=== PATIENT | female | born 1965 | race Caucasian/White ===

== ENCOUNTER 2019-09-16 18:18 | Inpatient (IN) | payer MEDICAID, MEDICARE, OTHER ==
[~2019-09-16 18:18] MED LIST: Iopamidol-370 76% 500 ML 1 ML ONE
[2019-09-16] MEDS ORDERED: Morphine 4 MG/ML VIAL ONE ×2 (21:03→22:06)
[2019-09-16] MEDS ORDERED: Ondansetron PF 4 MG/2 ML Vial ONE (21:03)
[2019-09-16 21:18] LABS: #Basophils 0.1 thou/uL (0.0-0.2); #Eosinphils 0.1 thou/uL (0.0-0.7); #Lymphocytes 2.6 thou/uL (1.20-3.40); #Monocytes 0.7 thou/uL (0.11-0.59); #Neutrophils 4.7 thou/uL (1.40-6.50); %Basophils 0.9 % (0.0-1.0); %Eosinophils 1.4 % (0.0-10.0); %Lymphocytes 32.2 % (21.0-51.0); %Neutrophils 57.5 % (42.0-75.0); Hemoglobin 9.3 g/dL (12.0-16.0); Mean Corpuscular HGB CONC 32.8 g/dL (32.0-36.0); Mean Corpuscular Hemoglobin 25.9 pg (27.0-31.0); Mean Corpuscular Volume 78.8 fL (78.0-98.0); Mean Platelet Volume 6.7 fL (7.4-10.4); Platelet Count 399 thou/uL (130-400); RBC Distribution Width 14.9 % (11.5-14.5); Red Blood Cell (RBC) Count 3.58 mill/uL (4.20-5.40); White Blood Cell (WBC) Count 8.2 thou/uL (4.8-10.8)
[2019-09-16 21:29] LABS: ALT (SGPT) 8 U/L (8-55); AST (SGOT) 12 U/L (5-34); Albumin 3.8 g/dL (3.5-5.0); Alkaline Phosphatase 163 U/L (40-110); Anion Gap 12 mmol/L (10-20); BUN (Urea Nitrogen) 10 mg/dL (9.8-20.1); Bilirubin, Total 0.2 mg/dL (0.2-1.2); Calc. Creatinine Clearance 0 mL/min (70-130); Calcium 9.3 mg/dL (7.8-10.44); Carbon Dioxide 29 mmol/L (22-29); Chloride 102 mmol/L (98-107); Estimated GFR-MDRD Greater than 90; Globulin 2.9 g/dL (2.4-3.5); Glucose 93 mg/dL (70-105); Potassium 3.5 mmol/L (3.5-5.1); Protein, Total 6.7 g/dL (6.0-8.3); Sodium 139 mmol/L (136-145)
--- NOTE | 2019-09-16 21:48 | CT ---
CT Chest Abd Pelvis W Con History: Pain Comparison: None. Findings: Lungs are without abnormal pulmonary nodule. Mild atelectasis. Thyroid is unremarkable. No pericardial effusion. Moderate-sized sliding hiatal hernia. Very large left breast mass with central necrosis with numerous satellite masses indicative of breast cancer. Abnormal left axillary lymph nodes. Spleen, pancreas, adrenal glands are unremarkable. No hydronephrosis. No dilated loops of large or small bowel. Liver is unremarkable. No internal mammary adenopathy. The scapula are intact. Osseous metastatic focus of the right fifth r ib with pathologic fracture. Healing fracture left posterior lateral ninth rib. The sternum and manubrium are intact. Lytic metastatic focus of the T5 vertebral body. Lytic and sclerotic mass of T12 with superior endplate compression fracture. Lytic and sclerotic focus of L1 with an incomplete burst fracture with retropulsion 2 to 3 mm. Sclero tic lesion of the left iliac wing. There is a left femoral neck fracture which appears late acute versus early subacute with sclerosis. There is also abnormal extrinsic is chronic focus right posteri or ilium. Impression: 1. Large left breast mass with multiple satellite nodules suggestive of breast cancer with metastatic left axillary lymph node. 2. Pathologic right fifth rib fracture. 3. Pathologic T12 and L1 fractures with the L1 fracture incomplete burst fracture with mild retropuls ion. 4. Left femoral neck fracture with some peripheral sclerosis likely late acute versus early subacute. 5. Metastatic focus of T5 vertebral body with low-grade superior endplate height loss. 6. T11 spinous process lytic metastatic focus. 7. Mixed sclerotic and lytic foci of the cervical spine for which MRI with without contrast recommend ed.
--- NOTE | 2019-09-16 22:59 | RAD ---
XR Femur Lt 2 View STANDARD History: Fracture evaluation Comparison: CT same day Findings: Left femoral neck fracture without significant displacement has some peripheral sclerosis. Remainder the femur is intact. Impression: Late acute versus early subacute left femoral neck fracture with early healing without si gnificant displacement.
--- NOTE | 2019-09-16 23:00 | RAD ---
XR Hip Lt 2-3 View History: Evaluate fracture Comparison: CT same day Findings: Similar appearance the left femoral neck fracture with some peripheral sclerosis. Fracture line is evident. Impression: No significant displacement of the healing late acute/early subacute left femoral neck fr acture.
[2019-09-17] MEDS ORDERED: Ketorolac Tromethamine 30 MG/ML VIAL ONE (00:20)
--- NOTE | 2019-09-17 00:53 | HP ---
The patient currently does not have a primary care physician. CHIEF COMPLAINT: Severe back pain and hurting in my leg and weakness in my legs. HISTORY OF PRESENT ILLNESS: Ms. Mosley is a very pleasant 54-year-old female, who had no significant past medical history with exception of bipolar disorder. She says that about 3-4 weeks ago, she started noticing pain in her lower back. She has had previous surgery and thought it could be related to this. She says she is very active and is usually outside of working in her yard, but the pain got progressively worse. She says she noticed some numbness and tingling in her left leg as well. She says that the pain would not improve after she has tried Aleve, Tylenol, heating pad, and rest. It kept getting worse to the point where she started having trouble walking. She would have weakness in her leg and would have to stumble along and hold on to things. She also noted some fever as well as chills, but no bowel or bladder difficulty. As a result of the worsening pain, she came to the ER for evaluation. X-ray of the femur and hip were done demonstrating pathological fracture and then a CT scan of the abdomen and pelvis was done noting a large breast mass, as well as a pathological rib fracture and multiple areas of what appears to be metastatic disease. She is being admitted for further evaluation and treatment. REVIEW OF SYSTEMS: CONSTITUTIONAL: She has had some fever, chills, but no night sweats. No weight loss. HEENT: No headaches. No dizziness. No visual changes. No sore throat, rhinorrhea, or neck pain. No adenopathy. PULMONARY: No hemoptysis. No cough. No wheezing. CARDIOVASCULAR: She had denies any chest pain. No shortness of breath. No PND. No orthopnea. GASTROINTESTINAL: No nausea, no vomiting. No change in bowels. No hematochezia. GENITOURINARY: No urinary frequency or hematuria. No hesitancy. MUSCULOSKELETAL: As history of present illness. SKIN AND INTEGUMENT: No skin changes. No rash. PSYCHIATRIC: No symptoms of anxiety or depression. PAST MEDICAL HISTORY: Significant for borderline diabetes mellitus and bipolar disorder. PAST SURGICAL HISTORY: She has had a hysterectomy surgery to remove her adenoids, back surgery, female surgery as well as hysterectomy with oophorectomy. SOCIAL HISTORY: She is a nonsmoker and nondrinker. She is single, has one son and would like to be a full code. ALLERGIES: NO KNOWN DRUG ALLERGIES. FAMILY HISTORY: Significant for a father, who had cancer and also hypertension. She says it was non-small cell, as well as small cell cancer. Mother also had cancer, as well as breast cancer in sister. Heart failure and diabetes also runs in the family. CURRENT MEDICATIONS: None. She says she stopped taking them a year ago. She had been on Remeron and Xanax for her bipolar disorder, as well as she says a seizure type medication for bipolar. PHYSICAL EXAMINATION: GENERAL: She is alert and oriented. She does appear to be chronically ill in appearance. She is well-developed and well-nourished. VITAL SIGNS: Blood pressure 137/80, heart rate 103, respiratory rate of 20, and she is afebrile. HEENT: Pupils are equal, round, and reactive. Extraocular muscles are intact. Her sclerae are anicteric. Throat; there is no erythema, no exudates. NECK: No adenopathy. No bruits. LUNGS: Clear to auscultation. There is no wheezing, no rales, no rhonchi. CARDIOVASCULAR: She has normal S1, S2. I did not appreciate an S3 or S4. No murmurs, clicks or rubs. ABDOMEN: Soft, nontender, and nondistended. Positive for bowel sounds. There is no rebound, no guarding. EXTREMITIES: She has a very large palpable mass on the left breast, which is extremely firm and hard in the upper outer quadrant and also a palpable axillary lymph node. No calf tenderness. No joint effusions. NEUROLOGIC: Exam is nonfocal. Muscle strength is 5/5 in both her upper and lower extremities. SKIN AND INTEGUMENT: No skin changes. No rash. LABORATORY DATA: Sodium is 139, potassium 3.5, chloride is 102, CO2 is 29, BUN of 10, creatinine 0.65, glucose is 93. White blood cell count is 8.2, hemoglobin 9.3, hematocrit is 28.2, and platelet count is 399. Sedimentation rate was 14. On her imaging, she had a CT scan of the chest, abdomen and pelvis, which revealed a large left breast mass with multiple satellite nodules suggestive of breast cancer with metastatic left axillary lymph node. There was a pathological fracture of the right rib, as well as pathologic T12 and L1 fractures with an L1 burst incomplete fracture. There is a left femoral neck fracture with some peripheral sclerosis, metastatic focus of the T5 vertebral body, T11 spinous process lytic metastatic focus, and mixed sclerotic and lytic foci of the cervical spine. EKG was performed, which was sinus tachycardia with no ST wave changes and that is by my reading. ASSESSMENT: This is a pleasant 54-year-old female, who appears to have advanced metastatic breast cancer. She also has what appears to be a pathological fracture of the left femur. She will be admitted and Orthopedic Surgery will be consulted. She has already been seen in the ER and the plan is to go to surgery tomorrow morning for repair of the femur fracture. I suspect at that time, a biopsy will be done to help determine what form of cancer this is. 1. Probable breast cancer. Oncology will be consulted and once pathology is available, can determine the best course of treatment. 2. She will need symptom control with pain medications and anti anxiety medication as needed. 3. Bipolar disorder. Currently, she is not suicidal or homicidal. She does not appear to be actively manic, but does have some depressive symptoms. We may be able to place her on her medications, possibly Tegretol was the medication she was referring to, but hopefully she can help obtain those records. Otherwise, she will be placed on deep venous thrombosis and gastrointestinal prophylaxis, and her condition is guarded at this time. Job ID: [id number]
[2019-09-17] MEDS ORDERED: Morphine 2 MG/ML SYRINGE SLOW IVP PRN (01:28)
[2019-09-17] MEDS ORDERED: hydrALAZINE 20 MG/ML VIAL SLOW IVP PRN (01:28)
[2019-09-17] MEDS ORDERED: Dextrose 50% Abboject 50 ML SYRINGE SLOW IVP PRN (01:28)
[2019-09-17] MEDS ORDERED: HYDROcodone/Acetaminophen 10/325 mg Tablet PO PRN (01:28)
[2019-09-17] MEDS ORDERED: HYDROcodone/Acetaminophen 5/325 mg Tablet PO PRN (01:28)
[2019-09-17] MEDS ORDERED: HumaLOG 300 UNITS/3 ML VIAL SC PRN ×2 (01:28)
[2019-09-17] MEDS ORDERED: Dextrose 5% in Water 1,000 ML IV PRN (01:28)
[2019-09-17] MEDS ORDERED: Ondansetron PF 4 MG/2 ML Vial IVP PRN ×2 (01:28→15:36)
[2019-09-17] MEDS: Morphine 4 MG/ML VIAL SLOW IVP PRN ×3 (01:51→10:28)
[2019-09-17 02:09] VITALS: BMI 26.6
[2019-09-17 04:31] LABS: #Basophils 0.1 thou/uL (0.0-0.2); #Eosinphils 0.1 thou/uL (0.0-0.7); #Lymphocytes 3.1 thou/uL (1.20-3.40); #Monocytes 0.6 thou/uL (0.11-0.59); #Neutrophils 2.8 thou/uL (1.40-6.50); %Eosinophils 2.1 % (0.0-10.0); %Lymphocytes 46.9 % (21.0-51.0); %Monocytes 8.3 % (0.0-10.0); %Neutrophils 41.7 % (42.0-75.0); Hemoglobin 8.8 g/dL (12.0-16.0); Mean Corpuscular HGB CONC 32.9 g/dL (32.0-36.0); Mean Corpuscular Hemoglobin 25.8 pg (27.0-31.0); Mean Corpuscular Volume 78.6 fL (78.0-98.0); Mean Platelet Volume 6.9 fL (7.4-10.4); Platelet Count 341 thou/uL (130-400); RBC Distribution Width 14.8 % (11.5-14.5); White Blood Cell (WBC) Count 6.6 thou/uL (4.8-10.8)
[2019-09-17 04:51] LABS: Anion Gap 11 mmol/L (10-20); BUN (Urea Nitrogen) 8 mg/dL (9.8-20.1); Calc. Creatinine Clearance 122 mL/min (70-130); Calcium 9.1 mg/dL (7.8-10.44); Carbon Dioxide 26 mmol/L (22-29); Chloride 105 mmol/L (98-107); Estimated GFR-MDRD Greater than 90; Glucose 88 mg/dL (70-105); Potassium 3.7 mmol/L (3.5-5.1); Sodium 138 mmol/L (136-145)
[2019-09-17] MEDS ORDERED: CEFAZOLIN 2 GM in Premix Bag 1 BAG IVPB SCH (07:15)
[2019-09-17] MEDS ORDERED: FLU VACC QS2019-20(6MOS UP)/PF 60 MCG/0.5 ML SYRINGE IM ONE (09:00)
--- NOTE | 2019-09-17 09:01 | CON ---
DATE OF CONSULTATION: CHIEF COMPLAINT: Left breast mass. HISTORY OF PRESENT ILLNESS: This is a 54-year-old female with a 6-month history of left breast mass that started lately. She has a family history of breast cancer in a paternal aunt, father of lymphoma. Last mammogram was over 2 years ago. PAST MEDICAL HISTORY: Back pain, bipolar, and hip pain. PAST SURGICAL HISTORY: Back surgery, total abdominal hysterectomy, tonsillectomy and adenoidectomy. MEDICATIONS: 1. Remeron. 2. Xanax. ALLERGIES: NO KNOWN DRUG ALLERGIES. SOCIAL HISTORY: She is single, disabled. No tobacco or alcohol. FAMILY HISTORY: Hypertension and diabetes. PHYSICAL EXAMINATION: VITAL SIGNS: Temperature 97.6, pulse 95, and blood pressure 108/58. GENERAL: Thin female, in a back brace. HEENT: Unremarkable. LUNGS: Clear. HEART: Regular rate and rhythm. BREASTS: She has a 6 x 8 cm rock-hard mass in the left breast with palpable lymph nodes. LABORATORY DATA: She has a white count of 6.6, hemoglobin and hematocrit of 8.8 and 26.7, platelet count 341. Electrolytes are fine. CT shows a large left breast mass with satellite lesions and visible lymph nodes. She has lytic lesions in T5, T12, and L1 as well as this left femur fracture, which is likely pathologic. ASSESSMENT: Metastatic breast cancer. PLAN: Core biopsy. We will need neoadjuvant treatment. Job ID: [id number]
[2019-09-17] MEDS: Enoxaparin Sodium 40 MG/0.4 ML SYRINGE SC SCH (09:14)
[2019-09-17] MEDS: Famotidine 20 MG TAB PO SCH ×2 (09:14→20:16)
[2019-09-17] MEDS ORDERED: Dexamethasone 20 MG/5 ML VIAL ONE (09:45)
[2019-09-17] MEDS ORDERED: PROPOFOL 200 MG/20 ML VIAL ONE (09:45)
[2019-09-17] MEDS ORDERED: Glycopyrrolate 0.2 MG/ML 5 ML SYRINGE ONE (09:45)
[2019-09-17] MEDS ORDERED: Rocuronium Bromide 10 MG/ML (10ML VIAL) ONE (09:45)
[2019-09-17] MEDS ORDERED: Lidocaine 1% PF 5 ML VIAL ONE (09:45)
[2019-09-17] MEDS ORDERED: Ondansetron PF 4 MG/2 ML Vial ONE (09:45)
[2019-09-17] MEDS ORDERED: Bupivacaine HCl 0.5%/Epinephrine 1:200,000/PF 30 ml Vial ONE (09:45)
--- NOTE | 2019-09-17 10:11 | CON ---
DATE OF CONSULTATION: 09/17/2019 REASON FOR CONSULTATION: Left hip and leg pain. HISTORY OF PRESENT ILLNESS: Ms. Mosley is a 54-year-old female, who presents with progressing back and hip pain for 3 to 4 weeks. She states she has been using a cane to make just walk short distances. The patient has had a previous history of low back surgery, states she has some groin pain. Her pain is currently 10/10, not ambulatory secondary to this. The patient has a history of bipolar disorder, not currently taking any medications. No other recent followup. She presented for this increasing hip and groin pain. States that she has had no recent significant weight loss. No recent evaluation or breast cancer screening. PAST MEDICAL HISTORY: Borderline diabetes, bipolar. PAST SURGICAL HISTORY: Hysterectomy; removal of adenoids, back surgery, not otherwise specified. ALLERGIES: NO KNOWN DRUG ALLERGIES. MEDICATIONS: Currently not taking medications. SOCIAL HISTORY: Nonsmoker and nondrinker. Single. Has one son, lives in [place]. The patient is disabled. REVIEW OF SYSTEMS: Noncontributory. PHYSICAL EXAMINATION: VITAL SIGNS: Temperature 97.6, pulse 95, respirations 18, oxygen saturation 98% , blood pressure 108/58. GENERAL: Alert and oriented female, in no acute distress. CHEST: Left chest shows a large firm nodule in the left breast. MUSCULOSKELETAL: Lower extremity shows pain with internal and external rotation of hip, localized to the groin. Pain with hip flexion. She is neurovascularly intact. She has negative straight leg raise. Stable knee. No effusion. No open wounds. LABORATORY DATA: Her hemoglobin and hematocrit are 8.8 and 26.7. Her chemistry shows a creatinine 0.68, alkaline phosphatase of 163, and calcium of 9.3. IMAGING: The patient had x-rays of her hip, which show a subacute versus acute versus chronic left femoral neck fracture. Femur films showed no lytic lesions or blastic lesions throughout. The patient's CT of her chest, abdomen, and pelvis shows a large left breast mass with satellite nodules consistent with potential breast cancer, metastatic disease to the left axillary lymph nodes, 5th rib fracture, T12-T11 compression fractures, left femoral neck fracture likely secondary to metastatic disease, cervical spine foci as well as T11 lytic foci. IMPRESSION: Metastatic cancer, unknown primary, likely breast based off imaging. Femoral neck fracture concerning for possible pathologic fracture. ASSESSMENT AND PLAN: I discussed with the patient that given her ambulation is diminishing that she likely has a pathologic fracture of her femoral neck that has led to this pain in her groin. I discussed the patient's care with Dr. Ivory Ariza . I spoke with Dr. Morales, who will plan to take a biopsy of her breast for diagnosis of the primary. Given the patient's femoral neck fracture as well as the new cancer diagnosis, plan will be for a left hip hemiarthroplasty, cemented hemiarthroplasty versus noncemented. I discussed with the patient if she lives more than 2 to 5 years, that potentially she may require a total hip arthroplasty for conversion. I discussed the risks and benefits of surgery, pain, scar, bleeding, infection, damage to vital structures, decreased range of motion and strength, infection, contamination, pathologic fracture above or below the implants, need for further surgery, loss of life or limb. The patient understands these risks and benefits. She understands that the plan of care will be she will likely need to be typed and screen, given the patient's low hemoglobin and hematocrit, likely require blood transfusion. She will need palliative radiation afterwards and then the patient will need chemo and radiation for breast mass before even considering excision. The patient understands all this plan. I will keep her n.p.o., on-call to the OR this afternoon. Job ID: [id number] [facility] SYSTEMGaby
[2019-09-17] MEDS ORDERED: Fentanyl 100 MCG/2 ML VIAL ONE ×6 (11:05→15:26)
[2019-09-17] MEDS ORDERED: Midazolam HCl 2 mg/2 ml Vial ONE (11:05)
[2019-09-17] MEDS ORDERED: Dexamethasone 4 mg/ml Vial ONE (11:10)
[2019-09-17] MEDS ORDERED: Promethazine HCl 25 MG/ML VIAL SLOW IVP PRN ×2 (15:00→15:38)
[2019-09-17] MEDS ORDERED: Promethazine HCl 25 MG/ML VIAL IM PRN ×3 (15:00→15:38)
[2019-09-17] MEDS ORDERED: Ondansetron HCl/PF 4 MG/2 ML Vial IVP PRN ×2 (15:00→15:38)
--- NOTE | 2019-09-17 15:06 | OP ---
DATE OF PROCEDURE: 09/17/2019 PREOPERATIVE DIAGNOSIS: Left breast mass. PROCEDURE PERFORMED: Core biopsy x3. INDICATIONS: This is a 54-year-old female, presented with a pathologic hip fracture, was found to have a large left breast mass. FINDINGS: 8 cm left breast mass, 3 samples were obtained. DESCRIPTION OF PROCEDURE: After informed consent was obtained, the patient was placed in supine position. Her breast was prepped and draped in usual fashion. An 11 blade was used to make a skin incision. The 14-gauge biopsy tool was inserted and fired with 3 samples, sent on a Telfa for pathology. Sterile bandage applied. The patient tolerated the procedure well, commenced with hip surgery. Job ID: [id number]
[2019-09-17] MEDS ORDERED: diphenhydrAMINE 25 MG CAP PO PRN (15:36)
[2019-09-17] MEDS ORDERED: diphenhydrAMINE 50 MG/ML VIAL IM PRN (15:36)
[2019-09-17] MEDS ORDERED: Zolpidem Tartrate 5 MG TAB PO PRN (15:36)
[2019-09-17] MEDS ORDERED: Naloxone HCl 0.4 mg/ml Vial IV PRN (15:36)
[2019-09-17] MEDS ORDERED: Morphine CADD 1 MG/ML CADD IVPB PRN (15:36)
[2019-09-17] MEDS ORDERED: diphenhydrAMINE 50 MG/ML VIAL IVP PRN (15:36)
--- NOTE | 2019-09-17 15:36 | RAD ---
Exam: XR Hip Lt 1 View HISTORY: Post left hip arthroplasty. COMPARISON: 09/16/2019 FINDINGS: There been interval postsurgical changes related to placement of a left total hip prosthesis. No hard teixeira complication is appreciated. IMPRESSION: Postsurgical changes related to interval placement of left total hip prosthesis.
--- NOTE | 2019-09-17 15:37 | RAD ---
EXAM: XR Pelvis AP STANDARD PROVIDED CLINICAL HISTORY: Post left hip prosthesis. COMPARISON: Views left femur on 09/16/2019. FINDINGS: Successful placement of left total hip prosthesis. No hardware complication is appreciated. No additi onal fracture or dislocation is identified on this exam. IMPRESSION: Interval post surgical changes related to placement of left total hip prosthesis.
[2019-09-17] MEDS ORDERED: Morphine Sulfate 2 MG/ML SYRINGE SLOW IVP PRN (15:38)
[2019-09-17] MEDS ORDERED: Morphine 4 MG/ML VIAL ONE ×3 (15:38→16:14)
[2019-09-17] MEDS ORDERED: Communication Order-Pharmacy FS SCH (15:45)
[2019-09-17] MEDS ORDERED: HYDROmorphone 2 MG/ML VIAL ONE (16:17)
--- NOTE | 2019-09-17 17:32 | PDOC.HOSPP ---
- Subjective Encounter Date: 09/17/19 Encounter Time: 17:00 Subjective: pt is in pacu post op, awake, c/o pain left hip no sob - Objective Vital Signs & Weight: Vital Signs (12 hours) Temp Pulse Resp BP Pulse Ox 09/17/19 08:23 98 09/17/19 08:00 97.7 F 70 18 111/57 L 97 Weight Admit Weight 155 lb 4.8 oz Weight 155 lb 4.8 oz I&O: 09/16/19 09/17/19 09/18/19 06:59 06:59 06:59 Intake Total 200 Balance 200 Result Diagrams: 09/17/19 04:05 09/17/19 04:05 Additional Labs: Accuchecks 09/17/19 10:42 POC Glucose 75 Hospitalist ROS - Medication Medications: Active Medications Generic Name Dose Route Start Last Admin Trade Name Freq PRN Reason Stop Dose Admin Enoxaparin Sodium 40 mg 09/17/19 09:00 09/17/19 09:14 Lovenox SC Not Given 0900 ESA Famotidine 20 mg 09/17/19 09:00 09/17/19 09:14 Pepcid PO Not Given BID ESA - Exam General Appearance: NAD, awake alert Eye: PERRL, anicteric sclera ENT: no oropharyngeal lesions, dry oral mucosa Neck: supple, no JVD Heart: RRR, no murmur Respiratory: no wheezes, no rales Gastrointestinal: soft, non-tender, non-distended, normal bowel sounds Extremities: no edema Extremities - other findings: left hip in dressing Neurological: cranial nerve grossly intact, no focal deficits Psychiatric: A&O x 3 Hosp A/P (1) Pathologic fracture of neck of left femur Code(s): M84.452A - PATHOLOGICAL FRACTURE, LEFT FEMUR, INIT ENCNTR FOR FRACTURE Status: Acute Qualifiers: Encounter type: subsequent encounter (2) Breast cancer Status: Acute Qualifiers: Patient sex: female Laterality: left (3) Bipolar disorder Code(s): F31.9 - BIPOLAR DISORDER, UNSPECIFIED Status: Chronic Qualifiers: Active/Remission status: in full remission (4) DM type 2 (diabetes mellitus, type 2) Status: Chronic - Plan likely left breast cancer with multiple mets including right 5th rib, T5, T12, L1, and left femoral neck with fracture is s/o hemiarthroplasty for left femoral neck and breast biopsy continue morphine, fentanyl, narco prn humalog sliding scale for now Hb around 8g, will likely need transfusion, will check labs in am post op recovering well guarded prognosis with multiple mets. PT/OT mobilization per ortho advice.
[2019-09-17] MEDS ORDERED: NS 0.9% w/ 20 MEQ KCL 1,000 ML/1,000 ML BAG IV SCH (18:00)
[2019-09-17] MEDS: Sodium Chloride 0.9% 1,000 ML IV SCH (18:00)
[2019-09-17] MEDS ORDERED: Cepastat Lozenges 1 LOZ PO PRN (19:21)
[2019-09-17] MEDS ORDERED: Fleet Enema 133 ML BOT PR PRN (19:21)
[2019-09-17] MEDS ORDERED: Milk Of Magnesia 30 ML UDCUP PO PRN (19:21)
[2019-09-17] MEDS: CEFAZOLIN 2 GM in Premix Bag 1 BAG IVPB SCH (20:13)
[2019-09-17] MEDS: Senokot S 8.6-50 MG TAB PO SCH (20:16)
[2019-09-17] MEDS: Ferrous Gluconate 324 MG TAB PO SCH (20:16)
[2019-09-18] MEDS: Ondansetron ODT 4 MG TAB PO PRN (00:37)
[2019-09-18] MEDS ORDERED: Sodium Chloride 0.65% Nasal 44 ML BOT EA NARE PRN (01:06)
[2019-09-18] MEDS: CEFAZOLIN 2 GM in Premix Bag 1 BAG IVPB SCH (04:00)
[2019-09-18 04:31] LABS: Mean Corpuscular HGB CONC 32.2 g/dL (32.0-36.0); Mean Corpuscular Hemoglobin 25.8 pg (27.0-31.0); Mean Corpuscular Volume 80.2 fL (78.0-98.0); Platelet Count 381 thou/uL (130-400); RBC Distribution Width 15.3 % (11.5-14.5); Red Blood Cell (RBC) Count 3.47 mill/uL (4.20-5.40); White Blood Cell (WBC) Count 10.3 thou/uL (4.8-10.8)
--- NOTE | 2019-09-18 08:08 | OP ---
DATE OF PROCEDURE: 09/17/2019 PREOPERATIVE DIAGNOSIS: Left pathologic femoral neck fractures, likely secondary to breast cancer. POSTOPERATIVE DIAGNOSIS: Left pathologic femoral neck fractures, likely secondary to breast cancer. PROCEDURE PERFORMED: Left hip hemiarthroplasty, cemented. TIMEKEEPER SUPERVISOR: Ameya Bond PA-C ANESTHESIA: The patient received a general intubation. ESTIMATED BLOOD LOSS: 300 mL. TOURNIQUET TIME: None. IMPLANTS: Accolade C 130 degree cemented hip stem size 4, a 28 mm -4 head, and UHR universal head 45 mm bipolar component. ANTIBIOTICS: Ancef 2 g. ESTIMATED BLOOD LOSS: 20 mL. She received 1 unit of blood. FLUIDS: 1 L fluid. URINE OUTPUT: 200. COMPLICATIONS: None. HISTORY OF PRESENT ILLNESS: Dimitri is a 54-year-old female, who presented with left hip pain. CT scan showed a breast mass, in which Dr. Morales came in before my procedure and did a breast biopsy for primary. Discussed with the patient risks and benefits of a left hip hemiarthroplasty, cemented. Discussed need for potential radiation. I have discussed with the patient, we will have to await final staging for prognosis. The patient understood the risks and benefits of the procedure include pain, scar, bleeding, infection, damage to vital structures, decreased range of motion and strength, need for further surgery, loss of life or limb, fracture above or below, pathologic fracture, need for further surgeries, dislocation. The patient understood these risks and benefits and elected to proceed. DESCRIPTION OF PROCEDURE: Time-out was performed designating the patient's left lower extremity as the operative site based on site, consents, and marking. After time-out, the patient received preop antibiotics. We made a lateral incision, made down through skin, IT band, took down the gluteus medius and minimus. T'd the capsule, which we held for closure. We came down on the head as we tried to dissect the head, it broke, completed, subcapital piece. We cut the neck in one en bloc, which we sent to the path. We then used a corkscrew to remove the head. We washed the joint and looked for any fragments within the joint. We then started to sequentially broaching up to finally on the floor where we had to shorten our neck as the patient had a very small head and short neck, back to 4. [place] we had good overall reduction, lengths, and alignments. I was pleased, therefore we washed. We cemented in the size 4, allowed it to harden, reduced our bipolar prosthesis with good overall rotational length. We washed and closed the capsule that we had T'd with #2 Vicryl. We closed the gluteus minimus and medius. There was some softening of the tuberosity which makes me concerned about mets , which makes me concerned about mets within the trochanter. We closed the medius and minimus, closed the IT band with 2-0 Quill and glue for the skin. The patient will be admitted back to Medicine. She will be weightbearing as tolerated of left lower extremity. She received 24 hours of antibiotics. The patient will have DVT prophylaxis for medicine. We followed in-house likely need radiation dose. We will await the final pathology specimen. Job ID: [id number]
[2019-09-18] MEDS: Multivitamin W/ Minerals 1 TAB PO SCH (09:20)
[2019-09-18] MEDS: Senokot S 8.6-50 MG TAB PO SCH ×2 (09:20→20:26)
[2019-09-18] MEDS: Ferrous Gluconate 324 MG TAB PO SCH ×2 (09:20→20:25)
[2019-09-18] MEDS: Famotidine 20 MG TAB PO SCH ×2 (09:21→20:25)
[2019-09-18] MEDS: Enoxaparin Sodium 40 MG/0.4 ML SYRINGE SC SCH (09:21)
--- NOTE | 2019-09-18 12:09 | PDOC.HOSPP ---
- Subjective Encounter Date: 09/18/19 Encounter Time: 10:00 Subjective: awake, no sob has left hip pain but better now - Objective Vital Signs & Weight: Vital Signs (12 hours) Temp Pulse Resp BP Pulse Ox 09/18/19 08:00 100 09/18/19 07:55 98.7 F 102 H 16 111/55 L 100 09/18/19 03:59 99.2 F 102 H 16 101/59 L 96 Weight Admit Weight 155 lb 4.8 oz Weight 155 lb 4.8 oz I&O: 09/17/19 09/18/19 09/19/19 06:59 06:59 06:59 Intake Total 200 1100 Output Total 1750 Balance 200 -650 Result Diagrams: 09/18/19 04:00 09/17/19 04:05 Additional Labs: Accuchecks 09/18/19 09/18/19 09/17/19 11:25 05:45 22:05 POC Glucose 91 101 197 H 09/17/19 17:56 POC Glucose 116 H Hospitalist ROS - Medication Medications: Active Medications Generic Name Dose Route Start Last Admin Trade Name Freq PRN Reason Stop Dose Admin Enoxaparin Sodium 40 mg 09/17/19 09:00 09/18/19 09:21 Lovenox SC 40 mg 0900 ESA Administration Famotidine 20 mg 09/17/19 09:00 09/18/19 09:21 Pepcid PO 20 mg BID ESA Administration Ferrous Gluconate 324 mg 09/17/19 21:00 09/18/19 09:20 Fergon PO 324 mg BID ESA Administration Sodium Chloride 1,000 mls @ 30 mls/hr 09/17/19 18:00 09/17/19 18:00 Normal Saline 0.9% IV Not Given .Q24H ESA Iron/Minerals/Multivitamins 1 tab 09/18/19 09:00 09/18/19 09:20 Theragran M PO 1 tab DAILY ESA Administration Ondansetron HCl 4 mg 09/17/19 01:28 09/18/19 00:37 Zofran Odt PO 4 mg Q6H PRN Administration Nausea/Vomiting Senna/Docusate Sodium 2 tab 09/17/19 21:00 09/18/19 09:20 Senokot S PO 2 tab BID ESA Administration - Exam General Appearance: awake alert Eye: PERRL, anicteric sclera ENT: no oropharyngeal lesions, moist mucosa Neck: supple, no JVD Heart: RRR, no murmur Respiratory: no wheezes, no rales Gastrointestinal: soft, non-tender, non-distended, normal bowel sounds Extremities: no cyanosis, no edema Neurological: cranial nerve grossly intact, no focal deficits Psychiatric: normal affect, A&O x 3 Hosp A/P (1) Pathologic fracture of neck of left femur Code(s): M84.452A - PATHOLOGICAL FRACTURE, LEFT FEMUR, INIT ENCNTR FOR FRACTURE Status: Acute Qualifiers: Encounter type: subsequent encounter (2) Breast cancer Status: Acute Qualifiers: Patient sex: female Laterality: left (3) Bipolar disorder Code(s): F31.9 - BIPOLAR DISORDER, UNSPECIFIED Status: Chronic Qualifiers: Active/Remission status: in full remission (4) DM type 2 (diabetes mellitus, type 2) Status: Chronic - Plan likely left breast cancer with multiple mets including right 5th rib, T5, T12, L1, and left femoral neck with fracture s/o hemiarthroplasty for left femoral neck and breast biopsy continue morphine, fentanyl, narco prn humalog sliding scale for now Hb around 9g post op recovering well guarded prognosis with multiple mets. PT/OT mobilization per ortho advice. will need rehab/swing bed for dc plan
[2019-09-18] MEDS ORDERED: diphenhydrAMINE 50 MG/ML VIAL IVP PRN (14:49)
[2019-09-18] MEDS ORDERED: Promethazine HCl 25 MG/ML VIAL IM PRN (14:49)
[2019-09-18] MEDS ORDERED: diphenhydrAMINE 50 MG/ML VIAL IM PRN (14:49)
[2019-09-18] MEDS ORDERED: Ondansetron PF 4 MG/2 ML Vial IVP PRN (14:49)
[2019-09-18] MEDS ORDERED: fentaNYL Citrate/PF 2,000 MCG in Sodium Chloride 0.9% 60 ML IV PRN (14:49)
[2019-09-18] MEDS ORDERED: Naloxone HCl 0.4 mg/ml Vial IV PRN (14:49)
[2019-09-18] MEDS ORDERED: Zolpidem Tartrate 5 MG TAB PO PRN (14:49)
[2019-09-18] MEDS ORDERED: diphenhydrAMINE 25 MG CAP PO PRN (14:49)
[2019-09-18] MEDS ORDERED: Communication Order-Pharmacy FS SCH (15:00)
--- NOTE | 2019-09-18 15:59 | CON ---
DATE OF CONSULTATION: REASON FOR CONSULTATION: Breast cancer. HISTORY OF PRESENT ILLNESS: Ms. Mosley is a pleasant 54-year-old female, who presented to the emergency room with back pain and left leg weakness. She has been having pain for quite some time, but this past week began to have weakness in her legs. She also has noted a left breast mass present for over 6 months that also recently became tender. In the emergency room, she had a CT of the chest, abdomen, and pelvis. There was a lytic and sclerotic mass at T12 with a compression fraction. There was one at L1, one at the left iliac wing. There was a left femoral neck fracture. There was a very large left breast mass with central necrosis. There were multiple satellite masses. She had left axillary lymph adenopathy. Dr. Morales and orthopedists for consulted. She went to surgery for her left femoral neck fracture repair. She also had a left breast biopsy during this procedure. She is recovering at bedside. She still has some pain in her left leg, but denies any other symptoms. The patient was seen at bedside with family present. PAST MEDICAL HISTORY: Bipolar disease. PAST SURGICAL HISTORY: Hysterectomy, back surgery. ALLERGIES: NO KNOWN DRUG ALLERGIES. HOME MEDICATIONS: Ibuprofen p.r.n. FAMILY HISTORY: Her great aunt had "female cancer." Her cousins had breast cancer. SOCIAL HISTORY: Lives with a significant other. No alcohol, tobacco, or illicit drug use. REVIEW OF SYSTEMS: Ten-point review of systems is negative except for noted in HPI. PHYSICAL EXAMINATION: VITAL SIGNS: Temperature is 98.7, pulse is 102, respiratory rate 16, blood pressure is 111/55, and she is 100% on room air. GENERAL: This is a well-developed, well-nourished female, in no acute distress. HEENT: Normocephalic, atraumatic. Pupils are equal and reactive to light. Poor dentition. NECK: Supple. CARDIOVASCULAR: Regular rate and rhythm. LUNGS: Clear anterior. ABDOMEN: Soft and nontender. Bowel sounds are positive. EXTREMITIES: She has a dressing to her left hip. SKIN: No rash. BREASTS: Her left breast has a large greater than 5-cm palpable mass with dressing intact from biopsy. NEUROLOGICAL: She has a brace on and is nonfocal. PSYCH: She is alert and oriented. PERTINENT LABS AND X-RAYS: Current WBCs are 10.3, hemoglobin 9, hematocrit 27.8, platelet count is 381,000, 42% neutrophils, 47% lymphocytes. Sodium 138, potassium 3.7, chloride 101, CO2 is 26, BUN is 8, creatinine is 0.6, calcium 9.1, bilirubin 0.2, AST is 12, ALT is 8, alkaline phosphatase is 163. Serum total protein 6.7, albumin 3.8, and globulin 2.9. ASSESSMENT: 1. Metastatic breast cancer. 2. Left pathological femur head fracture, status post repair. DISCUSSION: The patient is recovering from her surgery. She is working with PT and will likely go to rehab in the next several days. Her breast biopsy is currently pending. We discussed briefly that this will likely be a breast cancer. She is a candidate for chemotherapy likely radiation at some point as well as surgery. She was provided our clinic information, instructed to call us to make an appointment once she is leaving rehab. We will follow up on her path results and follow her hospital course remotely. Thank you for the consult. Job ID: [id number]
[2019-09-18] MEDS: Sodium Chloride 0.9% 1,000 ML IV SCH (17:41)
[2019-09-19] MEDS: Acetaminophen 325 MG TAB PO PRN ×2 (00:12→04:11)
[2019-09-19 04:29] LABS: Hemoglobin 8.2 g/dL (12.0-16.0); Mean Corpuscular HGB CONC 32.6 g/dL (32.0-36.0); Mean Corpuscular Hemoglobin 25.7 pg (27.0-31.0); Platelet Count 316 thou/uL (130-400); RBC Distribution Width 16.1 % (11.5-14.5); Red Blood Cell (RBC) Count 3.19 mill/uL (4.20-5.40); White Blood Cell (WBC) Count 6.9 thou/uL (4.8-10.8)
--- NOTE | 2019-09-19 09:36 | PDOC.MOPN ---
Interval History: working with PT and states feeling pretty good - Vital Signs Vital Signs: Vital Signs (12 hours) Temp Pulse Resp BP Pulse Ox 09/19/19 04:32 100.2 F H 128 H 14 121/60 97 09/19/19 00:28 99.9 F H 108 H 16 127/75 100 Weight Admit Weight 155 lb 4.8 oz Weight 155 lb 4.8 oz - Physical Exam General: Alert, Oriented x3, No acute distress HEENT: Atraumatic, PERRLA, EOMI, Mucous membr. moist/pink Lungs: Clear to auscultation, Normal air movement Cardiovascular: Regular rate, Normal S1, Normal S2, No murmurs, Gallops, Rubs Abdomen: Normal bowel sounds, Soft, No tenderness, No hepatospenomegaly, No masses Extremities: Other Skin: No rashes, No breakdown, No significant lesion Neurological: Other - Labs Result Diagrams: 09/19/19 03:58 09/17/19 04:05 Lab results: Laboratory Results - last 24 hr 09/19/19 05:46: POC Glucose 104 09/19/19 03:58: WBC 6.9, RBC 3.19 L, Hgb 8.2 L, Hct 25.2 L, MCV 79.0, MCH 25.7 L , MCHC 32.6, RDW 16.1 H, Plt Count 316, MPV 7.0 L 09/18/19 19:29: POC Glucose 86 09/18/19 16:40: POC Glucose 111 H 09/18/19 11:25: POC Glucose 91 Status: lab reviewed by me A/P - Problem (1) Microcytic anemia Current Visit: Yes Code(s): D50.9 - IRON DEFICIENCY ANEMIA, UNSPECIFIED Status: Acute (2) Breast cancer Current Visit: Yes Status: Acute Qualifiers: Patient sex: female Laterality: left (3) Pathologic fracture of neck of left femur Current Visit: Yes Code(s): M84.452A - PATHOLOGICAL FRACTURE, LEFT FEMUR, INIT ENCNTR FOR FRACTURE Status: Acute Qualifiers: Encounter type: subsequent encounter - Plan Plan: Check iron studies and IV iron if low Continue PT/Rehab await path follow-up in clinic.
[2019-09-19] MEDS: Aspirin 81 mg Enteric Coated Tablet PO SCH ×2 (10:04→20:30)
[2019-09-19] MEDS: Enoxaparin Sodium 40 MG/0.4 ML SYRINGE SC SCH (10:05)
[2019-09-19] MEDS: Ferrous Gluconate 324 MG TAB PO SCH ×2 (10:05→20:30)
[2019-09-19] MEDS: Senokot S 8.6-50 MG TAB PO SCH ×2 (10:05→20:30)
[2019-09-19] MEDS: Multivitamin W/ Minerals 1 TAB PO SCH (10:05)
[2019-09-19 12:19] LABS: Iron 13 ug/dL (50-170); Iron Binding Capacity, Total 295 mcg/dL (265-497)
--- NOTE | 2019-09-19 12:44 | PDOC.HOSPP ---
- Subjective Encounter Date: 09/19/19 Encounter Time: 11:00 Subjective: c/o pain at surgical site no sob - Objective Vital Signs & Weight: Vital Signs (12 hours) Temp Pulse Resp BP Pulse Ox 09/19/19 12:00 98.4 F 112 H 18 110/75 96 09/19/19 07:55 98.2 F 110 H 18 109/73 95 09/19/19 04:32 100.2 F H 128 H 14 121/60 97 Weight Admit Weight 155 lb 4.8 oz Weight 155 lb 4.8 oz I&O: 09/18/19 09/19/19 09/20/19 06:59 06:59 06:59 Intake Total 1100 634.5 36 Output Total 1750 2150 Balance -650 -1515.5 36 Result Diagrams: 09/19/19 03:58 09/17/19 04:05 Additional Labs: Accuchecks 09/19/19 09/19/19 09/18/19 11:00 05:46 19:29 POC Glucose 95 104 86 09/18/19 16:40 POC Glucose 111 H Hospitalist ROS - Medication Medications: Active Medications Generic Name Dose Route Start Last Admin Trade Name Freq PRN Reason Stop Dose Admin Acetaminophen 650 mg 09/17/19 01:28 09/19/19 04:11 Tylenol PO 650 mg Q4H PRN Administration Headache/Fever/Mild Pain (1-3) Aspirin 81 mg 09/19/19 09:00 09/19/19 10:04 Ecotrin PO 81 mg BID ESA Administration Enoxaparin Sodium 40 mg 09/17/19 09:00 09/19/19 10:05 Lovenox SC 40 mg 09 ESA Administration Famotidine 20 mg 09/17/19 09:00 09/18/19 20:25 Pepcid PO 20 mg BID ESA Administration Ferrous Gluconate 324 mg 09/17/19 21:00 09/19/19 10:05 Fergon PO 324 mg BID ESA Administration Sodium Chloride 1,000 mls @ 30 mls/hr 09/17/19 18:00 09/18/19 17:41 Normal Saline 0.9% IV 1,000 mls .Q24H ESA Administration Iron/Minerals/Multivitamins 1 tab 09/18/19 09:00 09/19/19 10:05 Theragran M PO 1 tab DAILY ESA Administration Ondansetron HCl 4 mg 09/17/19 01:28 09/18/19 00:37 Zofran Odt PO 4 mg Q6H PRN Administration Nausea/Vomiting Senna/Docusate Sodium 2 tab 09/17/19 21:00 09/19/19 10:05 Senokot S PO 2 tab BID ESA Administration Sodium Chloride 10 ml 09/17/19 07:16 09/19/19 10:06 Flush - Normal Saline IVF 10 ml PRN PRN Administration Saline Flush - Exam General Appearance: awake alert Eye: PERRL, anicteric sclera ENT: no oropharyngeal lesions, moist mucosa Neck: supple, no JVD Heart: RRR, no murmur Respiratory: no wheezes, no rales Gastrointestinal: soft, non-tender, non-distended, normal bowel sounds Extremities: no cyanosis, no edema Neurological: cranial nerve grossly intact, no focal deficits Psychiatric: normal affect, A&O x 3 Hosp A/P (1) Pathologic fracture of neck of left femur Code(s): M84.452A - PATHOLOGICAL FRACTURE, LEFT FEMUR, INIT ENCNTR FOR FRACTURE Status: Acute Qualifiers: Encounter type: subsequent encounter (2) Breast cancer Status: Acute Qualifiers: Patient sex: female Laterality: left (3) Bipolar disorder Code(s): F31.9 - BIPOLAR DISORDER, UNSPECIFIED Status: Chronic Qualifiers: Active/Remission status: in full remission (4) DM type 2 (diabetes mellitus, type 2) Status: Chronic - Plan Invasive ductal left breast cancer with multiple mets including right 5th rib, T5, T12, L1, and left femoral neck with fracture s/o hemiarthroplasty for left femoral neck and breast biopsy continue morphine, fentanyl, narco prn humalog sliding scale for now Hb around 9g post op recovering well guarded prognosis with multiple mets. PT/OT mobilization per ortho advice. 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
[2019-09-19] MEDS ORDERED: Iron Sucrose Complex 200 MG in Sodium Chloride 0.9% 250 ML 250 ML IVPB SCH (13:30)
[2019-09-19] MEDS: Ondansetron ODT 4 MG TAB PO PRN (17:57)
[2019-09-19] MEDS: Famotidine 20 MG TAB PO SCH ×2 (19:24→20:30)
[2019-09-19] MEDS: Sodium Chloride 0.9% 1,000 ML IV SCH (20:30)
[2019-09-20 04:25] LABS: Hemoglobin 8.5 g/dL (12.0-16.0); Mean Corpuscular HGB CONC 32.3 g/dL (32.0-36.0); Mean Corpuscular Hemoglobin 25.7 pg (27.0-31.0); Mean Corpuscular Volume 79.4 fL (78.0-98.0); Platelet Count 268 thou/uL (130-400); RBC Distribution Width 16.2 % (11.5-14.5); Red Blood Cell (RBC) Count 3.32 mill/uL (4.20-5.40); White Blood Cell (WBC) Count 6.4 thou/uL (4.8-10.8)
[2019-09-20] MEDS: fentaNYL Citrate/PF 2,000 MCG in Sodium Chloride 0.9% 60 ML IV PRN ×2 (09:00→21:10)
[2019-09-20] MEDS: Aspirin 81 mg Enteric Coated Tablet PO SCH ×2 (09:06→20:18)
[2019-09-20] MEDS: Ferrous Gluconate 324 MG TAB PO SCH ×2 (09:06→20:18)
[2019-09-20] MEDS: Senokot S 8.6-50 MG TAB PO SCH ×2 (09:06→20:18)
[2019-09-20] MEDS: Famotidine 20 MG TAB PO SCH ×2 (09:07→20:19)
[2019-09-20] MEDS: Multivitamin W/ Minerals 1 TAB PO SCH (09:07)
[2019-09-20] MEDS: Enoxaparin Sodium 40 MG/0.4 ML SYRINGE SC SCH (09:07)
[2019-09-20] MEDS ORDERED: Lorazepam 2 MG/ML VIAL SLOW IVP PRN ×2 (11:13→11:17)
--- NOTE | 2019-09-20 11:38 | PDOC.HOSPP ---
- Subjective Encounter Date: 09/20/19 Encounter Time: 10:45 Subjective: c/o chest dyscomfort going to the back, no sob is eating breakfast mobilizing to commode and chair - Objective Vital Signs & Weight: Vital Signs (12 hours) Temp Pulse Resp BP 09/20/19 08:00 97.8 F 103 H 18 127/74 Weight Admit Weight 155 lb 4.8 oz Weight 155 lb 4.8 oz I&O: 09/19/19 09/20/19 09/21/19 06:59 06:59 06:59 Intake Total 634.5 3391.0 Output Total 2150 2150 Balance -1515.5 1241.0 Result Diagrams: 09/20/19 03:52 09/17/19 04:05 Additional Labs: Accuchecks 09/20/19 09/19/19 06:06 15:53 POC Glucose 94 92 Hospitalist ROS - Medication Medications: Active Medications Generic Name Dose Route Start Last Admin Trade Name Freq PRN Reason Stop Dose Admin Acetaminophen 650 mg 09/17/19 01:28 09/19/19 04:11 Tylenol PO 650 mg Q4H PRN Administration Headache/Fever/Mild Pain (1-3) Aspirin 81 mg 09/19/19 09:00 09/20/19 09:06 Ecotrin PO 81 mg BID ESA Administration Enoxaparin Sodium 40 mg 09/17/19 09:00 09/20/19 09:07 Lovenox SC 40 mg 0900 ESA Administration Famotidine 20 mg 09/17/19 09:00 09/20/19 09:07 Pepcid PO 20 mg BID ESA Administration Ferrous Gluconate 324 mg 09/17/19 21:00 09/20/19 09:06 Fergon PO 324 mg BID ESA Administration Sodium Chloride 1,000 mls @ 30 mls/hr 09/17/19 18:00 09/19/19 20:30 Normal Saline 0.9% IV 1,000 mls .Q24H ESA Administration Fentanyl Citrate 2,000 mcg/ 100 mls @ 0 mls/hr 09/19/19 08:37 09/20/19 09:00 Sodium Chloride IV 100 mls INF PRN Administration Pain As Directed Iron/Minerals/Multivitamins 1 tab 09/18/19 09:00 09/20/19 09:07 Theragran M PO 1 tab DAILY ESA Administration Ondansetron HCl 4 mg 09/17/19 01:28 09/19/19 17:57 Zofran Odt PO 4 mg Q6H PRN Administration Nausea/Vomiting Senna/Docusate Sodium 2 tab 09/17/19 21:00 09/20/19 09:06 Senokot S PO 2 tab BID ESA Administration Sodium Chloride 10 ml 09/17/19 07:16 09/19/19 10:06 Flush - Normal Saline IVF 10 ml PRN PRN Administration Saline Flush - Exam General Appearance: awake alert Eye: PERRL, anicteric sclera ENT: no oropharyngeal lesions, moist mucosa Neck: supple, no JVD Heart: RRR, no murmur Respiratory: no wheezes, no rales Gastrointestinal: soft, non-tender, non-distended Extremities: no cyanosis, no edema Neurological: cranial nerve grossly intact, no focal deficits Psychiatric: A&O x 3 Hosp A/P (1) Pathologic fracture of neck of left femur Code(s): M84.452A - PATHOLOGICAL FRACTURE, LEFT FEMUR, INIT ENCNTR FOR FRACTURE Status: Acute Qualifiers: Encounter type: subsequent encounter (2) Breast cancer Status: Acute Qualifiers: Patient sex: female Laterality: left (3) Bipolar disorder Code(s): F31.9 - BIPOLAR DISORDER, UNSPECIFIED Status: Chronic Qualifiers: Active/Remission status: in full remission (4) DM type 2 (diabetes mellitus, type 2) Status: Chronic - Plan Invasive ductal left breast cancer with multiple mets including right 5th rib, T5, T12, L1, and left femoral neck with fracture s/o hemiarthroplasty for left femoral neck and breast biopsy continue morphine, fentanyl, narco prn humalog sliding scale for now Hb around 9g post op recovering well guarded prognosis with multiple mets. PT/OT mobilization per ortho advice. 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
[2019-09-20] MEDS: Lorazepam 1 MG TAB PO PRN (11:47)
--- NOTE | 2019-09-20 11:56 | RAD ---
Chest AP view INDICATION: Chest pain radiating to the back COMPARISON: None FINDINGS: Lungs:There is bibasilar volume loss Cardiac silhouette:There is mild cardiomegaly Pulmonary vasculature:Normal Pleural spaces:No pleural effusion or pneumothorax is demonstrated. Upper abdomen:No abnormality seen. Osseous structures: No acute osseous abnormality. Additional findings:None. IMPRESSION: Bibasilar volume loss. Mild cardiomegaly without overt evidence of cardiac decompensation .
[2019-09-20] MEDS: Bisacodyl 10 MG SUPP PR PRN (17:32)
[2019-09-20] MEDS: Sodium Chloride 0.9% 1,000 ML IV SCH (20:18)
[2019-09-21] MEDS: Acetaminophen 325 MG TAB PO PRN (03:28)
[2019-09-21] MEDS: Lorazepam 1 MG TAB PO PRN (03:30)
[2019-09-21] MEDS: Aspirin 81 mg Enteric Coated Tablet PO SCH ×2 (09:10→21:02)
[2019-09-21] MEDS: Senokot S 8.6-50 MG TAB PO SCH ×2 (09:10→21:01)
[2019-09-21] MEDS: Ferrous Gluconate 324 MG TAB PO SCH ×2 (09:10→21:01)
[2019-09-21] MEDS: Enoxaparin Sodium 40 MG/0.4 ML SYRINGE SC SCH (09:11)
[2019-09-21] MEDS: Multivitamin W/ Minerals 1 TAB PO SCH (09:13)
[2019-09-21] MEDS: Famotidine 20 MG TAB PO SCH ×2 (09:13→21:02)
[2019-09-21] MEDS ORDERED: HYDROcodone/Acetaminophen 10/325 mg Tablet PO PRN (13:17)
--- NOTE | 2019-09-21 13:27 | PDOC.HOSPP ---
- Subjective Encounter Date: 09/21/19 Encounter Time: 09:00 Subjective: c/o upper back, lower back and shoulder pain, no sob is sitting in chair - Objective Vital Signs & Weight: Vital Signs (12 hours) Temp Pulse Resp BP Pulse Ox 09/21/19 08:00 97.7 F 88 16 113/74 100 Weight Admit Weight 155 lb 4.8 oz Weight 155 lb 4.8 oz I&O: 09/20/19 09/21/19 09/22/19 06:59 06:59 06:59 Intake Total 3391.0 1070.6 54 Output Total 2150 1100 Balance 1241.0 1070.6 -1046 Result Diagrams: 09/20/19 03:52 09/17/19 04:05 Additional Labs: Accuchecks 09/21/19 09/20/19 09/20/19 05:18 20:25 15:53 POC Glucose 103 100 85 Hospitalist ROS - Medication Medications: Active Medications Generic Name Dose Route Start Last Admin Trade Name Freq PRN Reason Stop Dose Admin Acetaminophen 650 mg 09/17/19 01:28 09/21/19 03:28 Tylenol PO 650 mg Q4H PRN Administration Headache/Fever/Mild Pain (1-3) Aspirin 81 mg 09/19/19 09:00 09/21/19 09:10 Ecotrin PO 81 mg BID ESA Administration Bisacodyl 10 mg 09/17/19 19:21 09/20/19 17:32 Dulcolax [place] 10 mg DAILYPRN PRN Administration Constipation Enoxaparin Sodium 40 mg 09/17/19 09:00 09/21/19 09:11 Lovenox SC 40 mg 09 ESA Administration Famotidine 20 mg 09/17/19 09:00 09/21/19 09:13 Pepcid PO 20 mg BID ESA Administration Ferrous Gluconate 324 mg 09/17/19 21:00 09/21/19 09:10 Fergon PO 324 mg BID ESA Administration Sodium Chloride 1,000 mls @ 30 mls/hr 09/17/19 18:00 09/20/19 20:18 Normal Saline 0.9% IV 1,000 mls .Q24H ESA Administration Iron/Minerals/Multivitamins 1 tab 09/18/19 09:00 09/21/19 09:13 Theragran M PO 1 tab DAILY ESA Administration Lorazepam 1 mg 09/20/19 11:23 09/21/19 03:30 Ativan PO 1 mg Q4H PRN Administration Anxiety Ondansetron HCl 4 mg 09/17/19 01:28 09/19/19 17:57 Zofran Odt PO 4 mg Q6H PRN Administration Nausea/Vomiting Senna/Docusate Sodium 2 tab 09/17/19 21:00 09/21/19 09:10 Senokot S PO 2 tab BID ESA Administration Sodium Chloride 10 ml 09/17/19 07:16 09/19/19 10:06 Flush - Normal Saline IVF 10 ml PRN PRN Administration Saline Flush - Exam General Appearance: awake alert Eye: PERRL, anicteric sclera ENT: no oropharyngeal lesions, moist mucosa Neck: supple, no JVD Heart: RRR, no murmur Respiratory: no wheezes, no rales Gastrointestinal: soft, non-tender, non-distended, normal bowel sounds Extremities: no cyanosis, no edema Neurological: cranial nerve grossly intact, no focal deficits Psychiatric: normal affect, A&O x 3 Hosp A/P (1) Pathologic fracture of neck of left femur Code(s): M84.452A - PATHOLOGICAL FRACTURE, LEFT FEMUR, INIT ENCNTR FOR FRACTURE Status: Acute Qualifiers: Encounter type: subsequent encounter (2) Breast cancer Status: Acute Qualifiers: Patient sex: female Laterality: left (3) Bipolar disorder Code(s): F31.9 - BIPOLAR DISORDER, UNSPECIFIED Status: Chronic Qualifiers: Active/Remission status: in full remission (4) DM type 2 (diabetes mellitus, type 2) Status: Chronic - Plan Invasive ductal left breast cancer with multiple mets including right 5th rib, T5, T12, L1, and left femoral neck with fracture s/o hemiarthroplasty for left femoral neck and breast biopsy continue morphine, fentanyl tts, narco prn. Is off CUTTER OUT this am humalog sliding scale for now Hb around 9g post op recovering slowly, still has pain issues guarded prognosis with multiple mets. PT/OT mobilization per ortho advice. May dc to inpt rehab if OK with ortho. pastoral consultation
[2019-09-21] MEDS: Ondansetron ODT 4 MG TAB PO PRN (13:52)
[2019-09-21] MEDS ORDERED: Zolpidem Tartrate 5 MG TAB PO PRN (16:30)
[2019-09-21] MEDS ORDERED: Naloxone HCl 0.4 mg/ml Vial IV PRN (16:30)
[2019-09-21] MEDS ORDERED: Communication Order-Pharmacy FS SCH (16:30)
[2019-09-21] MEDS ORDERED: diphenhydrAMINE 25 MG CAP PO PRN (16:30)
[2019-09-21] MEDS ORDERED: diphenhydrAMINE 50 MG/ML VIAL IM PRN (16:30)
[2019-09-21] MEDS ORDERED: diphenhydrAMINE 50 MG/ML VIAL IVP PRN (16:30)
[2019-09-21] MEDS: HYDROmorphone 10 mg/100 ml CADD IVPB PRN (18:10)
[2019-09-21] MEDS: Sodium Chloride 0.9% 1,000 ML IV SCH (21:03)
[2019-09-22] MEDS: Aspirin 81 mg Enteric Coated Tablet PO SCH ×2 (08:25→21:40)
[2019-09-22] MEDS: Ferrous Gluconate 324 MG TAB PO SCH ×2 (08:25→21:40)
[2019-09-22] MEDS: Senokot S 8.6-50 MG TAB PO SCH ×2 (08:26→21:40)
[2019-09-22] MEDS: Famotidine 20 MG TAB PO SCH ×2 (08:27→21:40)
[2019-09-22] MEDS: Multivitamin W/ Minerals 1 TAB PO SCH (08:27)
[2019-09-22] MEDS: Enoxaparin Sodium 40 MG/0.4 ML SYRINGE SC SCH (08:27)
--- NOTE | 2019-09-22 10:54 | PRG ---
DATE OF SERVICE: 09/22/2019 SUBJECTIVE: The patient is seen at the bedside. She complains about quite severe pain in her back, which is somewhat improved with OIL BURNER INSTALLER pump with Dilaudid, but she rates the pain at around 7 on a scale from 1 to 10. OBJECTIVE: VITAL SIGNS: Blood pressure is 111/64, pulse is 86, temperature is 98.6, respirations 18, O2 saturation is 98% on 2 L by nasal cannula. HEENT: Her pupils are responding to light properly. Sclerae are nonicteric. Conjunctivae are palish. Oral mucosa is moist. She wears brace. LUNGS: Clear. HEART: S1, S2 normal. ABDOMEN: Not examined secondary to inability to access the area because of the brace in place. EXTREMITIES: Left hip with some swelling and dressing over the incision from the previous surgery. Lower extremities otherwise approximately 1+ peripheral edema similar bilaterally on both lower extremities. NEUROLOGICAL EXAMINATION: She is able to move her all 4 extremities. There are no any motor deficits. LABORATORY DATA: Glycemia is ranging from 104 to 113. ASSESSMENT: 1. Invasive ductal left breast cancer with multiple mets including the right fifth rib, T5, T12, L1, and left femoral neck with fracture. 2. Pathological fracture of the neck of the left femur. 3. Bipolar disorder. 4. Diabetes mellitus type 2, chronic, stable. DISCUSSION: The patient is on OIL BURNER INSTALLER pump with Dilaudid. She seems to be doing better in terms of pain control, but still in quite a bit of pain and she would like to go up on the dose she is getting. This is going to be referred to the anesthesiologist, who is supervising the OIL BURNER INSTALLER pump. She is not ready for transfer to the rehab yet since her pain is still a problem. Most likely, she will have to spend in the hospital additional few days before her pain is under better control. She did not do well on a fentanyl patch, which was taken off yesterday. I am going to stop her sliding scale because her glycemia is always perfect. Will do PT and OT mobilization per Ortho advice. Job ID: [id number]
[2019-09-22] MEDS: HYDROmorphone 10 mg/100 ml CADD IVPB PRN ×2 (11:53→23:50)
[2019-09-22] MEDS: Ketorolac Tromethamine 30 MG/ML VIAL IVP SCH ×2 (13:27→21:38)
[2019-09-22] MEDS: Acetaminophen 325 MG TAB PO SCH ×2 (13:27→21:40)
[2019-09-22] MEDS: fentaNYL 100 mcg/hour Patch TD SCH (13:36)
[2019-09-22] MEDS: Sodium Chloride 0.9% 1,000 ML IV SCH (21:42)
[2019-09-22] MEDS: Ondansetron ODT 4 MG TAB PO PRN (23:55)
[2019-09-23] MEDS: Promethazine HCl 25 MG/ML VIAL IM PRN (01:33)
[2019-09-23] MEDS: Acetaminophen 325 MG TAB PO SCH ×4 (03:11→20:17)
[2019-09-23] MEDS: Ketorolac Tromethamine 30 MG/ML VIAL IVP SCH ×4 (03:11→20:17)
[2019-09-23 08:19] LABS: #Eosinphils 0.2 thou/uL (0.0-0.7); #Lymphocytes 1.2 thou/uL (1.20-3.40); #Monocytes 0.6 thou/uL (0.11-0.59); #Neutrophils 2.1 thou/uL (1.40-6.50); %Basophils 0.2 % (0.0-1.0); %Eosinophils 5.7 % (0.0-10.0); %Lymphocytes 29.2 % (21.0-51.0); %Monocytes 14.3 % (0.0-10.0); %Neutrophils 50.6 % (42.0-75.0); Hemoglobin 7.1 g/dL (12.0-16.0); Mean Corpuscular HGB CONC 32.1 g/dL (32.0-36.0); Mean Corpuscular Hemoglobin 25.9 pg (27.0-31.0); Mean Corpuscular Volume 80.6 fL (78.0-98.0); Mean Platelet Volume 6.7 fL (7.4-10.4); Platelet Count 254 thou/uL (130-400); RBC Distribution Width 16.4 % (11.5-14.5); Red Blood Cell (RBC) Count 2.76 mill/uL (4.20-5.40); White Blood Cell (WBC) Count 4.2 thou/uL (4.8-10.8)
[2019-09-23 08:39] LABS: Anion Gap 10 mmol/L (10-20); BUN (Urea Nitrogen) 8 mg/dL (9.8-20.1); Calc. Creatinine Clearance 136 mL/min (70-130); Calcium 8.4 mg/dL (7.8-10.44); Carbon Dioxide 30 mmol/L (22-29); Chloride 102 mmol/L (98-107); Estimated GFR-MDRD Greater than 90; Glucose 91 mg/dL (70-105); Potassium 3.7 mmol/L (3.5-5.1); Sodium 138 mmol/L (136-145)
[2019-09-23] MEDS: Enoxaparin Sodium 40 MG/0.4 ML SYRINGE SC SCH (09:00)
[2019-09-23] MEDS: Famotidine 20 MG TAB PO SCH ×2 (09:00→20:17)
[2019-09-23] MEDS: Aspirin 81 mg Enteric Coated Tablet PO SCH ×2 (09:00→20:17)
[2019-09-23] MEDS: Ferrous Gluconate 324 MG TAB PO SCH ×2 (09:00→20:17)
[2019-09-23] MEDS: Senokot S 8.6-50 MG TAB PO SCH ×2 (09:00→20:17)
[2019-09-23] MEDS: Multivitamin W/ Minerals 1 TAB PO SCH (09:00)
[2019-09-23] MEDS: Ondansetron ODT 4 MG TAB PO PRN (10:11)
[2019-09-23] MEDS: Ondansetron PF 4 MG/2 ML Vial IVP PRN ×2 (13:30→20:25)
--- NOTE | 2019-09-23 13:51 | PRG ---
DATE OF SERVICE: 09/23/2019 SUBJECTIVE: The patient is seen and examined at bedside. She has somewhat better pain control this morning since she received 100 mcg fentanyl patch, started yesterday, and some adjustments on her Dilaudid BACON STRINGER pump. OBJECTIVE: VITAL SIGNS: Blood pressure is 130/74, pulse is 103, temperature is 98.2, respirations 16, O2 saturation 100% by nasal cannula on 2 L. HEENT: Her conjunctivae are palish. Oral mucosa is moist. NECK: Supple. LUNGS: Clear. HEART: S1 and S2, normal. ABDOMEN: Soft and nontender. EXTREMITIES: No clubbing, cyanosis, or edema. NEUROLOGIC: She moves her all 4 extremities. There are no any motor deficits. LABORATORY DATA: White count of 4.2, hemoglobin of 7.1, hematocrit 22.2, platelet count is 254,000. Sodium of 138, potassium 3.7, chloride 102, CO2 of 30, BUN 8, creatinine 0.54. The rest of chemistry within normal limits. IMPRESSION: 1. Diffuse metastatic disease of unclear primary. Pathology of the biopsy of the left breast came back positive for metastatic cancer. Oncology will revisit and see whether they can localize the primary source of those multiple metastases. 2. Pathological fracture of the neck of the left femur, status post Ortho repair with left hip hemiarthroplasty, cemented. 3. Bipolar disorder. 4. Diabetes mellitus type 2, chronic, stable. 5. Severe anemia with hemoglobin down to 7.1 today. The patient is hemodynamically stable. Recheck her hemoglobin and hematocrit levels tomorrow morning and make decision whether she is going to need transfusion or not. Job ID: [id number]
[2019-09-23] MEDS: HYDROmorphone 10 mg/100 ml CADD IVPB PRN (16:59)
[2019-09-23] MEDS: Sodium Chloride 0.9% 1,000 ML IV SCH (17:21)
[2019-09-24] MEDS: Acetaminophen 325 MG TAB PO SCH ×2 (02:05→09:27)
[2019-09-24] MEDS: Ketorolac Tromethamine 30 MG/ML VIAL IVP SCH ×4 (02:05→20:23)
--- NOTE | 2019-09-24 07:18 | PDOC.HOSPP ---
- Subjective Encounter Date: 09/24/19 Encounter Time: 07:16 Subjective: cont to have diffuse pain in upper back - Objective Vital Signs & Weight: Vital Signs (12 hours) Temp Pulse Resp BP Pulse Ox 09/24/19 03:38 98.4 F 90 16 134/80 97 09/23/19 23:44 98.0 F 97 16 126/78 100 09/23/19 20:00 97.6 F 99 18 131/78 98 Weight Admit Weight 155 lb 4.8 oz Weight 155 lb 4.8 oz I&O: 09/23/19 09/24/19 09/25/19 06:59 06:59 06:59 Intake Total 1967 1358.6 Balance 1967 1358.6 Result Diagrams: 09/23/19 08:08 09/23/19 08:08 Additional Labs: Accuchecks 09/24/19 09/23/19 09/23/19 05:41 20:11 16:20 POC Glucose 98 106 88 09/23/19 11:09 POC Glucose 96 Hospitalist ROS - Medication Medications: Active Medications Generic Name Dose Route Start Last Admin Trade Name Freq PRN Reason Stop Dose Admin Acetaminophen 650 mg 09/17/19 01:28 09/21/19 03:28 Tylenol PO 650 mg Q4H PRN Administration Headache/Fever/Mild Pain (1-3) Acetaminophen 650 mg 09/22/19 14:00 09/24/19 02:05 Tylenol PO 09/24/19 14:01 650 mg Q6H ESA Administration Aspirin 81 mg 09/19/19 09:00 09/23/19 20:17 Ecotrin PO 81 mg BID ESA Administration Bisacodyl 10 mg 09/17/19 19:21 09/20/19 17:32 Dulcolax [place] 10 mg DAILYPRN PRN Administration Constipation Enoxaparin Sodium 40 mg 09/17/19 09:00 09/23/19 09:00 Lovenox SC 40 mg 0900 ESA Administration Famotidine 20 mg 09/17/19 09:00 09/23/19 20:17 Pepcid PO 20 mg BID ESA Administration Fentanyl 100 mcg 09/22/19 14:00 09/22/19 13:36 Duragesic TD 100 mcg Q3D ESA Administration Ferrous Gluconate 324 mg 09/17/19 21:00 09/23/19 20:17 Fergon PO 324 mg BID ESA Administration Hydromorphone HCl 0 mg 09/23/19 07:09 09/23/19 16:59 Dilaudid Cadd IVPB 10 mg INF PRN Administration Pain Sodium Chloride 1,000 mls @ 30 mls/hr 09/17/19 18:00 09/23/19 17:21 Normal Saline 0.9% IV 1,000 mls .Q24H ESA Administration Iron/Minerals/Multivitamins 1 tab 09/18/19 09:00 09/23/19 09:00 Theragran M PO 1 tab DAILY ESA Administration Ketorolac Tromethamine 30 mg 09/22/19 14:00 09/24/19 02:05 Toradol IVP 09/24/19 14:01 30 mg Q6H ESA Administration Ondansetron HCl 4 mg 09/17/19 01:28 09/23/19 10:11 Zofran Odt PO 4 mg Q6H PRN Administration Nausea/Vomiting Ondansetron HCl 4 mg 09/21/19 16:30 09/23/19 20:25 Zofran IVP 4 mg Q6H PRN Administration Nausea/Vomiting Promethazine HCl 12.5 mg 09/21/19 16:30 09/23/19 01:33 Phenergan IM 12.5 unit Q4H PRN Administration Nausea/Vomiting Senna/Docusate Sodium 2 tab 09/17/19 21:00 09/23/19 20:17 Senokot S PO 2 tab BID ESA Administration Sodium Chloride 10 ml 09/17/19 07:16 09/19/19 10:06 Flush - Normal Saline IVF 10 ml PRN PRN Administration Saline Flush - Exam General Appearance: awake alert Neck: no JVD Heart: RRR, no murmur Respiratory: CTAB Gastrointestinal: soft, normal bowel sounds Extremities: no edema Hosp A/P (1) Breast cancer Status: Acute Qualifiers: Patient sex: female Laterality: left (2) Microcytic anemia Code(s): D50.9 - IRON DEFICIENCY ANEMIA, UNSPECIFIED Status: Acute (3) Pathologic fracture of neck of left femur Code(s): M84.452A - PATHOLOGICAL FRACTURE, LEFT FEMUR, INIT ENCNTR FOR FRACTURE Status: Acute Qualifiers: Encounter type: subsequent encounter (4) Bipolar disorder Code(s): F31.9 - BIPOLAR DISORDER, UNSPECIFIED Status: Chronic Qualifiers: Active/Remission status: in full remission (5) DM type 2 (diabetes mellitus, type 2) Status: Chronic - Plan cont fentanyl patch cont accu/ss discuss with oncology
[2019-09-24] MEDS: Senokot S 8.6-50 MG TAB PO SCH ×2 (09:26→20:25)
[2019-09-24] MEDS: Enoxaparin Sodium 40 MG/0.4 ML SYRINGE SC SCH (09:27)
[2019-09-24] MEDS: Multivitamin W/ Minerals 1 TAB PO SCH (09:27)
[2019-09-24] MEDS: Aspirin 81 mg Enteric Coated Tablet PO SCH ×2 (09:28→20:24)
[2019-09-24] MEDS: Famotidine 20 MG TAB PO SCH ×2 (09:29→20:25)
[2019-09-24] MEDS: Ferrous Gluconate 324 MG TAB PO SCH ×2 (09:29→20:24)
[2019-09-24] MEDS: HYDROmorphone 10 mg/100 ml CADD IVPB PRN (10:50)
[2019-09-24] MEDS: Acetaminophen 500 MG TAB PO SCH ×3 (12:00→23:41)
--- NOTE | 2019-09-24 13:58 | PDOC.PALCO ---
Palliative Care Consult - Consult Details Requesting Physician: Shonda VAUGHN Reason for Consult: symptom management, advance directives assistance Family Members Present: None - Pertinent HPI 54 year old female who noticed a "mass" to her left breast 6 months ago, but thought it may be a "cyst". 3-4 weeks ago she states that she had an onset of back pain with numbness and tingling. Pain was not relieved by anything, and progressed with difficulty in maintaining a stable gait and having to " furniture surf" or hold on to things to safely ambulate. Increase in falls. Patient presented to the emergency room and was oted to have a pathological fracture of her femur, hip, rib. CT revealed breast mass with what appears to be metastatic disease. Admitted for further evaluation. Surgery to biopsy breast mass and repair of her femur 09/17 as per patient, pending pathology. Being weaned from Dilaudid pump to fentanyl patch. - Social History Smoking Status: Unknown if ever smoked Smoking: no tobacco exposure Alcohol Use: none Drug Use History: none Living Situation: independent - Medications MAR Reviewed: Yes - Allergies Allergies/Adverse Reactions: Allergies Allergy/AdvReac Type Severity Reaction Status Date / Time No Known Drug Allergies Allergy Verified 09/17/19 02:04 - Subjective Awake, alert. Flight of ideas. Intermittently tearful but also noted to have pressed speech. States she is hopeful to go to rehab and then have chemo and radiation. States pain is a 8 out of 10, back and lower extremities. - ROS Constitutional: sleep changes, weakness Eyes: other (Negative for blurry vision) Respiratory: other (denies shortness of breath, cough) Cardiology: other (negative for chest pain, palpitations) Gastrointestinal: constipation Musculoskeletal: back pain, limited mobility Skin: other Psychological: depression - Objective Vital Signs: Vital Signs - Most Recent Temp Pulse Resp BP Pulse Ox 98.4 F 104 H 18 137/81 96 09/24/19 12:00 09/24/19 12:00 09/24/19 12:00 09/24/19 12:09/24/19 12:00 Palliative Performance Scale: 40 - Physical Exam Constitutional: ill appearing HEENT: EOMI, moist MMs, sclera anicteric, poor dentition Respiratory: clear to auscultation bilateral, unlabored breathing Cardiovascular: RRR Gastrointestinal: non-tender, positive bowel sounds Musculoskeletal: no cyanosis, no clubbing, pulses present Neurology: moves all 4 limbs Skin: cap refill <2 seconds Psychiatric: A&O x 3 - Problem List (1) Palliative care encounter Code(s): Z51.5 - ENCOUNTER FOR PALLIATIVE CARE Current Visit: Yes Status: Acute (2) Breast mass, left Code(s): N63.20 - UNSPECIFIED LUMP IN THE LEFT BREAST, UNSPECIFIED QUADRANT Current Visit: Yes Status: Acute (3) Pathologic fracture of neck of left femur Code(s): M84.452A - PATHOLOGICAL FRACTURE, LEFT FEMUR, INIT ENCNTR FOR FRACTURE Current Visit: Yes Status: Acute Qualifiers: Encounter type: subsequent encounter (4) Bipolar disorder Code(s): F31.9 - BIPOLAR DISORDER, UNSPECIFIED Current Visit: Yes Status: Chronic Qualifiers: Active/Remission status: in full remission - Plan/Recommendations Plan: Patient had a son and grandchild that in a MVA in 2011, patient tearful when discussing. She has a son and her mother who are her primary support. Has been seen by [facility] in the past secondary to bipolar disorder but currently is not taking medications. *Schedule medication to facilitate daily BM as patient co mild constipation ( Ducolax 5mg po qd) *Melatonin 3mg po q hs for insomnia *Dexamethasone 4 mg qd x 5 days for pain *Continue Fentanyl patch and consider oral meds for breakthrough to transition to rehab *Support of patient and her mother (Patient is concerned in relation to her mother and the stress of her being ill will have) *Initiated conversation of designating a Marcellus HAMM RN palliative Care to also follow up in relation to MPOA *Support patient through therapeutic listening, may consider Cymbalta for depression as well as mitigating pain. *Monitor patient response to dexamethasone secondary to bipolar disorder and jaen. [90] minutes spent on this encounter with >50% of the time in counseling and coordination of care. Thank you for this very appropriate consult.
[2019-09-24] MEDS ORDERED: Ibuprofen 800 MG TAB PO SCH (14:00)
--- NOTE | 2019-09-24 14:49 | PDOC.MOPN ---
Interval History: complains of excruciating upper back pain. - Vital Signs Vital Signs: Vital Signs (12 hours) Temp Pulse Resp BP BP Pulse Ox 09/24/19 12:00 98.4 F 104 H 18 137/81 96 09/24/19 08:00 98.3 F 104 H 18 152/86 H 97 09/24/19 07:57 97 09/24/19 03:38 98.4 F 90 16 134/80 97 Weight Admit Weight 155 lb 4.8 oz Weight 155 lb 4.8 oz - Physical Exam General: Alert, Oriented x3, No acute distress Lungs: Clear to auscultation, Normal air movement Cardiovascular: Regular rate, Normal S1, Normal S2, No murmurs, Gallops, Rubs Abdomen: Normal bowel sounds, Soft, No tenderness, No hepatospenomegaly, No masses Extremities: No clubbing, No cyanosis, No edema, Normal pulses, No tenderness/ swelling Neurological: Other Psych/Mental Status: Mental status NL - Labs Result Diagrams: 09/23/19 08:08 09/23/19 08:08 Lab results: Laboratory Results - last 24 hr 09/24/19 05:41: POC Glucose 98 09/23/19 20:11: POC Glucose 106 09/23/19 16:20: POC Glucose 88 Status: lab reviewed by me A/P - Problem (1) Microcytic anemia Current Visit: Yes Code(s): D50.9 - IRON DEFICIENCY ANEMIA, UNSPECIFIED Status: Acute (2) Breast cancer Current Visit: Yes Status: Acute Qualifiers: Patient sex: female Laterality: left (3) Pathologic fracture of neck of left femur Current Visit: Yes Code(s): M84.452A - PATHOLOGICAL FRACTURE, LEFT FEMUR, INIT ENCNTR FOR FRACTURE Status: Acute Qualifiers: Encounter type: subsequent encounter - Plan Plan: consult Dr. Mackay for opinion of poss xrt to back transfuse 1 unit today.
[2019-09-24] MEDS: Sodium Chloride 0.9% 1,000 ML IV SCH (19:32)
[2019-09-24] MEDS ORDERED: Melatonin 3 MG TAB PO SCH (21:00)
[2019-09-25] MEDS: Ketorolac Tromethamine 30 MG/ML VIAL IVP SCH ×4 (01:58→19:33)
[2019-09-25] MEDS: Acetaminophen 500 MG TAB PO SCH ×4 (05:21→23:09)
[2019-09-25] MEDS: Ondansetron ODT 4 MG TAB PO PRN ×2 (05:24→23:10)
[2019-09-25] MEDS: HYDROmorphone 10 mg/100 ml CADD IVPB PRN ×2 (05:27→22:29)
--- NOTE | 2019-09-25 08:59 | PDOC.HOSPP ---
- Subjective Encounter Date: 09/25/19 Encounter Time: 08:57 Subjective: back pain under improved control - Objective Vital Signs & Weight: Vital Signs (12 hours) Temp Pulse Resp BP Pulse Ox 09/25/19 03:26 98.7 F 112 H 16 98 09/24/19 23:22 98.2 F 86 16 140/78 98 Weight Admit Weight 155 lb 4.8 oz Weight 155 lb 4.8 oz I&O: 09/24/19 09/25/19 09/26/19 06:59 06:59 06:59 Intake Total 1358.6 1470 Output Total 800 Balance 1358.6 670 Result Diagrams: 09/23/19 08:08 09/23/19 08:08 Hospitalist ROS - Medication Medications: Active Medications Generic Name Dose Route Start Last Admin Trade Name Freq PRN Reason Stop Dose Admin Acetaminophen 1,000 mg 09/24/19 12:00 09/25/19 05:21 Tylenol PO 1,000 mg Q6HR ESA Administration Aspirin 81 mg 09/19/19 09:00 09/24/19 20:24 Ecotrin PO 81 mg BID ESA Administration Bisacodyl 10 mg 09/17/19 19:21 09/20/19 17:32 Dulcolax AZ 10 mg DAILYPRN PRN Administration Constipation Enoxaparin Sodium 40 mg 09/17/19 09:00 09/24/19 09:27 Lovenox SC 40 mg 0900 ESA Administration Famotidine 20 mg 09/17/19 09:00 09/24/19 20:25 Pepcid PO 20 mg BID ESA Administration Fentanyl 100 mcg 09/22/19 14:00 09/22/19 13:36 Duragesic TD 100 mcg Q3D ESA Administration Ferrous Gluconate 324 mg 09/17/19 21:00 09/24/19 20:24 Fergon PO 324 mg BID ESA Administration Hydromorphone HCl 0 mg 09/23/19 07:09 09/25/19 05:27 Dilaudid Cadd IVPB 10 mg INF PRN Administration Pain Sodium Chloride 1,000 mls @ 30 mls/hr 09/17/19 18:00 09/24/19 19:32 Normal Saline 0.9% IV 1,000 mls .Q24H ESA Administration Iron/Minerals/Multivitamins 1 tab 09/18/19 09:00 09/24/19 09:27 Theragran M PO 1 tab DAILY ESA Administration Ketorolac Tromethamine 30 mg 09/24/19 14:00 09/25/19 01:58 Toradol IVP 09/26/19 14:01 30 mg Q6H ESA Administration Melatonin 3 mg 09/24/19 21:00 09/24/19 20:26 Melatonin PO 3 mg HS ESA Administration Ondansetron HCl 4 mg 09/17/19 01:28 09/25/19 05:24 Zofran Odt PO 4 mg Q6H PRN Administration Nausea/Vomiting Ondansetron HCl 4 mg 09/21/19 16:30 09/23/19 20:25 Zofran IVP 4 mg Q6H PRN Administration Nausea/Vomiting Promethazine HCl 12.5 mg 09/21/19 16:30 09/23/19 01:33 Phenergan IM 12.5 unit Q4H PRN Administration Nausea/Vomiting Senna/Docusate Sodium 2 tab 09/17/19 21:00 09/24/19 20:25 Senokot S PO 2 tab BID ESA Administration Sodium Chloride 10 ml 09/17/19 07:16 09/25/19 01:58 Flush - Normal Saline IVF 10 ml PRN PRN Administration Saline Flush - Exam General Appearance: awake alert Neck: no JVD Heart: RRR, no murmur Respiratory: CTAB Gastrointestinal: soft, normal bowel sounds Extremities: no edema Hosp A/P (1) Breast cancer Status: Acute Qualifiers: Patient sex: female Laterality: left (2) Microcytic anemia Code(s): D50.9 - IRON DEFICIENCY ANEMIA, UNSPECIFIED Status: Acute (3) Pathologic fracture of neck of left femur Code(s): M84.452A - PATHOLOGICAL FRACTURE, LEFT FEMUR, INIT ENCNTR FOR FRACTURE Status: Acute Qualifiers: Encounter type: subsequent encounter (4) Bipolar disorder Code(s): F31.9 - BIPOLAR DISORDER, UNSPECIFIED Status: Chronic Qualifiers: Active/Remission status: in full remission (5) DM type 2 (diabetes mellitus, type 2) Status: Chronic - Plan Blood glucose normal, check HgA1c cont fentanyl TOP and dilaudid pump MRI brain, T spine pending discuss with oncology,radiation Tx
[2019-09-25] MEDS: Multivitamin W/ Minerals 1 TAB PO SCH (09:00)
[2019-09-25] MEDS: Famotidine 20 MG TAB PO SCH ×2 (09:38→20:24)
[2019-09-25] MEDS: Aspirin 81 mg Enteric Coated Tablet PO SCH ×2 (09:38→20:23)
[2019-09-25] MEDS: Enoxaparin Sodium 40 MG/0.4 ML SYRINGE SC SCH (09:39)
[2019-09-25] MEDS: Senokot S 8.6-50 MG TAB PO SCH ×2 (09:39→20:24)
[2019-09-25] MEDS: Bisacodyl 5 MG TAB PO SCH (09:39)
[2019-09-25] MEDS: Ferrous Gluconate 324 MG TAB PO SCH ×2 (09:39→20:23)
[2019-09-25] MEDS: Dexamethasone 4 mg/ml Vial SLOW IVP SCH (09:39)
[2019-09-25 09:54] LABS: Hemoglobin A1c 4.7 % (4.0-6.0)
[2019-09-25] MEDS: fentaNYL 100 mcg/hour Patch TD SCH (13:29)
--- NOTE | 2019-09-25 14:16 | CON ---
DATE OF CONSULTATION: 09/25/2019 REASON FOR CONSULTATION: Ms. 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 HISTORY OF PRESENT ILLNESS: Ms. Mosley admits that it had been at least 3 years since having a mammogram. She has chronic back pain and began experiencing more back pain and trouble getting around over the past 3 weeks, which she attributed to her chronic back pain. She admits that she has had a breast mass in the left breast that has been enlarging for more than 6 months. She thought this might be a cyst. She also is experiencing some pain in the left hip region and was hobbling around from that. She subsequently came to the emergency room, where she underwent a CT scan of the chest, abdomen, and pelvis. This showed a left femoral head fracture. There was a lytic/sclerotic lesion involving T12 and L1 with compression fractures in that area. She also had a lytic lesion in the T5 vertebral body. No pulmonary nodule or liver lesions were identified. She had a large mass in the left breast with abnormal left axillary lymph nodes. Concern was for metastatic breast cancer. She did undergo biopsy of the left breast mass, which confirmed a grade 1 invasive ductal carcinoma that was estrogen and progesterone receptor positive and HER2 receptor negative. She also underwent a left hip replacement surgery, which also showed metastatic ductal carcinoma. She has been recovering from her surgery. She has seen Medical Oncology. I am seeing her today to discuss her options for treatment. She is a difficult historian because of her bipolar disorder and pressured speech. Presently, she reports some pain in the back. This is mostly in the mid back region. She also is experiencing some pain in her hip. She does report that she is getting out of bed and walking a little bit with some physical therapy. Presently, she denies any shortness of breath. She does have some occasional headaches and also some occasional nausea. She denies any vomiting. She reports some intermittent numbness and weakness in the left leg, which she attributes to her chronic back difficulties. She voices no other complaints. PAST MEDICAL HISTORY: 1. Bipolar disorder, which she admits she has not taken medications for some time for. 2. Borderline diabetes. 3. Fibrocystic disease. 4. Status post NAVID/BSO. 5. Status post back surgery. 6. Status post tonsillectomy. MEDICATIONS: On admission was simón Hernandez. Presently, she is on a; 1. Duragesic patch. 2. Pepcid. 3. Dilaudid p.r.n. 4. Toradol p.r.n. ALLERGIES: NO KNOWN MEDICAL ALLERGIES. SOCIAL HISTORY: She lives near [place], [place] by herself. Apparently, her mother lives nearby. She has no alcohol or drug use. FAMILY HISTORY: Her dad at age 45 from lung cancer. Her mother is still living at age 70 with history of hypertension. She has had a paternal aunt with breast cancer. No other family history of malignancy. REVIEW OF SYSTEMS: Twelve-point review of systems is otherwise negative except per HPI. PHYSICAL EXAMINATION: VITAL SIGNS: Height 5 feet 4 inches, weight 155 pounds. Blood pressure is 140/78, pulse is 86, respirations are 16, temperature is 98.2, and O2 saturation is 98% on 2 L of O2. CONSTITUTIONAL: She is alert and oriented and in no apparent distress. She does have pressured speech. Karnofsky performance status is 70%. EYES: Pupils are equal, round, and reactive to light. Extraocular movements are intact. ENT: Oral cavity and oropharynx normal without lesion or erythema. Palate elevates symmetrically. Gingiva is intact. NECK: Supple without preauricular, submandibular, cervical, or supraclavicular adenopathy. She does have a small nodule in the right posterior neck of unknown significance. No thyromegaly. Larynx midline. LUNGS: Breathing nonlabored. Clear to auscultation. HEART: Regular rate and rhythm without murmur. No lower extremity edema. BACK: She has subjective tenderness in the T5 area and also in the T12/L1 area. ABDOMEN: Soft, nontender, and nondistended without mass or hepatosplenomegaly. Liver percusses to normal size. LYMPHATIC: No right axillary adenopathy or bilateral inguinal adenopathy. She does have matted lymph nodes in the left axilla. NEUROLOGIC: Cranial nerves II through XII are grossly intact. Motor strength is 5/5 in both upper and lower extremities in all muscle groups tested. Gait was not tested. Reflexes are normal and symmetrical. LABORATORY DATA: Pathology showed a grade 1 invasive ductal carcinoma that was estrogen and progesterone receptor positive and HER2 receptor negative. Electrolytes yesterday showed a normal creatinine with a GFR greater than 90. CBC showed a white blood cell count of 4200 with a hemoglobin of 7.1, hematocrit of 22.2, and platelet count of 254,000. RADIOLOGIC DATA: CT scan of the chest, abdomen, and pelvis from admission were personally reviewed. Again, she has a large left breast mass and abnormal left axillary adenopathy. There are no pulmonary nodules. She does appear to have lytic disease in at least T5, T12, and L1. There appears to be some compression fractures of T12 and L1. She had a left femoral neck fracture from metastatic disease. ASSESSMENT: Ms. Mosley is a 54-year-old female with a new diagnosis of stage IV metastatic breast cancer. This is a T3 N2 M1 lesion. She does have bone metastasis with a pathological fracture of the left femoral neck. PLAN: I did have a discussion today with Ms. Mosley regarding her diagnosis, prognosis, prognostic factors, and treatment options. Presently, she is having pain in the back region. She appears to be hurting in multiple areas in the spine. She also has a pathological fracture of the left femur. This has been surgically repaired. I would recommend that we obtain an MRI of the thoracic spine as well as an MRI of the brain to evaluate for metastatic disease and possible cord compression. Clinically, she does not have signs of cord compression, but she is a difficult historian. She will clearly need radiation therapy to the left hip region once she is healed from her surgery. She may need radiation therapy to the spine if I can define a focal area to treat, to help with her pain. Presently, she seems to be hurting in several different areas of the spine. The logistics of radiation as well as the benefits and risk of treatment were discussed. The simulation and daily treatment procedure were discussed. Side effects would include, but not be limited to skin reaction, fatigue, lower blood counts, nausea, vomiting, difficulty or pain with swallowing, swelling of the extremity, weight loss, and small risk of damage to any normal structure, which receives radiation therapy. Time was taken to answer all of her questions regarding her treatment options. We will obtain the MRI of the thoracic spine and of the brain before making a final recommendation. One of the difficulties is going to be her social situation. There is talk that she may go to rehab. Unfortunately, she cannot be in rehab and be receiving radiation at the same time. Typically, radiation is done as an outpatient. It is not clear to me how she is going to be able to manage to come back and forth for treatment. Hopefully, she will have a family member, who can assist with that. Thank you for this interesting consultation. Job ID: [id number]
[2019-09-25] MEDS ORDERED: Lorazepam 2 MG/ML VIAL SLOW IVP PRN ×2 (14:25→16:54)
--- NOTE | 2019-09-25 14:34 | PDOC.PALPN ---
Palliative Progress Note - Subjective Sitting on side of bed, states that pain "improved" but remains. Anxious and fidgety. Difficulty remaining asleep, feels as if her melatonin was given too early as she is a "night owl". - Objective Vital Signs: Vital Signs - Most Recent Temp Pulse Resp BP Pulse Ox 98.4 F 96 18 131/97 H 98 09/25/19 12:02 09/25/19 12:02 09/25/19 12:02 09/25/19 12:02 09/25/19 12:02 - Physical Exam Constitutional: ill appearing HEENT: moist MMs, sclera anicteric Respiratory: unlabored breathing Gastrointestinal: continent Genitourinary: continent Neurology: moves all 4 limbs Skin: cap refill <2 seconds Psychiatric: A&O x 3 Deviation from normal: fidgity, anxious - Assessment (1) Palliative care encounter Code(s): Z51.5 - ENCOUNTER FOR PALLIATIVE CARE Current Visit: Yes Status: Acute (2) Breast mass, left Code(s): N63.20 - UNSPECIFIED LUMP IN THE LEFT BREAST, UNSPECIFIED QUADRANT Current Visit: Yes Status: Acute (3) Pathologic fracture of neck of left femur Code(s): M84.452A - PATHOLOGICAL FRACTURE, LEFT FEMUR, INIT ENCNTR FOR FRACTURE Current Visit: Yes Status: Acute Qualifiers: Encounter type: subsequent encounter (4) Bipolar disorder Code(s): F31.9 - BIPOLAR DISORDER, UNSPECIFIED Current Visit: Yes Status: Chronic Qualifiers: Active/Remission status: in full remission - Plan Plan: Will order Ativan .5mg IVP PRN for anxiety /promote calm affect for MRI and other procedures Increase Melatonin and delay time to be given to reflect patient normal sleep pattern Slight improvement in pain, hopeful that Dexamethasone continues to mitigate pain allowing for optimal rehab. [45] minutes spent on this encounter with >50% of the time in counseling and coordination of care. - ROS Constitutional: alert, weakness Eyes: other (negative for drainage, altered vision) ENT: alteration in dentition Respiratory: other (negative for cough) Gastrointestinal: constipation Musculoskeletal: back pain, leg pain, limited mobility Psychological: anxiety, insomia
--- NOTE | 2019-09-25 16:03 | MRI ---
MR of the thoracic spine with and without contrast INDICATION: History of metastatic disease to the bone; history of breast cancer TECHNIQUE: Multiplanar multisequence MR images were obtained of the thoracic spine with and without c ontrast utilizing 14 mL of Multihance.. FINDINGS: There are multiple regions of focal abnormal marrow signal within the thoracolumbar spine c onsistent with diffuse metastatic disease. There are pathologic compression fractures involving the C7 vertebral level, T1 and T2 vertebral level. There is a mild wedge compression fracture of T5. Ther e are mild wedge compression abnormality at T12 and and a moderate compression abnormality at L1 . There is a prominent metastatic lesion involving the spinous process of T11. Spinal cord demonstrates a normal signal intensity and contour. There are small bilateral pleural effusions. At T1-T2, there is no appreciable central canal or neural foraminal narrowing. At T2-T3, there is no appreciable central canal or neural foraminal narrowing. At T3-T4, there is no appreciable central canal or neural foraminal narrowing. At T4-T5, there is no appreciable central canal or neural foraminal narrowing. There is a large 2 cm lesion within the right aspect of the T5 vertebral body that demonstrates T1 hy perintensity and is likely reflective of a prominent hemangioma. The remaining signal abnormality of the T5 vertebral body is suspicious for metastatic disease particularly within the left aspect of the T5 vertebral body. Similar appearing lesion is seen within the central aspect of T9 likely reflecting an additional hemangioma. At T6-T7, there is no appreciable central or neural foraminal narrowing. At T7-T8, there is no appreciable central canal or neural foraminal narrowing. At T8-T9, there is no appreciable central canal or neural foraminal narrowing. At T9-T10, there is no appreciable central canal or neural foraminal narrowing. At T10-T11, there is no appreciable central canal or neural foraminal narrowing. At T11-T12, there is no appreciable central canal or neural foraminal narrowing. At T12-L1, there is no appreciable central canal or neural foraminal narrowing. There is some mild re tropulsion of bone fragments from the posterior superior margin of L1 that mildly effaces the ventral and right ventral lateral aspect of the spinal canal without conus or cord compression. IMPRESSION: Multifocal osseous metastatic disease of the thoracic spine with pathologic central compr ession abnormalities involving T12, T5, T2 and T1. There is a moderate central compression abnormality of C7 seen along the margin of the [id number]. There is a more prominent superior endp late compression abnormality of L1 with retropulsion bone fragments from the posterior superior margin of L1 inducing mild effacement of the ventral subarachnoid space without canal compromise. Transcribed Date/Time: 09/25/2019 4:22 PM
--- NOTE | 2019-09-25 16:18 | MRI ---
EXAM: MRI Brain W WO Con PROVIDED CLINICAL HISTORY: Metastatic breast cancer COMPARISON: None FINDINGS: Minimal areas of increased FLAIR and T2-weighted signal intensity are seen in the periventricular whi te matter which are nonspecific but likely reflective of mild chronic small vessel ischemic changes. No additional signal abnormalities are seen throughout the brain parenchyma. There is no stephenie dence of an acute infarction. No abnormal parenchymal areas of enhancement are seen. The septum pellucidum and third ventricle are in the midline. The ventricular system is normal in siz e, shape, and position. Appropriate flow voids are demonstrated at the base of the brain. There is prominent motion artifact on the T2-weighted images, but the orbits and paranasal sinuses ot herwise demonstrate a normal MRI appearance. There are multiple scattered subcentimeter focal areas of enhancement within the calvarium suggesting osseous metastatic disease. IMPRESSION: 1. Osseous metastatic disease with multiple scattered subcentimeter enhancing lesions within the calv arium. 2. Findings likely reflective of mild chronic small vessel ischemic changes. No abnormal areas of enh ancement are seen involving the cerebral or cerebellar hemisphere bilaterally to suggest metastatic brain lesions.
[2019-09-25] MEDS ORDERED: Haloperidol Lactate 5 MG/ML VIAL SLOW IVP PRN (16:53)
[2019-09-25] MEDS: Sodium Chloride 0.9% 1,000 ML IV SCH (17:52)
[2019-09-25] MEDS: Melatonin 3 MG TAB PO SCH (23:32)
[2019-09-26] MEDS: Ketorolac Tromethamine 30 MG/ML VIAL IVP SCH ×3 (02:06→13:54)
[2019-09-26] MEDS ORDERED: Acetaminophen 500 MG TAB ONE (05:58)
[2019-09-26] MEDS: Acetaminophen 500 MG TAB PO SCH ×5 (13:50→23:08)
[2019-09-26] MEDS: Bisacodyl 5 MG TAB PO SCH (13:51)
[2019-09-26] MEDS: Enoxaparin Sodium 40 MG/0.4 ML SYRINGE SC SCH (13:51)
[2019-09-26] MEDS: Dexamethasone 4 mg/ml Vial SLOW IVP SCH (13:51)
[2019-09-26] MEDS: Aspirin 81 mg Enteric Coated Tablet PO SCH ×2 (13:51→20:51)
[2019-09-26] MEDS: Ferrous Gluconate 324 MG TAB PO SCH ×2 (13:52→20:52)
[2019-09-26] MEDS: Famotidine 20 MG TAB PO SCH ×2 (13:52→20:52)
[2019-09-26] MEDS: Senokot S 8.6-50 MG TAB PO SCH ×2 (13:52→20:52)
[2019-09-26] MEDS: Multivitamin W/ Minerals 1 TAB PO SCH (13:52)
--- NOTE | 2019-09-26 16:31 | PRG ---
DATE OF SERVICE: 09/26/2019 SUBJECTIVE: Visited with Ms. Mosley this morning. She is still having some pain. Pain is in the hip as well as in the lower back and upper back area. 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 She is ambulating some. She has no new symptoms. OBJECTIVE: VITAL SIGNS: Blood pressure is 138/88, pulse is 105, respirations are 18, temperature is 98.6, O2 saturation 100% on 3 L. GENERAL: She is alert and oriented and looks the same as yesterday. She does have some discomfort with movement. The subjective area of tenderness is in the upper back region. MRI of the thoracic spine and brain were personally reviewed. She has no brain metastasis. However, she does have some bone metastasis in the skull as well as extensive metastasis in her thoracic area. The worse area is at C7 and T1 as well as at T12 and L1. ASSESSMENT: Ms. Mosley is a 54-year-old female with a newly diagnosed breast cancer with bone metastasis. PLAN: I have recommended that she undergo radiation therapy to the upper thoracic spine as well as to the lower thoracic spine in hopes of palliating her pain. She will need treatment also to the left femur, but this cannot be done until she is healed well from her surgery. The logistics of radiation as well as the benefits and risks were discussed with her. Side effects would include, but not be limited to skin reaction, fatigue, lower blood counts, difficulty or pain with swallowing, weight loss, nausea, vomiting, and small risk of damage to any structure, which receives radiation therapy. She is tentatively agreeable to proceed with radiation, which is recommended to her. We will make arrangements for her to undergo simulation later today and hope to start treatment tomorrow. We will plan for 10 radiation treatments. Job ID: [id number]
[2019-09-26] MEDS: Sodium Chloride 0.9% 1,000 ML IV SCH (17:41)
[2019-09-26] MEDS: Cyclobenzaprine 10 MG TAB PO PRN (23:08)
[2019-09-26] MEDS: Melatonin 3 MG TAB PO SCH (23:09)
[2019-09-26] MEDS: HYDROmorphone 10 mg/100 ml CADD IVPB PRN (23:48)
[2019-09-27] MEDS: Acetaminophen 500 MG TAB PO SCH ×3 (05:10→18:43)
[2019-09-27] MEDS: Famotidine 20 MG TAB PO SCH ×2 (09:00→20:55)
[2019-09-27] MEDS: Aspirin 81 mg Enteric Coated Tablet PO SCH ×2 (09:08→20:55)
[2019-09-27] MEDS: Bisacodyl 5 MG TAB PO SCH (09:08)
[2019-09-27] MEDS: Ferrous Gluconate 324 MG TAB PO SCH ×2 (09:08→20:55)
[2019-09-27] MEDS: Senokot S 8.6-50 MG TAB PO SCH ×2 (09:08→20:55)
[2019-09-27] MEDS: Multivitamin W/ Minerals 1 TAB PO SCH (09:14)
[2019-09-27] MEDS: Enoxaparin Sodium 40 MG/0.4 ML SYRINGE SC SCH (09:15)
[2019-09-27] MEDS: Dexamethasone 4 mg/ml Vial SLOW IVP SCH (09:15)
[2019-09-27] MEDS: Ondansetron ODT 4 MG TAB PO PRN ×2 (11:53→18:47)
--- NOTE | 2019-09-27 11:58 | PDOC.MOPN ---
Interval History: had simulation for xrt yesterday. Pain controlled. - Vital Signs Vital Signs: Vital Signs (12 hours) Temp Pulse Resp BP Pulse Ox 09/27/19 08:33 98.3 F 90 16 127/71 96 09/27/19 08:00 96 09/27/19 04:00 98.5 F 89 16 112/68 96 09/27/19 00:00 98.6 F 89 18 138/75 100 Weight Admit Weight 155 lb 4.8 oz Weight 155 lb 4.8 oz - Physical Exam General: Alert, Oriented x3, No acute distress HEENT: Atraumatic, PERRLA, EOMI, Mucous membr. moist/pink Lungs: Clear to auscultation, Normal air movement Cardiovascular: Regular rate, Normal S1, Normal S2, No murmurs, Gallops, Rubs Abdomen: Normal bowel sounds, Soft, No tenderness, No hepatospenomegaly, No masses Extremities: No clubbing, No cyanosis, No edema, Normal pulses, No tenderness/ swelling Neurological: Other - Labs Result Diagrams: 09/23/19 08:08 09/23/19 08:08 Status: lab reviewed by me A/P - Problem (1) Microcytic anemia Current Visit: Yes Code(s): D50.9 - IRON DEFICIENCY ANEMIA, UNSPECIFIED Status: Acute (2) Breast cancer Current Visit: Yes Status: Acute Qualifiers: Patient sex: female Laterality: left (3) Pathologic fracture of neck of left femur Current Visit: Yes Code(s): M84.452A - PATHOLOGICAL FRACTURE, LEFT FEMUR, INIT ENCNTR FOR FRACTURE Status: Acute Qualifiers: Encounter type: subsequent encounter - Plan Plan: XRT today. transfuse 1 unit [facility] follow-up office
[2019-09-27] MEDS: Promethazine HCl 25 MG/ML VIAL IM PRN (13:15)
[2019-09-27] MEDS: Sodium Chloride 0.9% 1,000 ML IV SCH (18:43)
[2019-09-27] MEDS: Melatonin 3 MG TAB PO SCH (20:55)
--- NOTE | 2019-09-27 23:11 | PDOC.HOSPP ---
- Subjective Encounter Date: 09/27/19 Encounter Time: 18:00 Subjective: Patient seen and examined for breast CA/Pathological fracture. started on radiation. Pain controlled. No new complaints. No overnight events - Objective Vital Signs & Weight: Vital Signs (12 hours) Temp Pulse Resp BP Pulse Ox 09/27/19 20:00 98.2 F 92 18 138/84 100 09/27/19 16:20 98.1 F 86 18 143/70 H 97 09/27/19 12:00 98.4 F 98 16 127/73 99 Weight Admit Weight 155 lb 4.8 oz Weight 155 lb 4.8 oz I&O: 09/26/19 09/27/19 09/28/19 06:59 06:59 06:59 Intake Total 240 2114 2442 Output Total 2800 Balance 240 2114 -935 Result Diagrams: 09/23/19 08:08 09/23/19 08:08 Hospitalist ROS - Review of Systems Respiratory: denies: cough, dry, shortness of breath, hemoptysis, SOB with excertion, pleuritic pain, sputum, wheezing, other Cardiovascular: denies: chest pain, palpitations, orthopnea, paroxysmal noc. dyspnea, edema, light headedness, other - Medication Medications: Active Medications Generic Name Dose Route Start Last Admin Trade Name Freq PRN Reason Stop Dose Admin Acetaminophen 1,000 mg 09/24/19 12:00 09/27/19 18:43 Tylenol PO 1,000 mg Q6HR ESA Administration Aspirin 81 mg 09/19/19 09:00 09/27/19 20:55 Ecotrin PO 81 mg BID ESA Administration Bisacodyl 10 mg 09/17/19 19:21 09/20/19 17:32 Dulcolax UT 10 mg DAILYPRN PRN Administration Constipation Bisacodyl 5 mg 09/25/19 09:00 09/27/19 09:08 Dulcolax PO 5 mg QAM ESA Administration Cyclobenzaprine HCl 10 mg 09/24/19 11:39 09/26/19 23:08 Flexeril PO 10 mg TIDPRN PRN Administration Muscle Spasm Dexamethasone 4 mg 09/25/19 09:00 09/27/19 09:15 Decadron SLOW IVP 09/30/19 09:01 4 mg DAILY ESA Administration Enoxaparin Sodium 40 mg 09/17/19 09:00 09/27/19 09:15 Lovenox SC 40 mg 0900 SEA Administration Famotidine 20 mg 09/17/19 09:00 09/27/19 20:55 Pepcid PO 20 mg BID ESA Administration Fentanyl 100 mcg 09/22/19 14:00 09/25/19 13:29 Duragesic TD 100 mcg Q3D ESA Administration Ferrous Gluconate 324 mg 09/17/19 21:00 09/27/19 20:55 Fergon PO 324 mg BID ESA Administration Sodium Chloride 1,000 mls @ 30 mls/hr 09/17/19 18:00 09/27/19 18:43 Normal Saline 0.9% IV 1,000 mls .Q24H ESA Administration Iron/Minerals/Multivitamins 1 tab 09/18/19 09:00 09/27/19 09:14 Theragran M PO Not Given DAILY ESA Melatonin 6 mg 09/25/19 21:00 09/27/19 20:55 Melatonin PO 6 mg HS ESA Administration Ondansetron HCl 4 mg 09/17/19 01:28 09/27/19 18:47 Zofran Odt PO 4 mg Q6H PRN Administration Nausea/Vomiting Ondansetron HCl 4 mg 09/21/19 16:30 09/23/19 20:25 Zofran IVP 4 mg Q6H PRN Administration Nausea/Vomiting Promethazine HCl 12.5 mg 09/21/19 16:30 09/27/19 13:15 Phenergan IM 12.5 mg Q4H PRN Administration Nausea/Vomiting Senna/Docusate Sodium 2 tab 09/17/19 21:00 09/27/19 20:55 Senokot S PO 2 tab BID ESA Administration Sodium Chloride 10 ml 09/17/19 07:16 09/26/19 02:06 Flush - Normal Saline IVF 10 ml PRN PRN Administration Saline Flush - Exam General Appearance: NAD Heart: RRR, no gallops Respiratory: CTAB, no rales Gastrointestinal: soft, non-distended Extremities: no edema Hosp A/P (1) Breast mass, left Code(s): N63.20 - UNSPECIFIED LUMP IN THE LEFT BREAST, UNSPECIFIED QUADRANT Status: Acute (2) Microcytic anemia Code(s): D50.9 - IRON DEFICIENCY ANEMIA, UNSPECIFIED Status: Acute (3) Pathologic fracture of neck of left femur Code(s): M84.452A - PATHOLOGICAL FRACTURE, LEFT FEMUR, INIT ENCNTR FOR FRACTURE Status: Acute Qualifiers: Encounter type: subsequent encounter (4) DM type 2 (diabetes mellitus, type 2) Status: Chronic - Plan DVT proph w/SCDs Started on Radiation therapy Cont pain control Cont sliding scale Cont other meds Oncology following
[2019-09-28] MEDS: Ondansetron ODT 4 MG TAB PO PRN ×2 (01:27→23:15)
[2019-09-28] MEDS: Acetaminophen 500 MG TAB PO SCH ×5 (01:27→23:14)
[2019-09-28] MEDS: Promethazine HCl 25 MG/ML VIAL IM PRN (03:48)
[2019-09-28] MEDS: HYDROmorphone 10 mg/100 ml CADD IVPB PRN (06:46)
[2019-09-28] MEDS: Aspirin 81 mg Enteric Coated Tablet PO SCH ×2 (10:01→20:49)
[2019-09-28] MEDS: Senokot S 8.6-50 MG TAB PO SCH ×2 (10:01→20:49)
[2019-09-28] MEDS: Bisacodyl 5 MG TAB PO SCH (10:01)
[2019-09-28] MEDS: Ferrous Gluconate 324 MG TAB PO SCH ×2 (10:02→20:49)
[2019-09-28] MEDS: Famotidine 20 MG TAB PO SCH ×2 (10:02→20:49)
[2019-09-28] MEDS: Dexamethasone 4 mg/ml Vial SLOW IVP SCH ×2 (10:02→20:49)
[2019-09-28] MEDS: Enoxaparin Sodium 40 MG/0.4 ML SYRINGE SC SCH (10:02)
[2019-09-28] MEDS: Ondansetron PF 4 MG/2 ML Vial IVP PRN (10:03)
[2019-09-28] MEDS: Multivitamin W/ Minerals 1 TAB PO SCH (10:16)
--- NOTE | 2019-09-28 10:21 | PDOC.PALPN ---
Palliative Progress Note - Subjective Awake, alert. States she did not sleep well and has pain today. - Objective Vital Signs: Vital Signs - Most Recent Temp Pulse Resp BP Pulse Ox 97.6 F 86 20 139/74 98 09/28/19 04:00 09/28/19 04:00 09/28/19 04:00 09/28/19 04:00 09/28/19 04:00 - Physical Exam Constitutional: ill appearing HEENT: EOMI, moist MMs, sclera anicteric Respiratory: clear to auscultation bilateral, no wheezing Cardiovascular: RRR Gastrointestinal: continent Genitourinary: continent Deviation from normal: Pain to back, chest, lower ext more pronounced to right hip/leg and sternum Neurology: moves all 4 limbs Skin: cap refill <2 seconds Psychiatric: A&O x 3 - Assessment (1) Palliative care encounter Code(s): Z51.5 - ENCOUNTER FOR PALLIATIVE CARE Current Visit: Yes Status: Acute (2) Breast mass, left Code(s): N63.20 - UNSPECIFIED LUMP IN THE LEFT BREAST, UNSPECIFIED QUADRANT Current Visit: Yes Status: Acute (3) Pathologic fracture of neck of left femur Code(s): M84.452A - PATHOLOGICAL FRACTURE, LEFT FEMUR, INIT ENCNTR FOR FRACTURE Current Visit: Yes Status: Acute Qualifiers: Encounter type: subsequent encounter (4) Bipolar disorder Code(s): F31.9 - BIPOLAR DISORDER, UNSPECIFIED Current Visit: Yes Status: Chronic Qualifiers: Active/Remission status: in full remission - Plan Plan: Increase Dexa to 4 mg IVP BID Continue with therapeutic listening and spiritual care to support patient emotional needs [30] minutes spent on this encounter with >50% of the time in counseling and coordination of care. - ROS Constitutional: alert, weakness Musculoskeletal: back pain, leg pain
--- NOTE | 2019-09-28 11:32 | PDOC.HOSPP ---
- Subjective Encounter Date: 09/28/19 Encounter Time: 09:10 Subjective: c/o pain.. - Objective Vital Signs & Weight: Vital Signs (12 hours) Temp Pulse Resp BP BP Pulse Ox 09/28/19 08:00 97.9 F 88 20 118/65 94 L 09/28/19 04:00 97.6 F 86 20 139/74 98 09/28/19 01:05 98.4 F 116 H 20 164/87 H 98 Weight Admit Weight 155 lb 4.8 oz Weight 155 lb 4.8 oz I&O: 09/27/19 09/28/19 09/29/19 06:59 06:59 06:59 Intake Total 2114 3690 Output Total 3480 Balance 2114 210 Result Diagrams: 09/23/19 08:08 09/23/19 08:08 Hospitalist ROS - Medication Medications: Active Medications Generic Name Dose Route Start Last Admin Trade Name Freq PRN Reason Stop Dose Admin Acetaminophen 1,000 mg 09/24/19 12:00 09/28/19 05:22 Tylenol PO 1,000 mg Q6HR ESA Administration Aspirin 81 mg 09/19/19 09:00 09/28/19 10:01 Ecotrin PO 81 mg BID ESA Administration Bisacodyl 10 mg 09/17/19 19:21 09/20/19 17:32 Dulcolax ID 10 mg DAILYPRN PRN Administration Constipation Bisacodyl 5 mg 09/25/19 09:00 09/28/19 10:01 Dulcolax PO 5 mg QAM ESA Administration Cyclobenzaprine HCl 10 mg 09/24/19 11:39 09/26/19 23:08 Flexeril PO 10 mg TIDPRN PRN Administration Muscle Spasm Enoxaparin Sodium 40 mg 09/17/19 09:00 09/28/19 10:02 Lovenox SC 40 mg 0900 ESA Administration Famotidine 20 mg 09/17/19 09:00 09/28/19 10:02 Pepcid PO 20 mg BID ESA Administration Fentanyl 100 mcg 09/22/19 14:00 09/25/19 13:29 Duragesic TD 100 mcg Q3D ESA Administration Ferrous Gluconate 324 mg 09/17/19 21:00 09/28/19 10:02 Fergon PO 324 mg BID ESA Administration Hydromorphone HCl 0 mg 09/27/19 12:36 09/28/19 06:46 Dilaudid Cadd IVPB 10 mg INF PRN Administration Pain Sodium Chloride 1,000 mls @ 30 mls/hr 09/17/19 18:00 09/27/19 18:43 Normal Saline 0.9% IV 1,000 mls .Q24H ESA Administration Iron/Minerals/Multivitamins 1 tab 09/18/19 09:00 09/28/19 10:16 Theragran M PO Not Given DAILY ESA Melatonin 6 mg 09/25/19 21:00 09/27/19 20:55 Melatonin PO 6 mg HS ESA Administration Ondansetron HCl 4 mg 09/17/19 01:28 09/28/19 01:27 Zofran Odt PO 4 mg Q6H PRN Administration Nausea/Vomiting Ondansetron HCl 4 mg 09/21/19 16:30 09/28/19 10:03 Zofran IVP 4 mg Q6H PRN Administration Nausea/Vomiting Promethazine HCl 12.5 mg 09/21/19 16:30 09/28/19 03:48 Phenergan IM 12.5 mg Q4H PRN Administration Nausea/Vomiting Senna/Docusate Sodium 2 tab 09/17/19 21:00 09/28/19 10:01 Senokot S PO 2 tab BID ESA Administration Sodium Chloride 10 ml 09/17/19 07:16 09/28/19 10:04 Flush - Normal Saline IVF 10 ml PRN PRN Administration Saline Flush - Exam General Appearance: NAD, ill appearing Neck: no JVD Heart: RRR Respiratory: CTAB Gastrointestinal: soft Extremities: no edema Neurological: no weakness Psychiatric: normal behavior Hosp A/P (1) Breast cancer Status: Acute Qualifiers: Patient sex: female Laterality: left (2) Microcytic anemia Code(s): D50.9 - IRON DEFICIENCY ANEMIA, UNSPECIFIED Status: Acute (3) Pathologic fracture of neck of left femur Code(s): M84.452A - PATHOLOGICAL FRACTURE, LEFT FEMUR, INIT ENCNTR FOR FRACTURE Status: Acute Qualifiers: Encounter type: subsequent encounter (4) DM type 2 (diabetes mellitus, type 2) Status: Chronic - Plan Seen by palliative care. Continue supportive therapy..
[2019-09-28] MEDS: fentaNYL 100 mcg/hour Patch TD SCH (13:55)
--- NOTE | 2019-09-28 16:48 | RAD ---
EXAM: 2 views of the left hip HISTORY: Left hip pain COMPARISON: 09/16/2019 FINDINGS: 2 views of the left hip shows the patient is status post left hip arthroplasty without marilyn hardware lucency or fracture. IMPRESSION: Status post left hip arthroplasty without evidence of complication.
[2019-09-28] MEDS: Sodium Chloride 0.9% 1,000 ML IV SCH (18:47)
[2019-09-28] MEDS: Melatonin 3 MG TAB PO SCH (23:15)
[2019-09-29] MEDS: Promethazine HCl 25 MG/ML VIAL IM PRN ×3 (02:15→22:50)
[2019-09-29] MEDS: Ondansetron ODT 4 MG TAB PO PRN ×2 (05:55→12:28)
[2019-09-29] MEDS: Acetaminophen 500 MG TAB PO SCH ×3 (05:55→17:42)
[2019-09-29] MEDS: HYDROmorphone 10 mg/100 ml CADD IVPB PRN (08:06)
[2019-09-29] MEDS: Senokot S 8.6-50 MG TAB PO SCH ×2 (08:50→20:21)
[2019-09-29] MEDS: Multivitamin W/ Minerals 1 TAB PO SCH (08:50)
[2019-09-29] MEDS: Aspirin 81 mg Enteric Coated Tablet PO SCH ×2 (08:50→20:22)
[2019-09-29] MEDS: Bisacodyl 5 MG TAB PO SCH (08:50)
[2019-09-29] MEDS: Enoxaparin Sodium 40 MG/0.4 ML SYRINGE SC SCH (08:51)
[2019-09-29] MEDS: Ferrous Gluconate 324 MG TAB PO SCH ×2 (08:51→20:22)
[2019-09-29] MEDS: Famotidine 20 MG TAB PO SCH ×2 (08:51→20:22)
[2019-09-29] MEDS: Dexamethasone 4 mg/ml Vial SLOW IVP SCH ×2 (08:54→20:21)
[2019-09-29] MEDS: Sodium Chloride 0.9% 1,000 ML IV SCH (10:15)
--- NOTE | 2019-09-29 10:48 | PDOC.HOSPP ---
- Subjective Encounter Date: 09/29/19 Encounter Time: 15:00 Subjective: Feels better.. - Objective Vital Signs & Weight: Vital Signs (12 hours) Temp Pulse Pulse Resp BP BP Pulse Ox 09/29/19 08:37 85 142/70 H 09/29/19 08:00 97.5 F L 88 18 142/70 H 94 L 09/29/19 04:00 98.6 F 98 17 131/74 97 09/29/19 00:00 98.4 F 96 16 125/72 97 Weight Admit Weight 155 lb 4.8 oz Weight 155 lb 4.8 oz I&O: 09/28/19 09/29/19 09/30/19 06:59 06:59 06:59 Intake Total 3690 1880.8 Output Total 3480 1300 Balance 210 580.8 Result Diagrams: 09/23/19 08:08 09/23/19 08:08 Hospitalist ROS - Medication Medications: Active Medications Generic Name Dose Route Start Last Admin Trade Name Freq PRN Reason Stop Dose Admin Acetaminophen 1,000 mg 09/24/19 12:00 09/29/19 05:55 Tylenol PO 1,000 mg Q6HR ESA Administration Aspirin 81 mg 09/19/19 09:00 09/29/19 08:50 Ecotrin PO 81 mg BID ESA Administration Bisacodyl 10 mg 09/17/19 19:21 09/20/19 17:32 Dulcolax LA 10 mg DAILYPRN PRN Administration Constipation Bisacodyl 5 mg 09/25/19 09:00 09/29/19 08:50 Dulcolax PO 5 mg QAM ESA Administration Cyclobenzaprine HCl 10 mg 09/24/19 11:39 09/26/19 23:08 Flexeril PO 10 mg TIDPRN PRN Administration Muscle Spasm Dexamethasone 4 mg 09/28/19 21:00 09/29/19 08:54 Decadron SLOW IVP 4 mg BID ESA Administration Enoxaparin Sodium 40 mg 09/17/19 09:00 09/29/19 08:51 Lovenox SC 40 mg 0900 ESA Administration Famotidine 20 mg 09/17/19 09:00 09/29/19 08:51 Pepcid PO 20 mg BID ESA Administration Fentanyl 100 mcg 09/22/19 14:00 09/28/19 13:55 Duragesic TD 100 mcg Q3D ESA Administration Ferrous Gluconate 324 mg 09/17/19 21:00 09/29/19 08:51 Fergon PO 324 mg BID ESA Administration Hydromorphone HCl 0 mg 09/27/19 12:36 09/29/19 08:06 Dilaudid Cadd IVPB 10 mg INF PRN Administration Pain Sodium Chloride 1,000 mls @ 30 mls/hr 09/17/19 18:00 09/28/19 18:47 Normal Saline 0.9% IV Not Given .Q24H ESA Iron/Minerals/Multivitamins 1 tab 09/18/19 09:00 09/29/19 08:50 Theragran M PO 1 tab DAILY ESA Administration Melatonin 6 mg 09/25/19 21:00 09/28/19 23:15 Melatonin PO 6 mg HS ESA Administration Ondansetron HCl 4 mg 09/17/19 01:28 09/29/19 05:55 Zofran Odt PO 4 mg Q6H PRN Administration Nausea/Vomiting Ondansetron HCl 4 mg 09/21/19 16:30 09/28/19 10:03 Zofran IVP 4 mg Q6H PRN Administration Nausea/Vomiting Promethazine HCl 12.5 mg 09/21/19 16:30 09/29/19 02:15 Phenergan IM 12.5 mg Q4H PRN Administration Nausea/Vomiting Senna/Docusate Sodium 2 tab 09/17/19 21:00 09/29/19 08:50 Senokot S PO 2 tab BID ESA Administration Sodium Chloride 10 ml 09/17/19 07:16 09/28/19 10:04 Flush - Normal Saline IVF 10 ml PRN PRN Administration Saline Flush - Exam General Appearance: NAD Neck: no JVD Heart: RRR Respiratory: CTAB Gastrointestinal: soft Extremities: no edema Psychiatric: normal affect, A&O x 3 Hosp A/P (1) Breast cancer Status: Acute Qualifiers: Patient sex: female Laterality: left (2) Microcytic anemia Code(s): D50.9 - IRON DEFICIENCY ANEMIA, UNSPECIFIED Status: Acute (3) Pathologic fracture of neck of left femur Code(s): M84.452A - PATHOLOGICAL FRACTURE, LEFT FEMUR, INIT ENCNTR FOR FRACTURE Status: Acute Qualifiers: Encounter type: subsequent encounter (4) DM type 2 (diabetes mellitus, type 2) Status: Chronic - Plan f/u with palliative care.. Continue supportive therapy..
[2019-09-29] MEDS: Ondansetron PF 4 MG/2 ML Vial IVP PRN (20:28)
[2019-09-30] MEDS: HYDROmorphone 10 mg/100 ml CADD IVPB PRN ×2 (00:38→18:10)
[2019-09-30] MEDS: Melatonin 3 MG TAB PO SCH ×2 (01:06→20:23)
[2019-09-30] MEDS: Cyclobenzaprine 10 MG TAB PO PRN (01:06)
[2019-09-30] MEDS: Acetaminophen 500 MG TAB PO SCH ×5 (01:07→23:55)
--- NOTE | 2019-09-30 09:06 | PDOC.HOSPP ---
- Subjective Encounter Date: 09/30/19 Encounter Time: 07:15 Subjective: No new complaint... Less pain. 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 - Objective Vital Signs & Weight: Vital Signs (12 hours) Temp Pulse Resp BP Pulse Ox 09/30/19 08:00 96 09/30/19 07:36 97.4 F L 86 18 126/70 96 09/30/19 04:00 97.5 F L 94 16 139/78 99 09/29/19 23:19 98.5 F 88 16 131/76 99 Weight Admit Weight 155 lb 4.8 oz Weight 155 lb 4.8 oz I&O: 09/29/19 09/30/19 10/01/19 06:59 06:59 06:59 Intake Total 1880.8 1888.9 Output Total 1300 2500 Balance 580.8 -611.1 Result Diagrams: 09/23/19 08:08 09/23/19 08:08 Hospitalist ROS - Medication Medications: Active Medications Generic Name Dose Route Start Last Admin Trade Name Freq PRN Reason Stop Dose Admin Acetaminophen 1,000 mg 09/24/19 12:00 09/30/19 05:58 Tylenol PO 1,000 mg Q6HR ESA Administration Aspirin 81 mg 09/19/19 09:00 09/29/19 20:22 Ecotrin PO 81 mg BID ESA Administration Bisacodyl 10 mg 09/17/19 19:21 09/20/19 17:32 Dulcolax SD 10 mg DAILYPRN PRN Administration Constipation Bisacodyl 5 mg 09/25/19 09:00 09/29/19 08:50 Dulcolax PO 5 mg QAM ESA Administration Cyclobenzaprine HCl 10 mg 09/24/19 11:39 09/30/19 01:06 Flexeril PO 10 mg TIDPRN PRN Administration Muscle Spasm Dexamethasone 4 mg 09/28/19 21:00 09/29/19 20:21 Decadron SLOW IVP 4 mg BID ESA Administration Enoxaparin Sodium 40 mg 09/17/19 09:00 09/29/19 08:51 Lovenox SC 40 mg 0900 ESA Administration Famotidine 20 mg 09/17/19 09:00 09/29/19 20:22 Pepcid PO 20 mg BID ESA Administration Fentanyl 100 mcg 09/22/19 14:00 09/28/19 13:55 Duragesic TD 100 mcg Q3D ESA Administration Ferrous Gluconate 324 mg 09/17/19 21:00 09/29/19 20:22 Fergon PO 324 mg BID ESA Administration Hydromorphone HCl 0 mg 09/27/19 12:36 09/30/19 00:38 Dilaudid Cadd IVPB 10 mg INF PRN Administration Pain Sodium Chloride 1,000 mls @ 30 mls/hr 09/17/19 18:00 09/29/19 10:15 Normal Saline 0.9% IV 1,000 mls .Q24H ESA Administration Iron/Minerals/Multivitamins 1 tab 09/18/19 09:00 09/29/19 08:50 Theragran M PO 1 tab DAILY ESA Administration Melatonin 6 mg 09/25/19 21:00 09/30/19 01:06 Melatonin PO 6 mg HS ESA Administration Ondansetron HCl 4 mg 09/17/19 01:28 09/29/19 12:28 Zofran Odt PO 4 mg Q6H PRN Administration Nausea/Vomiting Ondansetron HCl 4 mg 09/21/19 16:30 09/29/19 20:28 Zofran IVP 4 mg Q6H PRN Administration Nausea/Vomiting Promethazine HCl 12.5 mg 09/21/19 16:30 09/29/19 22:50 Phenergan IM 12.5 mg Q4H PRN Administration Nausea/Vomiting Senna/Docusate Sodium 2 tab 09/17/19 21:00 09/29/19 20:21 Senokot S PO 2 tab BID ESA Administration Sodium Chloride 10 ml 09/17/19 07:16 09/28/19 10:04 Flush - Normal Saline IVF 10 ml PRN PRN Administration Saline Flush - Exam General Appearance: NAD, ill appearing Neck: no JVD Heart: RRR Respiratory: CTAB Gastrointestinal: soft Extremities: no edema Neurological: no weakness Psychiatric: normal affect, A&O x 3 Hosp A/P (1) Breast cancer Status: Acute Qualifiers: Patient sex: female Laterality: left (2) Microcytic anemia Code(s): D50.9 - IRON DEFICIENCY ANEMIA, UNSPECIFIED Status: Acute (3) Pathologic fracture of neck of left femur Code(s): M84.452A - PATHOLOGICAL FRACTURE, LEFT FEMUR, INIT ENCNTR FOR FRACTURE Status: Acute Qualifiers: Encounter type: subsequent encounter (4) DM type 2 (diabetes mellitus, type 2) Status: Chronic - Plan f/u with palliative care.. Continue supportive therapy.. F/u with oncology..
[2019-09-30] MEDS: Dexamethasone 4 mg/ml Vial SLOW IVP SCH ×2 (09:09→20:23)
[2019-09-30] MEDS: Senokot S 8.6-50 MG TAB PO SCH ×2 (09:09→20:22)
[2019-09-30] MEDS: Aspirin 81 mg Enteric Coated Tablet PO SCH ×2 (09:09→20:22)
[2019-09-30] MEDS: Enoxaparin Sodium 40 MG/0.4 ML SYRINGE SC SCH (09:09)
[2019-09-30] MEDS: Multivitamin W/ Minerals 1 TAB PO SCH (09:09)
[2019-09-30] MEDS: Bisacodyl 5 MG TAB PO SCH (09:09)
[2019-09-30] MEDS: Ferrous Gluconate 324 MG TAB PO SCH ×2 (09:10→20:22)
[2019-09-30] MEDS: Famotidine 20 MG TAB PO SCH ×2 (09:10→20:22)
[2019-09-30] MEDS: Ondansetron ODT 4 MG TAB PO PRN ×2 (13:11→18:07)
[2019-09-30] MEDS: Promethazine HCl 25 MG/ML VIAL IM PRN (14:55)
[2019-09-30] MEDS: Sodium Chloride 0.9% 1,000 ML IV SCH (18:08)
[2019-10-01 04:31] LABS: #Lymphocytes 2.3 thou/uL (1.20-3.40); #Monocytes 0.6 thou/uL (0.11-0.59); %Basophils 0.1 % (0.0-1.0); %Eosinophils 0.2 % (0.0-10.0); %Lymphocytes 17.7 % (21.0-51.0); %Monocytes 4.3 % (0.0-10.0); %Neutrophils 77.7 % (42.0-75.0); Hemoglobin 9.3 g/dL (12.0-16.0); Mean Corpuscular HGB CONC 31.1 g/dL (32.0-36.0); Mean Corpuscular Hemoglobin 25.6 pg (27.0-31.0); Mean Corpuscular Volume 82.2 fL (78.0-98.0); Mean Platelet Volume 6.8 fL (7.4-10.4); Platelet Count 561 thou/uL (130-400); RBC Distribution Width 17.5 % (11.5-14.5); Red Blood Cell (RBC) Count 3.62 mill/uL (4.20-5.40); White Blood Cell (WBC) Count 12.9 thou/uL (4.8-10.8)
[2019-10-01 04:46] LABS: Anion Gap 14 mmol/L (10-20); BUN (Urea Nitrogen) 19 mg/dL (9.8-20.1); Calc. Creatinine Clearance 113 mL/min (70-130); Calcium 9.4 mg/dL (7.8-10.44); Carbon Dioxide 24 mmol/L (22-29); Chloride 101 mmol/L (98-107); Estimated GFR-MDRD Greater than 90; Glucose 149 mg/dL (70-105); Potassium 4.4 mmol/L (3.5-5.1); Sodium 135 mmol/L (136-145)
[2019-10-01] MEDS: Ondansetron ODT 4 MG TAB PO PRN ×2 (04:51→17:43)
[2019-10-01] MEDS: Acetaminophen 500 MG TAB PO SCH ×4 (04:54→17:43)
[2019-10-01] MEDS: Senokot S 8.6-50 MG TAB PO SCH ×2 (09:08→20:47)
[2019-10-01] MEDS: Aspirin 81 mg Enteric Coated Tablet PO SCH ×2 (09:08→20:46)
[2019-10-01] MEDS: Famotidine 20 MG TAB PO SCH ×2 (09:08→20:47)
[2019-10-01] MEDS: Enoxaparin Sodium 40 MG/0.4 ML SYRINGE SC SCH (09:08)
[2019-10-01] MEDS: Dexamethasone 4 mg/ml Vial SLOW IVP SCH ×2 (09:08→20:46)
[2019-10-01] MEDS: Bisacodyl 5 MG TAB PO SCH (09:08)
[2019-10-01] MEDS: Ferrous Gluconate 324 MG TAB PO SCH ×2 (09:08→20:46)
[2019-10-01] MEDS: Multivitamin W/ Minerals 1 TAB PO SCH (09:09)
[2019-10-01] MEDS: HYDROmorphone 10 mg/100 ml CADD IVPB PRN (11:32)
[2019-10-01] MEDS: Promethazine HCl 25 MG/ML VIAL IM PRN ×2 (13:28→20:46)
[2019-10-01] MEDS: fentaNYL 100 mcg/hour Patch TD SCH (13:31)
--- NOTE | 2019-10-01 14:33 | PDOC.PALPN ---
Palliative Progress Note - Subjective Awake, alert, mild pain at the moment (01/31), constipated - Objective Vital Signs: Vital Signs - Most Recent Temp Pulse Resp BP Pulse Ox 98.4 F 111 H 18 140/86 99 10/01/19 11:08 10/01/19 11:08 10/01/19 11:08 10/01/19 11:08 10/01/19 11:08 - Assessment (1) Palliative care encounter Code(s): Z51.5 - ENCOUNTER FOR PALLIATIVE CARE Current Visit: Yes Status: Acute (2) Breast mass, left Code(s): N63.20 - UNSPECIFIED LUMP IN THE LEFT BREAST, UNSPECIFIED QUADRANT Current Visit: Yes Status: Acute (3) Pathologic fracture of neck of left femur Code(s): M84.452A - PATHOLOGICAL FRACTURE, LEFT FEMUR, INIT ENCNTR FOR FRACTURE Current Visit: Yes Status: Acute Qualifiers: Encounter type: subsequent encounter (4) Bipolar disorder Code(s): F31.9 - BIPOLAR DISORDER, UNSPECIFIED Current Visit: Yes Status: Chronic Qualifiers: Active/Remission status: in full remission - Plan Plan: Will initiate oral morphine 10/02 and transition off of the hydromorphone. Added Mirilax for constipation. [] minutes spent on this encounter with >50% of the time in counseling and coordination of care.
--- NOTE | 2019-10-01 19:53 | PDOC.HOSPP ---
- Subjective Encounter Date: 10/01/19 Encounter Time: 21:28 Subjective: The patient went for radiation treatment today for alleviation of her pain. She reports intense pain across her chest radiating to neck and back. Describes it as achy. Has family history of heart disease, never got a stress test. 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 Flexeril helps as well. No feveres, chills or cough Also reports persistent hiccups athat she can't control, denies burning sensation - Objective Vital Signs & Weight: Vital Signs (12 hours) Temp Pulse Resp BP BP Pulse Ox 10/01/19 16:04 99.3 F 101 H 18 136/65 94 L 10/01/19 11:08 98.4 F 111 H 18 140/86 99 10/01/19 08:00 100 Weight Admit Weight 155 lb 4.8 oz Weight 155 lb 4.8 oz I&O: 09/30/19 10/01/19 10/02/19 06:59 06:59 06:59 Intake Total 1888.9 4160 2800 Output Total 2500 3500 2100 Balance -611.1 660 700 Result Diagrams: 10/01/19 03:32 10/01/19 03:32 Hospitalist ROS - Medication Medications: Active Medications Generic Name Dose Route Start Last Admin Trade Name Freq PRN Reason Stop Dose Admin Acetaminophen 1,000 mg 09/24/19 12:00 10/01/19 17:43 Tylenol PO 1,000 mg Q6HR ESA Administration Aspirin 81 mg 09/19/19 09:00 10/01/19 09:08 Ecotrin PO 81 mg BID ESA Administration Bisacodyl 10 mg 09/17/19 19:21 09/20/19 17:32 Dulcolax [place] 10 mg DAILYPRN PRN Administration Constipation Bisacodyl 5 mg 09/25/19 09:00 10/01/19 09:08 Dulcolax PO 5 mg QAM ESA Administration Cyclobenzaprine HCl 10 mg 09/24/19 11:39 09/30/19 01:06 Flexeril PO 10 mg TIDPRN PRN Administration Muscle Spasm Dexamethasone 4 mg 09/28/19 21:00 10/01/19 09:08 Decadron SLOW IVP 4 mg BID ESA Administration Enoxaparin Sodium 40 mg 09/17/19 09:00 10/01/19 09:08 Lovenox SC 40 mg 0900 ESA Administration Famotidine 20 mg 09/17/19 09:00 10/01/19 09:08 Pepcid PO 20 mg BID ESA Administration Fentanyl 100 mcg 09/22/19 14:00 10/01/19 13:31 Duragesic TD 100 mcg Q3D ESA Administration Ferrous Gluconate 324 mg 09/17/19 21:00 10/01/19 09:08 Fergon PO 324 mg BID ESA Administration Hydromorphone HCl 0 mg 09/27/19 12:36 10/01/19 11:32 Dilaudid Cadd IVPB 10 mg INF PRN Administration Pain Sodium Chloride 1,000 mls @ 30 mls/hr 09/17/19 18:00 09/30/19 18:08 Normal Saline 0.9% IV 1,000 mls .Q24H ESA Administration Iron/Minerals/Multivitamins 1 tab 09/18/19 09:00 10/01/19 09:09 Theragran M PO Not Given DAILY ESA Melatonin 6 mg 09/25/19 21:00 09/30/19 20:23 Melatonin PO 6 mg HS ESA Administration Ondansetron HCl 4 mg 09/17/19 01:28 10/01/19 17:43 Zofran Odt PO 4 mg Q6H PRN Administration Nausea/Vomiting Ondansetron HCl 4 mg 09/21/19 16:30 09/29/19 20:28 Zofran IVP 4 mg Q6H PRN Administration Nausea/Vomiting Promethazine HCl 12.5 mg 09/21/19 16:30 10/01/19 13:28 Phenergan IM 12.5 mg Q4H PRN Administration Nausea/Vomiting Senna/Docusate Sodium 2 tab 09/17/19 21:00 10/01/19 09:08 Senokot S PO 2 tab BID ESA Administration Sodium Chloride 10 ml 09/17/19 07:16 09/30/19 09:11 Flush - Normal Saline IVF 10 ml PRN PRN Administration Saline Flush Hosp A/P - Plan CT chest/abdomen/pelvis 09/16: large left breast mass with multiple satellite nodules. Right fifth rib fracture. Pathologic T12 and L1 fractures with L1 fracture incomplete. Left femoral neck fracture. Metastatic focus of T5 vertebral body. [id number] process lytic metastatic focus. Mixed sclerotic and lytic foci of cervical spine Xray femur 09/16: acute vs subacute left femoral neck fracture Pelvis Xray 09/16: left total hip prosthesis Chest Xray 09/20: mild cardiomegaly MRI thoracic spine 09/25: metastatic disease of thoracic spine with compression on T12, T5, T2 and T1 and moderate compression C7. 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 Palliative will start long acting morphine with IR prn to wean off the TEACHER [employer]IC tomorrow - add lidocaine patch to back, add gabapentin TID which may help with hiccups as well - oncology following, will f/u as an outpatient Iron deficiency - continue iron sulfate Bipolar disorder - not on medication Nausea - on dexamethasone per palliative care Code status: full code
[2019-10-01] MEDS: Sodium Chloride 0.9% 1,000 ML IV SCH (20:45)
[2019-10-01] MEDS: Melatonin 3 MG TAB PO SCH (21:00)
[2019-10-01] MEDS ORDERED: Gabapentin 100 MG CAP PO SCH (21:30)
[2019-10-01] MEDS: Lidocaine 5% Patch TD SCH (21:48)
[2019-10-02] MEDS: Acetaminophen 500 MG TAB PO SCH ×4 (00:09→17:58)
[2019-10-02] MEDS: Ondansetron ODT 4 MG TAB PO PRN ×3 (02:57→17:59)
[2019-10-02] MEDS: Promethazine HCl 25 MG/ML VIAL IM PRN (04:17)
[2019-10-02 04:35] LABS: #Lymphocytes 1.5 thou/uL (1.20-3.40); #Monocytes 0.8 thou/uL (0.11-0.59); #Neutrophils 8.9 thou/uL (1.40-6.50); %Basophils 0.4 % (0.0-1.0); %Eosinophils 0.2 % (0.0-10.0); %Lymphocytes 13.1 % (21.0-51.0); %Monocytes 7.1 % (0.0-10.0); %Neutrophils 79.2 % (42.0-75.0); Hemoglobin 10.8 g/dL (12.0-16.0); Mean Corpuscular HGB CONC 30.5 g/dL (32.0-36.0); Mean Corpuscular Hemoglobin 25.8 pg (27.0-31.0); Mean Corpuscular Volume 84.5 fL (78.0-98.0); Mean Platelet Volume 8.3 fL (7.4-10.4); Platelet Count 469 thou/uL (130-400); RBC Distribution Width 17.7 % (11.5-14.5); Red Blood Cell (RBC) Count 4.17 mill/uL (4.20-5.40); White Blood Cell (WBC) Count 11.3 thou/uL (4.8-10.8)
[2019-10-02 04:48] LABS: Anion Gap 15 mmol/L (10-20); BUN (Urea Nitrogen) 20 mg/dL (9.8-20.1); Calc. Creatinine Clearance 122 mL/min (70-130); Calcium 9.7 mg/dL (7.8-10.44); Carbon Dioxide 22 mmol/L (22-29); Chloride 101 mmol/L (98-107); Estimated GFR-MDRD Greater than 90; Glucose 105 mg/dL (70-105); Potassium 5.1 mmol/L (3.5-5.1); Sodium 133 mmol/L (136-145)
[2019-10-02] MEDS: HYDROmorphone 10 mg/100 ml CADD IVPB PRN (06:29)
--- NOTE | 2019-10-02 07:15 | PDOC.PALPN ---
Palliative Progress Note - Subjective awake, alert, pain increased to left ribs frontal aspect. - Objective Vital Signs: Vital Signs - Most Recent Temp Pulse Resp BP Pulse Ox 97.6 F 89 16 123/76 97 10/02/19 04:00 10/02/19 04:00 10/02/19 04:00 10/02/19 04:00 10/02/19 04:00 - Physical Exam Constitutional: moderate distress HEENT: EOMI, moist MMs, sclera anicteric Respiratory: labored respirations (related to increase in pain) Cardiovascular: RRR Gastrointestinal: continent Genitourinary: continent Musculoskeletal: no cyanosis, no clubbing, pulses present Neurology: moves all 4 limbs Skin: cap refill <2 seconds Psychiatric: A&O x 3 - Assessment (1) Palliative care encounter Code(s): Z51.5 - ENCOUNTER FOR PALLIATIVE CARE Current Visit: Yes Status: Acute (2) Breast mass, left Code(s): N63.20 - UNSPECIFIED LUMP IN THE LEFT BREAST, UNSPECIFIED QUADRANT Current Visit: Yes Status: Acute (3) Pathologic fracture of neck of left femur Code(s): M84.452A - PATHOLOGICAL FRACTURE, LEFT FEMUR, INIT ENCNTR FOR FRACTURE Current Visit: Yes Status: Acute Qualifiers: Encounter type: subsequent encounter (4) Bipolar disorder Code(s): F31.9 - BIPOLAR DISORDER, UNSPECIFIED Current Visit: Yes Status: Chronic Qualifiers: Active/Remission status: in full remission - Plan Plan: Will attempt to stop hydromorphone via IV, and transition to oral morphine - MS Contin 30 mg po bid and MSIR 15mg po q 4 hr prn and continue with fentanyl patch. Will monitor and adjust through the day. [30] minutes spent on this encounter with >50% of the time in counseling and coordination of care. - ROS Constitutional: weakness Gastrointestinal: constipation Musculoskeletal: back pain, other (right ribe pain) Psychological: anxiety, restless
[2019-10-02] MEDS: Ferrous Gluconate 324 MG TAB PO SCH ×2 (08:06→20:54)
[2019-10-02] MEDS: Gabapentin 100 MG CAP PO SCH ×3 (08:06→21:14)
[2019-10-02] MEDS: Bisacodyl 5 MG TAB PO SCH (08:06)
[2019-10-02] MEDS: Enoxaparin Sodium 40 MG/0.4 ML SYRINGE SC SCH (08:06)
[2019-10-02] MEDS: Aspirin 81 mg Enteric Coated Tablet PO SCH ×2 (08:06→20:54)
[2019-10-02] MEDS: Famotidine 20 MG TAB PO SCH ×2 (08:06→20:54)
[2019-10-02] MEDS: Morphine ER 30 MG TAB PO SCH ×2 (08:07→20:54)
[2019-10-02] MEDS: Dexamethasone 4 mg/ml Vial SLOW IVP SCH ×2 (08:07→20:56)
[2019-10-02] MEDS: Polyethylene Glycol 3350 17 GM Packet PO SCH (08:08)
[2019-10-02] MEDS: Senokot S 8.6-50 MG TAB PO SCH ×2 (08:08→20:54)
[2019-10-02] MEDS: Multivitamin W/ Minerals 1 TAB PO SCH (08:08)
[2019-10-02] MEDS ORDERED: Promethazine HCl 25 MG/ML VIAL SLOW IVP SCH (08:30)
--- NOTE | 2019-10-02 09:04 | PDOC.HOSPP ---
- Subjective Encounter Date: 10/02/19 Encounter Time: 08:30 Subjective: CC: F/u of pain from cancer The patient states she was in pain all night and couldn't sleep. States her BP is going high to 120 which is high for her and makes her vision blurry. Lidocaine patch helped her back. She received MS yuridia 45 minutes ago, still in 10/10 pain. Took gabapentin yesterday not sure if it helped. Still has hiccups and is getting pepcid she has some incontinence of urine, but is able to move her legs and denies numbness - Objective Vital Signs & Weight: Vital Signs (12 hours) Temp Pulse Resp BP Pulse Ox 10/02/19 04:00 97.6 F 89 16 123/76 97 10/02/19 00:00 98.5 F 96 16 138/76 97 Weight Admit Weight 155 lb 4.8 oz Weight 155 lb 4.8 oz I&O: 10/01/19 10/02/19 10/03/19 06:59 06:59 06:59 Intake Total 4160 4480 Output Total 3500 2100 Balance 660 2380 Result Diagrams: 10/02/19 04:06 10/02/19 04:06 Hospitalist ROS - Review of Systems Constitutional: denies: fever, chills - Medication Medications: Active Medications Generic Name Dose Route Start Last Admin Trade Name Freq PRN Reason Stop Dose Admin Acetaminophen 1,000 mg 09/24/19 12:00 10/02/19 06:31 Tylenol PO 1,000 mg Q6HR ESA Administration Aspirin 81 mg 09/19/19 09:00 10/02/19 08:06 Ecotrin PO 81 mg BID ESA Administration Bisacodyl 10 mg 09/17/19 19:21 09/20/19 17:32 Dulcolax [place] 10 mg DAILYPRN PRN Administration Constipation Bisacodyl 5 mg 09/25/19 09:00 10/02/19 08:06 Dulcolax PO 5 mg QAM ESA Administration Cyclobenzaprine HCl 10 mg 09/24/19 11:39 09/30/19 01:06 Flexeril PO 10 mg TIDPRN PRN Administration Muscle Spasm Dexamethasone 4 mg 09/28/19 21:00 10/02/19 08:07 Decadron SLOW IVP 4 mg BID ESA Administration Enoxaparin Sodium 40 mg 09/17/19 09:00 10/02/19 08:06 Lovenox SC 40 mg 0900 ESA Administration Famotidine 20 mg 09/17/19 09:00 10/02/19 08:06 Pepcid PO 20 mg BID ESA Administration Fentanyl 100 mcg 09/22/19 14:00 10/01/19 13:31 Duragesic TD 100 mcg Q3D ESA Administration Ferrous Gluconate 324 mg 09/17/19 21:00 10/02/19 08:06 Fergon PO 324 mg BID ESA Administration Gabapentin 100 mg 10/02/19 09:00 10/02/19 08:06 Neurontin PO 100 mg TID ESA Administration Sodium Chloride 1,000 mls @ 30 mls/hr 09/17/19 18:00 10/01/19 20:45 Normal Saline 0.9% IV Not Given .Q24H ESA Iron/Minerals/Multivitamins 1 tab 09/18/19 09:00 10/02/19 08:08 Theragran M PO Not Given DAILY ESA Lidocaine 1 patch 10/01/19 22:00 10/01/19 21:48 Lidoderm 5% Patch TD 1 patch Q24HR ESA Administration Melatonin 6 mg 09/25/19 21:00 10/01/19 21:00 Melatonin PO Not Given HS ESA Morphine Sulfate 30 mg 10/02/19 09:00 10/02/19 08:07 Ms Contin PO 30 mg Q12HR ESA Administration Ondansetron HCl 4 mg 09/17/19 01:28 10/02/19 02:57 Zofran Odt PO 4 mg Q6H PRN Administration Nausea/Vomiting Ondansetron HCl 4 mg 09/21/19 16:30 09/29/19 20:28 Zofran IVP 4 mg Q6H PRN Administration Nausea/Vomiting Polyethylene Glycol 17 gm 10/02/19 09:00 10/02/19 08:08 Miralax PO 17 gm DAILY ESA Administration Promethazine HCl 12.5 mg 10/02/19 08:30 10/02/19 08:29 Phenergan SLOW IVP 10/02/19 09:30 12.5 mg NOW ESA Administration Senna/Docusate Sodium 2 tab 09/17/19 21:00 10/02/19 08:08 Senokot S PO 2 tab BID ESA Administration Sodium Chloride 10 ml 09/17/19 07:16 09/30/19 09:11 Flush - Normal Saline IVF 10 ml PRN PRN Administration Saline Flush - Exam General Appearance: NAD, awake alert Eye: PERRL, anicteric sclera ENT: normocephalic atraumatic, no oropharyngeal lesions Neck: supple, symmetric, no JVD, no thyromegaly Heart: RRR, no murmur, no gallops, no rubs Respiratory: CTAB, no wheezes, no rales, no ronchi Gastrointestinal: soft, non-tender, non-distended Extremities: no cyanosis, no clubbing, no edema Skin: normal turgor, no lesions, no rashes Neurological: cranial nerve grossly intact, normal sensation to touch, no focal deficits, no new deficit Musculoskeletal: normal tone, normal strength, no muscle wasting Musculoskeletal - other findings: left breast mass Psychiatric: normal affect, normal behavior, A&O x 3 Hosp A/P - Plan CT chest/abdomen/pelvis 09/16: large left breast mass with multiple satellite nodules. Right fifth rib fracture. Pathologic T12 and L1 fractures with L1 fracture incomplete. Left femoral neck fracture. Metastatic focus of T5 vertebral body. [id number] process lytic metastatic focus. Mixed sclerotic and lytic foci of cervical spine Xray femur 09/16: acute vs subacute left femoral neck fracture Pelvis Xray 09/16: left total hip prosthesis Chest Xray 09/20: mild cardiomegaly MRI thoracic spine 09/25: metastatic disease of thoracic spine with compression on T12, T5, T2 and T1 and moderate compression C7. Also L1 Hip X ray 09/28: s/p left hip arthroplasty MRI Brain: osseous metastatic disease with multiple scattered subcentimeter enhancing lesions within the calvarium #Invasive ductal carcinoma with metastases to left axillary lymph node, T5, T11, T12, C7, L1 #Right fifth rib fracture #T12 and L1 fracture #Left femoral neck fracture acute vs subacute - s/p left hip arthroplasty on - transitioned to MS contin 30 q12, and morphine IR 15 mg q4 hours prn. Palliative on board - increase gabapentin to 300 mg tid, add 200 mg one time dose now - add additional lidocaine patch to left rib, continue one on on back - continue radiation therapy, then will need chemo when radiation completed Hyponatremia -sodium 131, will monitor Iron deficiency Anemia - continue iron sulfate Bipolar disorder - not on medication Nausea - on dexamethasone per palliative care Dispo: pain management prior to dc Code status: full code
[2019-10-02] MEDS: Lidocaine Patch Removal 1 EACH TOP SCH (10:00)
[2019-10-02] MEDS ORDERED: Gabapentin 100 MG CAP PO SCH ×2 (10:15)
[2019-10-02] MEDS: Morphine IR Tab 15 MG TAB PO PRN ×3 (12:07→20:55)
[2019-10-02] MEDS: Gabapentin 300 MG CAP PO SCH ×2 (16:28→20:54)
[2019-10-02] MEDS: Promethazine HCl 25 MG/ML VIAL SLOW IVP PRN ×2 (16:32→21:01)
[2019-10-02] MEDS: Sodium Chloride 0.9% 1,000 ML IV SCH (18:41)
[2019-10-02] MEDS: Lidocaine 5% Patch TD SCH (21:10)
[2019-10-02] MEDS: Melatonin 3 MG TAB PO SCH (21:30)
[2019-10-03] MEDS: Acetaminophen 500 MG TAB PO SCH ×5 (00:14→20:03)
[2019-10-03] MEDS: Ondansetron ODT 4 MG TAB PO PRN ×2 (00:14→21:20)
[2019-10-03] MEDS: Morphine IR Tab 15 MG TAB PO PRN ×6 (01:12→21:07)
[2019-10-03] MEDS: Promethazine HCl 25 MG/ML VIAL SLOW IVP PRN ×5 (01:12→16:25)
[2019-10-03 04:50] LABS: Hemoglobin 10.4 g/dL (12.0-16.0); Mean Corpuscular HGB CONC 30.8 g/dL (32.0-36.0); Mean Corpuscular Volume 84.6 fL (78.0-98.0); Mean Platelet Volume 7.1 fL (7.4-10.4); Platelet Count 555 thou/uL (130-400); RBC Distribution Width 17.9 % (11.5-14.5); Red Blood Cell (RBC) Count 3.98 mill/uL (4.20-5.40); White Blood Cell (WBC) Count 12.1 thou/uL (4.8-10.8)
[2019-10-03 05:12] LABS: Anion Gap 16 mmol/L (10-20); BUN (Urea Nitrogen) 28 mg/dL (9.8-20.1); Calc. Creatinine Clearance 111 mL/min (70-130); Calcium 9.2 mg/dL (7.8-10.44); Carbon Dioxide 23 mmol/L (22-29); Chloride 98 mmol/L (98-107); Estimated GFR-MDRD Greater than 90; Glucose 149 mg/dL (70-105); Potassium 4.6 mmol/L (3.5-5.1); Sodium 132 mmol/L (136-145)
[2019-10-03] MEDS: Polyethylene Glycol 3350 17 GM Packet PO SCH (08:48)
[2019-10-03] MEDS: Enoxaparin Sodium 40 MG/0.4 ML SYRINGE SC SCH (08:48)
[2019-10-03] MEDS: Dexamethasone 4 mg/ml Vial SLOW IVP SCH ×2 (08:48→20:10)
[2019-10-03] MEDS: Morphine ER 30 MG TAB PO SCH ×2 (08:50→20:03)
[2019-10-03] MEDS: Gabapentin 300 MG CAP PO SCH ×3 (08:51→20:07)
[2019-10-03] MEDS: Aspirin 81 mg Enteric Coated Tablet PO SCH ×2 (08:51→20:10)
[2019-10-03] MEDS: Gabapentin 100 MG CAP PO SCH ×4 (08:51→20:07)
[2019-10-03] MEDS: Multivitamin W/ Minerals 1 TAB PO SCH (08:51)
[2019-10-03] MEDS: Bisacodyl 5 MG TAB PO SCH (08:52)
[2019-10-03] MEDS: Ferrous Gluconate 324 MG TAB PO SCH ×2 (08:52→20:07)
[2019-10-03] MEDS: Famotidine 20 MG TAB PO SCH ×2 (08:52→20:07)
[2019-10-03] MEDS: Lidocaine Patch Removal 1 EACH TOP SCH (08:59)
--- NOTE | 2019-10-03 10:14 | PDOC.PALPN ---
Palliative Progress Note - Subjective Awake, alert, pain improving as Ms Mosley just received morphine IR. Continues with radiation, patient continues to try and be mobile. - Objective Vital Signs: Vital Signs - Most Recent Temp Pulse Resp BP Pulse Ox 99 F 112 H 18 124/76 94 L 10/03/19 07:19 10/03/19 07:19 10/03/19 07:19 10/03/19 07:19 10/03/19 07:19 - Physical Exam Constitutional: ill appearing HEENT: moist MMs, sclera anicteric, poor dentition Deviation from normal: Dry muscous membranes Respiratory: clear to auscultation bilateral, unlabored breathing Cardiovascular: RRR Gastrointestinal: continent, positive bowel sounds Genitourinary: continent Musculoskeletal: no cyanosis, no clubbing Neurology: moves all 4 limbs Skin: cap refill <2 seconds Psychiatric: A&O x 3 - Assessment (1) Palliative care encounter Code(s): Z51.5 - ENCOUNTER FOR PALLIATIVE CARE Current Visit: Yes Status: Acute (2) Breast mass, left Code(s): N63.20 - UNSPECIFIED LUMP IN THE LEFT BREAST, UNSPECIFIED QUADRANT Current Visit: Yes Status: Acute (3) Pathologic fracture of neck of left femur Code(s): M84.452A - PATHOLOGICAL FRACTURE, LEFT FEMUR, INIT ENCNTR FOR FRACTURE Current Visit: Yes Status: Acute Qualifiers: Encounter type: subsequent encounter (4) Bipolar disorder Code(s): F31.9 - BIPOLAR DISORDER, UNSPECIFIED Current Visit: Yes Status: Chronic Qualifiers: Active/Remission status: in full remission - Plan Plan: Patient transitioned off of hydromorphone and oral MS Contin and MSIR initiated. Education in relation to MSIR for breakthrough. Continue with current doses, fentanyl patch and dexamethasone. Patient hoping to go home when able. Spoke with Brenda and patient would benefit from a hospital bed to transition home secondary to bone metastasis and need for ability to adjust position and promote safety/fall prevention. Brenda will also reach out to oncology to determine if they can assume care of narcotics on discharge. Patient to continue scheduled Miralax and ducolax for constipation. [40] minutes spent on this encounter with >50% of the time in counseling and coordination of care. - ROS Constitutional: weakness ENT: dry mouth Respiratory: other (Denies cough, difficulity breathing) Cardiology: other (Denies chest pain or discomfort) Gastrointestinal: constipation Genitourinary: other (Denies dysuria, or frequency) Musculoskeletal: other (Pain related to hip, ribs, back)
[2019-10-03] MEDS: Senokot S 8.6-50 MG TAB PO SCH ×2 (11:33→21:07)
[2019-10-03] MEDS ORDERED: BIOTENE MOUTH SPRAY 44.3 ML MM PRN (12:25)
--- NOTE | 2019-10-03 18:34 | PDOC.HOSPP ---
- Subjective Encounter Date: 10/03/19 Encounter Time: 09:00 non-verbal Subjective: The patient states the lidocaine patch helps her a lot and she feels the gabapentin is working. SHe wants another lidocaine patch applied to her left breast. She felt her abdomen was bloated and was requesting miralax. Patient requesting hospital bed, waiting for equipment to be delivered. Patient states tylenol provides no relief. Morphine cuts the pain down but doesn't last very long SHe wants her pain to go down to a 3 prior to discharge - Objective Vital Signs & Weight: Vital Signs (12 hours) Temp Pulse Resp BP Pulse Ox 10/03/19 08:00 94 L 10/03/19 07:19 99 F 112 H 18 124/76 94 L Weight Admit Weight 155 lb 4.8 oz Weight 155 lb 4.8 oz I&O: 10/02/19 10/03/19 10/04/19 06:59 06:59 06:59 Intake Total 4480 3850 Output Total 2100 Balance 2380 3850 Result Diagrams: 10/03/19 04:23 10/03/19 04:23 Hospitalist ROS - Review of Systems Constitutional: denies: fever, chills - Medication Medications: Active Medications Generic Name Dose Route Start Last Admin Trade Name Freq PRN Reason Stop Dose Admin Acetaminophen 1,000 mg 09/24/19 12:00 10/03/19 17:45 Tylenol PO 1,000 mg Q6HR ESA Administration Aspirin 81 mg 09/19/19 09:00 10/03/19 08:51 Ecotrin PO 81 mg BID ESA Administration Bisacodyl 10 mg 09/17/19 19:21 09/20/19 17:32 Dulcolax [place] 10 mg DAILYPRN PRN Administration Constipation Bisacodyl 5 mg 09/25/19 09:00 10/03/19 08:52 Dulcolax PO 5 mg QAM ESA Administration Cyclobenzaprine HCl 10 mg 09/24/19 11:39 09/30/19 01:06 Flexeril PO 10 mg TIDPRN PRN Administration Muscle Spasm Dexamethasone 4 mg 09/28/19 21:00 10/03/19 08:48 Decadron SLOW IVP 4 mg BID ESA Administration Enoxaparin Sodium 40 mg 09/17/19 09:00 10/03/19 08:48 Lovenox SC 40 mg 0900 ESA Administration Famotidine 20 mg 09/17/19 09:00 10/03/19 08:52 Pepcid PO 20 mg BID ESA Administration Ferrous Gluconate 324 mg 09/17/19 21:00 10/03/19 08:52 Fergon PO 324 mg BID ESA Administration Gabapentin 100 mg 10/02/19 09:00 10/03/19 16:25 Neurontin PO 100 mg TID ESA Administration Gabapentin 300 mg 10/02/19 15:00 10/03/19 16:25 Neurontin PO 300 mg TID ESA Administration Gabapentin 200 mg 10/03/19 09:00 10/03/19 08:51 Neurontin PO 200 mg DAILY [facility] Administration Sodium Chloride 1,000 mls @ 30 mls/hr 09/17/19 18:00 10/02/19 18:41 Normal Saline 0.9% IV Not Given .Q24H [facility] Iron/Minerals/Multivitamins 1 tab 09/18/19 09:00 10/03/19 08:51 Theragran M PO 1 tab DAILY [facility] Administration Melatonin 6 mg 09/25/19 21:00 10/02/19 21:30 Melatonin PO Not Given [facility] Miscellaneous Medication 1 each 10/02/19 10:00 10/03/19 08:59 Lidocaine Patch Removal TOP Not Given 1000 [facility] Morphine Sulfate 30 mg 10/02/19 09:00 10/03/19 08:50 Ms Contin PO 30 mg Q12HR [facility] Administration Morphine Sulfate 15 mg 10/02/19 07:12 10/03/19 16:23 Morphine Ir Tab PO 15 mg Q4H PRN Administration Moderate to Severe Pain (6-10) Ondansetron HCl 4 mg 09/17/19 01:28 10/03/19 00:14 Zofran Odt PO 4 mg Q6H PRN Administration Nausea/Vomiting Ondansetron HCl 4 mg 09/21/19 16:30 09/29/19 20:28 Zofran IVP 4 mg Q6H PRN Administration Nausea/Vomiting Polyethylene Glycol 17 gm 10/02/19 09:00 10/03/19 08:48 Miralax PO 17 gm DAILY ESA Administration Promethazine HCl 12.5 mg 10/02/19 08:15 10/03/19 16:25 Phenergan SLOW IVP 12.5 mg Q4H PRN Administration Nausea Senna/Docusate Sodium 2 tab 09/17/19 21:00 10/03/19 11:33 Senokot S PO Not Given BID ESA Sodium Chloride 10 ml 09/17/19 07:16 09/30/19 09:11 Flush - Normal Saline IVF 10 ml PRN PRN Administration Saline Flush - Exam General Appearance: NAD, awake alert Eye: PERRL, anicteric sclera ENT: normocephalic atraumatic, no oropharyngeal lesions Neck: supple, symmetric, no JVD, no thyromegaly Heart: RRR, no murmur, no gallops, no rubs Respiratory: CTAB, no wheezes, no rales, no ronchi Gastrointestinal: soft, non-tender, non-distended, normal bowel sounds Extremities: no cyanosis, no clubbing, no edema Skin: normal turgor, no lesions, no rashes Neurological: cranial nerve grossly intact, normal sensation to touch, no focal deficits, no new deficit Musculoskeletal: normal tone, normal strength, no muscle wasting Musculoskeletal - other findings: Left breast tenderness present. Hosp A/P - Plan CT chest/abdomen/pelvis 09/16: large left breast mass with multiple satellite nodules. Right fifth rib fracture. Pathologic T12 and L1 fractures with L1 fracture incomplete. Left femoral neck fracture. Metastatic focus of T5 vertebral body. [id number] process lytic metastatic focus. Mixed sclerotic and lytic foci of cervical spine Xray femur 09/16: acute vs subacute left femoral neck fracture Pelvis Xray 09/16: left total hip prosthesis Chest Xray 09/20: mild cardiomegaly MRI thoracic spine 09/25: metastatic disease of thoracic spine with compression on T12, T5, T2 and T1 and moderate compression C7. Also L1 Hip X ray 09/28: s/p left hip arthroplasty MRI Brain: osseous metastatic disease with multiple scattered subcentimeter enhancing lesions within the calvarium #Invasive ductal carcinoma with metastases to left axillary lymph node, T5, T11, T12, C7, L1 #Right fifth rib fracture #T12 and L1 fracture #Left femoral neck fracture acute vs subacute - s/p left hip arthroplasty on - transitioned to MS contin 30 q12, and morphine IR 15 mg q4 hours prn. Palliative on board - continue gabapentin to 300 mg tid, lidocaine patch to left breast and one on back - continue radiation therapy, chemo as outpatient when radiation completed - on dexamethasone for pain as well Leukocytosis - WBC 12.1, from breast cancer Hyponatremia -sodium 132, stable Iron deficiency Anemia - continue iron sulfate Bipolar disorder - not on medication Nausea - on dexamethasone per palliative care Dispo: pain management prior to dc Code status: full code
[2019-10-03] MEDS: Sodium Chloride 0.9% 1,000 ML IV SCH (20:05)
--- NOTE | 2019-10-03 21:01 | RAD ---
EXAM: Two views chest PROVIDED CLINICAL HISTORY: Fever COMPARISON: 09/20/2019 FINDINGS: Cardiac and mediastinal silhouette appears within normal limits. There is a somewhat nodular opacity overlying the right upper lung zone on the frontal view, not definitely seen on prior. No pleural fluid or pneumothorax apparent. Bibasilar subsegmental atelectatic changes persist. IMPRESSION: Nodular right upper lung zone opacity, which could reflect airspace disease related to pneumonia. Fol low-up recommended.
[2019-10-03 21:47] LABS: Potassium 4.9 mmol/L (3.5-5.1)
[2019-10-03] MEDS: Melatonin 3 MG TAB PO SCH (21:47)
[2019-10-03] MEDS ORDERED: Lidocaine 5% Patch TD SCH ×2 (22:00)
[2019-10-04] MEDS ORDERED: Sodium Chloride 0.9% 1,000 ML IV SCH (00:04)
--- NOTE | 2019-10-04 00:13 | PDOC.EVN ---
Event Note - Event Note Event Note: Notified by RN, patient with elevated Temp, tachy in 140s and dropped her sats to 70s range. Labs obtained, lactic acid normal and electrolytes unremarkable. WCC today was 12. CXR ordered and showed possible pneumonia. UA/UCx pending. Blood cultures ordered. Discussed with Dr. Fernandez, advised 1 dose of Vanc and Cefepime. Abx to be addressed by day team. CTA ordered given history of malignancy and low sats to rule out PE and further evaluate for presumed pneumonia. IV fluids started, 500 ml bolus of NS to be followed by NS at 75 mL/hr
[2019-10-04] MEDS ORDERED: Sodium Chloride 0.9% 500 ML IV SCH (00:15)
[2019-10-04] MEDS ORDERED: Vancomycin HCl 1 GM in Premix Bag 1 BAG IVPB SCH (00:30)
[2019-10-04] MEDS ORDERED: Cefepime 1 GM in Sodium Chloride 0.9% 100 ML IVPB SCH (00:30)
[2019-10-04 01:20] LABS: Bacteria/HPF 3+ HPF (None Seen); Bilirubin Negative (Negative); Blood, Urine Negative (Negative); Clarity Turbid (Clear); Glucose, Urine (Dipstick) Normal (Negative); Leukocyte 500 Leu/uL (Negative); Nitrite Negative (Negative); Protein, Urine (Dipstick) 50 mg/dL (Neg-Trace); Squamous Epithelial 0-3 HPF (0-3); Urobilinogen Normal mg/dL (Less than 2); WBC/HPF Greater than 50 HPF (0-3)
[2019-10-04 01:21] LABS: Urine Culture Reflex Yes Yes
[2019-10-04] MEDS: Morphine IR Tab 15 MG TAB PO PRN ×6 (01:22→23:53)
[2019-10-04] MEDS: Bisacodyl 10 MG SUPP PR PRN (01:28)
[2019-10-04] MEDS: Promethazine HCl 25 MG/ML VIAL SLOW IVP PRN (04:08)
[2019-10-04] MEDS: Acetaminophen 500 MG TAB PO SCH ×5 (05:23→23:15)
--- NOTE | 2019-10-04 07:17 | CT ---
PRELIMINARY REPORT/[facility]/EMERGENCY AFTER HOURS PROCEDURE CT angiography chest Comparison: None Indication: Eval for possible PE vs pneumonia; low sats, pt tachycardic. Hx of cancer Findings: No aortic aneurysm or evidence of dissection. Normal thyroid gland. Atelectasis in the lung bases. No consolidation, pleural effusion or pneumothorax. Mild fluid dilatation of the mid and distal esophagus. There could be wall thickening of the distal e sophagus. Cardiomegaly. Coronary artery calcification. No pericardial effusion. Mass in the left breast. Bulky left axillary lymphadenopathy. Suboptimal contrast opacification and attenuation and motion artifact limit visualization of the pulm onary arteries. Lytic rib lesion in the right 5th rib. Age-indeterminate compression fractures of C7, T1, T12 and L1. There are lytic and sclerotic bone les ions in the spine. Impression: Limited evaluation for pulmonary embolus due to suboptimal contrast bolus and motion artifact. No lar ge central embolus. Emboli beyond the main pulmonary arteries could be missed. Fluid distention of the mid esophagus with possible distal esophagitis that could be infectious, infl ammatory or malignant. Atelectasis in the lower lungs. Evidence of multifocal metastatic malignancy. ELECTRONICALLY SIGNED BY: Moshe Chi MD Oct 04, 2019 2:22:06 AM [employer]IX ENGINE[employer] This report is intended for review by the ordering physician only, in accordance of law. If you recei ve this report in error, please call [facility] at [phone]. FINAL REPORT Agree with the preliminary report provided. The bolus timing is suboptimal to evaluate for pulmonary embolus. No definite large central pulmonary embolus is evident. There is a large mass involving the left breast consistent with a breast malignancy. There is osseous metastatic disease with luna moises abnormalities involving the thoracic spine better detailed on a recent MRI of the thoracic spine dated 09/25/2019. There is fluid distention of the esophagus which may be related to reflux or d ysmotility. There is a small hiatal hernia. There is bilateral lower lobe volume loss. There is a mild amount of volume loss also within the lingula. A component of aspiration cannot be excluded. Transcribed Date/Time: 10/04/2019 8:00 AM
[2019-10-04] MEDS: Enoxaparin Sodium 40 MG/0.4 ML SYRINGE SC SCH (08:01)
[2019-10-04] MEDS: Ferrous Gluconate 324 MG TAB PO SCH ×2 (08:02→20:04)
[2019-10-04] MEDS: Gabapentin 300 MG CAP PO SCH ×3 (08:02→20:04)
[2019-10-04] MEDS: Aspirin 81 mg Enteric Coated Tablet PO SCH ×2 (08:02→20:04)
[2019-10-04] MEDS: Bisacodyl 5 MG TAB PO SCH (08:03)
[2019-10-04] MEDS: Gabapentin 100 MG CAP PO SCH ×3 (08:03→12:19)
[2019-10-04] MEDS: Morphine ER 30 MG TAB PO SCH ×2 (08:04→20:04)
[2019-10-04] MEDS: Famotidine 20 MG TAB PO SCH (08:04)
[2019-10-04] MEDS: Dexamethasone 4 mg/ml Vial SLOW IVP SCH ×2 (08:05→20:04)
[2019-10-04] MEDS: Polyethylene Glycol 3350 17 GM Packet PO SCH (08:08)
[2019-10-04] MEDS: Multivitamin W/ Minerals 1 TAB PO SCH (08:10)
[2019-10-04] MEDS: Senokot S 8.6-50 MG TAB PO SCH ×2 (09:00→20:04)
--- NOTE | 2019-10-04 10:29 | PDOC.HOSPP ---
- Subjective Encounter Date: 10/04/19 Encounter Time: 10:27 non-verbal Subjective: The patient had a fever overnight and dropped her sats. CTA shows no pneumonia but cancer. Limited evaluation for PE. She was placed on oxygen. SHe was given one dose of vancomycin and cefepime overnight and spiked a fever after that Patient reports burning pain in her chest. She is having difficulty swallowing and states food is getting stuck in her throat and she ends up spitting it back up. She also reports a bloated sensation in her abdomen. She is still asking for lidocaine patch on her breast, states it wasn't given to her because of fentanyl patch on her arm. Gabapentin is helping, but giving her some dizziness. Of note patient was getting 500 mg instead of 300, orders fixed Patient noted to have possible UTI as well. She denies burning when she urinates but has history of bladder spasms for which she takes medication that she quit. Denies frequency or urgency. - Objective Vital Signs & Weight: Vital Signs (12 hours) Temp Pulse Resp BP BP Pulse Ox 10/04/19 08:00 100.3 F H 126 H 20 105/58 L 94 L 10/04/19 02:25 97.3 F L 118 H 18 117/74 95 10/04/19 00:04 99.4 F 128 H 18 109/64 94 L Weight Admit Weight 155 lb 4.8 oz Weight 155 lb 4.8 oz I&O: 10/03/19 10/04/19 10/05/19 06:59 06:59 06:59 Intake Total 3850 1200 Balance 3850 1200 Result Diagrams: 10/03/19 04:23 10/03/19 21:13 Hospitalist ROS - Review of Systems Constitutional: reports: fever Respiratory: denies: shortness of breath Cardiovascular: denies: chest pain, palpitations, orthopnea - Medication Medications: Active Medications Generic Name Dose Route Start Last Admin Trade Name Freq PRN Reason Stop Dose Admin Acetaminophen 1,000 mg 09/24/19 12:00 10/04/19 08:19 Tylenol PO 1,000 mg Q6HR ESA Administration Aspirin 81 mg 09/19/19 09:00 10/04/19 08:02 Ecotrin PO 81 mg BID ESA Administration Bisacodyl 10 mg 09/17/19 19:21 10/04/19 01:28 Dulcolax [place] 10 mg DAILYPRN PRN Administration Constipation Bisacodyl 5 mg 09/25/19 09:00 10/04/19 08:03 Dulcolax PO 5 mg QAM ESA Administration Cyclobenzaprine HCl 10 mg 09/24/19 11:39 09/30/19 01:06 Flexeril PO 10 mg TIDPRN PRN Administration Muscle Spasm Dexamethasone 4 mg 09/28/19 21:00 10/04/19 08:05 Decadron SLOW IVP 4 mg BID ESA Administration Enoxaparin Sodium 40 mg 09/17/19 09:00 10/04/19 08:01 Lovenox SC 40 mg 0900 ESA Administration Ferrous Gluconate 324 mg 09/17/19 21:00 10/04/19 08:02 Fergon PO 324 mg BID ESA Administration Gabapentin 300 mg 10/02/19 15:00 10/04/19 08:02 Neurontin PO 300 mg TID ESA Administration Sodium Chloride 1,000 mls @ 75 mls/hr 10/04/19 00:04 10/04/19 00:19 Normal Saline 0.9% IV 1,000 mls .[id number] [facility] Administration Iron/Minerals/Multivitamins 1 tab 09/18/19 09:00 10/04/19 08:10 Theragran M PO Not Given DAILY ESA Lidocaine 1 patch 10/03/19 22:00 10/03/19 21:20 Lidoderm 5% Patch TD 1 patch 2200 ESA Administration Magnesium Hydroxide 30 ml 09/17/19 19:21 10/04/19 08:08 Milk Of Magnesium PO 30 ml DAILYPRN PRN Administration Constipation Melatonin 6 mg 09/25/19 21:00 10/03/19 21:47 Melatonin PO Not Given HS [facility] Miscellaneous Medication 1 each 10/02/19 10:00 10/03/19 08:59 Lidocaine Patch Removal TOP Not Given 1000 ESA Morphine Sulfate 30 mg 10/02/19 09:00 10/04/19 08:04 Ms Contin PO 30 mg Q12HR ESA Administration Morphine Sulfate 15 mg 10/02/19 07:12 10/04/19 05:48 Morphine Ir Tab PO 15 mg Q4H PRN Administration Moderate to Severe Pain (6-10) Ondansetron HCl 4 mg 09/17/19 01:28 10/03/19 21:20 Zofran Odt PO 4 mg Q6H PRN Administration Nausea/Vomiting Ondansetron HCl 4 mg 09/21/19 16:30 09/29/19 20:28 Zofran IVP 4 mg Q6H PRN Administration Nausea/Vomiting Polyethylene Glycol 17 gm 10/02/19 09:00 10/04/19 08:08 Miralax PO 17 gm DAILY ESA Administration Promethazine HCl 12.5 mg 10/02/19 08:15 10/04/19 04:08 Phenergan SLOW IVP 12.5 mg Q4H PRN Administration Nausea Senna/Docusate Sodium 2 tab 09/17/19 21:00 10/03/19 21:07 Senokot S PO 2 tab BID ESA Administration Sodium Biphosphate/Sodium Phosphate 133 ml 09/17/19 19:21 10/04/19 04:32 Fleet Enema [place] 133 ml DAILYPRN PRN Administration Constipation Sodium Chloride 10 ml 09/17/19 07:16 09/30/19 09:11 Flush - Normal Saline IVF 10 ml PRN PRN Administration Saline Flush Sodium Chloride 0 ml 09/18/19 01:06 10/03/19 21:08 [place] Nasal [place] 0.65% EA NARE 1 spray PRN PRN Administration Nasal Dryness - Exam General Appearance: NAD, awake alert Eye: PERRL, anicteric sclera ENT: normocephalic atraumatic, no oropharyngeal lesions Neck: supple, symmetric, no JVD, no thyromegaly Heart: RRR, no murmur, no gallops, no rubs Respiratory: CTAB, no wheezes, no rales, no ronchi Gastrointestinal: soft, non-tender, non-distended Extremities: no cyanosis, no clubbing, no edema Skin: normal turgor, no lesions, no rashes Neurological: cranial nerve grossly intact, normal sensation to touch, no focal deficits, no new deficit Neurological - other findings: patient is moving all four extremities Musculoskeletal: normal tone, normal strength, no muscle wasting Musculoskeletal - other findings: left breast tenderness Psychiatric: normal affect, normal behavior, A&O x 3, oriented to person Hosp A/P - Plan CT chest/abdomen/pelvis 09/16: large left breast mass with multiple satellite nodules. Right fifth rib fracture. Pathologic T12 and L1 fractures with L1 fracture incomplete. Left femoral neck fracture. Metastatic focus of T5 vertebral body. [id number] process lytic metastatic focus. Mixed sclerotic and lytic foci of cervical spine Xray femur 09/16: acute vs subacute left femoral neck fracture Pelvis Xray 09/16: left total hip prosthesis Chest Xray 09/20: mild cardiomegaly MRI thoracic spine 09/25: metastatic disease of thoracic spine with compression on T12, T5, T2 and T1 and moderate compression C7. Also L1 Hip X ray 09/28: s/p left hip arthroplasty MRI Brain: osseous metastatic disease with multiple scattered subcentimeter enhancing lesions within the calvarium CTA chest: left breast maliginancy. Fluid distension of esophagus Sepsis possibly secondary to UTI, vs less likely pneumonia - had temp overnight, WBC of 12, tachycardia. Given vanc and cefepime overnight , but still febrile. Recheck labs today - CTA of chest showing no pneumonia just malignancy - UA consistent with UTI, urine culture pending. 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 Palliative on board - gabapentin 300 mg tid, lidocaine patch to left breast and on back. She is on fentanyl patch on her arm as well - continue radiation treatment and dexamethasone #Constipation - continue miralax Hyponatremia -sodium 132, stable Iron deficiency Anemia - continue iron sulfate Bipolar disorder - not on medication Nausea - on dexamethasone per palliative care Dispo: GI consult, f/u blood and urine cultures Code status: full code
[2019-10-04] MEDS: Lidocaine Patch Removal 1 EACH TOP SCH ×2 (10:54→21:56)
[2019-10-04] MEDS ORDERED: Lidocaine 5% Patch TD SCH (11:00)
[2019-10-04] MEDS: Vancomycin HCl 1 GM in Premix Bag 1 BAG IVPB SCH ×2 (11:05→22:34)
[2019-10-04 11:43] LABS: Mean Corpuscular HGB CONC 30.5 g/dL (32.0-36.0); Mean Corpuscular Hemoglobin 25.6 pg (27.0-31.0); Mean Corpuscular Volume 83.9 fL (78.0-98.0); Mean Platelet Volume 7.3 fL (7.4-10.4); Platelet Count 399 thou/uL (130-400); RBC Distribution Width 17.7 % (11.5-14.5); Red Blood Cell (RBC) Count 3.12 mill/uL (4.20-5.40); White Blood Cell (WBC) Count 14.7 thou/uL (4.8-10.8)
[2019-10-04 12:07] LABS: ALT (SGPT) 27 U/L (8-55); AST (SGOT) 33 U/L (5-34); Alkaline Phosphatase 149 U/L (40-110); Anion Gap 14 mmol/L (10-20); BUN (Urea Nitrogen) 30 mg/dL (9.8-20.1); Bilirubin, Total 0.5 mg/dL (0.2-1.2); Calc. Creatinine Clearance 76 mL/min (70-130); Calcium 8.5 mg/dL (7.8-10.44); Carbon Dioxide 24 mmol/L (22-29); Chloride 95 mmol/L (98-107); Estimated GFR-MDRD 61; Globulin 3.1 g/dL (2.4-3.5); Glucose 168 mg/dL (70-105); Potassium 5.2 mmol/L (3.5-5.1); Protein, Total 6.1 g/dL (6.0-8.3); Sodium 128 mmol/L (136-145)
[2019-10-04] MEDS: Piperacillin/Tazobactam 3.375 GM in Sodium Chloride 0.9% 100 ML IVPB SCH ×3 (12:09→23:53)
[2019-10-04 12:17] LABS: Band 36 % (5-11); Lymphocytes 4 % (21-51); MDiff Complete? YES; Metamyelocyte 2 % (0-0); Monocytes 5 % (0-10); Neutrophil 53 % (42-75); Vacuoles MODERATE
[2019-10-04] MEDS: Sodium Chloride 0.9% 1,000 ML IV SCH ×2 (13:00→23:54)
[2019-10-04] MEDS ORDERED: Iopamidol 370 76% 100 ML VIAL ONE (13:15)
[2019-10-04] MEDS ORDERED: fentaNYL 100 mcg/hour Patch TD SCH (19:00)
[2019-10-04] MEDS: Melatonin 3 MG TAB PO SCH (20:04)
[2019-10-04] MEDS: Lidocaine 5% Patch TD SCH (21:49)
[2019-10-05] MEDS: Acetaminophen 500 MG TAB PO SCH ×3 (05:07→17:12)
[2019-10-05] MEDS: Promethazine HCl 25 MG/ML VIAL SLOW IVP PRN ×3 (05:07→15:20)
[2019-10-05] MEDS: Morphine IR Tab 15 MG TAB PO PRN ×4 (05:07→20:52)
[2019-10-05] MEDS: Piperacillin/Tazobactam 3.375 GM in Sodium Chloride 0.9% 100 ML IVPB SCH ×3 (05:12→17:09)
[2019-10-05 06:41] LABS: #Lymphocytes 0.4 thou/uL (1.20-3.40); #Monocytes 0.6 thou/uL (0.11-0.59); #Neutrophils 11.9 thou/uL (1.40-6.50); %Lymphocytes 3.3 % (21.0-51.0); %Monocytes 4.6 % (0.0-10.0); Hemoglobin 8.2 g/dL (12.0-16.0); Mean Corpuscular HGB CONC 30.5 g/dL (32.0-36.0); Mean Corpuscular Hemoglobin 25.4 pg (27.0-31.0); Mean Corpuscular Volume 83.5 fL (78.0-98.0); Platelet Count 413 thou/uL (130-400); RBC Distribution Width 17.6 % (11.5-14.5); Red Blood Cell (RBC) Count 3.22 mill/uL (4.20-5.40); White Blood Cell (WBC) Count 12.9 thou/uL (4.8-10.8)
[2019-10-05 07:11] LABS: ALT (SGPT) 25 U/L (8-55); AST (SGOT) 22 U/L (5-34); Albumin 3.1 g/dL (3.5-5.0); Alkaline Phosphatase 158 U/L (40-110); Anion Gap 13 mmol/L (10-20); BUN (Urea Nitrogen) 26 mg/dL (9.8-20.1); Bilirubin, Total 0.4 mg/dL (0.2-1.2); Calc. Creatinine Clearance 102 mL/min (70-130); Calcium 9.1 mg/dL (7.8-10.44); Carbon Dioxide 25 mmol/L (22-29); Chloride 102 mmol/L (98-107); Estimated GFR-MDRD 85; Globulin 3.3 g/dL (2.4-3.5); Glucose 113 mg/dL (70-105); Potassium 4.5 mmol/L (3.5-5.1); Protein, Total 6.4 g/dL (6.0-8.3); Sodium 135 mmol/L (136-145)
[2019-10-05] MEDS: Morphine ER 30 MG TAB PO SCH ×2 (09:26→20:52)
[2019-10-05] MEDS: Bisacodyl 5 MG TAB PO SCH (09:28)
[2019-10-05] MEDS: Gabapentin 300 MG CAP PO SCH ×3 (09:28→20:52)
[2019-10-05] MEDS: Ferrous Gluconate 324 MG TAB PO SCH ×2 (09:28→20:52)
[2019-10-05] MEDS: Aspirin 81 mg Enteric Coated Tablet PO SCH ×2 (09:28→20:52)
[2019-10-05] MEDS: Senokot S 8.6-50 MG TAB PO SCH ×2 (09:28→20:52)
[2019-10-05] MEDS: Enoxaparin Sodium 40 MG/0.4 ML SYRINGE SC SCH (09:29)
[2019-10-05] MEDS: Multivitamin W/ Minerals 1 TAB PO SCH (09:29)
[2019-10-05] MEDS: Dexamethasone 4 mg/ml Vial SLOW IVP SCH ×2 (09:29→20:51)
[2019-10-05] MEDS: Polyethylene Glycol 3350 17 GM Packet PO SCH (09:30)
[2019-10-05] MEDS: Lidocaine 5% Patch TD SCH ×2 (09:30→20:51)
[2019-10-05] MEDS: Vancomycin HCl 1 GM in Premix Bag 1 BAG IVPB SCH ×2 (09:31→22:13)
[2019-10-05] MEDS ORDERED: Sodium Chloride 0.9% 1,000 ML IV SCH (10:25)
[2019-10-05] MEDS ORDERED: Dextrose 5 % And 0.9 % NaCl 1,000 ML IV SCH (10:30)
--- NOTE | 2019-10-05 10:31 | PDOC.HOSPP ---
- Subjective Encounter Date: 10/05/19 Encounter Time: 10:28 Subjective: CC: headache, UTI, pain control, dysphagia The patient states she has headache and blurry vision and feels her BP may be too high because she feels that way when her blood pressure goes up to 120. She is asking what her BP is, normally it is 90. She says her left arm has been numb for the past two days and she hasn't been able to hold things with her left arm as well UTI: Patient also is having trouble urinating and says her urine is foul smelling. Denies burning. Dysphagia: She says yesterday everything she ate started coming out of her mouth and stringy stuff was coming out. She really feels she needs endoscopy. Denies chest pain. Breast cancer: reports improvement in her pain with the lidocaine patch. SHe likes how the lidocaine patch for her back and breast are alternating and wants to keep it that way. States the morphine IR lasts only 2 hours and wants frequency to be increased. She says morphine 30 mg is a good dose for her, also is okay with gabapentin 300 tid - Objective Vital Signs & Weight: Vital Signs (12 hours) Temp Pulse Resp BP Pulse Ox 10/05/19 08:00 98.4 F 98 18 128/74 98 Weight Admit Weight 155 lb 4.8 oz Weight 155 lb 4.8 oz I&O: 10/04/19 10/05/19 10/06/19 06:59 06:59 06:59 Intake Total 1200 4200 Balance 1200 4200 Result Diagrams: 10/05/19 06:33 10/05/19 06:33 Hospitalist ROS - Review of Systems Constitutional: denies: fever, chills Eyes: reports: other (blurry vision) Respiratory: denies: cough, dry Cardiovascular: denies: chest pain, palpitations Gastrointestinal: reports: vomiting Genitourinary: reports: other (decreased frequency) Other: headache - Medication Medications: Active Medications Generic Name Dose Route Start Last Admin Trade Name Freq PRN Reason Stop Dose Admin Acetaminophen 1,000 mg 09/24/19 12:00 10/05/19 05:07 Tylenol PO 1,000 mg Q6HR ESA Administration Aspirin 81 mg 09/19/19 09:00 10/05/19 09:28 Ecotrin PO 81 mg BID ESA Administration Bisacodyl 10 mg 09/17/19 19:21 10/04/19 01:28 Dulcolax [place] 10 mg DAILYPRN PRN Administration Constipation Bisacodyl 5 mg 09/25/19 09:00 10/05/19 09:28 Dulcolax PO 5 mg QAM ESA Administration Cyclobenzaprine HCl 10 mg 09/24/19 11:39 09/30/19 01:06 Flexeril PO 10 mg TIDPRN PRN Administration Muscle Spasm Dexamethasone 4 mg 09/28/19 21:00 10/05/19 09:29 Decadron SLOW IVP 4 mg BID ESA Administration Enoxaparin Sodium 40 mg 09/17/19 09:00 10/05/19 09:29 Lovenox SC 40 mg 0900 ESA Administration Fentanyl 100 mcg 10/04/19 19:00 10/04/19 19:53 Duragesic TD 100 mcg Q3D ESA Administration Ferrous Gluconate 324 mg 09/17/19 21:00 10/05/19 09:28 Fergon PO 324 mg BID ESA Administration Gabapentin 300 mg 10/02/19 15:00 10/05/19 09:28 Neurontin PO 300 mg TID ESA Administration Piperacillin Sod/Tazobactam 100 mls @ 200 mls/hr 10/04/19 12:00 10/05/19 05: 12 Sod 3.375 gm/ Sodium Chloride IVPB 100 mls Q6HR ESA Administration Vancomycin HCl 1 gm/ Device 200 mls @ 200 mls/hr 10/04/19 11:00 10/05/19 09: 31 IVPB 200 mls 1100,2300 ESA Administration Iron/Minerals/Multivitamins 1 tab 09/18/19 09:00 10/05/19 09:29 Theragran M PO Not Given DAILY ESA Lidocaine 1 patch 10/04/19 22:00 10/04/19 21:49 Lidoderm 5% Patch TD 1 patch 2200 ESA Administration Lidocaine 1 patch 10/05/19 10:00 10/05/19 09:30 Lidoderm 5% Patch TD 1 patch 1000 ESA Administration Magnesium Hydroxide 30 ml 09/17/19 19:21 10/04/19 08:08 Milk Of Magnesium PO 30 ml DAILYPRN PRN Administration Constipation Melatonin 6 mg 09/25/19 21:00 10/04/19 20:04 Melatonin PO Not Given HS ESA Miscellaneous Medication 1 each 10/02/19 10:00 10/04/19 10:54 Lidocaine Patch Removal TOP Not Given 1000 ESA Miscellaneous Medication 1 each 10/04/19 22:00 10/04/19 21:56 Lidocaine Patch Removal TOP 1 each 2200 ESA Administration Morphine Sulfate 30 mg 10/02/19 09:00 10/05/19 09:26 Ms Contin PO 30 mg Q12HR ESA Administration Morphine Sulfate 15 mg 10/02/19 07:12 10/05/19 09:27 Morphine Ir Tab PO 15 mg Q4H PRN Administration Moderate to Severe Pain (6-10) Ondansetron HCl 4 mg 09/17/19 01:28 10/03/19 21:20 Zofran Odt PO 4 mg Q6H PRN Administration Nausea/Vomiting Ondansetron HCl 4 mg 09/21/19 16:30 09/29/19 20:28 Zofran IVP 4 mg Q6H PRN Administration Nausea/Vomiting Pantoprazole Sodium 40 mg 10/05/19 09:00 10/05/19 09:30 Protonix PO 40 mg DAILY ESA Administration Polyethylene Glycol 17 gm 10/02/19 09:00 10/05/19 09:30 Miralax PO Not Given DAILY ESA Promethazine HCl 12.5 mg 10/02/19 08:15 10/05/19 09:29 Phenergan SLOW IVP 12.5 mg Q4H PRN Administration Nausea Senna/Docusate Sodium 2 tab 09/17/19 21:00 10/05/19 09:28 Senokot S PO 2 tab BID ESA Administration Sodium Biphosphate/Sodium Phosphate 133 ml 09/17/19 19:21 10/04/19 04:32 Fleet Enema [place] 133 ml DAILYPRN PRN Administration Constipation Sodium Chloride 10 ml 09/17/19 07:16 09/30/19 09:11 Flush - Normal Saline IVF 10 ml PRN PRN Administration Saline Flush Sodium Chloride 0 ml 09/18/19 01:06 10/03/19 21:08 [place] Nasal [place] 0.65% EA NARE 1 spray PRN PRN Administration Nasal Dryness - Exam General Appearance: NAD, awake alert Eye: PERRL, anicteric sclera ENT: normocephalic atraumatic, no oropharyngeal lesions Neck: supple, symmetric, no JVD, no thyromegaly Heart: RRR, no murmur, no gallops, no rubs Respiratory: CTAB, no wheezes, no rales, no ronchi Gastrointestinal: soft, non-tender, non-distended, normal bowel sounds Extremities: no cyanosis, no clubbing, no edema Skin: normal turgor, no lesions, no rashes Neurological - other findings: Left upper extremity weakness, decreased sensation Musculoskeletal: normal tone Musculoskeletal - other findings: decreased strength in LUE Psychiatric: normal affect, normal behavior, A&O x 3 Hosp A/P - Plan CT chest/abdomen/pelvis 09/16: large left breast mass with multiple satellite nodules. Right fifth rib fracture. Pathologic T12 and L1 fractures with L1 fracture incomplete. Left femoral neck fracture. Metastatic focus of T5 vertebral body. [id number] process lytic metastatic focus. Mixed sclerotic and lytic foci of cervical spine Xray femur 09/16: acute vs subacute left femoral neck fracture Pelvis Xray 09/16: left total hip prosthesis Chest Xray 09/20: mild cardiomegaly MRI thoracic spine 09/25: metastatic disease of thoracic spine with compression on T12, T5, T2 and T1 and moderate compression C7. Also L1 Hip X ray 09/28: s/p left hip arthroplasty MRI Brain: osseous metastatic disease with multiple scattered subcentimeter enhancing lesions within the calvarium CTA chest: left breast maliginancy. Fluid distension of esophagus Sepsis possibly secondary to UTI, vs less likely pneumonia - had temp overnight, WBC of 12, tachycardia. 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 Palliative on board, patient wants morphine IR dose frequency increased - continue gabapentin 300 mg tid, fentanyl patch 100 mcg , lidocaine patch to breast and back alternating - radiation treatment, then chemo as outpatient - dexamethasone #Constipation - continue miralax Hyponatremia- resolved Iron deficiency Anemia - continue iron sulfate Bipolar disorder - not on medication Nausea - on dexamethasone per palliative care Dispo: EGD today, CT head, possibly MRI brain needed Code status: full code
[2019-10-05] MEDS ORDERED: PROPOFOL 200 MG/20 ML VIAL ONE (11:30)
[2019-10-05] MEDS: Lidocaine Patch Removal 1 EACH TOP SCH ×2 (11:49→20:51)
[2019-10-05] MEDS: Sodium Chloride 0.9% 1,000 ML IV SCH ×2 (11:59→20:56)
--- NOTE | 2019-10-05 13:10 | CT ---
CT BRAIN: DATE: 10/05/2019. PROVIDED CLINICAL HISTORY: Left arm numbness. FINDINGS: No comparisons. The ventricular system appears normal in size and morphology. There is no evidence for intracranial hemorrhage or mass effect. The extracranial soft tissues and osseous structures dem onstrate an unremarkable CT appearance. IMPRESSION: No evidence for intracranial hemorrhage or mass effect. POS: OFF
[2019-10-05] MEDS ORDERED: fentaNYL 100 mcg/hour Patch TD SCH (13:52)
[2019-10-05] MEDS ORDERED: Midazolam HCl 2 mg/2 ml Vial ONE (14:29)
[2019-10-05] MEDS ORDERED: Ondansetron HCl/PF 4 MG/2 ML Vial IVP PRN (14:33)
[2019-10-05] MEDS ORDERED: Meperidine HCl/PF 25 MG/ML VIAL SLOW IVP PRN (14:33)
[2019-10-05] MEDS ORDERED: Promethazine HCl 25 MG/ML VIAL SLOW IVP PRN (14:33)
[2019-10-05] MEDS ORDERED: Promethazine HCl 25 MG/ML VIAL IM PRN (14:33)
[2019-10-05] MEDS ORDERED: HYDROmorphone 2 MG/ML VIAL SLOW IVP PRN (14:33)
[2019-10-05] MEDS ORDERED: Midazolam HCl 2 mg/2 ml Vial SLOW IVP SCH (14:45)
[2019-10-05] MEDS ORDERED: Fentanyl 100 MCG/2 ML VIAL ONE (14:49)
--- NOTE | 2019-10-05 15:01 | OP ---
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 PROCEDURE PERFORMED: Esophagogastroduodenoscopy with biopsies. INDICATIONS: 1. Dysphagia. 2. Odynophagia. 3. Metastatic breast cancer, currently undergoing radiation treatments. MEDICATIONS: See Anesthesia record. FINDINGS: After discussion of the risks, benefits, and alternatives of the procedure, informed consent was obtained and witnessed. Pre-endoscopic cardiopulmonary examination was satisfactory. Time-out was performed before sedation was achieved. Sedation was achieved with Anesthesia assistance in the endoscopy unit. A Pentax adult upper endoscope was placed into the oropharynx and passed through the cricopharyngeus under direct visualization. The proximal esophageal mucosa appears normal. In the distal esophagus, there was severe [place] grade D erosive esophagitis. This extends from a distance of 24 cm down to the GE junction at 31 cm from the incisors. The erosions are patchy proximally and then essentially, she has a larger shallow ulceration taking up over half the circumference of the lumen just above the GE junction. There was no mass in the area, suspect this was related to esophageal reflux. I obtained biopsies from the distal esophagus for histology. The endoscope was advanced beyond the GE junction and into the stomach. The patient has an approximately 4 cm sliding hiatal hernia. In the gastric antrum, there was some patchy [id number] erythema with no significant erosions or ulcerations. The remainder of the stomach lining appears normal. The endoscope was passed through the pylorus and into the first and second portions of the duodenum, which appeared normal. The upper endoscope was completely withdrawn and the patient allowed to recover. The patient tolerated the procedure well. There were no immediate postprocedure complications. IMPRESSION: 1. Severe distal erosive esophagitis, [place] grade D, from 24 to 30 cm from the incisors, with large shallow ulceration just above the gastroesophageal junction. Biopsied for histology. 2. A 4-cm sliding hiatal hernia. 3. Mild antral gastritis. RECOMMENDATIONS: 1. Elevate the head of the bed. 2. Chew food thoroughly. 3. We would have the patient on IV proton pump inhibitor every 12 hours while inpatient, and transition to twice daily oral dosing, on hospital discharge. 4. We will follow up pathology on distal esophageal biopsies. Suspect that this will be consistent with severe reflux esophagitis. GI will sign off at this time, but please call back anytime with questions or concerns. Job ID: [id number]
[2019-10-05] MEDS: Lorazepam 0.5 MG TAB PO PRN ×2 (15:18→20:58)
[2019-10-05] MEDS ORDERED: Sodium Chloride 0.9% (PF) 10 ML VIAL FS PRN (15:39)
[2019-10-05] MEDS: Bisacodyl 10 MG SUPP PR PRN (17:12)
[2019-10-05] MEDS: Pantoprazole 40 MG VIAL IVP SCH (20:54)
[2019-10-05] MEDS: Docusate 100 MG CAP PO SCH (20:55)
[2019-10-05] MEDS: Melatonin 3 MG TAB PO SCH (20:59)
[2019-10-06] MEDS: Piperacillin/Tazobactam 3.375 GM in Sodium Chloride 0.9% 100 ML IVPB SCH ×4 (00:06→23:53)
[2019-10-06] MEDS: Acetaminophen 500 MG TAB PO SCH ×5 (00:07→23:55)
[2019-10-06 05:00] LABS: Hemoglobin 7.4 g/dL (12.0-16.0); Mean Corpuscular HGB CONC 31.3 g/dL (32.0-36.0); Mean Corpuscular Hemoglobin 25.9 pg (27.0-31.0); Mean Corpuscular Volume 82.7 fL (78.0-98.0); Mean Platelet Volume 7.1 fL (7.4-10.4); Platelet Count 343 thou/uL (130-400); RBC Distribution Width 17.3 % (11.5-14.5); Red Blood Cell (RBC) Count 2.84 mill/uL (4.20-5.40); White Blood Cell (WBC) Count 7.9 thou/uL (4.8-10.8)
[2019-10-06 05:25] LABS: ALT (SGPT) 19 U/L (8-55); AST (SGOT) 13 U/L (5-34); Albumin 2.9 g/dL (3.5-5.0); Alkaline Phosphatase 128 U/L (40-110); Anion Gap 12 mmol/L (10-20); BUN (Urea Nitrogen) 26 mg/dL (9.8-20.1); Bilirubin, Total 0.3 mg/dL (0.2-1.2); Calc. Creatinine Clearance 114 mL/min (70-130); Calcium 8.8 mg/dL (7.8-10.44); Carbon Dioxide 25 mmol/L (22-29); Chloride 105 mmol/L (98-107); Estimated GFR-MDRD Greater than 90; Globulin 2.9 g/dL (2.4-3.5); Glucose 129 mg/dL (70-105); Potassium 4.7 mmol/L (3.5-5.1); Protein, Total 5.8 g/dL (6.0-8.3); Sodium 137 mmol/L (136-145)
[2019-10-06] MEDS: Promethazine HCl 25 MG/ML VIAL SLOW IVP PRN ×4 (06:06→22:13)
[2019-10-06] MEDS: Morphine IR Tab 15 MG TAB PO PRN ×3 (06:15→17:27)
[2019-10-06] MEDS: Senokot S 8.6-50 MG TAB PO SCH ×2 (08:36→21:53)
[2019-10-06] MEDS: Gabapentin 300 MG CAP PO SCH ×3 (08:36→21:55)
[2019-10-06] MEDS: Aspirin 81 mg Enteric Coated Tablet PO SCH ×2 (08:36→21:54)
[2019-10-06] MEDS: Morphine ER 30 MG TAB PO SCH ×2 (08:37→21:53)
[2019-10-06] MEDS: Ferrous Gluconate 324 MG TAB PO SCH ×2 (08:37→21:53)
[2019-10-06] MEDS: Docusate 100 MG CAP PO SCH ×2 (08:38→21:53)
[2019-10-06] MEDS: Bisacodyl 5 MG TAB PO SCH (08:38)
[2019-10-06] MEDS: Multivitamin W/ Minerals 1 TAB PO SCH (08:38)
[2019-10-06] MEDS: Dexamethasone 4 mg/ml Vial SLOW IVP SCH ×2 (08:38→21:55)
[2019-10-06] MEDS: Enoxaparin Sodium 40 MG/0.4 ML SYRINGE SC SCH (08:38)
[2019-10-06] MEDS: Polyethylene Glycol 3350 17 GM Packet PO SCH (08:47)
[2019-10-06] MEDS: Lidocaine Patch Removal 1 EACH TOP SCH ×2 (08:48→22:09)
[2019-10-06] MEDS: Lidocaine 5% Patch TD SCH ×2 (08:48→21:56)
[2019-10-06] MEDS: Ondansetron PF 4 MG/2 ML Vial IVP PRN (09:38)
[2019-10-06] MEDS: Lorazepam 0.5 MG TAB PO PRN ×2 (09:38→17:27)
[2019-10-06] MEDS ORDERED: Sodium Chloride 0.9% (PF) 10 ML VIAL FS PRN (09:41)
[2019-10-06] MEDS: Pantoprazole 40 MG VIAL IVP SCH ×3 (11:02→21:54)
[2019-10-06] MEDS: Vancomycin HCl 1 GM in Premix Bag 1 BAG IVPB SCH ×2 (11:08→23:52)
--- NOTE | 2019-10-06 12:04 | PDOC.HOSPP ---
- Subjective Encounter Date: 10/06/19 Encounter Time: 12:01 Subjective: Ms. Mosley was seen today in follow-up of metastatic breast cancer. She notes a new weakness in her left upper extremity. She says it has been there about 3 days, she also notes numbness and tingling as well. She says it feels like she has a 10 pound weight on it. - Objective Vital Signs & Weight: Vital Signs (12 hours) Temp Pulse Resp BP BP Pulse Ox 10/06/19 08:36 97.8 F 102 H 18 153/96 H 99 10/06/19 04:00 97.6 F 92 16 137/89 98 10/06/19 00:11 98.3 F 111 H 20 159/99 H 100 Weight Admit Weight 155 lb 4.8 oz Weight 155 lb 4.8 oz I&O: 10/05/19 10/06/19 10/07/19 06:59 06:59 06:59 Intake Total 4200 3180 Balance 4200 3180 Result Diagrams: 10/06/19 04:47 10/06/19 04:47 Hospitalist ROS - Medication Medications: Active Medications Generic Name Dose Route Start Last Admin Trade Name Freq PRN Reason Stop Dose Admin Acetaminophen 1,000 mg 09/24/19 12:00 10/06/19 11:08 Tylenol PO 1,000 mg Q6HR ESA Administration Aspirin 81 mg 09/19/19 09:00 10/06/19 08:36 Ecotrin PO 81 mg BID ESA Administration Bisacodyl 10 mg 09/17/19 19:21 10/05/19 17:12 Dulcolax OR 10 mg DAILYPRN PRN Administration Constipation Bisacodyl 5 mg 09/25/19 09:00 10/06/19 08:38 Dulcolax PO 5 mg QAM ESA Administration Cyclobenzaprine HCl 10 mg 09/24/19 11:39 09/30/19 01:06 Flexeril PO 10 mg TIDPRN PRN Administration Muscle Spasm Dexamethasone 4 mg 09/28/19 21:00 10/06/19 08:38 Decadron SLOW IVP 4 mg BID ESA Administration Docusate Sodium 100 mg 10/05/19 21:00 10/06/19 08:38 Colace PO 100 mg BID ESA Administration Enoxaparin Sodium 40 mg 09/17/19 09:00 10/06/19 08:38 Lovenox SC 40 mg 0900 ESA Administration Fentanyl 25 mcg 10/05/19 17:00 10/05/19 20:50 Duragesic TD 25 mcg Q3D ESA Administration Ferrous Gluconate 324 mg 09/17/19 21:00 10/06/19 08:37 Fergon PO 324 mg BID ESA Administration Gabapentin 300 mg 10/02/19 15:00 10/06/19 08:36 Neurontin PO 300 mg TID ESA Administration Piperacillin Sod/Tazobactam 100 mls @ 200 mls/hr 10/04/19 12:00 10/06/19 06: 06 Sod 3.375 gm/ Sodium Chloride IVPB 100 mls Q6HR ESA Administration Vancomycin HCl 1 gm/ Device 200 mls @ 200 mls/hr 10/04/19 11:00 10/06/19 11: 08 IVPB 200 mls 1100,2300 ESA Administration Sodium Chloride 1,000 mls @ 50 mls/hr 10/05/19 19:30 10/05/19 20:56 Normal Saline 0.9% IV 1,000 mls .Q20H ESA Administration Iron/Minerals/Multivitamins 1 tab 09/18/19 09:00 10/06/19 08:38 Theragran M PO Not Given DAILY ESA Lidocaine 1 patch 10/04/19 22:00 10/05/19 20:51 Lidoderm 5% Patch TD 1 patch 2200 ESA Administration Lidocaine 1 patch 10/05/19 10:00 10/06/19 08:48 Lidoderm 5% Patch TD 1 patch 1000 ESA Administration Lorazepam 0.5 mg 10/05/19 13:52 10/06/19 09:38 Ativan PO 0.5 mg Q4H PRN Administration Anxiety Magnesium Hydroxide 30 ml 09/17/19 19:21 10/04/19 08:08 Milk Of Magnesium PO 30 ml DAILYPRN PRN Administration Constipation Melatonin 6 mg 09/25/19 21:00 10/05/19 20:59 Melatonin PO Not Given HS ESA Miscellaneous Medication 1 each 10/02/19 10:00 10/06/19 08:48 Lidocaine Patch Removal TOP 1 each 1000 ESA Administration Miscellaneous Medication 1 each 10/04/19 22:00 10/05/19 20:51 Lidocaine Patch Removal TOP Not Given 2200 ESA Morphine Sulfate 30 mg 10/02/19 09:00 10/06/19 08:37 Ms Contin PO 30 mg Q12HR ESA Administration Morphine Sulfate 15 mg 10/02/19 07:12 10/06/19 06:15 Morphine Ir Tab PO 15 mg Q4H PRN Administration Moderate to Severe Pain (6-10) Ondansetron HCl 4 mg 09/17/19 01:28 10/03/19 21:20 Zofran Odt PO 4 mg Q6H PRN Administration Nausea/Vomiting Ondansetron HCl 4 mg 09/21/19 16:30 10/06/19 09:38 Zofran IVP 4 mg Q6H PRN Administration Nausea/Vomiting Pantoprazole Sodium 40 mg 10/06/19 09:00 10/06/19 11:02 Protonix IVP 40 mg Q12HR ESA Administration Polyethylene Glycol 17 gm 10/02/19 09:00 10/06/19 08:47 Miralax PO 17 gm DAILY ESA Administration Promethazine HCl 12.5 mg 10/02/19 08:15 10/06/19 06:06 Phenergan SLOW IVP 12.5 mg Q4H PRN Administration Nausea Senna/Docusate Sodium 2 tab 09/17/19 21:00 10/06/19 08:36 Senokot S PO 2 tab BID ESA Administration Sodium Biphosphate/Sodium Phosphate 133 ml 09/17/19 19:21 10/04/19 04:32 Fleet Enema OR 133 ml DAILYPRN PRN Administration Constipation Sodium Chloride 10 ml 09/17/19 07:16 09/30/19 09:11 Flush - Normal Saline IVF 10 ml PRN PRN Administration Saline Flush Sodium Chloride 0 ml 09/18/19 01:06 10/03/19 21:08 Peach Nasal [place] 0.65% EA NARE 1 spray PRN PRN Administration Nasal Dryness - Exam Eye: PERRL Heart: RRR, no murmur, no gallops, no rubs, normal peripheral pulses Respiratory: CTAB, no wheezes, no rales, no ronchi, normal chest expansion Gastrointestinal: soft, non-tender, non-distended, normal bowel sounds, no palpable masses, no hepatomegaly Extremities: no cyanosis, no edema Neurological: cranial nerve grossly intact (+ left upper extremity muscle strength is 5/5, butabout 50% weaker than on the right., poor objective c developer strength) Hosp A/P (1) Left arm weakness Code(s): R29.898 - OTH SYMPTOMS AND SIGNS INVOLVING THE MUSCULOSKELETAL SYSTEM Status: Acute (2) Breast cancer Status: Acute Qualifiers: Patient sex: female Laterality: left (3) Pathologic fracture of neck of left femur Code(s): M84.452A - PATHOLOGICAL FRACTURE, LEFT FEMUR, INIT ENCNTR FOR FRACTURE Status: Acute Qualifiers: Encounter type: subsequent encounter (4) Bipolar disorder Code(s): F31.9 - BIPOLAR DISORDER, UNSPECIFIED Status: Chronic Qualifiers: Active/Remission status: in full remission (5) DM type 2 (diabetes mellitus, type 2) Status: Chronic (6) Invasive ductal carcinoma of breast Code(s): C50.919 - MALIGNANT NEOPLASM OF UNSP SITE OF UNSPECIFIED FEMALE BREAST Status: Acute - Plan * Left Upper extremity weakness- ? etiology- could be due to a spinal metastasis , or CVA-will check MRI of the C-Spine and brain * Breast cancer- metastatic- she is currently receiving radiation therapy * HTN- blood pressure is a bit labile- will monitor * pathologic femur fracture- s/p surgical repair. * Pain is controlled
[2019-10-06] MEDS: Sodium Chloride 0.9% 1,000 ML IV SCH (17:29)
--- NOTE | 2019-10-06 20:43 | EKG ---
Test Reason : Blood Pressure : / mmHG Vent. Rate : 105 BPM Atrial Rate : 105 BPM P-R Int : 156 ms QRS Dur : 074 ms QT Int : 352 ms P-R-T Axes : 070 016 071 degrees QTc Int : 465 ms Sinus tachycardia Otherwise normal ECG Confirmed by MELBA POOLE ([id number]), health editor SERENA MARTINS ([id number]) on 10/06/2019 8:43:09 PM Referred By: Confirmed By:MELBA POOLE
[2019-10-06] MEDS: Melatonin 3 MG TAB PO SCH (21:52)
[2019-10-06 22:25] LABS: Vancomycin, Trough 15.4 ug/mL
[2019-10-07] MEDS: Morphine IR Tab 15 MG TAB PO PRN ×7 (02:11→22:39)
[2019-10-07] MEDS: Promethazine HCl 25 MG/ML VIAL SLOW IVP PRN ×2 (04:25→12:18)
[2019-10-07] MEDS: Acetaminophen 500 MG TAB PO SCH ×3 (06:10→17:11)
[2019-10-07] MEDS: Piperacillin/Tazobactam 3.375 GM in Sodium Chloride 0.9% 100 ML IVPB SCH ×4 (06:11→17:38)
[2019-10-07] MEDS: Aspirin 81 mg Enteric Coated Tablet PO SCH ×2 (08:30→20:03)
[2019-10-07] MEDS: Docusate 100 MG CAP PO SCH ×2 (08:30→22:04)
[2019-10-07] MEDS: Polyethylene Glycol 3350 17 GM Packet PO SCH (08:30)
[2019-10-07] MEDS: Pantoprazole 40 MG VIAL IVP SCH ×2 (08:30→20:04)
[2019-10-07] MEDS: Ferrous Gluconate 324 MG TAB PO SCH ×2 (08:30→20:00)
[2019-10-07] MEDS: Bisacodyl 5 MG TAB PO SCH (08:30)
[2019-10-07] MEDS: Senokot S 8.6-50 MG TAB PO SCH ×2 (08:30→22:04)
[2019-10-07] MEDS: Gabapentin 300 MG CAP PO SCH ×3 (08:30→20:03)
[2019-10-07] MEDS: Morphine ER 30 MG TAB PO SCH ×2 (08:31→20:00)
[2019-10-07] MEDS: Dexamethasone 4 mg/ml Vial SLOW IVP SCH ×2 (08:31→17:11)
[2019-10-07] MEDS: Enoxaparin Sodium 40 MG/0.4 ML SYRINGE SC SCH (08:31)
[2019-10-07 08:45] LABS: #Lymphocytes 0.6 thou/uL (1.20-3.40); #Monocytes 0.8 thou/uL (0.11-0.59); #Neutrophils 5.4 thou/uL (1.40-6.50); %Basophils 0.3 % (0.0-1.0); %Eosinophils 0.7 % (0.0-10.0); %Lymphocytes 8.6 % (21.0-51.0); %Monocytes 12.1 % (0.0-10.0); %Neutrophils 78.3 % (42.0-75.0); Mean Corpuscular HGB CONC 31.2 g/dL (32.0-36.0); Mean Corpuscular Hemoglobin 25.8 pg (27.0-31.0); Mean Corpuscular Volume 82.8 fL (78.0-98.0); Mean Platelet Volume 7.1 fL (7.4-10.4); Platelet Count 393 thou/uL (130-400); RBC Distribution Width 17.6 % (11.5-14.5); Red Blood Cell (RBC) Count 3.09 mill/uL (4.20-5.40); White Blood Cell (WBC) Count 6.9 thou/uL (4.8-10.8)
[2019-10-07 08:57] LABS: Anion Gap 13 mmol/L (10-20); BUN (Urea Nitrogen) 19 mg/dL (9.8-20.1); Calc. Creatinine Clearance 111 mL/min (70-130); Calcium 8.8 mg/dL (7.8-10.44); Carbon Dioxide 24 mmol/L (22-29); Chloride 103 mmol/L (98-107); Estimated GFR-MDRD Greater than 90; Glucose 93 mg/dL (70-105); Potassium 4.2 mmol/L (3.5-5.1); Sodium 136 mmol/L (136-145)
[2019-10-07] MEDS: Multivitamin W/ Minerals 1 TAB PO SCH (09:00)
[2019-10-07] MEDS: Lidocaine 5% Patch TD SCH ×2 (10:19→22:19)
[2019-10-07] MEDS: Vancomycin HCl 1 GM in Premix Bag 1 BAG IVPB SCH ×2 (10:21→22:18)
[2019-10-07] MEDS: Lidocaine Patch Removal 1 EACH TOP SCH ×2 (10:30→22:20)
[2019-10-07] MEDS: Sodium Chloride 0.9% 1,000 ML IV SCH ×2 (11:00→22:20)
--- NOTE | 2019-10-07 13:31 | PDOC.HOSPP ---
- Subjective Encounter Date: 10/07/19 Encounter Time: 13:28 Subjective: Ms. Mosley was seen today in follow-up of metastatic breast cancer. She notes continues weakness in her left upper extremity, and some numbness in her right arm. - Objective Vital Signs & Weight: Vital Signs (12 hours) Temp Pulse Resp BP Pulse Ox 10/07/19 07:41 97 10/07/19 07:35 97.7 F 85 16 142/80 H 97 Weight Admit Weight 155 lb 4.8 oz Weight 155 lb 4.8 oz I&O: 10/06/19 10/07/19 10/08/19 06:59 06:59 06:59 Intake Total 3180 2500 Output Total 1200 Balance 3180 1300 Result Diagrams: 10/07/19 08:27 10/07/19 08:27 Hospitalist ROS - Medication Medications: Active Medications Generic Name Dose Route Start Last Admin Trade Name Freq PRN Reason Stop Dose Admin Acetaminophen 1,000 mg 09/24/19 12:00 10/07/19 12:19 Tylenol PO 1,000 mg Q6HR ESA Administration Aspirin 81 mg 09/19/19 09:00 10/07/19 08:30 Ecotrin PO 81 mg BID ESA Administration Bisacodyl 10 mg 09/17/19 19:21 10/05/19 17:12 Dulcolax VT 10 mg DAILYPRN PRN Administration Constipation Bisacodyl 5 mg 09/25/19 09:00 10/07/19 08:30 Dulcolax PO 5 mg QAM ESA Administration Cyclobenzaprine HCl 10 mg 09/24/19 11:39 09/30/19 01:06 Flexeril PO 10 mg TIDPRN PRN Administration Muscle Spasm Docusate Sodium 100 mg 10/05/19 21:00 10/07/19 08:30 Colace PO 100 mg BID ESA Administration Enoxaparin Sodium 40 mg 09/17/19 09:00 10/07/19 08:31 Lovenox SC 40 mg 0900 ESA Administration Fentanyl 25 mcg 10/05/19 17:00 10/05/19 20:50 Duragesic TD 25 mcg Q3D ESA Administration Ferrous Gluconate 324 mg 09/17/19 21:00 10/07/19 08:30 Fergon PO 324 mg BID ESA Administration Gabapentin 300 mg 10/02/19 15:00 10/07/19 08:30 Neurontin PO 300 mg TID ESA Administration Piperacillin Sod/Tazobactam 100 mls @ 200 mls/hr 10/04/19 12:00 10/07/19 12: 18 Sod 3.375 gm/ Sodium Chloride IVPB 100 mls Q6HR ESA Administration Vancomycin HCl 1 gm/ Device 200 mls @ 200 mls/hr 10/04/19 11:00 10/07/19 10: 21 IVPB 200 mls 1100,2300 ESA Administration Sodium Chloride 1,000 mls @ 50 mls/hr 10/05/19 19:30 10/06/19 17:29 Normal Saline 0.9% IV 1,000 mls .Q20H ESA Administration Iron/Minerals/Multivitamins 1 tab 09/18/19 09:00 10/06/19 08:38 Theragran M PO Not Given DAILY ESA Lidocaine 1 patch 10/04/19 22:00 10/06/19 21:56 Lidoderm 5% Patch TD 1 patch 2200 ESA Administration Lidocaine 1 patch 10/05/19 10:00 10/07/19 10:19 Lidoderm 5% Patch TD 1 patch 1000 ESA Administration Lorazepam 0.5 mg 10/05/19 13:52 10/06/19 17:27 Ativan PO 0.5 mg Q4H PRN Administration Anxiety Magnesium Hydroxide 30 ml 09/17/19 19:21 10/04/19 08:08 Milk Of Magnesium PO 30 ml DAILYPRN PRN Administration Constipation Melatonin 6 mg 09/25/19 21:00 10/06/19 21:52 Melatonin PO 6 mg HS ESA Administration Miscellaneous Medication 1 each 10/02/19 10:00 10/06/19 08:48 Lidocaine Patch Removal TOP 1 each 1000 ESA Administration Miscellaneous Medication 1 each 10/04/19 22:00 10/06/19 22:09 Lidocaine Patch Removal TOP 1 each 2200 ESA Administration Morphine Sulfate 30 mg 10/02/19 09:00 10/07/19 08:31 Ms Contin PO 30 mg Q12HR ESA Administration Morphine Sulfate 15 mg 10/02/19 07:12 10/07/19 10:18 Morphine Ir Tab PO 15 mg Q4H PRN Administration Moderate to Severe Pain (6-10) Ondansetron HCl 4 mg 09/17/19 01:28 10/03/19 21:20 Zofran Odt PO 4 mg Q6H PRN Administration Nausea/Vomiting Ondansetron HCl 4 mg 09/21/19 16:30 10/06/19 09:38 Zofran IVP 4 mg Q6H PRN Administration Nausea/Vomiting Pantoprazole Sodium 40 mg 10/06/19 09:00 10/07/19 08:30 Protonix IVP 40 mg Q12HR ESA Administration Polyethylene Glycol 17 gm 10/02/19 09:00 10/07/19 08:30 Miralax PO 17 gm DAILY ESA Administration Promethazine HCl 12.5 mg 10/02/19 08:15 10/07/19 12:18 Phenergan SLOW IVP 12.5 mg Q4H PRN Administration Nausea Senna/Docusate Sodium 2 tab 09/17/19 21:00 10/07/19 08:30 Senokot S PO 2 tab BID ESA Administration Sodium Biphosphate/Sodium Phosphate 133 ml 09/17/19 19:21 10/04/19 04:32 Fleet Enema VT 133 ml DAILYPRN PRN Administration Constipation Sodium Chloride 10 ml 09/17/19 07:16 10/07/19 12:18 Flush - Normal Saline IVF 10 ml PRN PRN Administration Saline Flush Sodium Chloride 0 ml 09/18/19 01:06 10/03/19 21:08 Rich Nasal [place] 0.65% EA NARE 1 spray PRN PRN Administration Nasal Dryness - Exam Eye: PERRL Heart: RRR, no murmur, no gallops, no rubs, normal peripheral pulses Respiratory: CTAB, no wheezes, no rales, no ronchi, normal chest expansion Gastrointestinal: soft, non-tender, non-distended, normal bowel sounds Hosp A/P (1) Left arm weakness Code(s): R29.898 - OTH SYMPTOMS AND SIGNS INVOLVING THE MUSCULOSKELETAL SYSTEM Status: Acute (2) Breast cancer Status: Acute Qualifiers: Patient sex: female Laterality: left (3) Pathologic fracture of neck of left femur Code(s): M84.452A - PATHOLOGICAL FRACTURE, LEFT FEMUR, INIT ENCNTR FOR FRACTURE Status: Acute Qualifiers: Encounter type: subsequent encounter (4) Bipolar disorder Code(s): F31.9 - BIPOLAR DISORDER, UNSPECIFIED Status: Chronic Qualifiers: Active/Remission status: in full remission (5) DM type 2 (diabetes mellitus, type 2) Status: Chronic (6) Invasive ductal carcinoma of breast Code(s): C50.919 - MALIGNANT NEOPLASM OF UNSP SITE OF UNSPECIFIED FEMALE BREAST Status: Acute - Plan * Left Upper extremity weakness- She has area of metstatic disease in the C- spine. I have consulted Neuro-surgery to evaluate * Discussed with Dr. Ariza, and she plans to increase her dose of Decadron * Bipolar disorder- she seems to be becoming a bit manic, she has labored speech , and I am not sure if she is processing well- she has not taken any medications for bipolar disorder in 2 years. She remembers that Remeron helped her to rest. She also believes she was Tegretol as well, as many others but does not feel these worked well. Will add Remeron, and possibly consider a low dose of Tegretol * HTN- blood pressure is stable * Pathologic femur fracture- s/p surgical repair. * Pain is controlled * Prognosis is guarded
--- NOTE | 2019-10-07 13:50 | MRI ---
BRAIN MRI WITHOUT CONTRAST: Date: 10/07/19 COMPARISON: None. HISTORY: Blurred vision with left arm numbness. TECHNIQUE: Multiplanar, multisequence MR imaging of the brain obtained without contrast. FINDINGS: Motion artifact limits assessment. The lack of postcontrast imaging limits assessment for metastatic disease. The diffusion-weighted imaging demonstrates no evidence for acute infarction. Arterial flow-voids at the axial level of the skull base appear grossly unremarkable on the T2-weight ed imaging. Imaged paranasal sinuses and mastoid air cells appear grossly unremarkable. No midline sh ift or mass effect. The axial gradient echo imaging demonstrates no evidence for intracranial hemorrhage. IMPRESSION: No evidence for intracranial hemorrhage. Lack of contrast media limits assessment for intracranial me tastatic disease. POS: OFF
--- NOTE | 2019-10-07 14:01 | PDOC.MOPN ---
Interval History: more pain today. she has had some trouble moving and lifting her L arm - Vital Signs Vital Signs: Vital Signs (12 hours) Temp Pulse Resp BP Pulse Ox 10/07/19 07:41 97 10/07/19 07:35 97.7 F 85 16 142/80 H 97 Weight Admit Weight 155 lb 4.8 oz Weight 155 lb 4.8 oz - Physical Exam General: Alert, Mild distress HEENT: Atraumatic Lungs: Clear to auscultation Cardiovascular: Regular rate Abdomen: Normal bowel sounds, No tenderness Extremities: No clubbing, Other (L arm weak, pain with movement of upper arm) Skin: No rashes Neurological: Normal speech Psych/Mental Status: Mental status NL - Labs Result Diagrams: 10/07/19 08:27 10/07/19 08:27 Lab results: Laboratory Results - last 24 hr 10/07/19 08:27: WBC 6.9, RBC 3.09 L, Hgb 8.0 L, Hct 25.6 L, MCV 82.8, MCH 25.8 L , MCHC 31.2 L, RDW 17.6 H, Plt Count 393, MPV 7.1 L, Neutrophils % 78.3 H, Lymphocytes % 8.6 L, Monocytes % 12.1 H, Eosinophils % 0.7, Basophils % 0.3, Neutrophils # 5.4, Lymphocytes # 0.6 L, Monocytes # 0.8 H, Eosinophils # 0.0, Basophils # 0.0 10/07/19 08:27: Sodium 136, Potassium 4.2, Chloride 103, Carbon Dioxide 24, Anion Gap 13, BUN 19, Creatinine 0.66, Estimated GFR (MDRD) Greater than 90, Glucose 93, Calcium 8.8 10/06/19 21:52: Vancomycin Trough 15.4 - Radiology Interpretation MRI - spine Additional Comment: results called to Dr. Montano and we discussed it, no report yet A/P - Problem (1) Secondary malignancy of bone of lower extremity Current Visit: Yes Code(s): C79.51 - SECONDARY MALIGNANT NEOPLASM OF BONE Status: Acute (2) Invasive ductal carcinoma of breast Current Visit: Yes Code(s): C50.919 - MALIGNANT NEOPLASM OF UNSP SITE OF UNSPECIFIED FEMALE BREAST Status: Acute (3) Left arm weakness Current Visit: Yes Code(s): R29.898 - OTH SYMPTOMS AND SIGNS INVOLVING THE MUSCULOSKELETAL SYSTEM Status: Acute - Plan Plan: 1. increase dex 2. neurosurgery consult, i discussed the case with dr. steen. she is already getting radiatioon to this site 3. increase morphine 3. start ibrance and faslodex jolanta, possibly tomorrow start AI if nothing else
--- NOTE | 2019-10-07 14:43 | MRI ---
CERVICAL SPINE MRI WITHOUT CONTRAST: DATE: 10/07/2019. COMPARISON: Comparison is made to thoracic spine MRI performed 09/25/2019. HISTORY: Metastatic disease with new left-sided arm weakness. TECHNIQUE: Multiplanar, multisequence MR imaging of the cervical spine is obtained without contrast. FINDINGS: The lack of contrast media limits assessment for metastatic disease. Image is slightly limited on th e basis of motion artifact as well. There is evidence of widespread osseous metastatic disease. The re is loss of normal T1 marrow signal within C4 vertebral body, especially to the right of midline, a s well as throughout the C5, C6, C7, and T1 vertebral bodies. Similar findings are noted in T2, T4, T5, and T6 vertebral bodies, concerning for widespread osseous metastatic disease. There is correspo nding increased STIR signal within these vertebral bodies. In addition, there appears to be abnormal loss of T1 signal intensity involving the posterior elements at C5, C6, C7, and T1. There is a comp ression deformity involving C7 with severe loss of vertebral body height loss which has progressed si nce the 09/25/2019 examination suggesting pathologic fracture with vertebroplana deformity. At this l evel, there is anterolisthesis measuring approximately 4-5 mm, which has worsened as well. There is resultant severe central canal stenosis at the C6-7 and C7-T1 levels. C2-3: Bilateral facet hypertrophy with mild bilateral neural foraminal stenosis. No significant starr tral canal stenosis. C3-4: There is disk space narrowing and disk desiccation with disk-osteophyte complex and mild centr al canal stenosis. Motion artifact limits detailed assessment for neural foraminal stenosis. Facet and uncovertebral osteophyte formation noted. Mild right and moderate left neural foraminal stenosis suspected. C4-5: Bilateral facet and uncovertebral osteophyte formation with mild bilateral neural foraminal st enosis. Mild central canal stenosis. C5-6: Bilateral facet hypertrophy. Moderate central canal stenosis. Mild right and moderate left n eural foraminal stenosis. C6-7: Severe central canal and neural foraminal stenosis on the basis of anterolisthesis and C7 path ologic fracture as well as probable tumor involvement, not well characterized on this exam. C7-T1: Severe central canal and bilateral neural foraminal stenosis on the basis of tumor and degene rative change suspected. T1-2: Mild bilateral neural foraminal stenosis. No significant central canal stenosis. No discrete abnormal focus of signal within the cervical cord. Mild pathologic fractures at T1 with anterior wedging and T2 with superior end plate irregularity not ed. IMPRESSION: Limited examination secondary to motion and lack of contrast media demonstrating severe multifocal os seous metastatic disease. Since the prior examination, there has been near complete loss of vertebra l body height at C7 on the basis of pathologic fracture with associated new anterolisthesis and sever e central canal and neural foraminal stenosis. Neurosurgical consultation advised. Dr. Montano made aware at 12:45pm on 10/07/2019. CODE T POS: OFF
[2019-10-07] MEDS ORDERED: Morphine IR Tab 15 MG TAB PO PRN (16:00)
[2019-10-07] MEDS: Melatonin 3 MG TAB PO SCH (20:03)
[2019-10-07] MEDS: Mirtazapine 15 MG TAB PO SCH (20:03)
[2019-10-07] MEDS: Divalproex Sodium 250 MG (DR) TAB PO SCH (20:03)
--- NOTE | 2019-10-07 20:05 | CON ---
DATE OF CONSULTATION: This is Elvis Person PA-C dictating a report for Mikel Marina MD. This is a 50-minute initial patient evaluation of which greater than 50% of the exam was spent in counseling and coordinating the patient's care. Remainder of the exam was spent in review of the patient's medical records and review of appropriate imaging studies. CHIEF COMPLAINT: Metastatic breast cancer with spinal METS and left arm weakness. HISTORY OF PRESENT ILLNESS: Ms. Mosley is a pleasant 54-year-old female, who has been admitted to [facility] since September 16 with newly diagnosed metastatic breast cancer. The patient apparently was admitted due to a pathologic fracture of the left femur that was partially replaced with Orthopedics. The patient has been ambulatory with a walker. She has undergone multiple studies including CT of the chest, abdomen and pelvis showing metastatic breast cancer throughout multiple areas of the spine. In regard to Neurosurgery, the patient has been complaining over the past three days of progressive worsening of left arm and especially hand weakness. The patient states she noticed it over the past few days when she was attempting to wash her face in the shower. She noticed she was unable to use her washcloth. She does have a history of lumbar spine surgery several decades ago with Dr. Garay for low back pain with left posterior thigh and calf pain. She has been complaining of paresthesias into the left lower extremity, but this is likely secondary to her femur lesion. She is on 81 mg aspirin and 40 mg subcu of Lovenox. Given the patient's left arm weakness, an MRI of the cervical spine without contrast was completed that shows spinal stenosis at the C4-C5, C5-C6, C6-C7 and C7-T1 levels. There also appears to be a pathologic fracture at C7 with almost complete vertebra plana of the vertebrae. There is edema into C4, C5, C6, C7, and T1 on STIR imaging denoting edema in these vertebral bodies. PHYSICAL EXAMINATION: The patient is awake, alert, and appropriate. GCS is 15. She is wearing a trauma collar at this time. She has good strength in the bilateral lower extremities. She does, however, have profound left greater than right triceps weakness and almost virtually no hand locomotive operator strength on the left. She has [id number] decreased locomotive operator strength on the right. She has intact sensation to light touch throughout all the extremities. She does appear to be in good spirits today. IMPRESSION DIAGNOSES: 1. Metastatic breast cancer with multiple spinal lesions. 2. Pathologic fracture of C7 with central canal stenosis. 3. History of bipolar disorder. 4. History of low back surgery several decades ago. PLAN: At this time, I discussed the patient's case and imaging with Dr. Marina. The patient has been undergoing radiation therapy and will later, according to the patient, be transitioned to oral chemotherapy. In regard to the patient's cervical spine, the procedure would be in regard to help with stabilization of her fracture, would be C4-T1 posterior laminectomies with posterior instrumented fusion. Surgery is very involved and I have discussed in great detail the surgical procedure, as well as risks to the surgery. I have also let the patient know that should we undergo surgery, she would not be able to continue radiation and likely not continue any type of chemotherapy. Also let her know that she would likely need extensive rehab. At this time, the patient and her family at bedside. I would like to discuss this further. Although in discussing with the patient at this point, it does not appear that the patient would like to proceed with surgical intervention nor does her family. I have contacted [facility] to get her a very well-fitting [place] J Collar of which she needs to wear at all times. Also, I agree with initiation of Decadron 4 mg q.6 hours. We will follow up with the patient tomorrow, but in regard to Neurosurgical intervention, the risks are significant. The patient and her family understand this. Please call with any changes in patient's neurologic status. Job ID: [id number]
[2019-10-07] MEDS: fentaNYL 100 mcg/hour Patch TD SCH (20:34)
[2019-10-07] MEDS: Chloraseptic Spray 180 ml Bottle PO PRN (20:36)
[2019-10-08] MEDS: Dexamethasone 4 mg/ml Vial SLOW IVP SCH ×5 (00:13→23:33)
[2019-10-08] MEDS: Piperacillin/Tazobactam 3.375 GM in Sodium Chloride 0.9% 100 ML IVPB SCH ×5 (00:14→23:29)
[2019-10-08] MEDS: Acetaminophen 500 MG TAB PO SCH ×5 (00:14→23:32)
[2019-10-08] MEDS: Morphine IR Tab 15 MG TAB PO PRN ×5 (00:15→14:54)
[2019-10-08] MEDS: Promethazine HCl 25 MG/ML VIAL SLOW IVP PRN ×3 (03:25→11:18)
[2019-10-08] MEDS: Divalproex Sodium 250 MG (DR) TAB PO SCH ×2 (08:18→21:17)
[2019-10-08] MEDS: Aspirin 81 mg Enteric Coated Tablet PO SCH ×2 (08:19→21:16)
[2019-10-08] MEDS: Morphine ER 30 MG TAB PO SCH ×2 (08:19→21:19)
[2019-10-08] MEDS: Enoxaparin Sodium 40 MG/0.4 ML SYRINGE SC SCH (08:19)
[2019-10-08] MEDS: Ferrous Gluconate 324 MG TAB PO SCH ×2 (08:19→21:16)
[2019-10-08] MEDS: Anastrozole 1 MG TAB PO SCH (08:19)
[2019-10-08] MEDS: Gabapentin 300 MG CAP PO SCH ×3 (08:19→21:17)
[2019-10-08] MEDS: Pantoprazole 40 MG VIAL IVP SCH ×2 (08:19→21:20)
[2019-10-08] MEDS: Lidocaine 5% Patch TD SCH ×3 (08:24→21:26)
[2019-10-08] MEDS: Bisacodyl 5 MG TAB PO SCH (09:00)
[2019-10-08] MEDS: Senokot S 8.6-50 MG TAB PO SCH ×2 (09:00→21:41)
[2019-10-08] MEDS: Multivitamin W/ Minerals 1 TAB PO SCH (09:00)
[2019-10-08] MEDS: Polyethylene Glycol 3350 17 GM Packet PO SCH (09:00)
[2019-10-08] MEDS: Docusate 100 MG CAP PO SCH ×2 (09:00→21:41)
[2019-10-08] MEDS: Lidocaine Patch Removal 1 EACH TOP SCH ×2 (10:00→21:27)
--- NOTE | 2019-10-08 10:34 | PRG ---
DATE OF SERVICE: 10/08/2019 History and presentation is well outlined in my colleague's notes. In short, she has disseminated breast carcinoma and is presented with findings of myelopathy, but more impressively lower cervical radiculopathy. She has a cervical thoracic pathologic fracture with involvement throughout her spine and associated deformity. She also has superimposed on that severe spondylitic changes unrelated to her cancer. She is now undergoing chemotherapy and radiation, I would be in favor of this. I would recommend against surgical intervention for this patient and she certainly agrees for the following reasons: 1. Her skull metastases make placement of any [place] cigar head puncher dangerous with potential complications, given that we have to do that operating near her spinal cord. 2. Her disseminated disease results of a very poor prognosis even with decompression and the hardware that I were to place in her spine would likely fail due to her spinal infiltration of her pathology related to poor purchase. This would be very different given her age and functional status if she only had a solitary met as I think in that case surgery would be ideal. 3. Any decompression of her cord with fusion would necessitate a large exposure given her multilevel compression, which is mostly spondylitic and associated deformity, but also high wound complication rate, often times disseminated cancer patients are often so exhausted from fighting cancer that wound healing puts them essentially over the edge. This would also prevent any chemotherapy and radiation treatments for weeks global systemic control of her cancer. Finally, I recommend a cervical collar for comfort and long-term Decadron, radiation and chemo as deemed appropriate and oral analgesics and rehab would be of benefit as well. Job ID: [id number]
[2019-10-08] MEDS: Vancomycin HCl 1 GM in Premix Bag 1 BAG IVPB SCH ×2 (11:00→11:07)
--- NOTE | 2019-10-08 11:19 | CON ---
DATE OF CONSULTATION: HISTORY OF PRESENT ILLNESS: Ms. Mosley is a 54-year-old female, who presented with left metastatic breast cancer with pathologic fracture of left hip, now status post hemiarthroplasty on postop day #22. The patient is resting in bed with her cervical collar in place. The patient is otherwise complaining of predominantly a back pain and pain with motion of her left hip. PHYSICAL EXAMINATION: VITAL SIGNS: Temperature 99, pulse 113, respiratory rate 18, and blood pressure 144/81. GENERAL: Alert and oriented female, in no acute distress. EXTREMITIES: Lower extremity is neurovascularly intact. She had a well-healed lateral scar. IMPRESSION: Status post hemiarthroplasty for pathologic femoral neck fracture with metastatic breast cancer. ASSESSMENT AND PLAN: The patient has healed her wound. Therefore, Radiology Oncology would like to proceed with radiation as needed to help with palliating the disease, then we will proceed forward. I discussed the patient's case yesterday with Dr. Ivory Ariza, who understands the patient's certain situation is dire given the severity of the disease. She is currently on potentially hospice for palliative care. The patient will weightbear as tolerated. I will need to follow up with her in about 5 to 6 weeks. Job ID: [id number] MTDD
--- NOTE | 2019-10-08 13:07 | PRG ---
DATE OF SERVICE: 10/08/2019 This is Elvis Person PA-C dictating a report for Mikel Marina MD. 50-minute subsequent patient evaluation of which greater than 50% of the exam was spent counseling and coordinating the patient's care, remainder of the exam was spent in review of the patient's medical records and formulation of appropriate treatment plan. Ms. Mosley is seen in followup. She does have a pathologic fracture at C7 as well as other areas of concern for metastatic breast cancer lesions. We have again discussed at great length risks of any type of surgical intervention in regard to her fracture fixation. At this point, the patient states that she does not wish to undergo surgical intervention. We have gotten her a well-fitting [place] J-collar. She states this is much more comfortable than the trauma collar she had on yesterday. In regard to her neurologic exam, it appears as though she is slightly improved, she has been on 4 mg q.6 hours of Decadron. 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 She states at this point, her pain has been under better control. She moves bilateral lower extremities well. Again, at this point, the patient does not require neurosurgical intervention as the risks are profound. Please refer to Dr. Marina's note in regard to the specifics, and I know he is discussed the patient's case with Dr. Mackay. The patient may continue with radiation treatments as well as chemotherapy as directed by Oncology. Please call with any changes in patient's neurologic status. Job ID: [id number]
[2019-10-08] MEDS: Vancomycin HCl 1.25 GM in Sodium Chloride 0.9% 250 ML 250 ML IVPB SCH (13:52)
--- NOTE | 2019-10-08 14:50 | PDOC.MOPN ---
Interval History: pain managed with fentanyl. Patient appears agitated and restless. - Vital Signs Vital Signs: Vital Signs (12 hours) Temp Pulse Resp BP Pulse Ox 10/08/19 11:45 98.2 F 113 H 18 150/88 H 100 10/08/19 09:59 99 10/08/19 08:20 97.8 F 102 H 18 142/91 H 99 10/08/19 08:00 99 Weight Admit Weight 155 lb 4.8 oz Weight 155 lb 4.8 oz - Physical Exam General: Alert HEENT: Atraumatic, PERRLA, EOMI, Mucous membr. moist/pink Lungs: Clear to auscultation, Normal air movement Cardiovascular: Regular rate, Normal S1, Normal S2, No murmurs, Gallops, Rubs Abdomen: Normal bowel sounds, Soft, No tenderness, No hepatospenomegaly, No masses Extremities: No clubbing, No cyanosis, No edema, Normal pulses, No tenderness/ swelling Skin: No rashes, No breakdown, No significant lesion Neurological: Normal speech Psych/Mental Status: Mood NL (restless) - Labs Result Diagrams: 10/07/19 08:27 10/07/19 08:27 Lab results: Laboratory Results - last 24 hr 10/08/19 11:50: Vancomycin Trough 11.0 Status: lab reviewed by me A/P - Problem (1) Microcytic anemia Current Visit: Yes Code(s): D50.9 - IRON DEFICIENCY ANEMIA, UNSPECIFIED Status: Acute (2) Breast cancer Current Visit: Yes Status: Acute Qualifiers: Patient sex: female Laterality: left (3) Pathologic fracture of neck of left femur Current Visit: Yes Code(s): M84.452A - PATHOLOGICAL FRACTURE, LEFT FEMUR, INIT ENCNTR FOR FRACTURE Status: Acute Qualifiers: Encounter type: subsequent encounter - Plan Plan: Continue anastrazole Continue radiation Patient has made decision not to pursue surgery for C-spine fracture. Thomson collar on. Declines hospice, needs palliative care at home.
[2019-10-08] MEDS: Lorazepam 0.5 MG TAB PO PRN (15:04)
--- NOTE | 2019-10-08 15:13 | PDOC.HOSPP ---
- Subjective Encounter Date: 10/08/19 Encounter Time: 15:10 Subjective: Ms. Mosley was seen today in follow-up of advanced breast cancer, with pathologic femure fracture. She does not have any new complaints. - Objective Vital Signs & Weight: Vital Signs (12 hours) Temp Pulse Resp BP Pulse Ox 10/08/19 11:45 98.2 F 113 H 18 150/88 H 100 10/08/19 09:59 99 10/08/19 08:20 97.8 F 102 H 18 142/91 H 99 10/08/19 08:00 99 Weight Admit Weight 155 lb 4.8 oz Weight 155 lb 4.8 oz I&O: 10/07/19 10/08/19 10/09/19 06:59 06:59 06:59 Intake Total 2500 2180 1000 Output Total 1200 6350 1100 Balance 1300 -4170 -100 Result Diagrams: 10/07/19 08:27 10/07/19 08:27 Hospitalist ROS - Medication Medications: Active Medications Generic Name Dose Route Start Last Admin Trade Name Freq PRN Reason Stop Dose Admin Acetaminophen 1,000 mg 09/24/19 12:00 10/08/19 11:08 Tylenol PO 1,000 mg Q6HR ESA Administration Anastrozole 1 mg 10/08/19 09:00 10/08/19 08:19 Arimidex PO 1 mg DAILY ESA Administration Aspirin 81 mg 09/19/19 09:00 10/08/19 08:19 Ecotrin PO 81 mg BID ESA Administration Bisacodyl 10 mg 09/17/19 19:21 10/05/19 17:12 Dulcolax MT 10 mg DAILYPRN PRN Administration Constipation Bisacodyl 5 mg 09/25/19 09:00 10/08/19 09:00 Dulcolax PO Not Given QAM ESA Cyclobenzaprine HCl 10 mg 09/24/19 11:39 09/30/19 01:06 Flexeril PO 10 mg TIDPRN PRN Administration Muscle Spasm Dexamethasone 4 mg 10/07/19 18:00 10/08/19 11:08 Decadron SLOW IVP 4 mg Q6HR ESA Administration Divalproex Sodium 250 mg 10/07/19 21:00 10/08/19 08:18 Depakote PO 250 mg BID ESA Administration Docusate Sodium 100 mg 10/05/19 21:00 10/08/19 09:00 Colace PO Not Given BID ESA Enoxaparin Sodium 40 mg 09/17/19 09:00 10/08/19 08:19 Lovenox SC 40 mg 0900 ESA Administration Fentanyl 25 mcg 10/05/19 17:00 10/05/19 20:50 Duragesic TD 25 mcg Q3D ESA Administration Fentanyl 100 mcg 10/07/19 20:00 10/07/19 20:34 Duragesic TD 100 mcg Q3D ESA Administration Ferrous Gluconate 324 mg 09/17/19 21:00 10/08/19 08:19 Fergon PO 324 mg BID ESA Administration Gabapentin 300 mg 10/02/19 15:00 10/08/19 15:04 Neurontin PO 300 mg TID ESA Administration Piperacillin Sod/Tazobactam 100 mls @ 200 mls/hr 10/04/19 12:00 10/08/19 11: 07 Sod 3.375 gm/ Sodium Chloride IVPB 100 mls Q6HR ESA Administration Sodium Chloride 1,000 mls @ 50 mls/hr 10/05/19 19:30 10/07/19 22:20 Normal Saline 0.9% IV 1,000 mls .Q20H ESA Administration Vancomycin HCl 1.25 gm/ Sodium 250 mls @ 166.667 mls/hr 10/08/19 13:00 13:52 Chloride IVPB 250 mls 0100,1300 ESA Administration Iron/Minerals/Multivitamins 1 tab 09/18/19 09:00 10/08/19 09:00 Theragran M PO Not Given DAILY ESA Lidocaine 1 patch 10/04/19 22:00 10/07/19 22:19 Lidoderm 5% Patch TD 1 patch 2200 ESA Administration Lidocaine 1 patch 10/05/19 10:00 10/08/19 08:24 Lidoderm 5% Patch TD 1 patch 1000 ESA Administration Lorazepam 0.5 mg 10/05/19 13:52 10/08/19 15:04 Ativan PO 0.5 mg Q4H PRN Administration Anxiety Magnesium Hydroxide 30 ml 09/17/19 19:21 10/04/19 08:08 Milk Of Magnesium PO 30 ml DAILYPRN PRN Administration Constipation Melatonin 6 mg 09/25/19 21:00 10/07/19 20:03 Melatonin PO 6 mg HS ESA Administration Mirtazapine 15 mg 10/07/19 21:00 10/07/19 20:03 Remeron PO 15 mg HS ESA Administration Miscellaneous Medication 1 each 10/02/19 10:00 10/08/19 10:00 Lidocaine Patch Removal TOP Not Given 1000 ESA Miscellaneous Medication 1 each 10/04/19 22:00 10/07/19 22:20 Lidocaine Patch Removal TOP 1 each 2200 ESA Administration Morphine Sulfate 30 mg 10/02/19 09:00 10/08/19 08:19 Ms Contin PO 30 mg Q12HR ESA Administration Morphine Sulfate 15 mg 10/07/19 15:22 10/08/19 14:54 Morphine Ir Tab PO 15 mg Q2H PRN Administration Pain Ondansetron HCl 4 mg 09/17/19 01:28 10/03/19 21:20 Zofran Odt PO 4 mg Q6H PRN Administration Nausea/Vomiting Ondansetron HCl 4 mg 09/21/19 16:30 10/06/19 09:38 Zofran IVP 4 mg Q6H PRN Administration Nausea/Vomiting Pantoprazole Sodium 40 mg 10/06/19 09:00 10/08/19 08:19 Protonix IVP 40 mg Q12HR ESA Administration Phenol 0 ml 10/07/19 17:31 10/07/19 20:36 Chloraseptic [place] 180 Ml Bot PO 1 spr PRN PRN Administration SORE THROAT Polyethylene Glycol 17 gm 10/02/19 09:00 10/08/19 09:00 Miralax PO Not Given DAILY ESA Promethazine HCl 12.5 mg 10/02/19 08:15 10/08/19 11:18 Phenergan SLOW IVP 12.5 mg Q4H PRN Administration Nausea Senna/Docusate Sodium 2 tab 09/17/19 21:00 10/08/19 09:00 Senokot S PO Not Given BID ESA Sodium Biphosphate/Sodium Phosphate 133 ml 09/17/19 19:21 10/04/19 04:32 Fleet Enema MT 133 ml DAILYPRN PRN Administration Constipation Sodium Chloride 10 ml 09/17/19 07:16 10/07/19 12:18 Flush - Normal Saline IVF 10 ml PRN PRN Administration Saline Flush Sodium Chloride 0 ml 09/18/19 01:06 10/03/19 21:08 [place] Nasal [place] 0.65% EA NARE 1 spray PRN PRN Administration Nasal Dryness - Exam Eye: PERRL Heart: RRR, no murmur, no gallops, no rubs Respiratory: CTAB, no wheezes, no rales, no ronchi, normal chest expansion Gastrointestinal: soft, non-distended, normal bowel sounds Extremities: no edema Hosp A/P (1) Left arm weakness Code(s): R29.898 - OTH SYMPTOMS AND SIGNS INVOLVING THE MUSCULOSKELETAL SYSTEM Status: Acute (2) Breast cancer Status: Acute Qualifiers: Patient sex: female Laterality: left (3) Pathologic fracture of neck of left femur Code(s): M84.452A - PATHOLOGICAL FRACTURE, LEFT FEMUR, INIT ENCNTR FOR FRACTURE Status: Acute Qualifiers: Encounter type: subsequent encounter (4) Bipolar disorder Code(s): F31.9 - BIPOLAR DISORDER, UNSPECIFIED Status: Chronic Qualifiers: Active/Remission status: in full remission (5) DM type 2 (diabetes mellitus, type 2) Status: Chronic (6) Invasive ductal carcinoma of breast Code(s): C50.919 - MALIGNANT NEOPLASM OF UNSP SITE OF UNSPECIFIED FEMALE BREAST Status: Acute - Plan * C- spine metastatic disease- will continue radiation therapy, She is not a good surgical candidate- Neurosurgery Evaluation noted * Bipolar disorder- Will continue on Tegretol, and Remeron at bedtime * HTN- blood pressure is stable * Pathologic femur fracture- s/p surgical repair. * Pain is controlled * Prognosis is guarded * Discussed the patient's prognosis, She has bipolar disorder an is clinically hypomanic at this time, but she seems to understand the nature of her disease, and that it is advanced. She wants to continue " fighting" as she says she is a fighter, and she does not want her mother to have to suffer with an additional family loss to cancer. Will continue with aggressive care, and continue Palliative Care for family and patient support.
--- NOTE | 2019-10-08 16:25 | PDOC.PALFU ---
Palliative Care Follow-up Note Palliative Care to continue to support and follow. Pain adequately managed, increased Ativan to mitigate anxiety. Therapeutic listening and supportive care to continue as patient seeks aggressive treatment, mitigating symptoms as appropriate.
[2019-10-08] MEDS: Melatonin 3 MG TAB PO SCH (21:17)
[2019-10-08] MEDS: Mirtazapine 15 MG TAB PO SCH (21:18)
[2019-10-08] MEDS: Sodium Chloride 0.9% 1,000 ML IV SCH (23:28)
[2019-10-09] MEDS: Vancomycin HCl 1.25 GM in Sodium Chloride 0.9% 250 ML 250 ML IVPB SCH ×2 (02:12→13:30)
[2019-10-09] MEDS: Morphine IR Tab 15 MG TAB PO PRN ×6 (02:16→22:01)
[2019-10-09] MEDS: Lorazepam 1 MG TAB PO PRN ×3 (02:23→23:31)
[2019-10-09] MEDS: Ondansetron ODT 4 MG TAB PO PRN ×2 (02:23→20:28)
[2019-10-09] MEDS: Dexamethasone 4 mg/ml Vial SLOW IVP SCH ×4 (05:39→23:35)
[2019-10-09] MEDS: Acetaminophen 500 MG TAB PO SCH ×4 (05:40→23:30)
[2019-10-09] MEDS: Piperacillin/Tazobactam 3.375 GM in Sodium Chloride 0.9% 100 ML IVPB SCH ×4 (05:40→23:33)
--- NOTE | 2019-10-09 08:39 | PDOC.MOPN ---
Interval History: Pain improving but still present. Moves all extremities. No AEs from Arimidex thus far. Tolerating oral iron well. - Vital Signs Vital Signs: Weight Admit Weight 155 lb 4.8 oz Weight 155 lb 4.8 oz - Physical Exam General: Alert, Oriented x3, Cooperative, No acute distress HEENT: EOMI Lungs: Normal air movement Extremities: Other (moves all extremities, C-collar in place) Neurological: Cranial nerves 3-12 NL Psych/Mental Status: Mental status NL - Labs Result Diagrams: 10/07/19 08:27 10/07/19 08:27 Lab results: Laboratory Results - last 24 hr 10/08/19 11:50: Vancomycin Trough 11.0 A/P - Problem (1) Invasive ductal carcinoma of breast Current Visit: Yes Code(s): C50.919 - MALIGNANT NEOPLASM OF UNSP SITE OF UNSPECIFIED FEMALE BREAST Status: Acute (2) Microcytic anemia Current Visit: Yes Code(s): D50.9 - IRON DEFICIENCY ANEMIA, UNSPECIFIED Status: Acute (3) Pathologic fracture of neck of left femur Current Visit: Yes Code(s): M84.452A - PATHOLOGICAL FRACTURE, LEFT FEMUR, INIT ENCNTR FOR FRACTURE Status: Acute Qualifiers: Encounter type: subsequent encounter - Plan Plan: cont XRT, 2 days left cont arimidex, plan ibrance as outpatient cont oral iron, will repeat levels and give IV iron if needed cont fentanyl, morphine plan discharge home vs rehab, pt prefers home
[2019-10-09] MEDS: Multivitamin W/ Minerals 1 TAB PO SCH (09:00)
[2019-10-09] MEDS: Bisacodyl 5 MG TAB PO SCH (09:00)
[2019-10-09] MEDS: Docusate 100 MG CAP PO SCH ×2 (09:00→19:32)
[2019-10-09] MEDS: Aspirin 81 mg Enteric Coated Tablet PO SCH ×2 (09:00→20:26)
[2019-10-09] MEDS: Senokot S 8.6-50 MG TAB PO SCH ×2 (09:00→19:32)
[2019-10-09] MEDS: Divalproex Sodium 250 MG (DR) TAB PO SCH ×2 (09:20→20:27)
[2019-10-09] MEDS: Gabapentin 300 MG CAP PO SCH ×3 (09:20→20:27)
[2019-10-09] MEDS: Pantoprazole 40 MG VIAL IVP SCH ×2 (09:20→20:35)
[2019-10-09] MEDS: Anastrozole 1 MG TAB PO SCH (09:20)
[2019-10-09] MEDS: Enoxaparin Sodium 40 MG/0.4 ML SYRINGE SC SCH (09:21)
[2019-10-09] MEDS: Morphine ER 30 MG TAB PO SCH ×2 (09:21→20:50)
[2019-10-09] MEDS: Lidocaine 5% Patch TD SCH ×2 (09:22→21:56)
[2019-10-09] MEDS: Ferrous Gluconate 324 MG TAB PO SCH ×2 (09:22→20:27)
[2019-10-09] MEDS: Promethazine HCl 25 MG/ML VIAL SLOW IVP PRN ×3 (09:30→22:14)
[2019-10-09] MEDS: Lidocaine Patch Removal 1 EACH TOP SCH ×2 (10:00→21:57)
--- NOTE | 2019-10-09 10:34 | PRG ---
DATE OF SERVICE: 10/09/2019 This is Elvis Person PA-C dictating a report for iMkel Marina MD. Dr. Marina and our team have evaluated the patient. I have again discussed extensively the risks and benefits of any type of surgical intervention in regard to her stenosis from C4-T1. After having this discussion including our concern for the stress of surgery and her already taxed immune system, delayed wound healing, and having to delay radiation and chemotherapy postoperatively, we have decided that surgery is not in the patient's best interest. At this time, we will sign off, but we have discussed that she may wear her cervical spine collar for comfort. We would prefer that she would wear it any time she is out of bed and working with therapies. Court ordered a [place] collar for showers. The patient has a little bit manic after receiving steroids, but it does appear to be helping in her strength. In regard to physical examination, the patient is awake, alert, and appropriate. Again, she is a little bit hypermanic. 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 Again, at this time, Neurosurgery will sign off. Please call with any changes in the patient's neurologic status. We have also asked our nursing team to contact [facility] to help with providing some more foam padding for her [place] J Collar that will be more comfortable. Job ID: [id number]
--- NOTE | 2019-10-09 13:05 | PRG ---
DATE OF SERVICE: 10/09/2019 I have seen Ms. Mosley today as well and she is on Decadron. I have let her know that the collar only needs to be worn when she is out of bed. I would recommend if she wants her collar off in bed that would be fine. We will arrange for [place] collar and have [facility] adjust her current collar with padding. Neurologically, she is very weak, in particular, her left triceps. 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 We have recommended again surgery, and she is undergoing radiation. Job ID: [id number]
[2019-10-09] MEDS: Polyethylene Glycol 3350 17 GM Packet PO SCH (13:51)
--- NOTE | 2019-10-09 14:37 | PDOC.HOSPP ---
- Subjective Encounter Date: 10/09/19 Encounter Time: 14:35 Subjective: Ms. Mosley was seen today in follow-up of metastatic breast cancer. She notes a little weakness in the right lower extremity. She also notes some diarrhea as well. - Objective Vital Signs & Weight: Vital Signs (12 hours) Pulse Ox 10/09/19 11:42 98 10/09/19 08:00 98 Weight Admit Weight 155 lb 4.8 oz Weight 155 lb 4.8 oz I&O: 10/08/19 10/09/19 10/10/19 06:59 06:59 06:59 Intake Total 2180 4250 Output Total 6350 5100 Balance -2027 -534 Result Diagrams: 10/07/19 08:27 10/07/19 08:27 Hospitalist ROS - Medication Medications: Active Medications Generic Name Dose Route Start Last Admin Trade Name Freq PRN Reason Stop Dose Admin Acetaminophen 1,000 mg 09/24/19 12:00 10/09/19 12:57 Tylenol PO 1,000 mg Q6HR ESA Administration Anastrozole 1 mg 10/08/19 09:00 10/09/19 09:20 Arimidex PO 1 mg DAILY ESA Administration Aspirin 81 mg 09/19/19 09:00 10/08/19 21:16 Ecotrin PO 81 mg BID ESA Administration Bisacodyl 10 mg 09/17/19 19:21 10/05/19 17:12 Dulcolax DC 10 mg DAILYPRN PRN Administration Constipation Bisacodyl 5 mg 09/25/19 09:00 10/09/19 09:00 Dulcolax PO Not Given QAM ESA Cyclobenzaprine HCl 10 mg 09/24/19 11:39 09/30/19 01:06 Flexeril PO 10 mg TIDPRN PRN Administration Muscle Spasm Dexamethasone 4 mg 10/07/19 18:00 10/09/19 12:57 Decadron SLOW IVP 4 mg Q6HR ESA Administration Divalproex Sodium 250 mg 10/07/19 21:00 10/09/19 09:20 Depakote PO 250 mg BID ESA Administration Docusate Sodium 100 mg 10/05/19 21:00 10/09/19 09:00 Colace PO Not Given BID ESA Enoxaparin Sodium 40 mg 09/17/19 09:00 10/09/19 09:21 Lovenox SC 40 mg 0900 ESA Administration Fentanyl 25 mcg 10/05/19 17:00 10/08/19 17:42 Duragesic TD 25 mcg Q3D ESA Administration Fentanyl 100 mcg 10/07/19 20:00 10/07/19 20:34 Duragesic TD 100 mcg Q3D ESA Administration Ferrous Gluconate 324 mg 09/17/19 21:00 10/09/19 09:22 Fergon PO 324 mg BID ESA Administration Gabapentin 300 mg 10/02/19 15:00 10/09/19 14:08 Neurontin PO 300 mg TID ESA Administration Piperacillin Sod/Tazobactam 100 mls @ 200 mls/hr 10/04/19 12:00 10/09/19 12: 00 Sod 3.375 gm/ Sodium Chloride IVPB 100 mls Q6HR ESA Administration Sodium Chloride 1,000 mls @ 50 mls/hr 10/05/19 19:30 10/08/19 23:28 Normal Saline 0.9% IV 1,000 mls .Q20H ESA Administration Vancomycin HCl 1.25 gm/ Sodium 250 mls @ 166.667 mls/hr 10/08/19 13:00 13:30 Chloride IVPB 250 mls 0100,1300 ESA Administration Iron/Minerals/Multivitamins 1 tab 09/18/19 09:00 10/09/19 09:00 Theragran M PO Not Given DAILY ESA Lidocaine 1 patch 10/04/19 22:00 10/08/19 21:26 Lidoderm 5% Patch TD 1 patch 2200 ESA Administration Lidocaine 1 patch 10/05/19 10:00 10/09/19 09:22 Lidoderm 5% Patch TD 1 patch 1000 ESA Administration Lorazepam 1 mg 10/08/19 15:48 10/09/19 09:20 Ativan PO 1 mg Q4H PRN Administration Anxiety Magnesium Hydroxide 30 ml 09/17/19 19:21 10/04/19 08:08 Milk Of Magnesium PO 30 ml DAILYPRN PRN Administration Constipation Melatonin 6 mg 09/25/19 21:00 10/08/19 21:17 Melatonin PO 6 mg HS ESA Administration Mirtazapine 15 mg 10/07/19 21:00 10/08/19 21:18 Remeron PO 15 mg HS ESA Administration Miscellaneous Medication 1 each 10/02/19 10:00 10/09/19 10:00 Lidocaine Patch Removal TOP Not Given 1000 ESA Miscellaneous Medication 1 each 10/04/19 22:00 10/08/19 21:27 Lidocaine Patch Removal TOP 1 each 2200 ESA Administration Morphine Sulfate 30 mg 10/02/19 09:00 10/09/19 09:21 Ms Contin PO 30 mg Q12HR ESA Administration Morphine Sulfate 15 mg 10/07/19 15:22 10/09/19 14:09 Morphine Ir Tab PO 15 mg Q2H PRN Administration Pain Ondansetron HCl 4 mg 09/17/19 01:28 10/09/19 02:23 Zofran Odt PO 4 mg Q6H PRN Administration Nausea/Vomiting Ondansetron HCl 4 mg 09/21/19 16:30 10/06/19 09:38 Zofran IVP 4 mg Q6H PRN Administration Nausea/Vomiting Pantoprazole Sodium 40 mg 10/06/19 09:00 10/09/19 09:20 Protonix IVP 40 mg Q12HR ESA Administration Phenol 0 ml 10/07/19 17:31 10/07/19 20:36 Chloraseptic [place] 180 Ml Bot PO 1 spr PRN PRN Administration SORE THROAT Polyethylene Glycol 17 gm 10/02/19 09:00 10/09/19 13:51 Miralax PO Not Given DAILY [facility] Promethazine HCl 12.5 mg 10/02/19 08:15 10/09/19 14:08 Phenergan SLOW IVP 12.5 mg Q4H PRN Administration Nausea Senna/Docusate Sodium 2 tab 09/17/19 21:00 10/09/19 09:00 Senokot S PO Not Given BID [facility] Sodium Biphosphate/Sodium Phosphate 133 ml 09/17/19 19:21 10/04/19 04:32 [place] Enema DC 133 ml DAILYPRN PRN Administration Constipation Sodium Chloride 10 ml 09/17/19 07:16 10/07/19 12:18 Flush - Normal Saline IVF 10 ml PRN PRN Administration Saline Flush Sodium Chloride 0 ml 09/18/19 01:06 10/03/19 21:08 [place] Nasal [place] 0.65% EA NARE 1 spray PRN PRN Administration Nasal Dryness - Exam Eye: PERRL Heart: RRR, no murmur, no gallops, no rubs, normal peripheral pulses Respiratory: CTAB, no wheezes, no rales, no ronchi, normal chest expansion Gastrointestinal: soft, non-tender, non-distended, normal bowel sounds, no palpable masses, no hepatomegaly Extremities: no cyanosis, no edema Hosp A/P (1) Left arm weakness Code(s): R29.898 - OTH SYMPTOMS AND SIGNS INVOLVING THE MUSCULOSKELETAL SYSTEM Status: Acute (2) Breast cancer Status: Acute Qualifiers: Patient sex: female Laterality: left (3) Pathologic fracture of neck of left femur Code(s): M84.452A - PATHOLOGICAL FRACTURE, LEFT FEMUR, INIT ENCNTR FOR FRACTURE Status: Acute Qualifiers: Encounter type: subsequent encounter (4) Bipolar disorder Code(s): F31.9 - BIPOLAR DISORDER, UNSPECIFIED Status: Chronic Qualifiers: Active/Remission status: in full remission (5) DM type 2 (diabetes mellitus, type 2) Status: Chronic (6) Invasive ductal carcinoma of breast Code(s): C50.919 - MALIGNANT NEOPLASM OF UNSP SITE OF UNSPECIFIED FEMALE BREAST Status: Acute - Plan * Metastatic breast cancer- with multiple mets to the spine- Continue XRT, and she has been started on Arimidex yesterday * Bipolar disorder- Will continue Tegretol, and Remeron * HTN- blood pressure is stable * Diarrhea- continue symptom management * Possibly home tomorrow
[2019-10-09] MEDS: Melatonin 3 MG TAB PO SCH (20:27)
[2019-10-09] MEDS: Mirtazapine 15 MG TAB PO SCH (20:28)
[2019-10-09] MEDS: Sodium Chloride 0.9% 1,000 ML IV SCH (23:29)
[2019-10-10] MEDS: Morphine IR Tab 15 MG TAB PO PRN ×9 (00:28→22:23)
[2019-10-10 00:38] LABS: Vancomycin, Trough 13.7 ug/mL
[2019-10-10] MEDS: Vancomycin HCl 1.25 GM in Sodium Chloride 0.9% 250 ML 250 ML IVPB SCH ×2 (01:04→14:39)
[2019-10-10] MEDS: Promethazine HCl 25 MG/ML VIAL SLOW IVP PRN ×2 (02:38→16:38)
[2019-10-10] MEDS: Lorazepam 1 MG TAB PO PRN ×4 (03:59→22:23)
[2019-10-10] MEDS: Dexamethasone 4 mg/ml Vial SLOW IVP SCH ×3 (05:33→16:38)
[2019-10-10] MEDS: Acetaminophen 500 MG TAB PO SCH ×3 (05:35→16:37)
[2019-10-10] MEDS: Piperacillin/Tazobactam 3.375 GM in Sodium Chloride 0.9% 100 ML IVPB SCH ×3 (05:36→16:38)
[2019-10-10] MEDS: Divalproex Sodium 250 MG (DR) TAB PO SCH ×2 (09:21→20:13)
[2019-10-10] MEDS: Enoxaparin Sodium 40 MG/0.4 ML SYRINGE SC SCH (09:21)
[2019-10-10] MEDS: Senokot S 8.6-50 MG TAB PO SCH ×2 (09:22→20:55)
[2019-10-10] MEDS: Aspirin 81 mg Enteric Coated Tablet PO SCH ×2 (09:22→20:13)
[2019-10-10] MEDS: Ferrous Gluconate 324 MG TAB PO SCH ×2 (09:22→20:13)
[2019-10-10] MEDS: Docusate 100 MG CAP PO SCH ×2 (09:22→20:54)
[2019-10-10] MEDS: Gabapentin 300 MG CAP PO SCH ×3 (09:22→20:13)
[2019-10-10] MEDS: Morphine ER 30 MG TAB PO SCH ×2 (09:23→20:14)
[2019-10-10] MEDS: Bisacodyl 5 MG TAB PO SCH (09:23)
[2019-10-10] MEDS: Anastrozole 1 MG TAB PO SCH (09:23)
[2019-10-10] MEDS: Pantoprazole 40 MG VIAL IVP SCH ×2 (09:26→20:13)
[2019-10-10] MEDS: Polyethylene Glycol 3350 17 GM Packet PO SCH (09:26)
[2019-10-10] MEDS: Multivitamin W/ Minerals 1 TAB PO SCH (09:26)
[2019-10-10] MEDS: Lidocaine Patch Removal 1 EACH TOP SCH ×2 (11:52→22:25)
[2019-10-10] MEDS ORDERED: Loperamide HCl 1 MG/7.5 ML UDCUP PO PRN (13:52)
--- NOTE | 2019-10-10 13:52 | PDOC.HOSPP ---
- Subjective Encounter Date: 10/10/19 Encounter Time: 13:51 Subjective: Ms. Mosley was seen today in follow-up of metastatic breast cancer. She notes some new pain on her right side. She also notes diarrhea. - Objective Vital Signs & Weight: Vital Signs (12 hours) Temp Pulse Resp BP Pulse Ox 10/10/19 12:53 95 10/10/19 07:28 97.8 F 102 H 18 138/79 95 Weight Admit Weight 155 lb 4.8 oz Weight 155 lb 4.8 oz I&O: 10/09/19 10/10/19 10/11/19 06:59 06:59 06:59 Intake Total 4250 1557 Output Total 5100 3200 Balance -850 -8943 Result Diagrams: 10/07/19 08:27 10/07/19 08:27 Hospitalist ROS - Medication Medications: Active Medications Generic Name Dose Route Start Last Admin Trade Name Freq PRN Reason Stop Dose Admin Acetaminophen 1,000 mg 09/24/19 12:00 10/10/19 11:44 Tylenol PO 1,000 mg Q6HR ESA Administration Anastrozole 1 mg 10/08/19 09:00 10/10/19 09:23 Arimidex PO 1 mg DAILY ESA Administration Aspirin 81 mg 09/19/19 09:00 10/10/19 09:22 Ecotrin PO 81 mg BID ESA Administration Bisacodyl 10 mg 09/17/19 19:21 10/05/19 17:12 Dulcolax MS 10 mg DAILYPRN PRN Administration Constipation Bisacodyl 5 mg 09/25/19 09:00 10/10/19 09:23 Dulcolax PO 5 mg QAM ESA Administration Cyclobenzaprine HCl 10 mg 09/24/19 11:39 09/30/19 01:06 Flexeril PO 10 mg TIDPRN PRN Administration Muscle Spasm Dexamethasone 4 mg 10/07/19 18:00 10/10/19 11:44 Decadron SLOW IVP 4 mg Q6HR ESA Administration Divalproex Sodium 250 mg 10/07/19 21:00 10/10/19 09:21 Depakote PO 250 mg BID ESA Administration Docusate Sodium 100 mg 10/05/19 21:00 10/10/19 09:22 Colace PO 100 mg BID ESA Administration Enoxaparin Sodium 40 mg 09/17/19 09:00 10/10/19 09:21 Lovenox SC 40 mg 0900 ESA Administration Fentanyl 25 mcg 10/05/19 17:00 10/08/19 17:42 Duragesic TD 25 mcg Q3D ESA Administration Fentanyl 100 mcg 10/07/19 20:00 10/07/19 20:34 Duragesic TD 100 mcg Q3D ESA Administration Ferrous Gluconate 324 mg 09/17/19 21:00 10/10/19 09:22 Fergon PO 324 mg BID ESA Administration Gabapentin 300 mg 10/02/19 15:00 10/10/19 09:22 Neurontin PO 300 mg TID ESA Administration Piperacillin Sod/Tazobactam 100 mls @ 200 mls/hr 10/04/19 12:00 10/10/19 11: 44 Sod 3.375 gm/ Sodium Chloride IVPB 100 mls Q6HR ESA Administration Sodium Chloride 1,000 mls @ 50 mls/hr 10/05/19 19:30 10/09/19 23:29 Normal Saline 0.9% IV 1,000 mls .Q20H ESA Administration Vancomycin HCl 1.25 gm/ Sodium 250 mls @ 166.667 mls/hr 10/08/19 13:00 01:04 Chloride IVPB 250 mls 0100,1300 ESA Administration Iron/Minerals/Multivitamins 1 tab 09/18/19 09:00 10/10/19 09:26 Theragran M PO Not Given DAILY ESA Lidocaine 1 patch 10/04/19 22:00 10/09/19 21:56 Lidoderm 5% Patch TD 1 patch 2200 ESA Administration Lidocaine 1 patch 10/05/19 10:00 10/09/19 09:22 Lidoderm 5% Patch TD 1 patch 1000 ESA Administration Lorazepam 1 mg 10/08/19 15:48 10/10/19 11:47 Ativan PO 1 mg Q4H PRN Administration Anxiety Magnesium Hydroxide 30 ml 09/17/19 19:21 10/04/19 08:08 Milk Of Magnesium PO 30 ml DAILYPRN PRN Administration Constipation Melatonin 6 mg 09/25/19 21:00 10/09/19 20:27 Melatonin PO 6 mg HS ESA Administration Mirtazapine 15 mg 10/07/19 21:00 10/09/19 20:28 Remeron PO 15 mg HS ESA Administration Miscellaneous Medication 1 each 10/02/19 10:00 10/10/19 11:52 Lidocaine Patch Removal TOP Not Given 1000 ESA Miscellaneous Medication 1 each 10/04/19 22:00 10/09/19 21:57 Lidocaine Patch Removal TOP 1 each 2200 ESA Administration Morphine Sulfate 30 mg 10/02/19 09:00 10/10/19 09:23 Ms Contin PO 30 mg Q12HR ESA Administration Morphine Sulfate 15 mg 10/07/19 15:22 10/10/19 11:44 Morphine Ir Tab PO 15 mg Q2H PRN Administration Pain Ondansetron HCl 4 mg 09/17/19 01:28 10/09/19 20:28 Zofran Odt PO 4 mg Q6H PRN Administration Nausea/Vomiting Ondansetron HCl 4 mg 09/21/19 16:30 10/06/19 09:38 Zofran IVP 4 mg Q6H PRN Administration Nausea/Vomiting Pantoprazole Sodium 40 mg 10/06/19 09:00 10/10/19 09:26 Protonix IVP 40 mg Q12HR ESA Administration Phenol 0 ml 10/07/19 17:31 10/07/19 20:36 Chloraseptic Vale 180 Ml Bot PO 1 spr PRN PRN Administration SORE THROAT Polyethylene Glycol 17 gm 10/02/19 09:00 10/10/19 09:26 Miralax PO Not Given DAILY ESA Promethazine HCl 12.5 mg 10/02/19 08:15 10/10/19 02:38 Phenergan SLOW IVP 12.5 mg Q4H PRN Administration Nausea Senna/Docusate Sodium 2 tab 09/17/19 21:00 10/10/19 09:22 Senokot S PO 2 tab BID ESA Administration Sodium Biphosphate/Sodium Phosphate 133 ml 09/17/19 19:21 10/04/19 04:32 Fleet Enema MS 133 ml DAILYPRN PRN Administration Constipation Sodium Chloride 10 ml 09/17/19 07:16 10/10/19 05:34 Flush - Normal Saline IVF 10 ml PRN PRN Administration Saline Flush Sodium Chloride 0 ml 09/18/19 01:06 10/03/19 21:08 [place] Nasal Vale 0.65% EA NARE 1 spray PRN PRN Administration Nasal Dryness - Exam Eye: PERRL Heart: RRR, no murmur, no gallops, no rubs, normal peripheral pulses Respiratory: CTAB, no wheezes, no rales, no ronchi, normal chest expansion Gastrointestinal: soft, non-tender, non-distended, normal bowel sounds Extremities: no cyanosis, 1+ LE edema Hosp A/P (1) Left arm weakness Code(s): R29.898 - OTH SYMPTOMS AND SIGNS INVOLVING THE MUSCULOSKELETAL SYSTEM Status: Acute (2) Breast cancer Status: Acute Qualifiers: Patient sex: female Laterality: left (3) Pathologic fracture of neck of left femur Code(s): M84.452A - PATHOLOGICAL FRACTURE, LEFT FEMUR, INIT ENCNTR FOR FRACTURE Status: Acute Qualifiers: Encounter type: subsequent encounter (4) Bipolar disorder Code(s): F31.9 - BIPOLAR DISORDER, UNSPECIFIED Status: Chronic Qualifiers: Active/Remission status: in full remission (5) DM type 2 (diabetes mellitus, type 2) Status: Chronic (6) Invasive ductal carcinoma of breast Code(s): C50.919 - MALIGNANT NEOPLASM OF UNSP SITE OF UNSPECIFIED FEMALE BREAST Status: Acute - Plan * Metastatic breast cancer- with multiple mets to the spine- Continue XRT, Arimidex and Ibrance * Bipolar disorder- Will continue Tegretol, and Remeron * HTN- blood pressure is stable * Diarrhea- continue symptom management * Possibly home tomorrow
[2019-10-10] MEDS: Melatonin 3 MG TAB PO SCH (20:13)
[2019-10-10] MEDS: Mirtazapine 15 MG TAB PO SCH (20:13)
[2019-10-10] MEDS: fentaNYL 100 mcg/hour Patch TD SCH (20:37)
[2019-10-10] MEDS: Sodium Chloride 0.9% 1,000 ML IV SCH (22:22)
[2019-10-10] MEDS: Lidocaine 5% Patch TD SCH (22:25)
[2019-10-11] MEDS: Acetaminophen 500 MG TAB PO SCH ×2 (00:41→05:57)
[2019-10-11] MEDS: Dexamethasone 4 mg/ml Vial SLOW IVP SCH ×2 (00:42→05:58)
[2019-10-11] MEDS: Piperacillin/Tazobactam 3.375 GM in Sodium Chloride 0.9% 100 ML IVPB SCH ×2 (01:20→05:59)
[2019-10-11] MEDS: Chloraseptic Spray 180 ml Bottle PO PRN (01:27)
[2019-10-11] MEDS: Vancomycin HCl 1.25 GM in Sodium Chloride 0.9% 250 ML 250 ML IVPB SCH (01:58)
[2019-10-11] MEDS: Morphine IR Tab 15 MG TAB PO PRN ×2 (04:57→10:19)
[2019-10-11] MEDS: Lorazepam 1 MG TAB PO PRN ×2 (04:57→10:19)
[2019-10-11] MEDS: Divalproex Sodium 250 MG (DR) TAB PO SCH (09:12)
[2019-10-11] MEDS: Pantoprazole 40 MG VIAL IVP SCH (09:13)
[2019-10-11] MEDS: Morphine ER 30 MG TAB PO SCH (09:13)
[2019-10-11] MEDS: Gabapentin 300 MG CAP PO SCH (09:13)
[2019-10-11] MEDS: Ferrous Gluconate 324 MG TAB PO SCH (09:14)
[2019-10-11] MEDS: Anastrozole 1 MG TAB PO SCH (09:14)
[2019-10-11] MEDS: Aspirin 81 mg Enteric Coated Tablet PO SCH (09:14)
[2019-10-11] MEDS: Enoxaparin Sodium 40 MG/0.4 ML SYRINGE SC SCH (09:14)
[2019-10-11 09:17] VITALS: BP 150/88; TEMP 98.2
--- NOTE | 2019-10-11 09:34 | PDOC.MOPN ---
Interval History: pain controlled, planning for dc today - Vital Signs Vital Signs: Vital Signs (12 hours) Temp Pulse Resp BP Pulse Ox 10/11/19 08:00 98.2 F 65 18 150/88 H 97 10/11/19 06:01 101 H 146/92 H 10/11/19 04:00 98.1 F 63 16 174/89 H 97 10/10/19 23:40 97.4 F L 68 16 153/81 H 99 10/10/19 21:49 83 16 141/84 H Weight Admit Weight 155 lb 4.8 oz Weight 155 lb 4.8 oz - Physical Exam General: Alert, Oriented x3, No acute distress HEENT: Atraumatic, PERRLA, EOMI, Mucous membr. moist/pink Lungs: Clear to auscultation, Normal air movement Cardiovascular: Regular rate, Normal S1, Normal S2, No murmurs, Gallops, Rubs Abdomen: Normal bowel sounds, Soft, No tenderness, No hepatospenomegaly, No masses Extremities: No clubbing Skin: No rashes, No breakdown, No significant lesion Neurological: Other (aspen collar) - Labs Result Diagrams: 10/07/19 08:27 10/07/19 08:27 Status: lab reviewed by me A/P - Problem (1) Microcytic anemia Current Visit: Yes Code(s): D50.9 - IRON DEFICIENCY ANEMIA, UNSPECIFIED Status: Acute (2) Breast cancer Current Visit: Yes Status: Acute Qualifiers: Patient sex: female Laterality: left (3) Pathologic fracture of neck of left femur Current Visit: Yes Code(s): M84.452A - PATHOLOGICAL FRACTURE, LEFT FEMUR, INIT ENCNTR FOR FRACTURE Status: Acute Qualifiers: Encounter type: subsequent encounter - Plan Plan: Ok to dc home Continue arimidex Rx for pain meds sent to [facility] [address] Follow-up Dr. Mackay Follow-up Dr. Heredia on Monday 10/15 at 1400 in clinic
[2019-10-11] MEDS: Lidocaine Patch Removal 1 EACH TOP SCH (10:32)
== END 2019-10-11 11:13 | disposition home or self-care (01) | DRG 469 ==
LOC: ERS 18:18 → ONC 22:35
PROVIDERS: ADMIT Internal Medicine; ATTEND Internal Medicine
PROC: 0SRS0J9 Replacement of Left Hip Joint, Femoral Surface with Synthetic Substitute, Cemented, Open Approach (ICD-10-PCS; principal; 2019-09-17)
PROC: 0HBU3ZX Excision of Left Breast, Percutaneous Approach, Diagnostic (ICD-10-PCS; 2019-09-17)
PROC: 30233N1 Transfusion of Nonautologous Red Blood Cells into Peripheral Vein, Percutaneous Approach (ICD-10-PCS; 2019-09-17)
PROC: 0DB38ZX Excision of Lower Esophagus, Via Natural or Artificial Opening Endoscopic, Diagnostic (ICD-10-PCS; 2019-10-05)
DX: M84.552A Pathological fracture in neoplastic disease, left femur, initial encounter for fracture (principal); A41.9 Sepsis, unspecified organism; C79.51 Secondary malignant neoplasm of bone; C77.9 Secondary and unspecified malignant neoplasm of lymph node, unspecified; E87.1 Hypo-osmolality and hyponatremia; N39.0 Urinary tract infection, site not specified; K22.10 Ulcer of esophagus without bleeding; Z51.5 Encounter for palliative care; F31.9 Bipolar disorder, unspecified; C50.912 Malignant neoplasm of unspecified site of left female breast; E11.9 Type 2 diabetes mellitus without complications; D50.9 Iron deficiency anemia, unspecified; F41.9 Anxiety disorder, unspecified; R11.0 Nausea; M84.58XA Pathological fracture in neoplastic disease, other specified site, initial encounter for fracture; D72.829 Elevated white blood cell count, unspecified; R13.10 Dysphagia, unspecified; K59.00 Constipation, unspecified; K44.9 Diaphragmatic hernia without obstruction or gangrene; K29.70 Gastritis, unspecified, without bleeding; R29.898 Other symptoms and signs involving the musculoskeletal system; M48.02 Spinal stenosis, cervical region; Z90.710 Acquired absence of both cervix and uterus; Z17.0 Estrogen receptor positive status [ER+]
CPT/HCPCS: 36415; 36416; 36430; 70450; 70551; 70553; 71045; 71046; 71260; 71275; 72141; 72157; 72170; 74177; 77014; 77280; 77290; 77307; 77334; 77412; 77417; 80048; 80053; 80202; 81001; 82607; 82728; 82746; 83036; 83540; 83550; 83605; 83735; 84145; 85025; 85027; 85652; 86140; 86850; 86900; 86901; 87040; 87070; 87077; 87086; 87149; 87186; 87205; 88305; 88307; 88311; 88312; 88313; 88341; 88342; 88361; 90471; 90686; 90732; 93005; 93010; 96361; 96374; 96375; 96376; C1713; C9113; G0008; G0009; J0670; J0690; J0692; J1100; J1170; J1650; J1756; J1885; J2001; J2060; J2250; J2270; J2405; J2543; J2550; J2704; J3010; J3370; J3490; J7050; L0172; L0174; P9016; Q0162; Q9967

== ENCOUNTER 2019-10-22 08:41 | Outpatient (CLI) | payer MEDICARE ==
--- NOTE | 2019-10-22 13:17 | CT ---
CT THORAX WITH CONTRAST CT ABDOMEN WITH CONTRAST CT PELVIS WITH CONTRAST: DATE: 10/22/2019 HISTORY: 54-year-old female with metastatic breast cancer. Follow-up. TECHNIQUE: IV iodinated contrast media: Administered Oral contrast media: Administered Single phase scans of thorax, abdomen, and pelvis. FINDINGS: Large left breast tumor mass previously measured approximately 6 x 4.5 x 5.5 cm. Allowing for positio nal differences, it has not greatly changed in size. Abutting its superior surface, there is a conglomeration of satellite tumor masses, which in aggregat e measures approximately 6 x 2.5 x 3 cm. It has not greatly changed. Metastatic left axillary lymph node approximately 3 x 2 x 3 cm. Not significantly changed. No compelling evidence of pulmonary metastasis. Subsegmental atelectasis in the bilateral lower lobes. No consolidation, pulmonary edema, pleural effusion, pneumothorax, mediastinal lymphadenopathy, peric ardial effusion, or hilar lymphadenopathy. Small sliding hiatal hernia. No thoracic aortic aneurysm. Normal liver, abdominal aorta, adrenals, pancreas, spleen. No hydronephrosis. No small bowel dilation . Left hip replacement metallic prosthesis causes severe streak artifact, obscuring significant portion s of the pelvic cavity. No ascites or pneumoperitoneum detected. No mesenteric, iliac chain, sylvia hepatis, or retroperitoneal, lymphadenopathy detected. Osseous spinal metastatic involvement: C7: Mixed osteolytic and sclerotic lesion. Further loss of height, now with severe collapse, patholog ic fracture. T1: Mixed osteolytic and sclerotic lesion. Further loss of height. T4: New finding of broad, shallow mild indentation of superior endplate of T4. T5: Mixed osteolytic and osteoblastic lesion. Minimal loss of height. No interval change. T8: New finding of shallow, broad indentation of inferior endplate resulting in less than 15% loss of height. T10: New finding of broad, shallow indentation of superior endplate. Less than 15% loss of height. T12: Anterior wedge compression fracture deformity with approximately 25% loss of height. No interval change. L1: Mixed sclerotic and osteolytic involvement of entire vertebral body. Mild bony retropulsion of roberts perior endplate. Depression of superior endplate. Approximately 20-35% overall loss of height. No interval change. There is a new left total hip replacement arthroplasty metallic prosthesis. It causes streak artifact . Sclerotic lesion at anterolateral aspect in left iliac wing mentioned on previous report is unchanged . Expansile right fifth rib lateral metastatic osteolytic mass unchanged. IMPRESSION: 1. Multiple osseous skeletal metastases, mostly noted in the cervical spine, thoracic spine, and lumb ar spine. 2. Interval development of new and worsening of compression fractures of several spinal levels. Some of these are probably pathologic due to metastases. Others could be due to osteoporotic compression fractures. 3. The worst compression fracture is a pathologic burst fracture of T1 due to metastatic involvement, with high-grade loss of height. 4. Large left malignant neoplastic breast tumor mass plus largest conglomeration of satellite masses, unchanged. 5. Malignant metastatic left axillary lymph node, unchanged. 6. Interval status post left hip replacement arthroplasty..
--- NOTE | 2019-10-22 14:27 | NM ---
WHOLE BODY BONE SCAN: HISTORY: Metastatic breast cancer. Malignant neoplasm of central portion of left female breast. RADIOPHARMACEUTICAL: 27.8 mCi Technetium 99m-MDP injected intravenously. COMPARISON: None. CORRELATION: CT chest, abdomen, and pelvis of the same date. FINDINGS: Numerous foci of abnormally increased tracer localization are seen in the skeleton including the skul l, spine, ribs, sternum, and pelvis. Tracer excretion through the kidneys is within normal limits. IMPRESSION: Widespread osseous metastatic disease. POS: OFF
== END 2019-10-22 08:42 | disposition home or self-care (01) ==
LOC: CT 08:41
PROVIDERS: ATTEND Internal Medicine Hematology & Oncology
DX: C79.51 Secondary malignant neoplasm of bone (principal); C50.919 Malignant neoplasm of unspecified site of unspecified female breast; C77.3 Secondary and unspecified malignant neoplasm of axilla and upper limb lymph nodes; M84.48XA Pathological fracture, other site, initial encounter for fracture; Z96.642 Presence of left artificial hip joint
CPT/HCPCS: 71260; 74177; 78306; A9503

== ENCOUNTER 2019-10-25 17:11 | Emergency (ER) | payer MEDICARE ==
--- NOTE | 2019-10-25 19:18 | ULT ---
EXAM: Bilateral lower extremity venous Doppler PROVIDED CLINICAL HISTORY: Bilateral leg pain FINDINGS: Grayscale and color Doppler sonography with spectral analysis was performed of the common femoral, fe moral, popliteal, posterior tibial, greater saphenous and profunda femoral veins bilaterally. The evaluated venous structures demonstrate a normal sonographic appearance. IMPRESSION: No sonographic evidence for lower extremity deep venous thrombosis.
[2019-10-25 19:39] LABS: Bilirubin Negative (Negative); Blood, Urine Negative (Negative); Clarity Clear (Clear); Glucose, Urine (Dipstick) Normal (Negative); Leukocyte Negative Leu/uL (Negative); Nitrite Negative (Negative); Protein, Urine (Dipstick) Negative (Neg-Trace); Urobilinogen Normal mg/dL (Less than 2)
[2019-10-25 19:52] LABS: Hemoglobin 9.2 g/dL (12.0-16.0); Mean Corpuscular HGB CONC 32.2 g/dL (32.0-36.0); Mean Corpuscular Hemoglobin 27.2 pg (27.0-31.0); Mean Corpuscular Volume 84.4 fL (78.0-98.0); Mean Platelet Volume 6.9 fL (7.4-10.4); Platelet Count 166 thou/uL (130-400); Red Blood Cell (RBC) Count 3.38 mill/uL (4.20-5.40); White Blood Cell (WBC) Count 3.6 thou/uL (4.8-10.8)
[2019-10-25 20:04] LABS: Anisocytosis MODERATE=16-30 cells (100X) (0-5/hpf); Band 3 % (5-11); Lymphocytes 3 % (21-51); MDiff Complete? YES; Monocytes 5 % (0-10); Neutrophil 89 % (42-75); Platelet Morphology Comment Appears Adequate; Polychromasia SLIGHT = 2-3 cells (100X) (0-2/hpf)
[2019-10-25] MEDS ORDERED: Fentanyl 100 MCG/2 ML VIAL ONE (20:05)
[2019-10-25 20:10] LABS: ALT (SGPT) 16 U/L (8-55); AST (SGOT) 16 U/L (5-34); Albumin 3.6 g/dL (3.5-5.0); Alkaline Phosphatase 173 U/L (40-110); Anion Gap 11 mmol/L (10-20); BUN (Urea Nitrogen) 21 mg/dL (9.8-20.1); Bilirubin, Total 0.2 mg/dL (0.2-1.2); Calc. Creatinine Clearance 0 mL/min (70-130); Calcium 8.5 mg/dL (7.8-10.44); Carbon Dioxide 27 mmol/L (22-29); Chloride 102 mmol/L (98-107); Estimated GFR-MDRD Greater than 90; Globulin 2.4 g/dL (2.4-3.5); Glucose 117 mg/dL (70-105); Magnesium 2.2 mg/dL (1.6-2.6); Potassium 4.1 mmol/L (3.5-5.1); Sodium 136 mmol/L (136-145)
== END 2019-10-25 20:43 | disposition home or self-care (01) ==
LOC: ERS 17:11
DX: R60.0 Localized edema (principal); C50.912 Malignant neoplasm of unspecified site of left female breast; F31.9 Bipolar disorder, unspecified; Z79.899 Other long term (current) drug therapy
CPT/HCPCS: 36415; 80053; 81003; 83735; 83880; 84443; 85025; 85379; 93970; 96374; J3010

== ENCOUNTER 2019-10-28 16:39 | Inpatient (IN) | payer MEDICARE ==
[2019-10-28 17:26] LABS: Bilirubin Negative (Negative); Blood, Urine Negative (Negative); Clarity Clear (Clear); Glucose, Urine (Dipstick) Normal (Negative); Leukocyte Negative Leu/uL (Negative); Nitrite Negative (Negative); Protein, Urine (Dipstick) Negative (Neg-Trace); Urobilinogen Normal mg/dL (Less than 2)
[2019-10-28 17:36] LABS: ALT (SGPT) 21 U/L (8-55); AST (SGOT) 19 U/L (5-34); Albumin 3.7 g/dL (3.5-5.0); Alkaline Phosphatase 166 U/L (40-110); Anion Gap 14 mmol/L (10-20); BUN (Urea Nitrogen) 22 mg/dL (9.8-20.1); Bilirubin, Total 0.3 mg/dL (0.2-1.2); CK (CPK) 136 U/L (29-168); Calc. Creatinine Clearance 0 mL/min (70-130); Calcium 8.6 mg/dL (7.8-10.44); Carbon Dioxide 26 mmol/L (22-29); Chloride 100 mmol/L (98-107); Estimated GFR-MDRD 88; Globulin 2.3 g/dL (2.4-3.5); Glucose 129 mg/dL (70-105); Potassium 3.8 mmol/L (3.5-5.1); Sodium 136 mmol/L (136-145)
[2019-10-28 17:47] LABS: #Lymphocytes 0.3 thou/uL (1.20-3.40); #Monocytes 0.2 thou/uL (0.11-0.59); #Neutrophils 1.9 thou/uL (1.40-6.50); %Eosinophils 0.3 % (0.0-10.0); %Monocytes 6.9 % (0.0-10.0); %Neutrophils 78.8 % (42.0-75.0); Hemoglobin 9.3 g/dL (12.0-16.0); Mean Corpuscular HGB CONC 32.5 g/dL (32.0-36.0); Mean Corpuscular Hemoglobin 27.7 pg (27.0-31.0); Mean Corpuscular Volume 85.3 fL (78.0-98.0); Mean Platelet Volume 7.5 fL (7.4-10.4); Platelet Count 147 thou/uL (130-400); RBC Distribution Width 23.6 % (11.5-14.5); Red Blood Cell (RBC) Count 3.35 mill/uL (4.20-5.40); White Blood Cell (WBC) Count 2.4 thou/uL (4.8-10.8)
[2019-10-28] MEDS ORDERED: cefTRIAXone\\ROCEPHIN 2 GM VIAL ONE (17:57)
[2019-10-28 17:59] LABS: Anisocytosis SLIGHT = 6-15 cells (100X) (0-5/hpf); MDiff Complete? YES; Macrocytosis MODERATE=16-30 cells (100X) (0-5/hpf); Platelet Morphology Comment Appears Adequate
--- NOTE | 2019-10-28 18:42 | ULT ---
VENOUS DOPPLER ULTRASOUND OF THE LEFT LOWER EXTREMITY: Date: 10/28/2019 HISTORY: Left lower extremity edema and pain. Patient had recent left hip replacement. TECHNIQUE: Boles scale ultrasound with color flow and spectral Doppler imaging of the deep venous systems of the left lower extremity performed. FINDINGS: There is good flow, compression, and augmentation noted in the left common femoral, femoral, deep fem oral, popliteal, and greater saphenous veins. The posterior tibial vein is not visualized. IMPRESSION: No evidence of deep venous thrombosis in the left lower extremity. POS: ANAA
--- NOTE | 2019-10-28 18:45 | CT ---
CT OF LEFT HIP PERFORMED WITH CONTRAST ENHANCEMENT: Date: 10/28/2019 HISTORY: Patient with metastatic breast cancer. Has had pus coming from left hip since surgery. FINDINGS: A left hip prosthesis is present, which is in good position. No evidence for loosening or fracture. T here is edema or a small amount of fluid within the subcutaneous fat along the lateral aspect of the hip. This is similar in appearance to a 10/22/19 CT exam. No air is seen within this small collection . IMPRESSION: Small collection of what appears to be fluid within the subcutaneous fat lateral to the left hip. Thi s measures only 13 mm in thickness. It is similar in appearance to a previous CT study. No other sign ificant findings. POS: LESLIE
[2019-10-28] MEDS ORDERED: Vancomycin 1.5 GRAM/300 ML BAG 1.5 GM in Premix Bag 1 BAG IVPB ONE (19:15)
--- NOTE | 2019-10-28 21:41 | RAD ---
LEFT HIP 2 VIEWS: Date: 10/28/2019 HISTORY: Pus coming from left hip. FINDINGS: Total hip prosthesis appears to be in good position. No loosening or fracture. Bones appear slightly demineralized. IMPRESSION: No acute findings. POS: LESLIE
[2019-10-28] MEDS ORDERED: Promethazine 25 MG TAB PO PRN (23:48)
[2019-10-28 23:52] VITALS: BMI 29.5
[2019-10-28] MEDS ORDERED: fentaNYL 100 mcg/hour Patch TD SCH (23:59)
[2019-10-29] MEDS: Morphine IR Tab 15 MG TAB PO PRN ×5 (00:14→14:28)
--- NOTE | 2019-10-29 00:31 | CON ---
DATE OF CONSULTATION: CHIEF COMPLAINT: Left hip pain and wound drainage. HISTORY OF PRESENT ILLNESS: Ms. Mosley is a 54-year-old female with metastatic breast cancer. She is having ongoing treatment for this. She has undergone left hip hemiarthroplasty for pathologic fracture approximately [address] Ch. This went fine initially. Unfortunately, yesterday she began having increased pain along the lateral thigh. She developed erythema, warmth, and drainage. She has presented to the emergency department for this reason. She was found to have possible sepsis of her wound and orthopedics was consulted to evaluate her hip wound. CT scan has been done as well as vascular ultrasound. The patient does note increased swelling of her left lower extremity. However, ultrasound was negative. REVIEW OF SYSTEMS: Positive for left hip pain, especially with the pressure laterally. FAMILY MEDICAL HISTORY: Noncontributory. SOCIAL HISTORY: The patient denies active smoking or alcohol use. PAST MEDICAL HISTORY: Metastatic breast cancer, bipolar disorder, hysterectomy. PAST SURGICAL HISTORY: Recent left hip hemiarthroplasty. ALLERGIES: NO KNOWN DRUG ALLERGIES. IMAGING STUDIES: CT scan of the left hip is reviewed, which demonstrates hemiarthroplasty, which is in place. There is some superficial fluid accumulation near the area of the previous incision. There does not appear to be a deep abscess. Vascular ultrasound is negative. X-rays are currently pending of the left hip. PHYSICAL EXAMINATION: VITAL SIGNS: Stable. The patient has been afebrile. She is normotensive. 98% on room air. HEENT: Normocephalic, atraumatic. RESPIRATORY: Breathing comfortably. ABDOMEN: Soft, nontender, nondistended. MUSCULOSKELETAL: The patient's left hip is examined. It is erythematous. There is purulent drainage from the wound. She has pain to palpation. There is increased warmth. The wound is not dehisced. Gentle hip motion is intact. She is able to flex and extend the foot and ankle. IMPRESSION: History of recent bipolar hemiarthroplasty of left hip for metastatic breast cancer with pathologic fracture. PLAN: At this point, the patient will need to be admitted to the hospital for intravenous antibiotics. She will have ongoing treatment for her breast cancer as previously planned. She will likely need an operative intervention for her left hip. We will plan for an irrigation and debridement of her hip tomorrow in the operating room unless she makes a remarkable improvement with intravenous antibiotics tonight. She has been ordered vancomycin. She should be n.p.o. at midnight in case she does need surgery. She is aware of risks and benefits. She wants to proceed and understands our plan. Job ID: [id number]
[2019-10-29] MEDS: Dexamethasone 4 MG TAB PO SCH ×3 (08:19→21:52)
[2019-10-29] MEDS: Ferrous Sulfate 325 MG TAB PO SCH (08:19)
[2019-10-29] MEDS: Anastrozole 1 MG TAB PO SCH (08:19)
[2019-10-29] MEDS: Furosemide 20 MG TAB PO SCH (08:19)
[2019-10-29] MEDS: Gabapentin 300 MG CAP PO SCH ×3 (08:19→21:51)
[2019-10-29] MEDS: Senokot S 8.6-50 MG TAB PO SCH ×2 (08:19→21:51)
[2019-10-29] MEDS: Morphine ER 30 MG TAB PO SCH ×2 (08:20→21:52)
[2019-10-29] MEDS: Divalproex Sodium 250 MG (DR) TAB PO SCH ×2 (08:20→21:52)
[2019-10-29] MEDS: Lidocaine 5% Patch TD SCH (08:22)
[2019-10-29] MEDS ORDERED: PROPOFOL 200 MG/20 ML VIAL ONE (10:06)
[2019-10-29] MEDS ORDERED: ePHEDrine/0.9% NaCl/PF SYRINGE 50 mg/10 ml ONE (10:06)
[2019-10-29] MEDS ORDERED: Lidocaine 1% PF 5 ML VIAL ONE (10:06)
[2019-10-29] MEDS ORDERED: Ondansetron PF 4 MG/2 ML Vial ONE (10:06)
[2019-10-29] MEDS ORDERED: Glycopyrrolate 0.2 MG/ML 5 ML SYRINGE ONE (10:06)
[2019-10-29] MEDS ORDERED: PHENYLEPHRINE-NS 100 MCG/ML 10 ML SYRINGE ONE (10:06)
[2019-10-29] MEDS ORDERED: Rocuronium Bromide 10 MG/ML (10ML VIAL) ONE (10:06)
[2019-10-29] MEDS: cefTRIAXone\\ROCEPHIN 2 GM in Sodium Chloride 0.9% 100 ML IVPB SCH (10:51)
[2019-10-29] MEDS: Vancomycin HCl 1 GM in Premix Bag 1 BAG IVPB SCH ×2 (11:46→21:53)
[2019-10-29] MEDS: PALBOCICLIB 125 MG PO SCH (12:26)
--- NOTE | 2019-10-29 14:10 | CON ---
DATE OF CONSULTATION: 10/29/2019 REASON FOR CONSULTATION: Left hip infection. HISTORY OF PRESENT ILLNESS: A 54-year-old with history of metastatic breast cancer with multiple bone mets, on Imbruvica with radiation and pathologic fracture of left hip, which required hemiarthroplasty last year, and now has developed a drainage site in the left hip incision with erythema. The patient recently spent about 30 days in the hospital for management of the pathological femur fracture. During this visit, she had a urine culture positive for E coli with positive blood cultures. The organism was susceptible to quinolones. The patient has been readied for surgical I and D and possible removal of left implant depending on the findings. She is sitting on the bed. She denies any headaches. No sore throat, odynophagia, or dysphagia. Mild dyspnea. Chronic back pain mostly in the lower back and lower thoracic spine related to metastases. No cough or sputum production. No abdominal pain. Voiding in the bedside commode. No neurological symptoms. Has noticed worsening edema in lower extremities. MEDICAL HISTORY: 1. Metastatic breast cancer, treated with radiation, and now on Imbruvica. 2. Pathologic fracture of left hip, which required hemiarthroplasty recently. 3. E coli urosepsis. 4. Bipolar disorder. 5. The patient has had recently diagnosed ulcer in the hypopharynx and this was biopsied by Dr. Harris. The pathology demonstrated erosive esophagitis, but no other findings of significance. SOCIAL HISTORY: Lives with family in the area. No alcoholic beverage use. Never smoker. ALLERGIES: NONE. CURRENT MEDICATIONS: 1. Arimidex. 2. Ceftriaxone. 3. Decadron. 4. Depakote. 5. Duragesic. 6. Feosol. 7. Neurontin. 8. Remeron. 9. Protonix. 10. Palbocyclib. 11. Ibrance. 12. Phenergan. 13. Vancomycin. PHYSICAL EXAMINATION: GENERAL: She has been afebrile. Blood pressure 140/91, pulse 109, respirations 14, and O2 saturation 100. SKIN: Peripheral IV access. She is voiding in the bedside commode. No lymphadenopathy. HEENT: Ocular movements conjugate. Sclerae white. Pupils are equal. Conjunctivae normal. Oral cavity with no remaining [place] teeth. NECK: Supple. No jugular vein distention. LUNGS: Symmetric and clear breath sounds. HEART: S1 and S2. Regular rate. No S3 or S4. ABDOMEN: Soft, not distended or tender. No ascites. No bladder distention. EXTREMITIES: Left hip with dressing. Some erythema and serous drainage coming from the incision. No edema in the lower extremities. Pulses 1+ in dorsalis pedis. Plantar responses are flexor. NEUROLOGIC: Cognitive function appears to be intact. LABORATORY STUDIES: White cell count 2.4, hemoglobin 9.3, MCV 85, platelets 147 , and 78% neutrophils. Sodium 136, creatinine 0.7, glucose 129, and calcium 8.6. Bilirubin 0.3, transaminases normal, alkaline phosphatase 166, CK 136, and albumin 3.7. Urinalysis was normal. Repeat blood culture, no growth thus far. Hip x- ray was completed and did not show any significant findings. There is a vascular ultrasound with no evidence of DVT. Bone scan with widespread osseous metastatic disease. She had a cervical spine MRI done on 10/07, and there was some motion artifact. There is near-complete loss of vertebral body height at C7 on the basis of a pathologic fracture. Discussions were undertaken with Neurosurgery recently. Family and the patient decided against surgical intervention for fusion of the area. ASSESSMENT: 1. Metastatic breast cancer with multiple bony metastases. 2. Recent pathologic fracture of left hip, which required hemiarthroplasty. 3. Drainage and inflammatory changes in the left hip. DISCUSSION: The area will be explored by Dr. Reno to see what the depth of penetration is, get some samples for cultures and then decide on the need for removal of the implant or not and then the subsequent medical treatment following the culture results and stage of the infectious process to determine the duration and route of antimicrobial therapy administration. Job ID: [id number] [facility]
[2019-10-29] MEDS ORDERED: Neomycin-Polymyxin 1 ML AMP ONE ×2 (16:15→18:54)
[2019-10-29] MEDS ORDERED: Fentanyl 100 MCG/2 ML VIAL ONE ×4 (18:38→20:15)
[2019-10-29] MEDS ORDERED: Lidocaine 2% Jelly 5 ML TUBE ONE (18:39)
[2019-10-29] MEDS ORDERED: Promethazine HCl 25 MG/ML VIAL SLOW IVP PRN (19:44)
[2019-10-29] MEDS ORDERED: Promethazine HCl 25 MG/ML VIAL IM PRN (19:44)
[2019-10-29] MEDS ORDERED: Ondansetron HCl/PF 4 MG/2 ML Vial IVP PRN (19:44)
[2019-10-29] MEDS ORDERED: HYDROmorphone 0.5 MG/0.5 ML SYRINGE ONE (19:58)
[2019-10-29] MEDS: Mirtazapine 15 MG TAB PO SCH (21:51)
[2019-10-29] MEDS: Lidocaine Patch Removal 1 EACH TOP SCH (21:53)
[2019-10-30] MEDS: Morphine IR Tab 15 MG TAB PO PRN ×4 (00:19→14:36)
--- NOTE | 2019-10-30 01:30 | HP ---
CHIEF COMPLAINT: Complains of pain and swelling in the left hip area for 1 day. The patient recently had left hip prosthesis. For 1 day, she has been noticing swelling with erythema and some drainage that is a purulent drainage. Also has been complaining of right hip pain as well, lot of pain in both hips, unable to ambulate secondary to pain. She did not have fever. No chest pain. No shortness of breath. No nausea or vomiting. The patient decided to come to the hospital because of this swelling and drainage. The patient also has history of metastatic breast cancer , so the patient is admitted to the hospital because of the drainage. The patient was evaluated in the ER, found to have possible left hip infection. She has received vancomycin and Rocephin in the ER. The patient recently had bilateral hip prosthesis for pathological fracture. PAST MEDICAL HISTORY: 1. Metastatic breast cancer, status post radiation. 2. History of pathological fracture of left hip, status post hemiarthroplasty. 3. History of E coli urosepsis. 4. Bipolar disorder. 5. History of erosive esophagitis. CURRENT MEDICATIONS: The patient is on; 1. Depakote 250 b.i.d. 2. Duragesic patch 25 mcg q.3 days. 3. Ferrous sulfate 325 mg daily. 4. Lasix 20 mg daily. 5. Gabapentin 300 mg t.i.d. 6. Remeron 15 mg at bedtime. 7. Morphine sulfate p.r.n. 8. Senokot 2 tablets b.i.d. FAMILY HISTORY: Nothing contributory. SOCIAL HISTORY: The patient lives with family. No history of smoking. No history of alcohol, REVIEW OF SYSTEMS: CARDIOVASCULAR: No chest pain. No shortness of breath. RESPIRATORY: No fever or cough. GASTROINTESTINAL: No nausea, vomiting, or abdominal pain CENTRAL NERVOUS SYSTEM: No headache. No dizziness. PHYSICAL EXAMINATION: GENERAL: The patient is alert, awake, oriented x3. VITAL SIGNS: Temperature 98, pulse 74, respiration 20 and blood pressure 170/ 90. HEENT: Head is normocephalic, atraumatic. Pupils equal and reactive. Nasopharynx is pale and dry. NECK: Supple. No JVD. LUNGS: Bilateral air entry present. No rales, no rhonchi. HEART: S1 and S2, regular. ABDOMEN: Soft. No distention. No tenderness. Normal bowel sounds present. RECTAL: Deferred. EXTREMITIES: Left hip area has dressing. There is some erythema and also serous drainage. LABORATORY DATA: CBC shows WBC 2.4, hemoglobin 9.3, hematocrit 28, platelets 147. Metabolic panel; sodium 136, potassium 3.9, chloride 100, CO2 26, urea nitrogen 22, creatinine 0.7, glucose 129, C-reactive protein 1.33. Urinalysis negative. Lower extremity CT scan showed small collection of fluid within the subcutaneous fat lateral to the left hip. Left hip x-ray showed total hip prosthesis in good position . ASSESSMENT: 1. Left hip wound swelling and drainage, possible infection. 2. Status post hemiarthroplasty of left hip for a pathological fracture. 3. History of metastatic breast cancer. 4. Bipolar disorder. PLAN: 1. Vital signs q.4 hours. 2. Activities as tolerated. 3. Allergies, NKDA. 4. Hep-Lock. 5. Vancomycin 1 g IV piggyback q.12 hours. 6. Rocephin 2 g IV piggyback daily. 7. Consultation with Infectious Disease. 8. Orthopedic consultation. 9. Continue home medications. 10. Diet, regular. Job ID: [id number] [facility]
[2019-10-30 06:28] LABS: #Lymphocytes 0.5 thou/uL (1.20-3.40); #Monocytes 0.1 thou/uL (0.11-0.59); #Neutrophils 1.9 thou/uL (1.40-6.50); %Basophils 0.7 % (0.0-1.0); %Eosinophils 0.1 % (0.0-10.0); %Lymphocytes 19.8 % (21.0-51.0); %Monocytes 5.4 % (0.0-10.0); %Neutrophils 73.9 % (42.0-75.0); Anisocytosis MODERATE=16-30 cells (100X) (0-5/hpf); Hemoglobin 10.1 g/dL (12.0-16.0); MDiff Complete? YES; Mean Corpuscular HGB CONC 32.3 g/dL (32.0-36.0); Mean Corpuscular Hemoglobin 27.6 pg (27.0-31.0); Mean Corpuscular Volume 85.6 fL (78.0-98.0); Mean Platelet Volume 8.2 fL (7.4-10.4); Microcytosis SLIGHT = 6-15 cells (100X) (0-5/hpf); Platelet Count 164 thou/uL (130-400); RBC Distribution Width 23.6 % (11.5-14.5); Red Blood Cell (RBC) Count 3.65 mill/uL (4.20-5.40); White Blood Cell (WBC) Count 2.6 thou/uL (4.8-10.8)
[2019-10-30] MEDS: Ferrous Sulfate 325 MG TAB PO SCH (07:51)
[2019-10-30] MEDS: Morphine ER 30 MG TAB PO SCH ×2 (09:54→20:35)
[2019-10-30] MEDS: Gabapentin 300 MG CAP PO SCH ×3 (09:55→20:35)
[2019-10-30] MEDS: Dexamethasone 4 MG TAB PO SCH ×3 (09:55→20:37)
[2019-10-30] MEDS: Anastrozole 1 MG TAB PO SCH (09:55)
[2019-10-30] MEDS: Furosemide 20 MG TAB PO SCH (09:56)
[2019-10-30] MEDS: PALBOCICLIB 125 MG PO SCH (09:56)
[2019-10-30] MEDS: Senokot S 8.6-50 MG TAB PO SCH ×2 (09:56→20:36)
[2019-10-30] MEDS: Divalproex Sodium 250 MG (DR) TAB PO SCH ×2 (09:56→20:37)
[2019-10-30] MEDS: Lidocaine 5% Patch TD SCH (09:57)
[2019-10-30] MEDS: cefTRIAXone\\ROCEPHIN 2 GM in Sodium Chloride 0.9% 100 ML IVPB SCH (10:29)
[2019-10-30] MEDS: Vancomycin HCl 1 GM in Premix Bag 1 BAG IVPB SCH ×2 (10:52→21:53)
[2019-10-30] MEDS: Mirtazapine 15 MG TAB PO SCH (20:37)
[2019-10-30] MEDS: Lidocaine Patch Removal 1 EACH TOP SCH (20:39)
[2019-10-30 21:46] LABS: Vancomycin, Trough 12.1 ug/mL
--- NOTE | 2019-10-30 23:07 | CON ---
DATE OF CONSULTATION: REASON FOR CONSULTATION: Breast cancer. HISTORY OF PRESENT ILLNESS: Ms. Mosley is a 54-year-old female with metastatic invasive ductal carcinoma of the left breast. She was admitted to this facility last month and stayed here for several days for a pathological compression fracture of her T12, T5, T2, and T1. She also had left hip fracture and repair. She has been started on Arimidex and Ibrance oral chemotherapy. Over the last several days, she has been having some erythema of her left hip with some purulent drainage, presented to the emergency room for evaluation. On admission, her white count was 2.6, her hemoglobin was 10.1, and platelet count was 164,000. She was admitted for debridement of her left hip and this was done yesterday by Dr. Last. There is no evidence of osteomyelitis. She is on antibiotics. She was due to see Dr. Heredia today and get outpatient Zometa. Currently, she denies any chest pain. No shortness of breath. No abdominal discomfort. She was seen at bedside with her family present. She is getting her Ibrance here while in the hospital. PAST MEDICAL HISTORY: 1. Metastatic breast cancer. 2. Pathological fracture of the left hip. 3. Widespread bone metastasis. 4. Bipolar disease. 5. Erosive esophagitis. 6. E coli urosepsis. PAST SURGICAL HISTORY: 1. Hysterectomy. 2. Appendectomy. 3. Tonsillectomy. ALLERGIES: NO KNOWN DRUG ALLERGIES. HOME MEDICATIONS: 1. Nexium. 2. Iron. 3. Lasix. 4. Lidocaine. 5. Ibrance. 6. Arimidex. 7. Decadron. 8. Depakote. 9. Fentanyl patch. 10. Neurontin. 11. Remeron. 12. MS Contin. 13. Senokot. FAMILY HISTORY: Father had lung cancer. SOCIAL HISTORY: Single. Lives alone. Never smoked. No alcohol or illicit drug use. REVIEW OF SYSTEMS: Positive for left hip pain and swelling in her feet. Otherwise, negative. PHYSICAL EXAMINATION: VITAL SIGNS: Temperature is 97.8, pulse is 91, respiratory rate 20, blood pressure is 138/92. She is 94% on room air. GENERAL: This is a well-developed, well-nourished female, in no acute distress. HEENT: Normocephalic, atraumatic. Pupils are equal and reactive to light. NECK: Supple. CV: Regular rate and rhythm. LUNGS: Clear. ABDOMEN: Soft and nontender. Bowel sounds are positive. EXTREMITIES: No clubbing or cyanosis. She has 1 to 2+ edema in her left lower extremity. NEUROLOGICAL: Nonfocal. BREAST: Deferred today. PERTINENT LABORATORY DATA AND X-RAYS: WBC 2.6, hemoglobin 10.1, hematocrit 31.2, platelet count 164,000. She has 74 neutrophils, 20% lymphocytes. Sodium 136, potassium 3.8, chloride 100, CO2 is 26, BUN is 22, creatinine 0.7, lactic acid 1.4, calcium 8.6, bilirubin 0.3, AST 19, ALT is 21, alkaline phosphatase is 133. Troponin is 0.023. Serum total protein is 6, albumin 3.7, globulin 2.3. Urine is negative. Vascular ultrasound was negative for DVT. ASSESSMENT: 1. Metastatic invasive ductal carcinoma of the left breast with diffuse bone metastases. 2. History of pathological fracture to her left hip with repair. 3. Left hip incisional drainage. DISCUSSION: The patient's Arimidex and Ibrance should be continued while inpatient. She does have leukopenia, but her ANC is normal. She is on empiric antibiotics and Infectious Disease has seen the patient. When she has stabilized, she can be discharged home to follow up in our clinic. Thank you for the consultation. Job ID: [id number]
--- NOTE | 2019-10-30 23:12 | OP ---
DATE OF PROCEDURE: 10/29/2019 PREOPERATIVE DIAGNOSIS: Superficial wound infection, left lateral thigh, status post left hip hemiarthroplasty. POSTOPERATIVE DIAGNOSIS: Superficial wound infection, left lateral thigh, status post left hip hemiarthroplasty. PROCEDURE PERFORMED: Incision and drainage, left lateral thigh superficial infection. ANESTHESIA: General. CATALYST UNIT OPERATOR: Kashif. ESTIMATED BLOOD LOSS: 10 mL. IMPLANTS: None. DRAINS: None. SPECIMEN: Swab x2. OUTCOME: Satisfactory. INDICATIONS FOR PROCEDURE: The patient is a 54-year-old lady status post left hip hemiarthroplasty. The patient did have a rather prolonged hospitalization after surgery, however, was doing better and beginning to mobilize. She began developing some mild redness at the mid point of her surgical incision line and some mild drainage, which was described as purulent. With this finding, the patient now admitted to the Medical Service with Orthopedic consultation requested. After discussion with the patient including risks and benefits, we decided to proceed to the operating room for incision of this small draining sinus and exploration to see just how involved this infection might be. Informed consent has been obtained, I believe all questions answered. DESCRIPTION OF PROCEDURE: The patient was brought to the operating room and a time-out performed followed by induction of general anesthesia. The patient was positioned in the right lateral decubitus position and a sterile prep and drape was performed to the left lower extremity. The wound was then inspected. There was found to be just a small 1 cm long area of wound dehiscence with some serous drainage and perhaps some fatty atrophy coming as well. I did not appreciate shantanu purulent material. Given the small open area, we proceeded with ellipsing out this portion of the surgical incision line for a length of approximately 2 inches. This was then carried down to the depth of the cavity that basically stopped within the subcutaneous fat. It did not even go down to the level of the tensor fascia and fascia sandro. There were no tracts. No cavities deeper. Given the very superficial nature of this wound, it was irrigated with 3 L of normal saline using antibiotic irrigant and Pulsavac. Following this, it was closed primarily again because of the fact that it did not track deep whatsoever. At the completion of wound closure, Xeroform gauze and tape dressing were applied to the thigh and the patient was transferred to recovery room in stable condition. There were no complications. She tolerated the procedure well. Job ID: [id number]
[2019-10-31 06:35] LABS: #Lymphocytes 0.7 thou/uL (1.20-3.40); #Monocytes 0.1 thou/uL (0.11-0.59); #Neutrophils 1.5 thou/uL (1.40-6.50); %Eosinophils 0.3 % (0.0-10.0); %Lymphocytes 30.3 % (21.0-51.0); %Monocytes 5.2 % (0.0-10.0); %Neutrophils 64.3 % (42.0-75.0); Mean Corpuscular HGB CONC 32.8 g/dL (32.0-36.0); Mean Corpuscular Hemoglobin 28.3 pg (27.0-31.0); Mean Corpuscular Volume 86.4 fL (78.0-98.0); Mean Platelet Volume 7.8 fL (7.4-10.4); Platelet Count 153 thou/uL (130-400); RBC Distribution Width 23.6 % (11.5-14.5); Red Blood Cell (RBC) Count 3.53 mill/uL (4.20-5.40); White Blood Cell (WBC) Count 2.3 thou/uL (4.8-10.8)
[2019-10-31 06:39] LABS: Anisocytosis MODERATE=16-30 cells (100X) (0-5/hpf); MDiff Complete? YES; Platelet Morphology Comment Appears Adequate; Polychromasia SLIGHT = 2-3 cells (100X) (0-2/hpf)
--- NOTE | 2019-10-31 08:51 | PRG ---
DATE OF SERVICE: 10/31/2019 This is Kareen Parker PA-C dictating a report for Alex Last MD. SUBJECTIVE: The patient is doing well at this time. No complaints. She is postop day #2 from superficial wound irrigation and debridement and secondary wound closure. OBJECTIVE: VITAL SIGNS: Temperature 97.3, pulse 74, respiratory rate 16, and blood pressure 149/99. GENERAL: The patient is awake and alert. She is in no apparent distress. EXTREMITIES: Left thigh with clean and dry surgical incision. No erythema. Distal neurovascular status intact. LABORATORY DATA: Lab work shows a hematocrit of 30.5, white blood cell count 2.3, and platelet count 153. This labs are from today, 10/31/2019. ASSESSMENT AND PLAN: Overall improving. Antibiotics per Dr. Welch. Infection was very superficial. Mobilized with physical therapy. Job ID: [id number]
[2019-10-31] MEDS: Ferrous Sulfate 325 MG TAB PO SCH (09:06)
[2019-10-31] MEDS: Senokot S 8.6-50 MG TAB PO SCH (09:06)
[2019-10-31] MEDS: Dexamethasone 4 MG TAB PO SCH ×2 (09:07→14:18)
[2019-10-31] MEDS: Furosemide 20 MG TAB PO SCH (09:07)
[2019-10-31] MEDS: Divalproex Sodium 250 MG (DR) TAB PO SCH (09:07)
[2019-10-31] MEDS: Morphine ER 30 MG TAB PO SCH (09:07)
[2019-10-31] MEDS: Lidocaine 5% Patch TD SCH (09:07)
[2019-10-31] MEDS: Anastrozole 1 MG TAB PO SCH (09:07)
[2019-10-31] MEDS: Gabapentin 300 MG CAP PO SCH ×2 (09:07→14:18)
[2019-10-31] MEDS: PALBOCICLIB 125 MG PO SCH (09:08)
[2019-10-31] MEDS ORDERED: Vancomycin HCl 1.25 GM in Sodium Chloride 0.9% 250 ML 250 ML IVPB SCH (10:00)
[2019-10-31] MEDS: cefTRIAXone\\ROCEPHIN 2 GM in Sodium Chloride 0.9% 100 ML IVPB SCH (10:10)
--- NOTE | 2019-10-31 10:50 | PDOC.MOPN ---
Interval History: ambulating in hallway - Vital Signs Vital Signs: Vital Signs (12 hours) Temp Pulse Resp BP Pulse Ox 10/31/19 08:15 97.8 F 76 20 172/107 H 96 10/31/19 04:01 97.3 F L 74 16 149/99 H 97 10/30/19 23:51 97.2 F L 101 H 16 144/77 H 98 Weight Weight 172 lb - Physical Exam General: Alert, Oriented x3, No acute distress HEENT: Atraumatic, PERRLA, EOMI, Mucous membr. moist/pink Lungs: Clear to auscultation, Normal air movement Cardiovascular: Regular rate, Normal S1, Normal S2, No murmurs, Gallops, Rubs Abdomen: Normal bowel sounds, Soft, No tenderness, No hepatospenomegaly, No masses Neurological: Normal speech - Labs Result Diagrams: 10/31/19 04:53 10/28/19 16:54 Lab results: Laboratory Results - last 24 hr 10/31/19 04:53: WBC 2.3 L, RBC 3.53 L, Hgb 10.0 L, Hct 30.5 L, MCV 86.4, MCH 28.3, MCHC 32.8, RDW 23.6 H, Plt Count 153, MPV 7.8, Neutrophils % 64.3, Neutrophils % (Manual) Not Reportable, Lymphocytes % 30.3, Monocytes % 5.2, Eosinophils % 0.3, Basophils % 0.0, Neutrophils # 1.5, Lymphocytes # 0.7 L, Monocytes # 0.1 L, Eosinophils # 0.0, Basophils # 0.0, Plt Morphology Comment Appears Adequate, Polychromasia SLIGHT = 2-3 cells, Anisocytosis MODERATE=16-30 cells H 10/30/19 21:04: Vancomycin Trough 12.1 Status: lab reviewed by me A/P - Problem (1) Invasive ductal carcinoma of breast Current Visit: No Code(s): C50.919 - MALIGNANT NEOPLASM OF UNSP SITE OF UNSPECIFIED FEMALE BREAST Status: Acute (2) Pathologic fracture of neck of left femur Current Visit: No Code(s): M84.452A - PATHOLOGICAL FRACTURE, LEFT FEMUR, INIT ENCNTR FOR FRACTURE Status: Acute - Plan Plan: Patient to continue Arimidex and Ibrance Follow-up with Dr. Heredia next week for Zometa Dc when ok with ortho and ID.
[2019-10-31 15:09] VITALS: BP 165/107; TEMP 98.2
--- NOTE | 2019-10-31 17:50 | PRG ---
DATE OF SERVICE: 10/31/2019 SUBJECTIVE: Sitting and eating her dinner. Minor pain. No respiratory symptoms or abdominal pain. No diarrhea. The patient had surgical debridement by Dr. Last and the lesion was superficial. OBJECTIVE: VITAL SIGNS: Current vital signs with a T-max 98.2, blood pressure 160/100, pulse rate 105, respirations are 16, and O2 saturation 96%. GENERAL: Appears in no distress. LUNGS: Clear. HEART: S1 and S2, regular rate. ABDOMEN: Soft and not distended. The wound site covered with dressing. LABORATORY DATA: White cell count 2.3, hemoglobin 10, and platelets are 153. Sodium 136 and creatinine 0.7. Liver profile, normal. Alkaline phosphatase 166. Microbiology with Staph aureus with methicillin-susceptible phenotype. ASSESSMENT AND DISCUSSION: Metastatic breast cancer with multiple bony metastases and recent pathologic fracture, left hip, which required hemiarthroplasty and inflammatory changes of left hip soft tissues at the incision site. This was explored and determined to be superficial and so we will go ahead and switch her to oral Keflex as preparation for discharge planning. Continue treatment for 7 to 10 days. Sometimes microscopic penetrations into the deep tissues may have already happened without obvious macroscopic evidence to suggest so. In that case, we would see a recrudescence of inflammatory process with more obvious deeper involvement, but hopefully that is not going to be the case. Job ID: [id number]
[2019-10-31] MEDS ORDERED: Cephalexin 250 MG CAP PO SCH (18:00)
[2019-10-31] MEDS: Morphine IR Tab 15 MG TAB PO PRN (18:46)
--- NOTE | 2019-11-01 23:13 | PQF ---
NADEEN VEGA VENKAT R MD [id number] SURG A- 3331 [id number] CLINICAL DOCUMENTATION CLARIFICATION FORM: POST DISCHARGE Addendum to original discharge summary date: ____ Late entry note date: __ DATE: 11/01/19 ATTN: Kenrick Vázquez Please exercise your independent, professional judgment in responding to the clarification form. Clinical indicators are provided on the bottom of this form for your review Can you please further clarify the diagnosis based on the clinical indicators below? Please check appropriate box(es): [ ] Sepsis due to post operative wound infection [ ] SIRS due to post operative wound infection [ y] Localized infection without sepsis [ ] Other diagnosis [ ] Unable to determine In addition, please specify: Present on Admission (POA): [ y] Yes [ ] No [ ] Unable to determine For continuity of documentation, please document condition throughout progress notes and discharge summary. Thank You. CLINICAL INDICATORS - SIGNS / SYMPTOMS / LABS ED Provider p.2- "sepsis alert was activated" ED provider pg.4- Left hip infection Consult Dr. Reno pg.1- he undergone left hip hemiarthroplasty for pathologic fracture Consult Dr. Reno pg.1- she develop erythema, warmth, and drainage H and P pg.1- the patient recently had bilateral prosthesis for pathological fracture OP Report pg.1- superficial wound infection, left lateral thigh, status post left hip hemiarthroplasty Microbiology- wound culture grows staphylococcus aureus RISK FACTORS Metastatic breast cancer with multiple bony metastases- Consult pg.3- Dr. Welch status post hemiarthroplasty- H and P pg.1 History of pathologic fracture- H and P pg.1 Wound infection- OP report pg.1 TREATMENTS: Infectious Consult- Dr. Welch 10/29 Ortho Consult- Dr. Reno IV Fluids- MAR IV Antibiotics-MAR I and D of infected wound- OP report Hip X ray 10/[address]- 10/28 wound culture- Microbiology 10/29 (This form is maintained as a part of the permanent medical record) 2014 [employer]. All Rights Reserved [email or web address] [not provided] MTDD
--- NOTE | 2019-11-01 23:17 | PQF ---
[employer] NADEEN Salgado ANTHONY, MD [id number] SURG A- 3331 [id number] CLINICAL DOCUMENTATION CLARIFICATION FORM: POST DISCHARGE Addendum to original discharge summary date: ____ Late entry note date: __ DATE: 11/01/19 ATTN: Alex Arrington Please exercise your independent, professional judgment in responding to the clarification form. Clinical indicators are provided on the bottom of this form for your review Can you please further clarify the procedure being performed? Please check appropriate box(s): [ ] Excisional Debridement: [ ] Excised [ ] Cut away [ ] Other: Depth / layer: (deepest layer of debridement): [ ] Skin[ ] SubQ Tissue [ ] Fascia [ ] Muscle [ ] Tendon [ ] Bone [ ] Non-excisional Debridement: (Removal by flushing, brushing, chemical, or washing) Depth / layer: (deepest layer of debridement): [ ] Skin[ ] Subcutaneous [ ] Fascia [ ] Muscle [ ] Tendon [ ] Bone [ ] Incision and Drainage only (No Debridement): Depth:[ ] Skin [ ] Subcutaneous [ ] Fascia [ ] Muscle [ ] Tendon [ ] Bone [ ] Other procedure diagnosis [ ] Unable to determine For continuity of documentation, please document condition throughout progress notes and discharge summary. Thank You. CLINICAL INDICATORS - SIGNS / SYMPTOMS / LABS OP report pg.1- incision and drainage, left lateral thigh superficial infection OP report pg.2- there was found to be just small 1 cm longa leena of wound dehiscence with some serous drainage OP Report pg.2 carried out down to the depth of cavity that basically stopped within the subcutaneous fat PN 10/31 pg.1- she is post op day 2 from superficial wound irrigation and debridement RISK FACTORS Superficial wound infection- OP report pg.1 Metastatic breast cancer with multiple bony metastases- Consult pg.3- Dr. Welch status post hemiarthroplasty- H and P pg.1 History of pathologic fracture- H and P pg.1 TREATMENTS: Infectious Consult- Dr. Welch 10/29 Ortho Consulr- Dr. Reno IV Fluids- DEC IV Antibiotics-DEC I and D of infected wound- OP report Hip X ray 10/[address]- 10/28 wound culture- Microbiology 10/29 (This form is maintained as a part of the permanent medical record) 2014 [employer]. All Rights Reserved [email or web address] [not provided] MTDD
== END 2019-10-31 19:42 | disposition home health service (06) | DRG 857 ==
LOC: ERS 16:39 → SURG A 20:44
PROVIDERS: ADMIT Internal Medicine; ATTEND Internal Medicine
PROC: 0J9M0ZZ Drainage of Left Upper Leg Subcutaneous Tissue and Fascia, Open Approach (ICD-10-PCS; principal; 2019-10-29)
DX: T81.41XA Infection following a procedure, superficial incisional surgical site, initial encounter (principal); C79.51 Secondary malignant neoplasm of bone; T81.31XA Disruption of external operation (surgical) wound, not elsewhere classified, initial encounter; Y83.8 Other surgical procedures as the cause of abnormal reaction of the patient, or of later complication, without mention of misadventure at the time of the procedure; C50.912 Malignant neoplasm of unspecified site of left female breast; K20.9 Esophagitis, unspecified; Z96.642 Presence of left artificial hip joint; F31.9 Bipolar disorder, unspecified; Z79.899 Other long term (current) drug therapy; Z90.710 Acquired absence of both cervix and uterus; Z90.49 Acquired absence of other specified parts of digestive tract
CPT/HCPCS: 36415; 80053; 80202; 81003; 82550; 83605; 83735; 83880; 84443; 84484; 85025; 85379; 85652; 86140; 87040; 87070; 87077; 87186; 87205; 93970; 96365; 96366; 96367; 96374; J0696; J1170; J2001; J2405; J2704; J3010; J3370; J3490; J7050; J8540

== ENCOUNTER 2019-11-13 12:00 | Inpatient (IN) | payer MEDICARE ==
[2019-11-13] MEDS ORDERED: Cefepime 2 GM VIAL ONE (12:37)
[2019-11-13 13:02] LABS: Mean Corpuscular HGB CONC 32.4 g/dL (32.0-36.0); Mean Corpuscular Hemoglobin 28.7 pg (27.0-31.0); Mean Corpuscular Volume 88.6 fL (78.0-98.0); Platelet Count 174 thou/uL (130-400); RBC Distribution Width 23.7 % (11.5-14.5); White Blood Cell (WBC) Count 2.6 thou/uL (4.8-10.8)
--- NOTE | 2019-11-13 13:06 | RAD ---
EXAM: 3 views of the left ankle HISTORY: Left leg redness and swelling COMPARISON: 06/01/2007 FINDINGS: 3 views of the left ankle shows no evidence of acute fracture or dislocation. Severe diffus e soft tissue swelling is seen. No degenerative changes are present. IMPRESSION: No evidence of acute osseous abnormality.
--- NOTE | 2019-11-13 13:07 | RAD ---
EXAM: Single view of the chest HISTORY: Left leg redness and swelling COMPARISON: 09/20/2019 FINDINGS: Single view of the chest shows a normal sized cardiomediastinal silhouette. There is no stephenie dence of consolidation, mass, or pleural effusion. The bones are unremarkable. IMPRESSION: No evidence of acute cardiopulmonary disease
--- NOTE | 2019-11-13 13:08 | RAD ---
EXAM: 2 views of the left tibia/fibula HISTORY: Leg pain COMPARISON: None FINDINGS: There is no evidence of acute fracture or dislocation. Moderate diffuse soft tissue swellin g is seen. No degenerative changes are seen in the knee or ankle. IMPRESSION: No evidence of acute osseous abnormality.
--- NOTE | 2019-11-13 13:08 | RAD ---
EXAM: 2 views of the left foot HISTORY: Foot pain COMPARISON: None FINDINGS: 2 views of the foot shows no evidence of acute fracture or dislocation. Severe diffuse soft tissue swelling is seen. No degenerative changes are present. IMPRESSION: No evidence of acute osseous abnormality.
[2019-11-13 13:22] LABS: Band 36 % (5-11); Lymphocytes 16 % (21-51); MDiff Complete? YES; Monocytes 8 % (0-10); Neutrophil 39 % (42-75); Platelet Morphology Comment Appears Adequate; Polychromasia SLIGHT = 2-3 cells (100X) (0-2/hpf); Reactive Lymphocytes 1 % (0-10)
[2019-11-13 13:27] LABS: ALT (SGPT) 20 U/L (8-55); AST (SGOT) 17 U/L (5-34); Albumin 3.6 g/dL (3.5-5.0); Alkaline Phosphatase 129 U/L (40-110); Anion Gap 11 mmol/L (10-20); BUN (Urea Nitrogen) 29 mg/dL (9.8-20.1); Bilirubin, Total 0.4 mg/dL (0.2-1.2); Calc. Creatinine Clearance 0 mL/min (70-130); Calcium 8.4 mg/dL (7.8-10.44); Carbon Dioxide 28 mmol/L (22-29); Chloride 95 mmol/L (98-107); Estimated GFR-MDRD Greater than 90; Globulin 2.6 g/dL (2.4-3.5); Glucose 106 mg/dL (70-105); Potassium 3.2 mmol/L (3.5-5.1); Protein, Total 6.2 g/dL (6.0-8.3); Sodium 131 mmol/L (136-145)
[2019-11-13] MEDS ORDERED: Morphine 4 MG/ML VIAL ONE (13:40)
[2019-11-13] MEDS ORDERED: HYDROcodone/Acetaminophen 5/325 mg Tablet PO PRN ×2 (13:50)
[2019-11-13 16:30] VITALS: BMI 29.1
[2019-11-13] MEDS: Potassium Chloride 20 MEQ TAB PO SCH ×2 (19:28→21:23)
[2019-11-13] MEDS ORDERED: Promethazine 25 MG TAB PO PRN (20:56)
[2019-11-13] MEDS ORDERED: fentaNYL 100 mcg/hour Patch TD SCH (21:00)
[2019-11-13] MEDS ORDERED: Morphine IR Tab 15 MG TAB PO PRN (21:00)
[2019-11-13] MEDS ORDERED: Furosemide 40 MG/4 ML VIAL SLOW IVP SCH (21:00)
[2019-11-13] MEDS ORDERED: Lidocaine 5% Patch TD SCH (21:00)
[2019-11-13] MEDS: Divalproex Sodium 250 MG (DR) TAB PO SCH (21:03)
[2019-11-13] MEDS: Gabapentin 300 MG CAP PO SCH (21:05)
[2019-11-13] MEDS: Senokot S 8.6-50 MG TAB PO SCH (21:08)
[2019-11-13] MEDS: Morphine ER 30 MG TAB PO SCH (21:08)
[2019-11-13] MEDS ORDERED: Dexamethasone 4 MG TAB PO SCH (21:15)
[2019-11-13] MEDS: Piperacillin/Tazobactam 3.375 GM in Sodium Chloride 0.9% 100 ML IVPB SCH (23:51)
[2019-11-14] MEDS ORDERED: Vancomycin 1.5 GRAM/300 ML BAG 1.5 GM in Premix Bag 1 BAG IVPB SCH (02:00)
[2019-11-14] MEDS: Potassium Chloride 20 MEQ TAB PO SCH ×2 (02:50→09:03)
[2019-11-14] MEDS: Piperacillin/Tazobactam 3.375 GM in Sodium Chloride 0.9% 100 ML IVPB SCH ×2 (05:38→12:09)
--- NOTE | 2019-11-14 08:07 | HP ---
CHIEF COMPLAINT: Leg swelling, pain. HISTORY OF PRESENT ILLNESS: Ms. Mosley is a 54-year-old female with past medical history of metastatic breast cancer with pathological fracture of both hips, status post arthroplasty, was recently here with superficial infection left hip area, noticing lot of leg edema for the last few days, which was getting worse, but last night yesterday, she noticed more redness in the left leg area by overnight and by morning. Redness has spread whole leg up to the knee and also noticed some drainage, also more painful. She did not have any fever. The patient came to the office with this complaint and she was noted to have marked cellulitis with obvious wound drainage. She was sent to the emergency room, where she was evaluated and found to have possible sepsis due to cellulitis. She was given vancomycin, cefepime, and morphine, also was given IV fluids as well. Admitted for further evaluation and management. PAST MEDICAL HISTORY: 1. Metastatic breast cancer, status post radiation and chemo. 2. Pathological fracture of left hip with hemiarthroplasty. 3. History of E coli urosepsis. 4. Bipolar disorder. 5. History of erosive esophagitis. 6. Superficial wound infection in the left hip area, passively status post hemiarthroplasty left hip. CURRENT MEDICATIONS: The patient is on: 1. Arimidex 1 tablet daily. 2. Decadron 4 mg t.i.d. 3. Depakote 250 b.i.d. 4. Nexium 40 mg b.i.d. 5. Fentanyl patch 25 mcg q.3 days, also 100 mcg q.3 days. 6. Ferrous sulfate 325 mg daily. 7. Lasix 20 mg daily. 8. Gabapentin 300 mg t.i.d. 9. Lidocaine patch daily. 10. Mirtazapine 15 mg at bedtime. 11. MS Contin 30 mg q.12 hours. 12. Promethazine p.r.n. 13.. Senokot b.i.d. ALLERGIES: NKDA. FAMILY HISTORY: Nothing contributory. SOCIAL HISTORY: The patient lives with family. No history of smoking. ____. REVIEW OF SYSTEMS: CARDIOVASCULAR: No chest pain. No shortness of breath. RESPIRATORY: No fever or cough. GASTROINTESTINAL: No nausea, vomiting, or abdominal pain. CENTRAL NERVOUS SYSTEM: No headache. No dizziness. PHYSICAL EXAMINATION: GENERAL: The patient is alert, awake, oriented x3. VITAL SIGNS: Temperature 98, pulse 109, respirations 20, blood pressure 120/ 80. HEENT: Head is normocephalic, atraumatic. Pupils equal and reactive. Nasopharynx is pale and dry. NECK: Supple. No JVD. LUNGS: Bilateral air entry present. No rales. No rhonchi. HEART: S1 and S2, regular. ABDOMEN: Soft, obese. No tenderness. No rigidity. No organomegaly. Bowel sounds present. RECTAL: Deferred. CENTRAL NERVOUS SYSTEM: No focal deficits. EXTREMITIES: Marked 3 to 4+ pitting edema on both legs. Left leg markedly erythematous with warm to touch as well as some open areas in the ankle area and the foot area with drainage. LABORATORY DATA: CBC shows WBC 2.6, hemoglobin 10, hematocrit 31, platelets 174. Metabolic panel; sodium 131, potassium 3.2, chloride 95, CO2 of 28, BUN 28, creatinine 0.47. X-ray of the ankle and leg is negative, foot x-ray also is negative. ASSESSMENT: 1. Marked cellulitis, left leg with possible sepsis. 2. Hypokalemia. 3. Bilateral leg edema, severe. 4. Neutropenia. 5. Metastatic breast cancer. 6. Bipolar disorder. 7. Status post hemiarthroplasty of left hip. PLAN: 1. Vital signs q.4 hours. 2. Activities, as tolerated. 3. Allergies, NKDA. 4. Hep-Lock. 5. KCl 20 mEq q.4 hours x3 doses. 6. Vancomycin 1 g IV piggyback q.12 hours. 7. Zosyn 3.375 g IV piggyback q.6 hours. 8. We will continue home medications. 9. Consult Dr. Welch. 10. Wound care team consult. 11. Elevate both legs. 12. Lasix 40 mg daily. 13. Also will maintain KCl 20 mEq daily. Job ID: [id number] [facility]
[2019-11-14] MEDS ORDERED: Lidocaine Patch Removal 1 EACH TOP SCH (09:00)
[2019-11-14] MEDS: Dexamethasone 4 MG TAB PO SCH ×3 (09:02→16:32)
[2019-11-14] MEDS: Ferrous Sulfate 325 MG TAB PO SCH ×2 (09:02→16:32)
[2019-11-14] MEDS: Morphine ER 30 MG TAB PO SCH ×2 (09:03→21:59)
[2019-11-14] MEDS: Divalproex Sodium 250 MG (DR) TAB PO SCH ×2 (09:03→21:59)
[2019-11-14] MEDS: Furosemide 40 MG/4 ML VIAL SLOW IVP SCH (09:03)
[2019-11-14] MEDS: Anastrozole 1 MG TAB PO SCH (09:04)
[2019-11-14] MEDS: Senokot S 8.6-50 MG TAB PO SCH ×2 (09:04→21:59)
[2019-11-14] MEDS: PALBOCICLIB 125 MG PO SCH (09:04)
[2019-11-14] MEDS: Gabapentin 300 MG CAP PO SCH ×3 (09:04→21:59)
[2019-11-14] MEDS: Lidocaine 5% Patch TD SCH (09:35)
[2019-11-14 10:37] LABS: Hemoglobin 9.5 g/dL (12.0-16.0); Mean Corpuscular HGB CONC 32.6 g/dL (32.0-36.0); Mean Corpuscular Volume 89.1 fL (78.0-98.0); Mean Platelet Volume 8.1 fL (7.4-10.4); Platelet Count 172 thou/uL (130-400); RBC Distribution Width 23.6 % (11.5-14.5); Red Blood Cell (RBC) Count 3.27 mill/uL (4.20-5.40); White Blood Cell (WBC) Count 4.1 thou/uL (4.8-10.8)
[2019-11-14 10:38] LABS: #Lymphocytes 0.6 thou/uL (1.20-3.40); #Monocytes 0.2 thou/uL (0.11-0.59); #Neutrophils 3.3 thou/uL (1.40-6.50); %Basophils 0.3 % (0.0-1.0); %Lymphocytes 14.9 % (21.0-51.0); %Monocytes 3.8 % (0.0-10.0)
[2019-11-14 10:48] LABS: Anion Gap 13 mmol/L (10-20); BUN (Urea Nitrogen) 18 mg/dL (9.8-20.1); Calc. Creatinine Clearance 148 mL/min (70-130); Calcium 8.2 mg/dL (7.8-10.44); Carbon Dioxide 24 mmol/L (22-29); Chloride 100 mmol/L (98-107); Estimated GFR-MDRD Greater than 90; Glucose 150 mg/dL (70-105); Potassium 3.2 mmol/L (3.5-5.1); Sodium 134 mmol/L (136-145)
[2019-11-14 11:42] LABS: Anisocytosis MODERATE=16-30 cells (100X) (0-5/hpf); MDiff Complete? YES; Platelet Morphology Comment Appears Adequate; Polychromasia SLIGHT = 2-3 cells (100X) (0-2/hpf)
--- NOTE | 2019-11-14 14:06 | CON ---
DATE OF CONSULTATION: 11/14/2019 REASON FOR CONSULTATION: Cellulitis, left leg. HISTORY OF PRESENT ILLNESS: Ms. Moslye is a 54-year-old patient with a history of metastatic breast cancer, mostly to bone, on Imbruvica with previous left hip pathologic fracture, which required hemiarthroplasty with subsequent development of a drainage site. We saw her because of concern with deep infection, but the changes were felt to be superficial, and she was switched to oral Keflex, treated for 7 to 10 days, and that has done well, but now, she has developed inflammatory process consistent with cellulitis associated with a shallow ulceration on the dorsal aspect of the left foot. The inflammatory changes extend from the foot all the way to the knee, left side, associated with moderate pain. No headaches, sore throat, odynophagia, or dysphagia. No dyspnea or cough. No chest pain. No abdominal pain. She has a neck brace in place because of the previous pathologic fractures. No diarrhea. No genitourinary symptoms. PAST MEDICAL HISTORY: Metastatic breast cancer, treated with radiation therapy and now on Imbruvica; pathologic fracture, left hip, status post hemiarthroplasty and limited superficial infection; Escherichia coli urosepsis; bipolar disorder; and erosive esophagitis. SOCIAL HISTORY: Lives in the area. Never smoker. ALLERGIES: NONE. MEDICATIONS: 1. Arimidex. 2. Zosyn and vancomycin. 3. Decadron. 4. Depakote. 5. Duragesic. 6. Feosol. 7. Neurontin. 8. Remeron. 9. Palbociclib (Ibrance). 10. Phenergan. PHYSICAL EXAMINATION: VITAL SIGNS: She has been afebrile, T-max 99.4, blood pressure 100/64, pulse 96, respirations 19 to 20, O2 saturation 94%. SKIN: Remarkable for the shallow ulceration, dorsal aspect of the left mid foot region with a circumferential area of erythema, more consistent with erysipelas than actual cellulitis or an intermediate presentation. Most of the erythema is distributed in the anterior segments, less in the posterior area. There is significant onychodystrophy in both right and left side. The left hip arthroplasty site is looking good without erythema or drainage. The patient has an indwelling Ortiz catheter, which was inserted upon admission. HEENT: Alopecia. Ocular movements are conjugate. No lymphadenopathy. Oral cavity with no round valley teeth remaining. NECK: Brace. LUNGS: Clear to auscultation and percussion. HEART: S1 and S2. Regular rate. No S3 or S4. ABDOMEN: Soft. Not distended or tender. No ascites. No bladder distention. MUSCULOSKELETAL: No other joint inflammatory process. EXTREMITIES: Pulses are 1+ in dorsalis pedis. 1 to 2+ edema in lower extremities. Moves extremities with limitations imposed by her pathologic fractures, the prior hip replacement, and the left cellulitis as well as the neck brace. LABORATORY DATA: White cell count was 2.6 and 4.1, hemoglobin 9.5, MCV 89, platelets 172 with 81% neutrophils. Chemistry with a creatinine of 0.54. Liver profile, normal except for alkaline phosphatase 129, which is likely liver in origin. One set of blood cultures out of two with gram-negative fartun. The preliminary identification shows that was basically negative for the tested organisms, which include E. coli, Klebsiella, Pseudomonas, Acinetobacter, Citrobacter, Enterobacter, and Proteus. ASSESSMENT: 1. Metastatic breast cancer, mostly to bone, on Imbruvica and palbociclib. 2. Recent hemiarthroplasty with postoperative drainage. 3. Prior episode of Escherichia coli urosepsis. 4. Cellulitis, left lower extremity, likely secondary to gram-negative fartun, yet to be identified and susceptibility tested. DISCUSSION: The patients with immunosuppressive conditions as well as chronic liver disease and end-stage renal disease have a higher rate of cellulitis caused by gram-negative rods including Enterobacteriaceae, and this is not surprising. We will switch her to cefepime and discontinue Zosyn and vancomycin. Wait for final identification and susceptibility profile of the organism. Job ID: [id number]
[2019-11-14] MEDS: Cefepime 1 GM in Sodium Chloride 0.9% 100 ML IVPB SCH ×2 (14:15→22:12)
[2019-11-14] MEDS: Albuterol Sulfate 1.25 MG/3 ML NEB NEB PRN (14:36)
[2019-11-14] MEDS ORDERED: Mirtazapine 15 MG TAB PO PRN (21:00)
[2019-11-14] MEDS: Lidocaine Patch Removal 1 EACH TOP SCH (22:02)
[2019-11-15] MEDS: Albuterol Sulfate 1.25 MG/3 ML NEB NEB PRN ×2 (04:58→15:24)
[2019-11-15] MEDS: Cefepime 1 GM in Sodium Chloride 0.9% 100 ML IVPB SCH ×3 (05:04→22:48)
[2019-11-15 06:02] LABS: Anion Gap 16 mmol/L (10-20); BUN (Urea Nitrogen) 21 mg/dL (9.8-20.1); Calc. Creatinine Clearance 151 mL/min (70-130); Calcium 8.9 mg/dL (7.8-10.44); Carbon Dioxide 24 mmol/L (22-29); Chloride 100 mmol/L (98-107); Estimated GFR-MDRD Greater than 90; Glucose 187 mg/dL (70-105); Potassium 4.7 mmol/L (3.5-5.1); Sodium 135 mmol/L (136-145)
[2019-11-15 06:33] LABS: Anisocytosis MODERATE=16-30 cells (100X) (0-5/hpf); Band 35 % (5-11); Hemoglobin 10.1 g/dL (12.0-16.0); Lymphocytes 10 % (21-51); MDiff Complete? YES; Mean Corpuscular HGB CONC 31.7 g/dL (32.0-36.0); Mean Corpuscular Hemoglobin 28.3 pg (27.0-31.0); Mean Corpuscular Volume 89.3 fL (78.0-98.0); Mean Platelet Volume 8.5 fL (7.4-10.4); Monocytes 1 % (0-10); Neutrophil 54 % (42-75); Platelet Count 207 thou/uL (130-400); RBC Distribution Width 23.5 % (11.5-14.5); Red Blood Cell (RBC) Count 3.57 mill/uL (4.20-5.40)
[2019-11-15] MEDS: Dexamethasone 4 MG TAB PO SCH ×3 (08:35→17:55)
[2019-11-15] MEDS: Morphine ER 30 MG TAB PO SCH ×2 (08:35→22:47)
[2019-11-15] MEDS: Gabapentin 300 MG CAP PO SCH ×3 (08:35→22:48)
[2019-11-15] MEDS: Potassium Chloride 20 MEQ TAB PO SCH (08:35)
[2019-11-15] MEDS: Anastrozole 1 MG TAB PO SCH (08:35)
[2019-11-15] MEDS: Divalproex Sodium 250 MG (DR) TAB PO SCH ×2 (08:36→22:47)
[2019-11-15] MEDS: Furosemide 40 MG/4 ML VIAL SLOW IVP SCH (08:37)
[2019-11-15] MEDS: Ferrous Sulfate 325 MG TAB PO SCH ×2 (08:37→17:55)
[2019-11-15] MEDS: Lidocaine 5% Patch TD SCH (08:37)
[2019-11-15] MEDS: PALBOCICLIB 125 MG PO SCH (08:40)
[2019-11-15] MEDS: Senokot S 8.6-50 MG TAB PO SCH ×2 (08:40→22:48)
--- NOTE | 2019-11-15 13:27 | PRG ---
DATE OF SERVICE: 11/15/2019 SUBJECTIVE: Sitting by the bedside. Eating her lunch. She states that she is feeling better, specifically less pain in the left lower extremity. No respiratory symptoms or diarrhea. OBJECTIVE: VITAL SIGNS: The temperature has been normal. O2 saturations are normal. GENERAL: She is slightly tachycardic. Appears in no distress. LUNGS: Clear. HEART: S1 and S2. Regular rate. ABDOMEN: Soft. EXTREMITIES: Left leg is about the same. The exam does not show blanching of the skin on pressures so that would suggest that the redness is consistent with intradermal hemorrhage rather than vasodilatation of the vessels. There is more of erysipelas pattern rather cellulitic pattern. LABORATORY DATA: We have a gram-negative fartun yet to be identified and susceptibility tested. ASSESSMENT AND DISCUSSION: Metastatic breast cancer, mostly bone metastasis, on Imbruvica; hemiarthroplasty; postop drainage, which has resolved; prior episodes of Escherichia coli urosepsis and cellulitis of left leg more consistent with erysipelas than cellulitis and there is a gram-negative fartun yet to be identified. Until the organism is fully identified and susceptibility tested, we will have to hold her in the hospital. There is a chance that we may be able to discharge her on oral quinolone. Job ID: [id number]
[2019-11-15] MEDS ORDERED: Furosemide 40 MG/4 ML VIAL SLOW IVP SCH (19:45)
[2019-11-15] MEDS ORDERED: Metolazone 5 MG TAB PO SCH (19:45)
[2019-11-15] MEDS: Lidocaine Patch Removal 1 EACH TOP SCH (22:49)
[2019-11-16] MEDS: Albuterol Sulfate 1.25 MG/3 ML NEB NEB PRN ×2 (00:23→13:02)
[2019-11-16 07:35] VITALS: BP 147/91; TEMP 98.1
[2019-11-16] MEDS: Cefepime 1 GM in Sodium Chloride 0.9% 100 ML IVPB SCH (08:00)
[2019-11-16] MEDS: Lidocaine 5% Patch TD SCH (08:29)
[2019-11-16] MEDS: Divalproex Sodium 250 MG (DR) TAB PO SCH (08:30)
[2019-11-16] MEDS: Gabapentin 300 MG CAP PO SCH ×2 (08:30→14:57)
[2019-11-16] MEDS: Potassium Chloride 20 MEQ TAB PO SCH (08:30)
[2019-11-16] MEDS: Morphine ER 30 MG TAB PO SCH (08:30)
[2019-11-16] MEDS: Ferrous Sulfate 325 MG TAB PO SCH ×2 (08:30→17:09)
[2019-11-16] MEDS: Anastrozole 1 MG TAB PO SCH (08:30)
[2019-11-16] MEDS: Senokot S 8.6-50 MG TAB PO SCH (08:30)
[2019-11-16] MEDS: Dexamethasone 4 MG TAB PO SCH ×3 (08:30→17:09)
[2019-11-16] MEDS: Furosemide 40 MG/4 ML VIAL SLOW IVP SCH (08:31)
[2019-11-16] MEDS: PALBOCICLIB 125 MG PO SCH (08:32)
[2019-11-16] MEDS ORDERED: Ciprofloxacin 500 MG TAB PO SCH (20:00)
--- NOTE | 2019-11-17 06:41 | PQF ---
NADEEN VEGA RICARDO S MD [id number] CLINICAL DOCUMENTATION CLARIFICATION FORM: POST DISCHARGE Addendum to original discharge summary date: ____ Late entry note date: __ DATE: 11/17/2019 ATTN: SLOANE LARSON MD Please exercise your independent, professional judgment in responding to the clarification form. Clinical indicators are provided on the bottom of this form for your review Please check appropriate box(s) to clarify if the following diagnosis has been ruled in or ruled out: SEPSIS [ ] Ruled in diagnosis [ ] Continue to treat [ ] Resolved [ ] Ruled out diagnosis [ ] Cannot rule out diagnosis [ ] Other diagnosis [ ] Unable to determine For continuity of documentation, please document condition throughout progress notes and discharge summary. Thank You. CLINICAL INDICATORS - SIGNS / SYMPTOMS / LABS - Marked cellulitis, leg left with possible sepsis- H&P, 11/14, Trever Choudhary MD - possible sepsis due to cellulitis- H&P, 11/14, Trever Choudhary MD - Temp:98, Pulse:109, RR: 20, B/P120/80- H&P, 11/14, Trever Choudhary MD - WBC: 2.6- H&P, 11/14, Trever Choudhary MD - prior diagnosis of Escherichia coli urosepsis and cellulitis of the left more consistent with erysipelas than cellulitis and there is a gram negative fartun yet to be identified-Progress note, 11/15, Rebekah Emerson MD RISK FACTORS -Neutropenia- H&P, 11/14, Trever Choudhary MD -cellulitis, leg left-H&P, 11/14, Trever Choudhary MD TREATMENTS - Vancomycin.IV- 11/13 - Cefepime.IV- 11/13 (This form is maintained as a part of the permanent medical record) 2014 [employer] All Rights Reserved Tila [email or web address]
== END 2019-11-16 18:03 | disposition home health service (06) | DRG 603 ==
LOC: ERS 12:00 → T4-A 15:44
PROVIDERS: ADMIT Internal Medicine; ATTEND Emergency Medicine
DX: L03.116 Cellulitis of left lower limb (principal); C79.51 Secondary malignant neoplasm of bone; E87.6 Hypokalemia; D70.9 Neutropenia, unspecified; C50.919 Malignant neoplasm of unspecified site of unspecified female breast; F31.9 Bipolar disorder, unspecified; Z96.642 Presence of left artificial hip joint; Z90.710 Acquired absence of both cervix and uterus
CPT/HCPCS: 36415; 71045; 80048; 80053; 83605; 85025; 87040; 87077; 87149; 87186; 93005; 94640; 96365; 96366; 96367; 96375; 99211; G0463; J0692; J1940; J2270; J2543; J3370; J3490; J7050; J8540

== ENCOUNTER 2019-12-05 19:56 | Inpatient (IN) | payer MEDICARE ==
[2019-12-05 20:53] LABS: #Lymphocytes 0.8 thou/uL (1.20-3.40); #Monocytes 0.2 thou/uL (0.11-0.59); #Neutrophils 1.7 thou/uL (1.40-6.50); %Basophils 0.5 % (0.0-1.0); %Eosinophils 0.6 % (0.0-10.0); %Monocytes 7.1 % (0.0-10.0); %Neutrophils 63.8 % (42.0-75.0); Hemoglobin 8.5 g/dL (12.0-16.0); Mean Corpuscular HGB CONC 31.8 g/dL (32.0-36.0); Mean Corpuscular Hemoglobin 28.5 pg (27.0-31.0); Mean Corpuscular Volume 89.9 fL (78.0-98.0); Mean Platelet Volume 7.5 fL (7.4-10.4); Platelet Count 270 thou/uL (130-400); RBC Distribution Width 24.2 % (11.5-14.5); Red Blood Cell (RBC) Count 2.96 mill/uL (4.20-5.40); White Blood Cell (WBC) Count 2.7 thou/uL (4.8-10.8)
--- NOTE | 2019-12-05 20:55 | RAD ---
PORTABLE AP CHEST X-RAY: 12/05/19 HISTORY: Cough and low oxygen saturation. COMPARISON: 11/13/19. FINDINGS: patient's overlying mandible and jaw obscure the left lung apex. There are scattered increased inter stitial and slight patchy opacities within the lungs bilaterally which could be related to infectious process. Slight irregular nodular densities are seen in the left mid lung zone. No pleural effusion is present. No other interval change. Cardiac silhouette is magnified by projection. IMPRESSION: Scattered linear and patchy densities within the lungs bilaterally with slight nodularity involving t he left mid lung zone. These findings could be related to infectious process, but follow-up chest x-r ay is recommended given slight nodularity in the left upper lung zone, some of which may be artifactu al. POS: [facility]
[2019-12-05 21:12] LABS: ALT (SGPT) 12 U/L (8-55); AST (SGOT) 19 U/L (5-34); Albumin 3.3 g/dL (3.5-5.0); Alkaline Phosphatase 131 U/L (40-110); Anion Gap 12 mmol/L (10-20); BUN (Urea Nitrogen) 14 mg/dL (9.8-20.1); Bilirubin, Total 0.4 mg/dL (0.2-1.2); Calc. Creatinine Clearance 0 mL/min (70-130); Calcium 8.3 mg/dL (7.8-10.44); Carbon Dioxide 27 mmol/L (22-29); Chloride 102 mmol/L (98-107); Estimated GFR-MDRD Greater than 90; Globulin 3.2 g/dL (2.4-3.5); Glucose 115 mg/dL (70-105); Potassium 4.1 mmol/L (3.5-5.1); Protein, Total 6.5 g/dL (6.0-8.3); Sodium 137 mmol/L (136-145)
[2019-12-05] MEDS ORDERED: Cefepime 1 GM VIAL ONE (22:03)
[2019-12-05] MEDS ORDERED: Acetaminophen 500 MG TAB ONE (22:17)
[2019-12-06 00:55] LABS: Bacteria/HPF None Seen HPF (None Seen); Bilirubin Negative (Negative); Blood, Urine Negative (Negative); Clarity Clear (Clear); Glucose, Urine (Dipstick) Normal (Negative); Leukocyte Negative Leu/uL (Negative); Nitrite Negative (Negative); Protein, Urine (Dipstick) 30 mg/dL (Neg-Trace); RBC/HPF 0-3 HPF (0-3); Squamous Epithelial None Seen HPF (0-3); Urobilinogen Normal mg/dL (Less than 2); WBC/HPF 0-3 HPF (0-3)
[2019-12-06 01:48] VITALS: BMI 33.5
[2019-12-06] MEDS: Piperacillin/Tazobactam 3.375 GM in Sodium Chloride 0.9% 100 ML IVPB SCH ×4 (03:31→23:42)
[2019-12-06] MEDS ORDERED: Promethazine 25 MG TAB PO PRN (09:07)
[2019-12-06] MEDS ORDERED: Mirtazapine 15 MG TAB PO PRN (09:11)
[2019-12-06] MEDS ORDERED: Anastrozole 1 MG TAB PO SCH (09:30)
[2019-12-06] MEDS ORDERED: Morphine ER 30 MG TAB PO SCH (09:30)
[2019-12-06] MEDS ORDERED: Potassium Chloride 20 MEQ TAB PO SCH (09:30)
[2019-12-06] MEDS ORDERED: Senokot S 8.6-50 MG TAB PO SCH (09:30)
[2019-12-06] MEDS ORDERED: Gabapentin 300 MG CAP PO SCH (09:30)
[2019-12-06] MEDS: fentaNYL 100 mcg/hour Patch TD SCH (09:55)
[2019-12-06] MEDS: Lidocaine 5% Patch TD SCH (10:12)
--- NOTE | 2019-12-06 12:03 | CON ---
DATE OF CONSULTATION: HISTORY OF PRESENT ILLNESS: Savanna Mosley is a 54-year-old female, presents with hypoxemia and respiratory failure. This morning, she is still feeling poorly, still coughing, still short of breath, breathing rapidly. She is a nonsmoker. PAST MEDICAL HISTORY: History of metastatic breast cancer, being treated with radiation and chemotherapy. History of kyphoscoliosis. She has multiple back issues with T12 spinal disk disease. Left hip fracture. The patient has underlying basic medical problem, bipolar/manic depressions, breast cancer, and chronic pain syndrome. PAST SURGICAL HISTORY: Back surgery, hysterectomy, laparotomy, tonsillectomy, and hip. MEDICATIONS: Medicines from home include: 1. Duragesic patch 125. 2. Morphine tablets 15 every 4 hours. 3. MS Contin 30 every 12 hours. 4. Neurontin 300 three times a day. 5. Lasix 40 a day. 6. Depakote 250 a day. 7. Arimidex 1 mg a day. Since admission, she is back on all home medicines including Zosyn. I do not see any breathing treatments. ALLERGIES: NONE. REVIEW OF SYSTEMS: Otherwise, unremarkable. PHYSICAL EXAMINATION: VITAL SIGNS: Temperature 101, blood pressure 106/68, pulse 94, saturations 96% on 2 L. CHEST: Bilateral rhonchi and crackles. CARDIAC: Normal S1 and S2. No gallops. ABDOMEN: No masses. LABORATORY DATA: X-ray shows severe kyphoscoliosis, chronic changes, but I do not see any obvious acute infiltrates. White count was 2000, H and H 8 and 26, platelet count is normal. Lytes are normal. Influenza screen negative. ASSESSMENT AND PLAN: 1. [id number] respiratory failure. 2. Probable recurrent aspiration. 3. Severe kyphoscoliosis from thoracic spinal issues. 4. Metastatic breast cancer. 5. Chronic pain. Clearly, her pulmonary issues are due to microaspiration. She is on multiple pain medications for her chronic pain issues. Probably, she is encephalopathic from this and aspirating. I agree with present antibiotics. I have added neb treatments and steroids to her present regime. We will follow. Consultation note of 70 minutes, 50% in direct patient care. Job ID: [id number]
[2019-12-06] MEDS ORDERED: Furosemide 40 MG/4 ML VIAL SLOW IVP SCH (13:00)
[2019-12-06] MEDS: Vancomycin HCl 1 GM in Premix Bag 1 BAG IVPB SCH (13:30)
--- NOTE | 2019-12-06 14:33 | CON ---
DATE OF CONSULTATION: REASON FOR CONSULTATION: Metastatic breast cancer. HISTORY OF PRESENT ILLNESS: Ms. 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 She has multiple focal bone mets and pathological fractures. She was diagnosed in 08/2019. She has undergone palliative radiation to her T-spine, and is currently getting radiation to her left hip. She takes Ibrance and Arimidex for her cancer. She has been battling left lower extremity cellulitis and had an admission for this in late October. She has taken Cipro for 10 days. She does have lidocaine patch and fentanyl patches for pain. She wears a cervical collar for her fractures. She presented to the emergency room last night with low-grade fever and cough. A chest x-ray showed a likely pneumonia. She was admitted to the [facility] for treatment. On admission, her white count was 2.7, but her ANC was normal at 1.7, hemoglobin was 8.5, and platelet count was 270. She has gained over 22 pounds in the last month and a half. She has 2+ edema in her lower extremities. Her left breast mass has decreased in size since diagnosis. She recently received Zometa earlier this week. She is on antibiotics and oxygen, and resting comfortably. PAST MEDICAL HISTORY: 1. Metastatic breast cancer. 2. Bipolar disease. PAST SURGICAL HISTORY: 1. Hysterectomy. 2. Appendectomy. 3. Tonsillectomy. 4. Hip replacement. ALLERGIES: NO KNOWN DRUG ALLERGIES. HOME MEDICATIONS: 1. Anastrozole 1 mg daily. 2. Aspirin 81 mg b.i.d. 3. Depakote 250 mg b.i.d. 4. Duragesic 125 mcg every 3 days. 5. Prilosec daily. 6. Iron daily. 7. Gabapentin 300 mg t.i.d. 8. Ibrance 125 mg for 3 weeks on and 1 week off. 9. Lidocaine patch. 10. Mirtazapine 15 mg daily. 11. MS Contin 30 mg b.i.d. 12. MS Contin 15 mg p.r.n. 13. Senokot 8.6 mg daily. 14. Tramadol p.r.n. FAMILY HISTORY: Father had lung cancer. SOCIAL HISTORY: Single, lives with family. No alcohol, tobacco, or illicit drug use. REVIEW OF SYSTEMS: GENERAL: Positive for fever, fatigue, and night sweats. EYES: No blurred or double vision. ENT: No pain, hoarseness, or sore throat. CV: No chest pain, palpitations, or syncope. RESPIRATORY: Positive for shortness of breath and cough. GI: Positive for nausea and heartburn. : No dysuria or hematuria. MUSCULOSKELETAL: Positive for joint and back pain. SKIN: Positive for itching and rash. HEMATOLOGIC: Positive for bruising. NEUROLOGIC: Positive for weakness, fatigue, headache, dizziness, and loss of balance. PSYCHIATRIC: Positive for anxiety and depression. PHYSICAL EXAMINATION: VITAL SIGNS: Temperature is 98.9, pulse is 85, respiratory rate 37, her blood pressure is 94/64, and 99% on 2 L. GENERAL: Chronically ill-appearing female, in no acute distress. HEENT: Normocephalic and atraumatic. Pupils are equal and reactive to light. She has poor oral hygiene. NECK: Supple. CV: Regular rate and rhythm. LUNGS: Diminished anterior. ABDOMEN: Soft and nontender. Bowel sounds are positive. EXTREMITIES: She has at least 2+ bilateral lower extremity edema. SKIN: She has cellulitis to both her left lower extremity and her right ankle. HEMATOLOGIC: There is no petechiae or purpura. NEUROLOGIC: There are no focal deficits. BREASTS: Her left breast mass is palpable, yet smaller. There are no skin changes. PERTINENT LABORATORY DATA AND X-RAYS: Current WBCs are 2.7, hemoglobin 8.5, hematocrit 26.6, platelet count is 270,000, 64% neutrophils, and 28% lymphocytes. Sodium 137, potassium 4.1, chloride 102, CO2 is 27, BUN is 14, and creatinine 0.52. Lactic acid 1.1. Calcium 8.3. Bilirubin 0.4, AST is 19, ALT is 12, and alkaline phosphatase is 131. Serum total protein 6.5, albumin 3.8, globulin 3.2. Urine is negative for bacteria. Radiology per HPI. ASSESSMENT: 1. Bilateral pneumonia. 2. Metastatic breast cancer. 3. Fluid overload with cardiomyopathy on prior scans. DISCUSSION: The patient has been started on IV antibiotics and oxygen. She will continue Arimidex in the hospital, but hold her Ibrance as she is leukopenic, but not neutropenic. We will check an echo as her cardiomyopathy has never been evaluated. We will do a daily CBC. Thank you for the consult. We will follow along. Job ID: [id number]
[2019-12-06] MEDS: Gabapentin 300 MG CAP PO SCH ×2 (14:48→21:06)
[2019-12-06] MEDS: Morphine IR Tab 15 MG TAB PO PRN (14:48)
--- NOTE | 2019-12-06 15:41 | HP ---
CHIEF COMPLAINT: Hypoxia. HISTORY OF PRESENT ILLNESS: Ms. Mosley is a 54-year-old female with past medical history of metastatic breast cancer with metastasis to the bone and chronic pain, came to my office yesterday for leg problem, leg swelling, and wound. The patient also has some cough, nonproductive for on and off for few days, fever on and off for few days. The patient was found to be hypoxic in the office with O2 saturation around 85% on room air. The patient was advised to go to the emergency room for further evaluation. The patient initially declined, later agreed, but she declined to go by EMS. She went home and came to the ER later. The patient came to the ER, where she was evaluated and found to have hypoxia, but improved when her head was elevated. Her saturation improved to 96% on 2 L. She was found to have pneumonia, bilateral, received antibiotics, cefepime and vancomycin and DuoNeb. The patient was admitted for further evaluation and management. PAST MEDICAL HISTORY: 1. Metastatic breast cancer, on chemo. 2. History of pathological fracture of the left hip, status post hemiarthroplasty. 3. History of E coli sepsis. 4. Bipolar disorder. 5. History of erosive esophagitis and also history of cellulitis both legs with wound infection. CURRENT MEDICATIONS: 1. Arimidex one tablet daily. 2. Depakote 250 b.i.d. 3. Nexium 40 mg b.i.d. 4. Fentanyl patch q.3 days. 5. Lasix 40 mg b.i.d. 6. Ferrous sulfate daily. 7. Gabapentin 300 t.i.d. 8. Lidocaine patch daily. 9. Mirtazapine 15 mg at bedtime. 10. Ms Contin 30 mg q.12 hours. 11. Promethazine p.r.n. 12. Senokot b.i.d. ALLERGIES: NKDA. FAMILY HISTORY: Nothing contributory. SOCIAL HISTORY: The patient lives with family. No history of smoking. No history of alcohol. REVIEW OF SYSTEMS: CARDIOVASCULAR: No chest pain. No shortness of breath. RESPIRATORY: Cough and fever. GASTROINTESTINAL: No nausea, vomiting, or abdominal symptoms. CENTRAL NERVOUS SYSTEM: No headache. No dizziness. PHYSICAL EXAMINATION: GENERAL: The patient is alert, awake, oriented x3. VITAL SIGNS: Temperature 100, respirations 20, blood pressure 100/60, O2 saturation 96%. HEENT: Head is normocephalic and atraumatic. Pupils are equal and reactive. Nasopharynx is pale and dry. NECK: Supple. No JVD. LUNGS: Bilateral air entry present. No crackles. HEART: S1 and S2, regular. ABDOMEN: Soft. No tenderness. No organomegaly. Bowel sounds present. RECTAL: Deferred. CENTRAL NERVOUS SYSTEM: No focal deficit. EXTREMITIES: There is marked edema of both legs. There is erythema on the ankle area and foot area. There is a wound on the left ankle area from nail debridement. LABORATORY DATA: CBC shows WBC 2.7, hemoglobin 8.5, hematocrit 26, platelets 270. Metabolic panel; sodium 137, potassium 4, chloride 102, CO2 27, BUN 14, creatinine 0.5, glucose 115. DIAGNOSTIC DATA: Chest x-ray shows scattered linear and patchy densities within the lungs bilaterally with some nodularity, could be related to infectious process. ASSESSMENT: 1. Possible pneumonia, bilateral. aspiration. 2. Metastatic breast cancer. 3. Hypoxia, secondary to #1. 4. Cellulitis, left ankle; wound, left ankle area. 5. Metastatic breast cancer, bipolar disorder. PLAN: 1. Vital sings q.4 hours. 2. Activity as tolerated. 3. Allergies, NKDA. 4. Hep-Lock. 5. Diet, regular. 6. Continue home medications. 7. Zosyn 3.375 g IV piggyback q.6 hours, vancomycin 1 g IV piggyback q.12 hours. 8. Wound Care team consult. 9. Lasix 40 IVP daily. 10. Elevate both legs. Job ID: [id number] [facility]
[2019-12-06] MEDS: Potassium Chloride 20 MEQ TAB PO SCH (21:06)
[2019-12-06] MEDS: Senokot S 8.6-50 MG TAB PO SCH (21:06)
[2019-12-06] MEDS: Morphine ER 30 MG TAB PO SCH (21:07)
[2019-12-06] MEDS: methylPREDNISolone Sod Succ 40 MG VIAL IVP SCH (21:08)
[2019-12-06] MEDS: Lidocaine Patch Removal 1 EACH TOP SCH (21:09)
[2019-12-06] MEDS ORDERED: Acetaminophen 325 MG TAB PO PRN (21:35)
[2019-12-07] MEDS: Morphine IR Tab 15 MG TAB PO PRN ×2 (00:08→05:58)
[2019-12-07] MEDS: Vancomycin HCl 1 GM in Premix Bag 1 BAG IVPB SCH ×2 (00:10→13:55)
[2019-12-07] MEDS: Piperacillin/Tazobactam 3.375 GM in Sodium Chloride 0.9% 100 ML IVPB SCH ×4 (05:59→23:34)
[2019-12-07] MEDS: Gabapentin 300 MG CAP PO SCH ×3 (08:52→20:59)
[2019-12-07] MEDS: Senokot S 8.6-50 MG TAB PO SCH ×2 (08:52→20:59)
[2019-12-07] MEDS: Anastrozole 1 MG TAB PO SCH (08:52)
[2019-12-07] MEDS: Morphine ER 30 MG TAB PO SCH ×2 (08:52→21:00)
[2019-12-07] MEDS: Potassium Chloride 20 MEQ TAB PO SCH ×2 (08:53→20:59)
[2019-12-07] MEDS: methylPREDNISolone Sod Succ 40 MG VIAL IVP SCH ×2 (08:54→21:00)
[2019-12-07] MEDS: Furosemide 40 MG/4 ML VIAL SLOW IVP SCH (08:54)
[2019-12-07] MEDS: Lidocaine 5% Patch TD SCH (08:55)
[2019-12-07] MEDS ORDERED: IBRANCE PO SCH (09:00)
--- NOTE | 2019-12-07 09:36 | PRG ---
DATE OF SERVICE: 12/07/2019 SUBJECTIVE: Savanna Mosley is a 54-year-old morbidly obese female. This morning, she still is very tachypneic and short of breath. OBJECTIVE: VITAL SIGNS: Temperature 98.3, pulse 99, respirations 28, saturations are 95% on 4 L, and blood pressure 108/69. CHEST: Bilateral rhonchi and crackles. CARDIAC: Normal S1 and S2. No gallops. ABDOMEN: No masses. ASSESSMENT: 1. Morbid obesity. 2. Right pleural effusion. 3. Exudate. 4. Congestive heart failure. 5. Chronic pain. 6. Sleep apnea. PLAN: Continue steroids, neb treatments, antibiotics, PT, nocturnal BiPAP. We will follow. Job ID: [id number]
[2019-12-07] MEDS ORDERED: Vancomycin HCl 1 GM in Premix Bag 1 BAG IVPB SCH (15:15)
--- NOTE | 2019-12-07 15:43 | RAD ---
Portable frontal chest radiograph: 12/07/2019 COMPARISON: 12/05/2019 HISTORY: Breathing difficulty FINDINGS: Heart and mediastinal contours are stable. No pneumothorax is present and no significant pl eural fluid is seen. There is new coarse nonspecific increased pulmonary parenchymal opacity within bilateral upper lobes, right greater than left, within the lateral aspect of the mid right lung zone, and within the left lung base. IMPRESSION: Prominent multifocal new pulmonary parenchymal opacity. Findings may signify asymmetric e quique, interval aspiration, or developing multilobar are infectious pneumonitis. Follow-up imaging following treatment advised.
--- NOTE | 2019-12-07 15:46 | PDOC.MOPN ---
Interval History: breathing better with high flow o2 - Vital Signs Vital Signs: Vital Signs (12 hours) Temp Pulse Resp Pulse Ox 12/07/19 10:27 104 H 24 H 98 12/07/19 07:55 95 12/07/19 06:57 99 28 H 92 L 12/07/19 04:00 98.3 F Weight Admit Weight 177 lb 9.6 oz Weight 177 lb 9.6 oz Most Recent Monitor Data Heart Rate from ECG 119 NIBP 106/83 NIBP BP-Mean 90 Respiration from ECG 37 SpO2 91 - Physical Exam General: Alert, Oriented x3, No acute distress HEENT: Atraumatic, PERRLA, EOMI, Mucous membr. moist/pink Cardiovascular: Other (tachy) Abdomen: Normal bowel sounds, Soft, No tenderness, No hepatospenomegaly, No masses Extremities: Other (2-3+ ble) Neurological: Normal speech - Labs Result Diagrams: 12/05/19 20:23 12/05/19 20:23 Lab results: Laboratory Results - last 24 hr 12/07/19 14:09: B-Natriuretic Peptide 314.7 H Status: lab reviewed by me A/P - Problem (1) Breast cancer Current Visit: No Status: Acute - Plan Plan: EF 45-50%, BNP 300 continue abx for pneumonia continue arimidex continue lasix and wound care hold Nghia
[2019-12-07] MEDS: Lidocaine Patch Removal 1 EACH TOP SCH (21:00)
[2019-12-08] MEDS: Morphine IR Tab 15 MG TAB PO PRN (01:07)
[2019-12-08 02:36] LABS: Vancomycin, Trough 6.8 ug/mL
[2019-12-08] MEDS: Vancomycin HCl 1 GM in Premix Bag 1 BAG IVPB SCH (03:14)
[2019-12-08 03:26] LABS: #Lymphocytes 0.4 thou/uL (1.20-3.40); #Monocytes 0.1 thou/uL (0.11-0.59); %Basophils 0.4 % (0.0-1.0); %Eosinophils 0.2 % (0.0-10.0); %Lymphocytes 16.1 % (21.0-51.0); %Monocytes 4.7 % (0.0-10.0); %Neutrophils 78.5 % (42.0-75.0); Anisocytosis SLIGHT = 6-15 cells (100X) (0-5/hpf); Hemoglobin 7.5 g/dL (12.0-16.0); MDiff Complete? YES; Mean Corpuscular HGB CONC 34.1 g/dL (32.0-36.0); Mean Corpuscular Hemoglobin 30.7 pg (27.0-31.0); Mean Corpuscular Volume 90.1 fL (78.0-98.0); Mean Platelet Volume 7.7 fL (7.4-10.4); Platelet Count 219 thou/uL (130-400); RBC Distribution Width 23.1 % (11.5-14.5); Red Blood Cell (RBC) Count 2.44 mill/uL (4.20-5.40); White Blood Cell (WBC) Count 2.5 thou/uL (4.8-10.8)
[2019-12-08 03:30] LABS: Anion Gap 15 mmol/L (10-20); BUN (Urea Nitrogen) 11 mg/dL (9.8-20.1); Calc. Creatinine Clearance 190 mL/min (70-130); Calcium 7.7 mg/dL (7.8-10.44); Carbon Dioxide 24 mmol/L (22-29); Chloride 100 mmol/L (98-107); Estimated GFR-MDRD Greater than 90; Glucose 162 mg/dL (70-105); Potassium 3.8 mmol/L (3.5-5.1); Sodium 135 mmol/L (136-145)
[2019-12-08] MEDS: Vancomycin HCl 1.25 GM in Sodium Chloride 0.9% 250 ML 250 ML IVPB SCH ×3 (05:27→22:11)
[2019-12-08] MEDS: Piperacillin/Tazobactam 3.375 GM in Sodium Chloride 0.9% 100 ML IVPB SCH ×3 (06:58→17:28)
[2019-12-08] MEDS: Lidocaine 5% Patch TD SCH (09:53)
[2019-12-08] MEDS: Potassium Chloride 20 MEQ TAB PO SCH ×2 (09:53→20:43)
[2019-12-08] MEDS: methylPREDNISolone Sod Succ 40 MG VIAL IVP SCH ×2 (09:53→20:43)
[2019-12-08] MEDS: Furosemide 40 MG/4 ML VIAL SLOW IVP SCH (09:53)
[2019-12-08] MEDS: Anastrozole 1 MG TAB PO SCH (09:54)
[2019-12-08] MEDS: Morphine ER 30 MG TAB PO SCH ×2 (09:54→20:44)
[2019-12-08] MEDS: Gabapentin 300 MG CAP PO SCH ×3 (09:54→20:43)
[2019-12-08] MEDS: Senokot S 8.6-50 MG TAB PO SCH ×2 (09:54→20:44)
--- NOTE | 2019-12-08 18:16 | PRG ---
DATE OF SERVICE: 12/08/2019 SUBJECTIVE: Savanna Mosley said she is feeling much better. OBJECTIVE: VITAL SIGNS: She is afebrile. Heart rate is 104, blood pressure 103/68, respiratory rate is 18. LUNGS: Clear. HEART: Regular rhythm. ABDOMEN: Soft. EXTREMITIES: Without edema. LABORATORY DATA: Chest x-ray from yesterday shows upper lobe infiltrates. IMPRESSION: 1. Pneumonia. 2. Parapneumonic effusion. 3. History of cardiomyopathy. 4. Sleep apnea. PLAN: We will continue current supportive care, antibiotics, steroids, nebulized treatments, and nocturnal BiPAP. Job ID: [id number]
[2019-12-08] MEDS: Lidocaine Patch Removal 1 EACH TOP SCH (20:44)
[2019-12-09] MEDS: Piperacillin/Tazobactam 3.375 GM in Sodium Chloride 0.9% 100 ML IVPB SCH ×2 (00:41→05:16)
[2019-12-09] MEDS: Morphine IR Tab 15 MG TAB PO PRN ×2 (01:56→14:14)
[2019-12-09] MEDS: Vancomycin HCl 1.25 GM in Sodium Chloride 0.9% 250 ML 250 ML IVPB SCH (06:05)
[2019-12-09] MEDS: Anastrozole 1 MG TAB PO SCH (09:50)
[2019-12-09] MEDS: Morphine ER 30 MG TAB PO SCH ×2 (09:51→20:56)
[2019-12-09] MEDS: Senokot S 8.6-50 MG TAB PO SCH ×2 (09:51→20:56)
[2019-12-09] MEDS: Potassium Chloride 20 MEQ TAB PO SCH ×2 (09:51→20:56)
[2019-12-09] MEDS: methylPREDNISolone Sod Succ 40 MG VIAL IVP SCH ×2 (09:55→20:56)
[2019-12-09] MEDS: Lidocaine 5% Patch TD SCH (09:55)
[2019-12-09] MEDS: Furosemide 40 MG/4 ML VIAL SLOW IVP SCH (09:55)
[2019-12-09] MEDS: fentaNYL 100 mcg/hour Patch TD SCH (09:55)
[2019-12-09] MEDS: Gabapentin 300 MG CAP PO SCH ×3 (09:58→20:56)
[2019-12-09] MEDS: Vancomycin HCl 1 GM in Premix Bag 1 BAG IVPB SCH ×2 (09:58→17:16)
[2019-12-09] MEDS: Amoxicillin/Potassium Clav 875 MG TAB PO SCH ×2 (12:48→20:56)
--- NOTE | 2019-12-09 17:12 | PRG ---
DATE OF SERVICE: 12/09/2019 SUBJECTIVE: Savanna Mosley remains on high-flow O2. OBJECTIVE: VITAL SIGNS: She is afebrile. Heart rate is 111, respiratory rate is 18, oximetry is 90% on 40% now. She is started today at about 60% FiO2. Blood pressure 150/101. LUNGS: Clear anteriorly and laterally. HEART: Regular rhythm. ABDOMEN: Soft. IMPRESSION: 1. Pneumonia, slowly improving. 2. Systolic cardiomyopathy. 3. Breast cancer. PLAN: Continue supportive care, steroids, breathing treatments, and antimicrobial therapy. Job ID: [id number]
[2019-12-09] MEDS: Lidocaine Patch Removal 1 EACH TOP SCH (20:57)
[2019-12-10] MEDS: Vancomycin HCl 1 GM in Premix Bag 1 BAG IVPB SCH ×3 (00:28→17:08)
[2019-12-10 04:36] LABS: Anion Gap 15 mmol/L (10-20); BUN (Urea Nitrogen) 17 mg/dL (9.8-20.1); Calc. Creatinine Clearance 167 mL/min (70-130); Calcium 8.3 mg/dL (7.8-10.44); Carbon Dioxide 26 mmol/L (22-29); Chloride 103 mmol/L (98-107); Estimated GFR-MDRD Greater than 90; Glucose 123 mg/dL (70-105); Potassium 4.7 mmol/L (3.5-5.1); Sodium 139 mmol/L (136-145)
[2019-12-10 05:41] LABS: Anisocytosis SLIGHT = 6-15 cells (100X) (0-5/hpf); Band 15 % (5-11); Hemoglobin 8.7 g/dL (12.0-16.0); Lymphocytes 11 % (21-51); MDiff Complete? YES; Mean Corpuscular HGB CONC 33.4 g/dL (32.0-36.0); Mean Corpuscular Hemoglobin 30.4 pg (27.0-31.0); Mean Platelet Volume 8.2 fL (7.4-10.4); Monocytes 4 % (0-10); Neutrophil 70 % (42-75); Nucleated RBC 5 % (0); Platelet Count 246 thou/uL (130-400); Polychromasia SLIGHT = 2-3 cells (100X) (0-2/hpf); RBC Distribution Width 23.1 % (11.5-14.5); Red Blood Cell (RBC) Count 2.85 mill/uL (4.20-5.40)
[2019-12-10 09:23] LABS: Vancomycin, Trough 19.9 ug/mL
--- NOTE | 2019-12-10 10:25 | PRG ---
DATE OF SERVICE: 12/10/2019 SUBJECTIVE: Savanna Mosley this morning, she is on high-flow. X-ray shows still significant bilateral pulmonary infiltrates, kyphosis. OBJECTIVE: VITAL SIGNS: Saturations 93%, respirations 18, pulse 100, blood pressure . CHEST: Bilateral rhonchi and crackles. CARDIAC: Normal S1 and S2. No gallops. ABDOMEN: No masses. LABORATORY DATA: White count 4000, H and H are , platelet count 246. Lytes are normal. ASSESSMENT AND PLAN: Aspiration pneumonia, severe deconditioning. All cultures are negative. Gram-negative rods in the blood culture. Probably contamination. I would discontinue the vancomycin. I will continue otherwise aggressive neb treatments and steroids. Prognosis is grave. One-half hour of critical time. Job ID: [id number]
--- NOTE | 2019-12-10 10:29 | RAD ---
PORTABLE CHEST: HISTORY: Pneumonia followup. COMPARISON: 12/07/2019. FINDINGS: Bilateral lung infiltrates again noted most prominent in the mid and upper lung osei. Probable sma ll effusions. There appears to be some improvement in the left basilar infiltrative change when comp ared to 12/07/2019. Probable improvement in the right mid lung infiltrates and right upper lung infil trates as well. IMPRESSION: Bilateral infiltrates persist; however, there is evidence of some improvement when compared to 020. POS: C
[2019-12-10] MEDS: Amoxicillin/Potassium Clav 875 MG TAB PO SCH ×2 (10:30→21:24)
[2019-12-10] MEDS: Anastrozole 1 MG TAB PO SCH (10:30)
[2019-12-10] MEDS: Furosemide 40 MG/4 ML VIAL SLOW IVP SCH (10:31)
[2019-12-10] MEDS: Lidocaine 5% Patch TD SCH (10:31)
[2019-12-10] MEDS: Gabapentin 300 MG CAP PO SCH ×3 (10:31→21:24)
[2019-12-10] MEDS: Morphine ER 30 MG TAB PO SCH ×2 (10:32→21:24)
[2019-12-10] MEDS: methylPREDNISolone Sod Succ 40 MG VIAL IVP SCH ×2 (10:32→21:24)
[2019-12-10] MEDS: Senokot S 8.6-50 MG TAB PO SCH ×2 (10:33→21:24)
[2019-12-10] MEDS: Potassium Chloride 20 MEQ TAB PO SCH ×2 (10:33→21:24)
[2019-12-10] MEDS: Lidocaine Patch Removal 1 EACH TOP SCH (21:29)
[2019-12-11] MEDS: Vancomycin HCl 1 GM in Premix Bag 1 BAG IVPB SCH ×2 (00:34→09:49)
--- NOTE | 2019-12-11 09:45 | PRG ---
DATE OF SERVICE: 12/11/2019 SUBJECTIVE: Savanna Mosley is a 54-year-old female. OBJECTIVE: VITAL SIGNS: This morning, sats on 2 L at 92%, pulse 103, blood pressure 145/90, respiratory rate 18, and afebrile. GENERAL: She says she is feeling better. CHEST: Decreased breath sounds. No wheezing. CARDIAC: Normal S1 and S2. No gallops. ABDOMEN: No masses. ASSESSMENT: Respiratory failure, bronchopneumonia, metastatic cancer, advanced age. PLAN: Pulmonary sabillon, she is stable enough to be discharged home to be followed by primary care physician. I would pretty much discontinue IV vancomycin. PT and supportive care. Job ID: [id number]
[2019-12-11] MEDS: Anastrozole 1 MG TAB PO SCH (09:46)
[2019-12-11] MEDS: Amoxicillin/Potassium Clav 875 MG TAB PO SCH ×2 (09:46→21:15)
[2019-12-11] MEDS: Gabapentin 300 MG CAP PO SCH ×3 (09:47→21:16)
[2019-12-11] MEDS: methylPREDNISolone Sod Succ 40 MG VIAL IVP SCH (09:47)
[2019-12-11] MEDS: Furosemide 40 MG/4 ML VIAL SLOW IVP SCH (09:47)
[2019-12-11] MEDS: Morphine ER 30 MG TAB PO SCH ×2 (09:47→21:17)
[2019-12-11] MEDS: Lidocaine 5% Patch TD SCH (09:47)
[2019-12-11] MEDS: Potassium Chloride 20 MEQ TAB PO SCH ×2 (09:48→21:16)
[2019-12-11] MEDS: Senokot S 8.6-50 MG TAB PO SCH ×2 (09:49→21:15)
[2019-12-11 09:55] LABS: Vancomycin, Trough 22.2 ug/mL
--- NOTE | 2019-12-11 15:28 | PQF ---
CLINICAL DOCUMENTATION IMPROVEMENT CLARIFICATION FORM: ICD-10 Updated PLEASE DO AN ADDENDUM TO THE PROGRESS NOTE WITH ANY DOCUMENTATION UPDATES OR ADDITIONS AND CARRY THROUGH TO DC SUMMARY. THANK YOU. DATE: 12/11/2019 ATTN: Dr. Perera Please exercise your independent, professional judgment in responding to the clarification form. Clinical indicators are provided on the bottom of this form for your review Please check appropriate box(s): HEART FAILURE: A. ACUITY [ y ] Acute [ ] Acute on Chronic [ ] Chronic B. TYPE [ y] Systolic / HFrEF [ ] Diastolic / HFpEF [ ] Combined Systolic / Diastolic [ ] Other diagnosis [ ] Unable to determine In addition, please specify: Present on Admission (POA): [ y] Yes [ ] No [ ] Unable to determine For continuity of documentation, please document condition throughout progress notes and discharge summary. Thank You. CLINICAL INDICATORS - SIGNS / SYMPTOMS / LABS / RESULTS AND LOCATION IN EMR 12/06: Echocardiography Report EF 44.6% H&P 12/06: The pt was found to be hypoxic in the office with O2 sat around 85% RA PE: There is marked edema of both legs. 12/07 ([facility]) Right pleural effusion Congestive heart failure PN 12/09: CHF RISKS: H&P 12/06: 54 yo with past medical history of metastatic breast cancer with metastasis to the bone and chronic pain. She was found to have pneumonia, bilateral . PMH: Metastatic breast cancer on chemo. TREATMENT: Order 12/06: ECHO MAR: Order 12/06: Lasix 40 mg slow IVP daily Thank you, Tana (This form is maintained as a part of the permanent medical record) 2014 [employer]. All Rights Reserved Tana Villegas RN, BSN [email or web address] Office: [phone] [facility]
[2019-12-11] MEDS ORDERED: Vancomycin HCl 750 MG in Sodium Chloride 0.9% 250 ML 250 ML IVPB SCH (18:00)
[2019-12-11] MEDS ORDERED: Furosemide 40 MG/4 ML VIAL SLOW IVP SCH (21:00)
[2019-12-11] MEDS: Lidocaine Patch Removal 1 EACH TOP SCH (21:17)
[2019-12-12 04:13] LABS: Anion Gap 16 mmol/L (10-20); BUN (Urea Nitrogen) 21 mg/dL (9.8-20.1); Calc. Creatinine Clearance 152 mL/min (70-130); Calcium 8.2 mg/dL (7.8-10.44); Carbon Dioxide 29 mmol/L (22-29); Chloride 98 mmol/L (98-107); Estimated GFR-MDRD Greater than 90; Glucose 96 mg/dL (70-105); Potassium 4.5 mmol/L (3.5-5.1); Sodium 138 mmol/L (136-145)
[2019-12-12 04:38] LABS: #Lymphocytes 1.3 thou/uL (1.20-3.40); #Monocytes 0.8 thou/uL (0.11-0.59); #Neutrophils 4.9 thou/uL (1.40-6.50); %Eosinophils 0.5 % (0.0-10.0); %Monocytes 10.8 % (0.0-10.0); %Neutrophils 69.7 % (42.0-75.0); Anisocytosis SLIGHT = 6-15 cells (100X) (0-5/hpf); Hemoglobin 9.5 g/dL (12.0-16.0); MDiff Complete? YES; Mean Corpuscular HGB CONC 33.2 g/dL (32.0-36.0); Mean Corpuscular Hemoglobin 30.1 pg (27.0-31.0); Mean Corpuscular Volume 90.7 fL (78.0-98.0); Mean Platelet Volume 8.5 fL (7.4-10.4); Platelet Count 231 thou/uL (130-400); Polychromasia SLIGHT = 2-3 cells (100X) (0-2/hpf); RBC Distribution Width 23.3 % (11.5-14.5); Red Blood Cell (RBC) Count 3.15 mill/uL (4.20-5.40)
[2019-12-12] MEDS: Furosemide 40 MG TAB PO SCH ×2 (06:01→14:06)
[2019-12-12] MEDS ORDERED: predniSONE 20 MG TAB PO SCH (08:00)
[2019-12-12] MEDS: Morphine ER 30 MG TAB PO SCH (09:10)
[2019-12-12] MEDS: Amoxicillin/Potassium Clav 875 MG TAB PO SCH (09:10)
[2019-12-12] MEDS: Senokot S 8.6-50 MG TAB PO SCH (09:11)
[2019-12-12] MEDS: Anastrozole 1 MG TAB PO SCH (09:11)
[2019-12-12] MEDS: Potassium Chloride 20 MEQ TAB PO SCH (09:11)
[2019-12-12] MEDS: Gabapentin 300 MG CAP PO SCH ×2 (09:11→14:06)
--- NOTE | 2019-12-12 09:26 | PRG ---
DATE OF SERVICE: 12/12/2019 SUBJECTIVE: This morning, she is better, less short of breath, less cough. No pain. No discomfort. OBJECTIVE: VITAL SIGNS: Temperature 98, pulse 107, saturations 97 on 3 L, and blood pressure 100/60. CHEST: Decreased breath sounds. No wheezing. CARDIAC: Normal S1 and S2. No gallops. ABDOMEN: No masses. ASSESSMENT AND PLAN: Kyphoscoliosis, respiratory failure, pneumonia, and severe deconditioning. Home. Follow up with the primary care physician. Job ID: [id number]
[2019-12-12] MEDS: fentaNYL 100 mcg/hour Patch TD SCH (10:24)
[2019-12-12] MEDS: Lidocaine 5% Patch TD SCH (10:24)
[2019-12-12 15:12] VITALS: BP 100/72
[2019-12-12 15:41] VITALS: TEMP 98.8
--- NOTE | 2019-12-13 06:17 | PQF ---
NADEEN VEGA VENKAT R MD [id number] [facility]- [id number] CLINICAL DOCUMENTATION CLARIFICATION FORM: POST DISCHARGE Addendum to original discharge summary date: ____ Late entry note date: __ DATE: 12/13/2019 ATTN: Kenrick Desai Please exercise your independent, professional judgment in responding to the clarification form. Clinical indicators are provided on the bottom of this form for your review Please check appropriate box(s) to clarify if the following diagnosis has been ruled in or ruled out: Sepsis [ ] Ruled in diagnosis [ ] Continue to treat [ ] Resolved [ y ] Ruled out diagnosis [ ] Cannot rule out diagnosis [ ] Other diagnosis [ ] Unable to determine In addition, please specify: Present on Admission (POA): [ ] Yes [ ] No [ ] Unable to determine For continuity of documentation, please document condition throughout progress notes and discharge summary. Thank You. CLINICAL INDICATORS - SIGNS / SYMPTOMS / LABS Laboratory 2 WBC 2.7, Plt count 270, Lactic Acid 1.1 Vital signs 12/05 BP 97/66, Pulse 120, Resp 22, Temp 101.4 ED notes p2 12/05 SIRS scoring Yes pt did meet at criteria ED notes p11 12/05 Bilateral Pneumonia, Hypoxia, Sepsis H&P p1 12/06 Dr Perera The pt has some cough, nonproductive for on and off few days, fever on and off few days. The patient was found to be hypoxic in the office with O2 sat around 85% on room air Pulmo Consult p2 12/06 Dr Hayes Clearly, her pulmonary issues are due to microaspiration PN p1 12/10 Dr Hayes Aspiration pneumonia, severe deconditioning. All cultures are negative. Gram-negative rods in the blood culture. Probably contamination. I would discontinue the vancomycin. RISK FACTORS H&P p1 12/06 History of E coli Sepsis H&P p1 12/06 Breast Cancer H&P p1 12/06 Bone mets H&P p2 12/06 Cellulitis, left ankle H&P p2 12/06 Possible pneumonia bilateral, aspiration Consult p2 12/06 Acute on Chronic Respiratory Failure TREATMENTS DEC 23 IV Vancomycin 1gm DEC 23 DuoNeb 3ml Neb DEC 23 IV Cefepime 1gm DEC 22 IV Zosyn 3.375 DEC 22 IVF 1L DEC 23 Augmentin 875 mg po Chest Xray ordered 12/05 Respiratory Panel 12/06 Oxygen 2L Pulmonology consult 12/06 Sheldon Vasquez (This form is maintained as a part of the permanent medical record) 2014 [employer], [employer]. All Rights Reserved [email or web address]
== END 2019-12-12 15:53 | disposition home health service (06) | DRG 177 ==
LOC: ERS 19:56 → IMCU/EMU 12-06 01:38
PROVIDERS: ADMIT Internal Medicine; ATTEND Internal Medicine
PROC: 5A09357 Assistance with Respiratory Ventilation, Less than 24 Consecutive Hours, Continuous Positive Airway Pressure (ICD-10-PCS; principal; 2019-12-08)
DX: J69.0 Pneumonitis due to inhalation of food and vomit (principal); J96.21 Acute and chronic respiratory failure with hypoxia; I50.21 Acute systolic (congestive) heart failure; L03.116 Cellulitis of left lower limb; I42.8 Other cardiomyopathies; C79.51 Secondary malignant neoplasm of bone; F31.9 Bipolar disorder, unspecified; C50.912 Malignant neoplasm of unspecified site of left female breast; G89.4 Chronic pain syndrome; M41.34 Thoracogenic scoliosis, thoracic region; E66.01 Morbid (severe) obesity due to excess calories; Z79.899 Other long term (current) drug therapy; Z79.82 Long term (current) use of aspirin; Z90.49 Acquired absence of other specified parts of digestive tract; Z90.710 Acquired absence of both cervix and uterus; Z68.33 Body mass index [BMI] 33.0-33.9, adult
CPT/HCPCS: 36415; 51701; 71045; 77280; 77307; 77334; 77336; 77412; 80048; 80053; 80202; 81003; 81015; 83605; 83880; 85025; 87040; 87804; 93005; 93306; 94640; 94760; 96361; 96365; 96367; J0692; J1940; J2543; J2920; J3370; J3490; J7050; J7512; J7620

== ENCOUNTER 2020-01-09 14:02 | Inpatient (IN) | payer MEDICARE ==
[2020-01-09 14:36] LABS: #Eosinphils 0.1 thou/uL (0.0-0.7); #Lymphocytes 0.5 thou/uL (1.20-3.40); #Monocytes 0.2 thou/uL (0.11-0.59); %Basophils 0.1 % (0.0-1.0); %Eosinophils 2.9 % (0.0-10.0); %Lymphocytes 28.2 % (21.0-51.0); %Monocytes 12.6 % (0.0-10.0); %Neutrophils 56.2 % (42.0-75.0); Hemoglobin 8.4 g/dL (12.0-16.0); Mean Corpuscular HGB CONC 33.8 g/dL (32.0-36.0); Mean Corpuscular Hemoglobin 32.1 pg (27.0-31.0); Mean Platelet Volume 6.9 fL (7.4-10.4); Platelet Count 208 thou/uL (130-400); Red Blood Cell (RBC) Count 2.61 mill/uL (4.20-5.40); White Blood Cell (WBC) Count 1.8 thou/uL (4.8-10.8)
[2020-01-09 14:55] LABS: Anion Gap 13 mmol/L (10-20); BUN (Urea Nitrogen) 6 mg/dL (9.8-20.1); Calc. Creatinine Clearance 0 mL/min (70-130); Calcium 8.3 mg/dL (7.8-10.44); Carbon Dioxide 30 mmol/L (22-29); Chloride 97 mmol/L (98-107); Estimated GFR-MDRD Greater than 90; Glucose 99 mg/dL (70-105); Potassium 3.5 mmol/L (3.5-5.1); Sodium 136 mmol/L (136-145)
--- NOTE | 2020-01-09 15:00 | RAD ---
Chest AP view INDICATION: Dyspnea COMPARISON: December 10, 2019 FINDINGS: Lungs: There is bibasilar atelectasis. There are stable areas of chronic interstitial scarring invo lving both lungs. Cardiac silhouette: There is stable mild cardiomegaly Pulmonary vasculature: Normal Pleural spaces: No pleural effusion or pneumothorax is demonstrated. Upper abdomen: No abnormality seen. Osseous structures: No acute osseous abnormality. Additional findings: None. IMPRESSION: Bibasilar atelectasis. Stable mild cardiomegaly. Stable chronic lung changes.
[2020-01-09] MEDS ORDERED: Cefepime 2 GM VIAL ONE (15:03)
[2020-01-09 15:49] LABS: Bacteria/HPF None Seen HPF (None Seen); Bilirubin Negative (Negative); Blood, Urine Negative (Negative); Clarity Clear (Clear); Glucose, Urine (Dipstick) Normal (Negative); Leukocyte 25 Leu/uL (Negative); Nitrite Negative (Negative); Protein, Urine (Dipstick) 20 mg/dL (Neg-Trace); RBC/HPF 0-3 HPF (0-3); Squamous Epithelial 0-3 HPF (0-3); Urobilinogen Normal mg/dL (Less than 2); WBC/HPF 0-3 HPF (0-3)
[2020-01-09 16:19] LABS: ALT (SGPT) 8 U/L (8-55); AST (SGOT) 20 U/L (5-34); Albumin 3.1 g/dL (3.5-5.0); Alkaline Phosphatase 102 U/L (40-110); Anion Gap 12 mmol/L (10-20); BUN (Urea Nitrogen) 6 mg/dL (9.8-20.1); Bilirubin, Total 0.3 mg/dL (0.2-1.2); Calc. Creatinine Clearance 0 mL/min (70-130); Calcium 8.4 mg/dL (7.8-10.44); Carbon Dioxide 31 mmol/L (22-29); Chloride 97 mmol/L (98-107); Estimated GFR-MDRD Greater than 90; Globulin 2.8 g/dL (2.4-3.5); Glucose 99 mg/dL (70-105); Potassium 3.5 mmol/L (3.5-5.1); Protein, Total 5.9 g/dL (6.0-8.3); Sodium 136 mmol/L (136-145)
--- NOTE | 2020-01-09 20:09 | HP ---
REASON FOR ADMISSION AND CHIEF COMPLAINT: Leg edema and redness. HISTORY OF PRESENT ILLNESS: Ms. Mosley is a 54-year-old female with past medical history of metastatic breast cancer, leg edema, history of respiratory failure, kyphoscoliosis, came because of worsening leg edema. The patient has been taking Lasix according to the patient. The patient says her leg edema is getting worse, became red today, showed lot of erythema. The swelling is extending up to the groin. Does have some pain, but no fever. The patient was evaluated in the ER, thought to have cellulitis, was given vancomycin, Rocephin, and being admitted for further evaluation and management. PAST MEDICAL HISTORY: 1. History of metastatic breast cancer. 2. History of pathological fracture in left hip, status post hemiarthroplasty. 3. History of E coli sepsis. 4. Bipolar disorder. 5. Neutropenia 6. History of cellulitis in both legs. 7. History of pneumonia. 8. History of respiratory failure. 9. Kyphoscoliosis. PAST SURGICAL HISTORY: Status post hemiarthroplasty of the left hip fracture. CURRENT MEDICATIONS: The patient is on; 1. Depakote 250 b.i.d. 2. Arimidex one tablet daily. 3. Nexium 40 mg b.i.d. 4. Fentanyl patch q.3 days. 5. Lasix 40 mg b.i.d. 6. Ferrous sulfate daily. 7. Gabapentin 300 t.i.d. 8. Lidocaine patch daily. 9. Mirtazapine 15 mg at bedtime. 10. MS Contin 30 mg q.12 hours. 11. Promethazine p.r.n. 12. KCl 20 mEq b.i.d. ALLERGIES: NKDA. FAMILY HISTORY: Nothing contributory. SOCIAL HISTORY: The patient lives with family with her parents. REVIEW OF SYSTEMS: CARDIOVASCULAR: No chest pain. No shortness of breath. RESPIRATORY: No fever or cough. GASTROINTESTINAL: No nausea, vomiting, or abdominal pain. CENTRAL NERVOUS SYSTEM: No headache. No dizziness. PHYSICAL EXAMINATION: GENERAL: The patient is alert, awake, oriented x3. VITAL SIGNS: Temperature 99, pulse 110, respirations 20, and blood pressure 100 /60. HEENT. Head is normocephalic and atraumatic. Pupils are equal and reactive. Nasopharynx is pale and dry. NECK: Supple. No JVD. LUNGS: Bilateral air entry present. No rales, no rhonchi. HEART: S1 and S2, regular. ABDOMEN: Soft. No distention. No tenderness. No organomegaly. Bowel sounds present. RECTAL: Deferred. CENTRAL NERVOUS SYSTEM: No focal deficits. EXTREMITIES: Both lower extremities with marked edema extending up to the groin , bilaterally there is 3+ pitting edema along with marked erythema of both lower extremities. It is warm to touch and tender. LABORATORY DATA: CBC shows WBC 1.8, hemoglobin 8.4, hematocrit 24, platelets 208. Metabolic panel; sodium 136, potassium 3.5, chloride is 97, CO2 is 31, BUN 6, creatinine 0.65, glucose 117. Urinalysis, negative. Chest x-ray, no acute changes seen. EKG shows normal sinus rhythm, no acute ST-T wave changes seen. ASSESSMENT: 1. Marked intractable leg edema, left more than right. 2. Possible cellulitis, left. 3. Hypokalemia. 4. History of metastatic breast cancers. 5. Venous insufficiency. 6. Kyphoscoliosis. 7. History of respiratory failure. 8. History of pneumonia. 9. History of pathologic fracture, left hip, status post hemiarthroplasty. PLAN: 1. Vital signs q.4 hours. 2. Activities, as tolerated. 3. Allergies, NKDA. 4. Hep-Lock. 5. Lasix 40 IVP q.12 hours. 6. Vancomycin 1 g IV piggyback q.12 hours. 7. Rocephin 1 g IV piggyback daily. 8. Elevate both legs. 9. Weigh the patient daily. 10. We will continue her home medications and we will obtain a.m. labs. Job ID: [id number] [facility]
[2020-01-09] MEDS ORDERED: Ondansetron ODT 4 MG TAB SL PRN (20:42)
[2020-01-09] MEDS ORDERED: Ondansetron PF 4 MG/2 ML Vial IVP PRN (20:42)
[2020-01-09] MEDS ORDERED: Acetaminophen 325 MG TAB PO PRN (20:42)
[2020-01-09] MEDS ORDERED: cefTRIAXone\\ROCEPHIN 2 GM in Sodium Chloride 0.9% 100 ML IVPB SCH (21:00)
[2020-01-09 21:33] VITALS: BMI 31.2
[2020-01-09] MEDS ORDERED: Promethazine 25 MG TAB PO PRN (21:40)
[2020-01-09] MEDS ORDERED: Divalproex Sodium 250 MG (DR) TAB PO SCH (21:45)
[2020-01-09] MEDS ORDERED: Senokot S 8.6-50 MG TAB PO SCH (21:45)
[2020-01-09] MEDS ORDERED: Mirtazapine 15 MG TAB PO PRN (21:47)
[2020-01-09] MEDS ORDERED: Morphine ER 30 MG TAB PO SCH (22:00)
[2020-01-09] MEDS ORDERED: Gabapentin 300 MG CAP PO SCH (22:00)
[2020-01-09] MEDS: Potassium Chloride 20 MEQ TAB PO SCH (23:27)
[2020-01-09] MEDS: cefTRIAXone\\ROCEPHIN 1 GM in Sodium Chloride 0.9% 100 ML IVPB SCH (23:27)
[2020-01-09] MEDS: Furosemide 40 MG/4 ML VIAL SLOW IVP SCH (23:28)
[2020-01-10] MEDS: Potassium Chloride 20 MEQ TAB PO SCH ×3 (02:13→17:22)
[2020-01-10] MEDS: Vancomycin HCl 1.25 GM in Sodium Chloride 0.9% 250 ML 250 ML IVPB SCH ×2 (04:27→17:23)
[2020-01-10 04:45] LABS: Anion Gap 11 mmol/L (10-20); BUN (Urea Nitrogen) 4 mg/dL (9.8-20.1); Calc. Creatinine Clearance 204 mL/min (70-130); Calcium 7.7 mg/dL (7.8-10.44); Carbon Dioxide 31 mmol/L (22-29); Chloride 100 mmol/L (98-107); Estimated GFR-MDRD Greater than 90; Glucose 88 mg/dL (70-105); Potassium 3.4 mmol/L (3.5-5.1); Sodium 139 mmol/L (136-145)
[2020-01-10 05:31] LABS: Hemoglobin 7.2 g/dL (12.0-16.0); Mean Corpuscular HGB CONC 33.5 g/dL (32.0-36.0); Mean Corpuscular Volume 95.6 fL (78.0-98.0); Platelet Count 204 thou/uL (130-400); Red Blood Cell (RBC) Count 2.26 mill/uL (4.20-5.40); White Blood Cell (WBC) Count 1.7 thou/uL (4.8-10.8)
[2020-01-10 05:32] LABS: Band 8 % (5-11); Eosinophils 3 % (0-10); Lymphocytes 28 % (21-51); MDiff Complete? YES; Monocytes 16 % (0-10); Neutrophil 43 % (42-75)
[2020-01-10] MEDS: Morphine ER 30 MG TAB PO SCH ×2 (09:04→20:38)
[2020-01-10] MEDS: Gabapentin 300 MG CAP PO SCH ×3 (09:04→20:38)
[2020-01-10] MEDS: Senokot S 8.6-50 MG TAB PO SCH ×2 (09:05→20:38)
[2020-01-10] MEDS: Anastrozole 1 MG TAB PO SCH (09:05)
[2020-01-10] MEDS: Pantoprazole 40 MG GRANULES PACKET PO SCH (09:05)
[2020-01-10] MEDS: Furosemide 40 MG/4 ML VIAL SLOW IVP SCH ×2 (09:06→20:37)
[2020-01-10] MEDS: Lidocaine 5% Patch TD SCH (09:06)
[2020-01-10] MEDS: Divalproex Sodium 250 MG (DR) TAB PO SCH ×2 (09:32→20:38)
[2020-01-10] MEDS ORDERED: Potassium Chloride 20 MEQ TAB PO SCH (20:30)
[2020-01-10] MEDS: cefTRIAXone\\ROCEPHIN 1 GM in Sodium Chloride 0.9% 100 ML IVPB SCH (20:37)
[2020-01-10] MEDS: Lidocaine Patch Removal TOP SCH (20:39)
[2020-01-10] MEDS ORDERED: fentaNYL 100 mcg/hour Patch TD SCH (21:00)
[2020-01-11 04:19] LABS: Anion Gap 8 mmol/L (10-20); BUN (Urea Nitrogen) 5 mg/dL (9.8-20.1); Calc. Creatinine Clearance 183 mL/min (70-130); Calcium 8.1 mg/dL (7.8-10.44); Carbon Dioxide 35 mmol/L (22-29); Chloride 99 mmol/L (98-107); Estimated GFR-MDRD Greater than 90; Glucose 82 mg/dL (70-105); Potassium 3.8 mmol/L (3.5-5.1); Sodium 138 mmol/L (136-145)
[2020-01-11 04:27] LABS: Eosinophils 4 % (0-10); Hemoglobin 8.2 g/dL (12.0-16.0); Hypochromia SLIGHT = 6-15 cells (100X) (0-5/hpf); Lymphocytes 46 % (21-51); MDiff Complete? YES; Mean Corpuscular HGB CONC 32.9 g/dL (32.0-36.0); Mean Corpuscular Hemoglobin 31.9 pg (27.0-31.0); Mean Platelet Volume 6.8 fL (7.4-10.4); Monocytes 2 % (0-10); Neutrophil 48 % (42-75); Platelet Count 205 thou/uL (130-400); Platelet Morphology Comment Appears Adequate; RBC Distribution Width 19.7 % (11.5-14.5); Red Blood Cell (RBC) Count 2.57 mill/uL (4.20-5.40); White Blood Cell (WBC) Count 1.5 thou/uL (4.8-10.8)
[2020-01-11] MEDS: Potassium Chloride 20 MEQ TAB PO SCH ×2 (09:36→16:56)
[2020-01-11] MEDS: Furosemide 40 MG/4 ML VIAL SLOW IVP SCH ×2 (09:37→20:14)
[2020-01-11] MEDS: Divalproex Sodium 250 MG (DR) TAB PO SCH ×2 (09:37→20:13)
[2020-01-11] MEDS: Anastrozole 1 MG TAB PO SCH (09:37)
[2020-01-11] MEDS: Senokot S 8.6-50 MG TAB PO SCH ×2 (09:38→20:13)
[2020-01-11] MEDS: Gabapentin 300 MG CAP PO SCH ×3 (09:38→20:13)
[2020-01-11] MEDS: Morphine ER 30 MG TAB PO SCH ×2 (09:38→20:13)
[2020-01-11] MEDS: Pantoprazole 40 MG GRANULES PACKET PO SCH ×2 (09:39→10:04)
[2020-01-11] MEDS: Lidocaine 5% Patch TD SCH (09:39)
[2020-01-11] MEDS: Morphine IR Tab 15 MG TAB PO PRN (14:56)
[2020-01-11] MEDS ORDERED: Potassium Chloride 20 MEQ TAB PO SCH (16:00)
[2020-01-11] MEDS ORDERED: Furosemide 40 MG/4 ML VIAL SLOW IVP SCH (16:00)
[2020-01-11] MEDS: cefTRIAXone\\ROCEPHIN 1 GM in Sodium Chloride 0.9% 100 ML IVPB SCH (20:14)
[2020-01-11] MEDS: Lidocaine Patch Removal TOP SCH (20:15)
[2020-01-12] MEDS: Furosemide 40 MG/4 ML VIAL SLOW IVP SCH ×2 (09:51→20:31)
[2020-01-12] MEDS: Potassium Chloride 20 MEQ TAB PO SCH ×2 (09:51→16:27)
[2020-01-12] MEDS: Morphine ER 30 MG TAB PO SCH ×2 (09:51→20:30)
[2020-01-12] MEDS: Anastrozole 1 MG TAB PO SCH (09:51)
[2020-01-12] MEDS: Gabapentin 300 MG CAP PO SCH ×3 (09:52→20:30)
[2020-01-12] MEDS: Senokot S 8.6-50 MG TAB PO SCH ×2 (09:52→20:30)
[2020-01-12] MEDS: Lidocaine 5% Patch TD SCH (09:53)
[2020-01-12] MEDS: Pantoprazole 40 MG GRANULES PACKET PO SCH (09:53)
[2020-01-12] MEDS: Divalproex Sodium 250 MG (DR) TAB PO SCH ×2 (09:56→20:29)
[2020-01-12 11:19] LABS: Hemoglobin 9.2 g/dL (12.0-16.0); Mean Corpuscular HGB CONC 33.1 g/dL (32.0-36.0); Mean Corpuscular Hemoglobin 32.1 pg (27.0-31.0); Mean Corpuscular Volume 96.9 fL (78.0-98.0); Platelet Count 238 thou/uL (130-400); RBC Distribution Width 19.3 % (11.5-14.5); Red Blood Cell (RBC) Count 2.86 mill/uL (4.20-5.40); White Blood Cell (WBC) Count 1.9 thou/uL (4.8-10.8)
[2020-01-12 11:31] LABS: ALT (SGPT) Less than 7 U/L (8-55); AST (SGOT) 17 U/L (5-34); Albumin 3.2 g/dL (3.5-5.0); Alkaline Phosphatase 96 U/L (40-110); Anion Gap 14 mmol/L (10-20); BUN (Urea Nitrogen) 8 mg/dL (9.8-20.1); Bilirubin, Total 0.3 mg/dL (0.2-1.2); Calc. Creatinine Clearance 166 mL/min (70-130); Calcium 8.7 mg/dL (7.8-10.44); Carbon Dioxide 34 mmol/L (22-29); Chloride 95 mmol/L (98-107); Estimated GFR-MDRD Greater than 90; Globulin 2.3 g/dL (2.4-3.5); Glucose 118 mg/dL (70-105); Potassium 3.8 mmol/L (3.5-5.1); Protein, Total 5.5 g/dL (6.0-8.3); Sodium 139 mmol/L (136-145)
[2020-01-12 12:22] LABS: Anisocytosis MODERATE=16-30 cells (100X) (0-5/hpf); Band 21 % (5-11); Eosinophils 2 % (0-10); Lymphocytes 24 % (21-51); MDiff Complete? YES; Monocytes 21 % (0-10); Neutrophil 29 % (42-75); Platelet Morphology Comment Appears Adequate; Polychromasia MODERATE = 3-4 cells (100X) (0-2/hpf); Reactive Lymphocytes 3 % (0-10); Schistocytes SLIGHT = 2-5 cells (100X) (0-1/hpf); Target Cells SLIGHT = 2-5 cells (100X) (0-1/hpf)
[2020-01-12] MEDS: Morphine IR Tab 15 MG TAB PO PRN (12:52)
[2020-01-12] MEDS ORDERED: Potassium Chloride 20 MEQ TAB PO SCH (17:00)
[2020-01-12] MEDS ORDERED: Furosemide 40 MG/4 ML VIAL SLOW IVP SCH (17:00)
[2020-01-12] MEDS: cefTRIAXone\\ROCEPHIN 1 GM in Sodium Chloride 0.9% 100 ML IVPB SCH (20:31)
[2020-01-12] MEDS: Lidocaine Patch Removal TOP SCH (20:31)
[2020-01-13] MEDS: Morphine IR Tab 15 MG TAB PO PRN (03:27)
[2020-01-13] MEDS: Furosemide 40 MG/4 ML VIAL SLOW IVP SCH (08:18)
[2020-01-13] MEDS: Divalproex Sodium 250 MG (DR) TAB PO SCH (08:18)
[2020-01-13] MEDS: Gabapentin 300 MG CAP PO SCH (08:18)
[2020-01-13] MEDS: Anastrozole 1 MG TAB PO SCH (08:18)
[2020-01-13] MEDS: Potassium Chloride 20 MEQ TAB PO SCH (08:18)
[2020-01-13] MEDS: Senokot S 8.6-50 MG TAB PO SCH (08:19)
[2020-01-13] MEDS: Pantoprazole 40 MG GRANULES PACKET PO SCH (08:19)
[2020-01-13] MEDS: Lidocaine 5% Patch TD SCH (08:19)
[2020-01-13] MEDS: Morphine ER 30 MG TAB PO SCH (08:20)
[2020-01-13 08:51] VITALS: BP 98/57; TEMP 97.8
--- NOTE | 2020-01-14 12:56 | DIS ---
DATE OF ADMISSION: 01/09/2020 DATE OF DISCHARGE: 01/13/2020 ADMITTING DIAGNOSES: 1. Marked intractable leg edema, left more than right. 2. Possible cellulitis, left. 3. Hypokalemia. 4. Venous insufficiency. 5. Metastatic breast cancer history. 6. Kyphoscoliosis. 7. History of respiratory failure. 8. History of pneumonia. 9. History of pathological fracture, left hip, status post hemiarthroplasty. FINAL DIAGNOSES: 1. Intractable leg edema, possible lymphedema, left, improved. 2. Cellulitis, left leg, improved. 3. Hypokalemia, corrected. 4. Venous insufficiency. 5. Metastatic breast cancer. 6. Pathological fracture of left hip, status post hemiarthroplasty. 7. Kyphoscoliosis. 8. History of respiratory failure. BRIEF SUMMARY OF HOSPITAL COURSE: Ms. Mosley is a 54-year-old female, admitted because of left leg edema as well as possible cellulitis. The patient was found to have intractable edema in both legs, left more than right, possible lymphedema, with marked erythema. The patient was thought to have cellulitis. She was started on IV antibiotic, Zosyn, and also IV Lasix, elevation of the leg. In the next 2 days, her erythema completely resolved. Her swelling also came down. Did not have any fever. Cultures were negative. In view of improvement, the patient is being discharged home. At the time of discharge, she was stable and her vital signs were stable. Lungs clear. Heart sounds regular. Abdomen, soft and nontender. Bowel sounds present. DISCHARGE MEDICATIONS: Include; 1. Arimidex 1 mg daily. 2. Depakote 250 b.i.d. 3. Fentanyl patch, 125 mcg patch q.3 days. 4. Neurontin 300 mg t.i.d. 5. Morphine ER 30 mg b.i.d. 6. Phenergan p.r.n. 7. Nexium 40 mg daily. 8. Lidocaine patch daily. 9. Morphine immediate release 15 mg q.4 hours p.r.n. 10. Remeron 15 mg daily. 11. Lasix 60 mg b.i.d. 12. KCl 20 mEq t.i.d. 13. Ibrance 125 mg daily. 14. Senokot b.i.d. FOLLOWUP: The patient will come for followup in 2 weeks. Job ID: [id number] [facility]
[2020-01-15] MEDS ORDERED: PALBOCICLIB PO SCH (09:00)
--- NOTE | 2020-01-16 11:32 | PQF ---
NADEEN MARTIN VENKAT R MD [id number] CLINICAL DOCUMENTATION CLARIFICATION FORM: POST DISCHARGE Addendum to original discharge summary date: ____ Late entry note date: __ DATE:01/16/2020 ATTN: KATIE PERERA MD Please exercise your independent, professional judgment in responding to the clarification form. Clinical indicators are provided on the bottom of this form for your review Please check appropriate box(s) to clarify if the following diagnosis has been ruled in or ruled out: Sepsis [ ] Ruled in diagnosis [ ] Continue to treat [ ] Resolved [ y] Ruled out diagnosis [ ] Cannot rule out diagnosis [ ] Other diagnosis [ ] Unable to determine For continuity of documentation, please document condition throughout progress notes and discharge summary. Thank You. CLINICAL INDICATORS - SIGNS / SYMPTOMS / LABS [id number] in ED on 01/08 by Juaquin Garcia MD Pulse tachycardic-Documented in ED on 01/08 by Juaquin Garcia MD Sepsis-Documented in ED on 01/08 by Juaquin Garcia MD Bilateral LE cellulitis -Documented in ED on 01/08 by Juaquin Garcia MD RISK FACTORS History of E coli sepsis -Documented in H&P 01/08 by Katie Perera MD History of Pneumonia -Documented in H&P 01/08 by Katie Perera MD TREATMENTS Vancomycin 1 g IV-Documented in H&P 01/08 by Katie Perera MD Rocephin 1 g IV-Documented in H&P 01/08 by Katie Perera MD [employer] (This form is maintained as a part of the permanent medical record) 2014 [employer]. All Rights Reserved [email or web address]
== END 2020-01-13 12:20 | disposition home or self-care (01) | DRG 603 ==
LOC: ERS 14:02 → ONC 16:21
PROVIDERS: ADMIT Internal Medicine; ATTEND Internal Medicine
DX: L03.116 Cellulitis of left lower limb (principal); E87.6 Hypokalemia; I87.2 Venous insufficiency (chronic) (peripheral); Z96.642 Presence of left artificial hip joint; F31.9 Bipolar disorder, unspecified; Z87.01 Personal history of pneumonia (recurrent); M41.9 Scoliosis, unspecified; Z87.09 Personal history of other diseases of the respiratory system; R40.2362 Coma scale, best motor response, obeys commands, at arrival to emergency department; R40.2142 Coma scale, eyes open, spontaneous, at arrival to emergency department; R40.2252 Coma scale, best verbal response, oriented, at arrival to emergency department; Z90.710 Acquired absence of both cervix and uterus; Z85.3 Personal history of malignant neoplasm of breast; I89.0 Lymphedema, not elsewhere classified; R60.0 Localized edema
CPT/HCPCS: 36415; 71045; 80048; 80053; 81001; 83605; 83880; 84484; 85025; 87040; 87086; 87804; 93005; 96365; 96366; 96367; J0692; J0696; J1940; J3370; J3490; J7050

== ENCOUNTER 2020-01-31 08:51 | Outpatient (CLI) | payer MEDICARE ==
--- NOTE | 2020-01-31 10:47 | CT ---
EXAM: CT chest, abdomen, and pelvis with IV contrast: HISTORY: Malignant neoplasm left breast. Patient with history of prior radiation therapy as well as chemothera py. Metastatic disease. Evaluate for response to therapy. COMPARISON: 10/22/2019 FINDINGS: CT THORAX: Lungs: Scattered linear and patchy parenchymal densities are seen within the lungs bilaterally predom inantly at each lung base and most likely attributable to atelectasis. A discrete pulmonary nodule is not seen. There is a pleural-based masslike density seen in the anterior aspect left upper lobe me asuring 2.7 cm x 1.3 cm. Pleural-based metastatic lesion is a possibility. A similar finding is seen on the right although smaller in size. Pleura: No pleural effusion. Lymph nodes: Again noted is an enlarged left axillary lymph node measuring 2.9 cm x 1.7 cm. This prev iously measured 3.3 cm x 1.9 cm. No new enlarged left axillary lymph nodes are seen. No mediastinal or hilar lymphadenopathy. Mediastinum: No acute process of the mediastinal structures. Chest wall: Again noted is the large lobulated left breast mass. More inferior portion of the mass me asures 5.4 cm x 4.7 cm with previous measurement of 5.8 cm x 5.3 cm. The lobulated portion of the mass more superiorly measures 5.1 cm x 2.4 cm with previous measurement of 5.1 cm x 2.[address] ABDOMEN AND PELVIS: Liver: Within normal limits. Gallbladder: Faint increased density is seen within the dependent portion of the gallbladder lumen wi th may represent gallbladder sludge.\ Pancreas: Within normal limits. Spleen: Within normal limits. Adrenal glands: Within normal limits. Kidneys: Within normal limits. Urinary Bladder: Partially obscured due to streak artifact. Reproductive organs: Evidence of hysterectomy. Bowel: Small to moderate amount retained fecal material seen throughout the colon. Loops of small bow el are normal in caliber. Adenopathy:No enlarged lymph nodes are seen by CT size criteria. Peritoneum: No free fluid or fluid collection is seen. No free intraperitoneal gas is identified. Abdominal wall: Mild subcutaneous edema is present in the anterior aspect of the lower pelvis and inv olving the lateral aspect of each lower extremity greater on the left. Osseous structures: Again noted are multiple lytic and sclerotic metastatic lesions involving multipl e thoracic and lumbar vertebral bodies with compression fractures of the vertebral bodies suggesting pathological fractures; although, some of the fractures could be related to osteoporotic c ompression fractures. There is a greater degree of height loss now seen involving the T10 vertebral body with greater than 75 % loss of height centrally. A mixed lytic and sclerotic lesion now also inv olves the L2 vertebral body with mild degree of height loss. Severe collapse of a burst fracture involving the C7 vertebral body is again seen. There is retropulsion of fracture fragments as well as anterolisthesis of C6 on C7 with severe exaggerated kyphosis of the cervicothoracic junction at this level. Lytic and sclerotic lesions are also again seen involving the T1 and T2 vertebral bodies with mildly greater degree of height loss involving the T2 vertebral body. There is a new fracture now seen involving the central aspect of the sternum which is likely related to pathological fracture. There is questionable subtle area of groundglass density in this region on prior study. The expanding lytic lesion involving the T5 rib is again seen. A few additional scatt ered lytic and sclerotic lesions are seen involving the posterolateral ribs bilaterally also present on prior exam. Mixed lytic and sclerotic lesion right iliac bone in a supra-acetabular region is again present. Mixe d lytic and sclerotic lesion left iliac bone is present. Left total hip prosthesis is again seen. IMPRESSION: 1. Multilevel mixed lytic and sclerotic metastatic lesions involving the spine with interval increase in height loss involving the T10 and L2 vertebral bodies. In addition, the severe burst fracture of C7 vertebral body is again seen, and there does appear to be anterolisthesis of C6 on C7 with basil re exaggerated kyphosis centered at the level of the cervicothoracic junction. Additional scattered osseous metastatic lesions are seen involving the pelvis and ribs. 2. Interval development of pathological fracture involving the central sternum. 3. Lobulated left breast mass, and measurements are overall smaller in size. 4. Pleural-based masslike density seen in the anterior aspect upper lung zones bilaterally which coul d potentially represent metastatic lesions especially on the left. 5. Persistent enlarged left axillary lymph node.
--- NOTE | 2020-01-31 13:36 | NM ---
Exam: Nuclear medicine whole body bone scan COMPARISON: 10/22/2019 HISTORY: Malignant neoplasm of central portion of left female breast. Metastatic breast cancer. TECHNIQUE: Patient was administered 32 mCi of technetium 99m mebrofenin intravenously. Whole body del ayed images were performed FINDINGS: Stable photopenia due to a left hip arthroplasty. Diffuse radiotracer localization involving the calvarium, ribs, spine are due to osseous metastases. The overall degree and distribution of metastatic disease has not significantly improved. Market uptake in the posterior right iliac wing compatible with known metastatic focus. Additional uptake in volving the mid left femoral diaphysis, bilateral feet and ankle are presumed to represent reactive change. IMPRESSION: 1. Extensive osseous metastases. The overall degree and distribution is similar to the previous exami nation.
== END 2020-01-31 08:52 | disposition home or self-care (01) ==
LOC: CT 08:51
PROVIDERS: ATTEND Internal Medicine Hematology & Oncology
DX: C50.112 Malignant neoplasm of central portion of left female breast (principal); C79.51 Secondary malignant neoplasm of bone
CPT/HCPCS: 71260; 74177; 78306; A9503

== ENCOUNTER 2020-04-29 09:19 | Outpatient (CLI) | payer MEDICARE ==
[2020-04-29] MEDS ORDERED: Iopamidol 370 76% 100 ML VIAL ONE (09:28)
--- NOTE | 2020-04-29 10:41 | CT ---
CT CHEST WITH IV CONTRAST CT ABDOMEN WITH IV CONTRAST CT PELVIS WITH IV CONTRAST: Date: 04/29/2020 HISTORY: Malignant neoplasm of central portion of left female breast. Secondary malignant neoplasm of bone. Me tastatic left breast cancer with bone metastasis. Exam requested to evaluate for response to treatmen t. COMPARISON: 01/31/2020. FINDINGS: The pleural based mass-like density in the anterior aspect of the left upper lobe is smaller, measuri ng 10.0 x 17.0 mm. The scattered linear and patchy parenchymal densities in the lungs are likely due to atelectatic changes and are stable. No discrete pulmonary nodule is seen. No mediastinal or hilar lymphadenopathy is identified. The left axillary lymphadenopathy is smaller, measuring 2.8 x 1.5 x 2.4 cm. No new enlarged axillary lymph nodes are seen. No pleural or pericardia l effusions are identified. The left-sided chest mass is stable, measuring about 5.0 cm in AP dimension. The liver, spleen, pancreas, adrenal glands, and kidneys are normal. No calcified gallstones are seen . No free air, free fluid, or lymphadenopathy seen in the abdomen or pelvis. Multiple lytic and sclerotic lesions in the skeleton are again seen with stable multiple compression fractures in the spine. The severe collapse of the burst fracture of C7 vertebral body is again noted with stable retropulsio n of fracture fragments, as well as anterolisthesis of C6 over C7. The healing fracture involving the sternum is again noted. Left-sided hip prosthesis is again seen. IMPRESSION: Mild interval improvement since 01/31/2020. POS: [facility]
--- NOTE | 2020-04-29 13:34 | NM ---
WHOLE BODY BONE SCAN: HISTORY: Malignant neoplasm of central portion of the left female breast. Metastatic breast cancer. E xam requested to evaluate response to treatment RADIOPHARMACEUTICAL: 31 mCi technetium 99m-MDP injected intravenously COMPARISON:01/31/2020 CORRELATION: CT chest, abdomen and pelvis from today FINDINGS: Abnormal areas of tracer localization involving the calvarium, ribs, spine, sternum and pelvis are ag ain seen consistent with metastatic disease. Mild interval improvement of the lesion in the right hemipelvis is noted since the last exam. No new areas of abnormal tracer localization is seen. Postop changes of right hip arthroplasty are again noted. There scattered degenerative activity in t he appendicular skeleton. Tracer excretion through the kidneys is within normal limits. IMPRESSION: Widespread osseous metastatic disease with mild interval improvement.
== END 2020-04-29 09:20 | disposition home or self-care (01) ==
LOC: CT 09:19
PROVIDERS: ATTEND Internal Medicine Hematology & Oncology
DX: C79.51 Secondary malignant neoplasm of bone (principal); C50.112 Malignant neoplasm of central portion of left female breast
CPT/HCPCS: 71260; 74177; 78306; A9503

== ENCOUNTER 2020-05-29 10:16 | Outpatient (CLI) | payer MEDICARE ==
--- NOTE | 2020-05-29 15:58 | CT ---
CT BRAIN NONCONTRAST: DATE: 05/29/2020 HISTORY: 54-year-old female with metastatic rest cancer and headache FINDINGS: There is no evidence of acute intra-axial or extra-axial hemorrhage. There is no midline shift or any other mass effect. There is no extra-axial fluid collection. There is no evidence of obstructive hydrocephalus. There is a small round ring shaped lucency with dense center measuring 8 mm at the rig ht paramedian vertex of the parietal bone. This corresponds to the single focus of increased uptake on the bone scan of 04/29/2020. Calvarium is otherwise intact. The paranasal sinuses and bilateral tymp anomastoid cavities, are grossly clear. IMPRESSION: 1. No acute intracranial findings. 2. Single small osseous lesion at the vertex of skull, probably a small metastasis.
--- NOTE | 2020-05-29 16:16 | CT ---
CT thoracic spine noncontrast: 05/29/2020 HISTORY: 54-year-old female with metastatic breast cancer and thoracic spine pain FINDINGS: Patient is severely kyphotic, such that the upper T-spine and entire C-spine are horizontal, almost a t right angles to lower thoracic spine. Multiple compression fractures of indeterminate ages as follows: C7: Severe burst fracture with vertebra plana and bony retropulsion occupying approximately 30% of th e AP dimension of the spinal canal. T1: Biconcave broad depressions of superior and inferior endplates. Estimated maximum anterior wedge loss of height of approximately 20%. Mild bony retropulsion qualifying this as a burst fracture. T2: Similar to T1, with bony retropulsion, and approximately 30% loss of height. T3: Approximately 20-30% loss of height. No bony retropulsion. T4: Similar to T3. T8: Chronic broad indentation of inferior endplate, with maximum of approximately 20% loss of height. T10: Collapse of vertebral body. Minimal bony retropulsion. Maximum 75-80% loss of height centrally. T11: Broad mild indentations of superior and inferior endplate with maximum of approximately 20% loss of height. Minimal bony retropulsion. T12: Anterior wedge compression deformity with approximately 20-30% loss of height. All of these fractures have heterogeneously sclerotic changes on the background of diffuse severe ost eoporosis. There is a nonacute fracture of the body of the sternum, with impaction, foreshortening, callus forma tion, and 20% bone width posterior displacement of inferior fragment. Bone metastases with possible pathologic fracture involving ribs: Right lateral fourth rib long segme nt. Right posterior lateral seventh rib. There is a large lobular 4.7 x 3.6 cm soft tissue density mass of the left breast. IMPRESSION: 1. Numerous compression fractures and burst fractures of thoracic spine of varying degrees. The worst is severe collapse of C7 vertebra. Uncertain which ones are pathologic fractures due to osseous metastasis and which ones are osteoporotic compression fractures. 2. fracture of the sternum, presumably pathologic fracture, with exuberant callus and impaction. 3. Osseous metastases of at least 2 right ribs. 4. Severe kyphosis. 5. Diffuse osteopenia. 6. Large left breast mass.
--- NOTE | 2020-05-29 16:49 | CT ---
CT CERVICAL SPINE WITHOUT CONTRAST: 05/29/20 INDICATIONS: History of metastasis to cervical spine. Neck pain. Stenosis. Exam is limited due to patient's position. The patient is kyphotic and is on Oxygen and there is diff iculty positioning the patient. FINDINGS: Diffuse mottled opacity involving the visualized cervical and thoracic vertebrae including posterior elements consistent with diffuse osseous metastasis. There is a severe compression deformity involving the C7 vertebrae with a vertebral plana type deform ity. There is resulting anterolisthesis of C6 measured at approximately 1 cm. No significant central canal stenosis at C2-3 or C3-4. No central canal stenosis at C4-5 or C5-6. At C6-7, there is moderately severe central canal stenosis due to the compression of C7 and the anter olisthesis of C6. There is mild retropulsion of C7 with compression of the cord and central canal juan nosis. Bilateral foraminal narrowing due to the osseous changes. Severe central canal stenosis and cord compression also present at C7-T1. T1-T2 shows no significant central canal stenosis. IMPRESSION: 1. Diffuse mottled lytic process involving all visualized vertebrae including posterior elements consistent with diffuse bony metastasis. 2. Severe compression deformity of the C7 vertebra with mild retropulsion. There is anterolisthe sis of C6 as noted above. 3. Moderate to severe central canal stenosis with cord compression at C6-7 and C7-T1. POS: [facility]
== END 2020-05-29 10:17 | disposition home or self-care (01) ==
LOC: BICCT 10:16
PROVIDERS: ATTEND Surgery
DX: C79.49 Secondary malignant neoplasm of other parts of nervous system (principal); M48.02 Spinal stenosis, cervical region; M54.2 Cervicalgia; C80.1 Malignant (primary) neoplasm, unspecified; C79.51 Secondary malignant neoplasm of bone; G95.20 Unspecified cord compression; M43.12 Spondylolisthesis, cervical region; M43.8X9 Other specified deforming dorsopathies, site unspecified; M43.8X2 Other specified deforming dorsopathies, cervical region; M85.80 Other specified disorders of bone density and structure, unspecified site; M40.204 Unspecified kyphosis, thoracic region; S22.20XA Unspecified fracture of sternum, initial encounter for closed fracture; S22.000A Wedge compression fracture of unspecified thoracic vertebra, initial encounter for closed fracture; N63.20 Unspecified lump in the left breast, unspecified quadrant
CPT/HCPCS: 70450; 72125; 72128

== ENCOUNTER 2020-07-25 11:04 | Inpatient (IN) | payer MEDICARE, MEDICAID, OTHER ==
[2020-07-25 11:57] LABS: #Lymphocytes 0.6 thou/uL (1.20-3.40); #Monocytes 0.3 thou/uL (0.11-0.59); #Neutrophils 2.2 thou/uL (1.40-6.50); %Basophils 0.7 % (0.0-1.0); %Eosinophils 0.3 % (0.0-10.0); %Lymphocytes 19.9 % (21.0-51.0); %Monocytes 8.4 % (0.0-10.0); %Neutrophils 70.7 % (42.0-75.0); Hemoglobin 12.3 g/dL (12.0-16.0); Mean Corpuscular HGB CONC 34.3 g/dL (32.0-36.0); Mean Corpuscular Volume 96.4 fL (78.0-98.0); Mean Platelet Volume 6.4 fL (7.4-10.4); Platelet Count 193 thou/uL (130-400); Red Blood Cell (RBC) Count 3.72 mill/uL (4.20-5.40)
--- NOTE | 2020-07-25 12:01 | RAD ---
PORTABLE CHEST: Date: 07/25/2020 HISTORY: Epigastric pain. Nausea and vomiting. COMPARISON: 01/09/2020 exam. FINDINGS: Heart size is enlarged. Chronic lung changes are seen without focal infiltrative process. Bones appea r demineralized. IMPRESSION: Cardiomegaly with chronic lung change. POS: [facility]
[2020-07-25 12:22] LABS: ALT (SGPT) 9 U/L (8-55); AST (SGOT) 12 U/L (5-34); Alkaline Phosphatase 66 U/L (40-110); Anion Gap 16 mmol/L (10-20); BUN (Urea Nitrogen) 21 mg/dL (9.8-20.1); Bilirubin, Total 0.5 mg/dL (0.2-1.2); Calc. Creatinine Clearance 0 mL/min (70-130); Calcium 8.4 mg/dL (7.8-10.44); Carbon Dioxide 23 mmol/L (22-29); Chloride 100 mmol/L (98-107); Estimated GFR-MDRD Greater than 90; Globulin 2.7 g/dL (2.4-3.5); Glucose 96 mg/dL (70-105); Potassium 4.1 mmol/L (3.5-5.1); Protein, Total 6.7 g/dL (6.0-8.3); Sodium 135 mmol/L (136-145)
[2020-07-25 13:13] LABS: Bacteria/HPF None Seen HPF (None Seen); Bilirubin Negative (Negative); Blood, Urine 2+ (Negative); Clarity Clear (Clear); Glucose, Urine (Dipstick) Normal (Negative); Ketone, Urine Greater than 150 mg/dL (Negative); Leukocyte Negative Leu/uL (Negative); Mucous/LPF 1+ LPF (<2+); Nitrite Negative (Negative); Protein, Urine (Dipstick) 50 mg/dL (Neg-Trace); Specific Gravity, Urine 1.028 (1.002-1.036); Squamous Epithelial None Seen HPF (0-3); Urobilinogen Normal mg/dL (Less than 2); WBC/HPF 0-3 HPF (0-3); pH, Urine 5.5 (5.0-9.0)
[2020-07-25] MEDS ORDERED: Iopamidol-370 76% 500 ML 1 ML ONE (13:22)
--- NOTE | 2020-07-25 13:39 | CT ---
CT ABDOMEN WITH CONTRAST CT PELVIS WITH CONTRAST: DATE: 07/25/20 HISTORY: 55-year-old female with weakness, nausea, and vomiting. No bowel movement. Breast cancer patient unde rgoing chemotherapy treatment. COMPARISON: 04/29/20 FINDINGS: Again noted are the multiple pathologic fractures, including right supraacetabular ilium, and multipl e compression fractures and burst fractures in the thoracic spine and lumbar spine. Again noted is th e left hip replacement arthroplasty. A large left breast mass is demonstrated, hematoma versus tumor. Large amount of colonic stool throughout the large intestine, more than before. New finding of diste nsion of the rectum by large volume of colonic stool. Transverse diameter of the rectum is at least 7 .5 cm. New finding of severe perirectal edema, in the presacral space with AP thickness of this edema 2 cm. Lack of visceral fat limits the evaluation of the bowel. The volume of colonic stool has incre ased since the prior CT. No major pathology identified involving the abdominal aorta, kidneys, liver, pancreas, spleen, or adrenals. No small bowel dilation. No pneumoperitoneum. Subsegmental atelectasi s at bases of bilateral lower lobes. IMPRESSION: 1. Constipation. 2. Distended rectum, and prominent presacral, perirectal edema. This raises the possibility of s tercoral proctitis. Recommend clinical correlation. 3. Multiple pathologic fractures due to metastatic bone disease. SAMANTHA Crane POS: HOLLI
--- NOTE | 2020-07-25 14:44 | PDOC.HOSPP ---
- Subjective Encounter Date: 07/25/20 Encounter Time: 10:00 Subjective: n/v/constipation for 4 days. chemo for breast cancer. Brought in by EMS with weakness, nausea and vomiting. Is been going on for last 4 to 5 days. She is had no bowel movement in this time. She is still passing some gas. She has been having dry heaves. She feels very weak. Denies any chest pain or shortness of breath. On home oxygen. Uses fentanyl patches. She said she is been on chemotherapy for about a year. No changes in the medication recently. Has been on fentanyl that whole time as well. No history of any abdominal surgeries. No dysuria. Sees Dr. Heredia for cancer. - Objective Result Diagrams: 07/25/20 11:35 07/25/20 11:35
[2020-07-25] MEDS ORDERED: Promethazine HCl 25 MG/ML VIAL ONE (15:03)
[2020-07-25] MEDS ORDERED: Ondansetron ODT 4 MG TAB PO PRN (16:53)
[2020-07-25] MEDS ORDERED: Mineral Oil ENEMA PR SCH (17:00)
[2020-07-25 17:05] VITALS: BMI 21.1
--- NOTE | 2020-07-25 17:30 | PDOC.HHP ---
Hospitalist HPI - History of Present Illness nasea, vomiting, constipation History of Present Illness: 55yo F w/ MHx of metastatic breast cancer to bones and spine on chronic opioids for pain control presents for nausea, vomiting, and constipation. Per patient has been on chronic opioids for months but over the past weeks pain has been increasing so administered more than her usual PRN morphine. Over the past four days, has had nausea, vomiting, abdominal pain, and no bowel movement. Had a small hard bowel movement four days ago that required straining and resulted in minor bleeding. At baseline, has a bowel movement every other day. Also endorses that she last urinated yesterday. On encounter, lying comfortably in bed and has no complaints. Denies chills, night sweats, chest pain, palpitations, dyspnea, hematochezia, melena, dysuria, hematuria, recent chemotherapy ED Course: In the ED, CT abdomen showed diffuse fecal content with perirectal edema. She was admitted for further management Hospitalist ROS - Review of Systems All other systems reviewed; all pertinent +/- noted in HPI/Subj Hospitalist History - Past Medical History Source: old records (PAST MEDICAL HISTORY: 1. History of metastatic breast cancer. 2. History of pathological fracture in left hip, status post hemiarthroplasty. 3. History of E coli sepsis. 4. Bipolar disorder. 5. Neutropenia 6. History of cellulitis in both legs. 7. History of pneumonia. 8. kyphoscoliosis) - Exam General Appearance: NAD, awake alert General - other findings: appears older than stated age Eye: PERRL, anicteric sclera ENT: normocephalic atraumatic, moist mucosa ENT - other findings: coarse voice Neck: no JVD Heart: RRR, no murmur, no gallops, no rubs Respiratory: CTAB, no wheezes, no rales, no ronchi Gastrointestinal: soft, non-distended, diminished bowl sounds Gastrointestinal - other findings: periumbilical and suprapubic tenderness; soft stool in rectal vault Extremities: no edema Psychiatric: normal affect, normal behavior, A&O x 3 Hospitalist Results - Labs Result Diagrams: 07/25/20 11:35 07/25/20 11:35 Lab results: WBC 3.0 thou/uL (4.8-10.8) L 07/25/20 11:35 Hgb 12.3 g/dL (12.0-16.0) 07/25/20 11:35 Hct 35.9 % (36.0-47.0) L 07/25/20 11:35 MCV 96.4 fL (78.0-98.0) 07/25/20 11:35 Plt Count 193 thou/uL (130-400) 07/25/20 11:35 Neutrophils % 70.7 % (42.0-75.0) 07/25/20 11:35 Sodium 135 mmol/L (136-145) L 07/25/20 11:35 Potassium 4.1 mmol/L (3.5-5.1) 07/25/20 11:35 Chloride 100 mmol/L (98-107) 07/25/20 11:35 Carbon Dioxide 23 mmol/L (22-29) 07/25/20 11:35 BUN 21 mg/dL (9.8-20.1) H 07/25/20 11:35 Creatinine 0.57 mg/dL (0.6-1.1) L 07/25/20 11:35 Glucose 96 mg/dL (70-105) 07/25/20 11:35 Lactic Acid 1.0 mmol/L (0.5-2.2) 07/25/20 11:35 Calcium 8.4 mg/dL (7.8-10.44) 07/25/20 11:35 Total Bilirubin 0.5 mg/dL (0.2-1.2) 07/25/20 11:35 AST 12 U/L (5-34) 07/25/20 11:35 ALT 9 U/L (8-55) 07/25/20 11:35 Alkaline Phosphatase 66 U/L (40-110) 07/25/20 11:35 Troponin I Less than 0.010 ng/mL (< 0.028) 07/25/20 11:35 Serum Total Protein 6.7 g/dL (6.0-8.3) 07/25/20 11:35 Albumin 4.0 g/dL (3.5-5.0) 07/25/20 11:35 Urine Ketones Greater than 150 mg/dL (Negative) A 07/25/20 12:03 Urine Blood 2+ (Negative) A 07/25/20 12:03 Urine Nitrite Negative (Negative) 07/25/20 12:03 Ur Leukocyte Esterase Negative Pool/uL (Negative) 07/25/20 12:03 Urine RBC 4-6 HPF (0-3) A 07/25/20 12:03 Urine WBC 0-3 HPF (0-3) 07/25/20 12:03 Ur Squamous Epith Cells None Seen HPF (0-3) 07/25/20 12:03 Urine Bacteria None Seen HPF (None Seen) 07/25/20 12:03 - Radiology Interpretation CT scan - abdomen Status: image reviewed by me (fecal content throughout intestine, widening of rectal vault with perirectal edema) Hospitalist H&P A/P - Problem (1) Constipation Code(s): K59.00 - CONSTIPATION, UNSPECIFIED Status: Acute (2) Breast cancer Status: Acute (3) Pathologic fracture of neck of left femur Code(s): M84.452A - PATHOLOGICAL FRACTURE, LEFT FEMUR, INIT ENCNTR FOR FRACTURE Status: Acute (4) Secondary malignancy of bone of lower extremity Code(s): C79.51 - SECONDARY MALIGNANT NEOPLASM OF BONE Status: Acute (5) Bipolar disorder Code(s): F31.9 - BIPOLAR DISORDER, UNSPECIFIED Status: Chronic Qualifiers: Active/Remission status: in full remission (6) DM type 2 (diabetes mellitus, type 2) Status: Chronic - Plan Plan: #Opioid-induced constipation #stercoral proctatitis -increased PRN morphine as of late due to increased pain -likely cause of nausea and vomiting, possibly urinary retention -oil enema -if no bowel movement within hour, disimpaction; nurse notified -IVF, docusate, bisacodyl CO -straight cath; if significant urinary retention, brown; otherwise continue postvoids as per order -if no bowel movement with laxatives, may need opioid antagnost such as relistor after laxatives are stopped -zofran PRN n/v -soft diet as tolerated #breast cancer with diffuse bone metasteses -resume home pain medications #prerenal azotemia #reduced systolic function recent echo showing EF 45-50%; CXR cardiomegaly euvolemic on exam -gentle IVF #T2DM mild sliding scale DNAR per patient request GI PPx: resume home PPI DVT PPx: lovenox
[2020-07-25] MEDS: Dextrose 5 % And 0.9 % NaCl 1,000 ML IV SCH (17:35)
[2020-07-25] MEDS: Bisacodyl 10 MG SUPP PR SCH (17:47)
[2020-07-25] MEDS ORDERED: Dextrose 50% Abboject 50 ML SYRINGE SLOW IVP PRN (18:02)
[2020-07-25] MEDS ORDERED: Dextrose 5% in Water 1,000 ML IV PRN (18:02)
[2020-07-25] MEDS ORDERED: HumaLOG 300 UNITS/3 ML VIAL SC PRN (18:02)
[2020-07-25] MEDS: Morphine 4 MG/ML VIAL SLOW IVP PRN (18:20)
[2020-07-25] MEDS: Divalproex Sodium 250 MG (DR) TAB PO SCH (20:25)
[2020-07-25] MEDS: Gabapentin 300 MG CAP PO SCH (20:25)
[2020-07-25] MEDS: Docusate 100 MG CAP PO SCH (20:26)
[2020-07-25] MEDS: Melatonin 3 MG TAB PO PRN (20:33)
[2020-07-25] MEDS ORDERED: Senokot S 8.6-50 MG TAB PO SCH (21:00)
[2020-07-25] MEDS ORDERED: Ketorolac Tromethamine 30 MG/ML VIAL IVP SCH (23:45)
[2020-07-26] MEDS: Senokot S 8.6-50 MG TAB PO PRN ×2 (00:07→20:00)
[2020-07-26] MEDS: Bisacodyl 10 MG SUPP PR SCH ×3 (03:00→16:56)
[2020-07-26] MEDS: Morphine IR Tab 15 MG TAB PO PRN ×2 (03:35→08:28)
[2020-07-26] MEDS: Dextrose 5 % And 0.9 % NaCl 1,000 ML IV SCH ×2 (05:31→16:58)
[2020-07-26 06:22] LABS: Eosinophils 2 % (0-10); Lymphocytes 40 % (21-51); MDiff Complete? YES; Mean Corpuscular HGB CONC 33.6 g/dL (32.0-36.0); Mean Corpuscular Hemoglobin 33.5 pg (27.0-31.0); Mean Corpuscular Volume 99.9 fL (78.0-98.0); Mean Platelet Volume 6.6 fL (7.4-10.4); Monocytes 15 % (0-10); Neutrophil 43 % (42-75); Platelet Count 166 thou/uL (130-400); Platelet Morphology Comment Appears Adequate; RBC Distribution Width 13.1 % (11.5-14.5); RBC Morphology Normal; Red Blood Cell (RBC) Count 2.97 mill/uL (4.20-5.40); White Blood Cell (WBC) Count 2.8 thou/uL (4.8-10.8)
[2020-07-26 06:32] LABS: Anion Gap 9 mmol/L (10-20); BUN (Urea Nitrogen) 9 mg/dL (9.8-20.1); Calc. Creatinine Clearance 99 mL/min (70-130); Calcium 7.7 mg/dL (7.8-10.44); Carbon Dioxide 23 mmol/L (22-29); Chloride 109 mmol/L (98-107); Estimated GFR-MDRD Greater than 90; Glucose 98 mg/dL (70-105); Magnesium 2.4 mg/dL (1.6-2.6); Potassium 3.6 mmol/L (3.5-5.1); Sodium 137 mmol/L (136-145)
[2020-07-26] MEDS ORDERED: Polyethylene Glycol 3350 17 GM Packet PO PRN (07:41)
[2020-07-26] MEDS ORDERED: Fleet Enema 133 ML BOT PR PRN (07:42)
[2020-07-26] MEDS ORDERED: Sodium Chloride 0.9% 500 ML IV SCH (07:45)
[2020-07-26] MEDS: Anastrozole 1 MG TAB PO SCH (08:28)
[2020-07-26] MEDS: Docusate 100 MG CAP PO SCH ×2 (08:29→19:55)
[2020-07-26] MEDS: Ferrous Sulfate 325 MG TAB PO SCH (08:30)
[2020-07-26] MEDS: Divalproex Sodium 250 MG (DR) TAB PO SCH ×2 (08:30→19:56)
[2020-07-26] MEDS: Gabapentin 300 MG CAP PO SCH ×3 (08:30→19:56)
[2020-07-26] MEDS: Enoxaparin Sodium 30 MG/0.3 ML SYRINGE SC SCH (08:30)
[2020-07-26] MEDS ORDERED: FLU VACC QS2020-21(6MOS UP)/PF 60 MCG/0.5 ML SYRINGE IM ONE (09:00)
[2020-07-26] MEDS ORDERED: PALBOCICLIB PO SCH (09:00)
[2020-07-26] MEDS: Ondansetron PF 4 MG/2 ML Vial IVP PRN ×3 (11:49→23:37)
[2020-07-26 12:08] LABS: SARS-CoV-2 MS2 Positive; SARS-CoV-2 N Gene Negative; SARS-CoV-2 S Gene Negative; SARS-CoV-2 by NAA Not Detected (NotDetected); SARS-CoV-2 orf1ab Negative
[2020-07-26] MEDS: Morphine 4 MG/ML VIAL SLOW IVP PRN ×3 (12:50→23:30)
--- NOTE | 2020-07-26 14:18 | PDOC.HOSPP ---
- Subjective Encounter Date: 07/26/20 Encounter Time: 14:16 Subjective: Ms. Mosley was seen today in follow-up of severe constipation. She says she had only one small bowel movement yesterday. she still feels bloated, and has rectal pain. - Objective Vital Signs & Weight: Vital Signs (12 hours) Temp Pulse Pulse Pulse Pulse Resp BP 07/26/20 11:10 98.0 F 69 16 07/26/20 09:52 07/26/20 09:15 65 65 65 07/26/20 08:26 07/26/20 08:00 98.2 F 65 18 121/63 07/26/20 07:21 98.2 F 65 16 07/26/20 04:11 98.4 F 60 18 BP BP BP BP Pulse Ox 07/26/20 11:10 98/63 100 07/26/20 09:52 103/65 103/65 07/26/20 09:15 94/54 L 110/69 103/65 07/26/20 08:26 121/63 07/26/20 08:00 95 07/26/20 07:21 91/52 L 95 07/26/20 04:11 99/56 L 96 Weight Admit Weight 108 lb Weight 108 lb 0.001 oz I&O: 07/25/20 07/26/20 07/27/20 06:59 06:59 06:59 Intake Total 1770 Output Total 1600 Balance 170 Result Diagrams: 07/26/20 05:53 07/26/20 05:53 Additional Labs: Accuchecks 07/26/20 05:45 POC Glucose 98 Hospitalist ROS - Medication Medications: Active Medications Generic Name Dose Route Start Last Admin Trade Name Freq PRN Reason Stop Dose Admin Anastrozole 1 mg 07/26/20 09:00 07/26/20 08:28 Anastrozole 1 Mg Tab PO 1 mg DAILY ESA Administration Bisacodyl 10 mg 07/25/20 18:00 07/26/20 10:30 Bisacodyl 10 Mg Supp PA 10 mg Q8H ESA Administration Divalproex Sodium 250 mg 07/25/20 21:00 07/26/20 08:30 Divalproex Sodium 250 Mg (Dr) Tab PO Not Given BID ESA Docusate Sodium 100 mg 07/25/20 21:00 10/03/20 08:29 Docusate 100 Mg Cap PO 100 mg BID ESA Administration Enoxaparin Sodium 30 mg 07/26/20 09:00 07/26/20 08:30 Enoxaparin Sodium 30 Mg/0.3 Ml Syringe SC 30 mg 0900 ESA Administration Ferrous Sulfate 325 mg 07/26/20 09:00 07/26/20 08:30 Ferrous Sulfate 325 Mg Tab PO Not Given DAILY ESA Gabapentin 300 mg 07/25/20 21:00 07/26/20 13:25 Gabapentin 300 Mg Cap PO Not Given TID ESA Dextrose/Sodium Chloride 1,000 mls @ 80 mls/hr 07/25/20 17:15 07/26/20 05:31 D5 0.9% Ns IV 1,000 mls .[id number] ESA Administration Melatonin 3 mg 07/25/20 20:20 07/25/20 20:33 Melatonin 3 Mg Tab PO 3 mg HS PRN Administration Insomnia Morphine Sulfate 15 mg 07/25/20 17:59 07/26/20 08:28 Morphine Ir Tab 15 Mg Tab PO 15 mg Q4H PRN Administration Pain Morphine Sulfate 4 mg 07/25/20 18:01 07/26/20 12:50 Morphine 4 Mg/Ml Vial SLOW IVP 4 mg Q4H PRN Administration Moderate Pain (4-6) Ondansetron HCl 4 mg 07/25/20 16:53 07/25/20 20:38 Ondansetron Odt 4 Mg Tab PO 4 mg Q6H PRN Administration Nausea/Vomiting Ondansetron HCl 4 mg 07/25/20 16:53 07/26/20 11:49 Ondansetron Pf 4 Mg/2 Ml Vial IVP 4 mg Q6H PRN Administration Nausea/Vomiting Pantoprazole Sodium 40 mg 07/26/20 09:00 07/26/20 08:31 Pantoprazole 40 Mg Tab PO Not Given DAILY ESA Polyethylene Glycol 17 gm 07/26/20 07:41 07/26/20 08:36 Polyethylene Glycol 3350 17 Gm Packet PO 17 gm DAILYPRN PRN Administration Constipation Senna/Docusate Sodium 2 tab 07/25/20 23:35 07/26/20 00:07 Senokot S 8.6-50 Mg Tab PO 2 tab BID PRN Administration Constipation - Exam Eye: PERRL, anicteric sclera Heart: RRR, no murmur, no gallops, no rubs, normal peripheral pulses Respiratory: CTAB, no wheezes, no rales, no ronchi, normal chest expansion, no tachypnea Gastrointestinal: soft, non-tender, non-distended, normal bowel sounds, no palpable masses Extremities: no cyanosis, no clubbing, 1+ LE edema Hosp A/P (1) Constipation Code(s): K59.00 - CONSTIPATION, UNSPECIFIED Status: Acute (2) Invasive ductal carcinoma of breast Code(s): C50.919 - MALIGNANT NEOPLASM OF UNSP SITE OF UNSPECIFIED FEMALE BREAST Status: Acute (3) Pathologic fracture of neck of left femur Code(s): M84.452A - PATHOLOGICAL FRACTURE, LEFT FEMUR, INIT ENCNTR FOR FRACTURE Status: Acute (4) Bipolar disorder Code(s): F31.9 - BIPOLAR DISORDER, UNSPECIFIED Status: Chronic Qualifiers: Active/Remission status: in full remission (5) DM type 2 (diabetes mellitus, type 2) Status: Chronic - Plan * Constipation- will add Fleet's enema, and lactulose * Will add Anusol for rectal pain * Continue gentle hydration * Breast Cancer-continue Arimidex * Bipolar Disorder- continue home medications * DVT prophylaxis
[2020-07-26] MEDS ORDERED: Hydrocortisone Acetate 25 MG Suppository PR PRN (14:22)
[2020-07-26] MEDS: Temazepam 15 MG CAP PO PRN (19:56)
[2020-07-26] MEDS: Melatonin 3 MG TAB PO PRN (23:54)
[2020-07-27] MEDS: Bisacodyl 10 MG SUPP PR SCH ×2 (02:52→10:30)
[2020-07-27] MEDS: Morphine 4 MG/ML VIAL SLOW IVP PRN ×5 (03:32→21:58)
[2020-07-27] MEDS: Ondansetron PF 4 MG/2 ML Vial IVP PRN ×3 (05:02→17:32)
[2020-07-27] MEDS: Dextrose 5 % And 0.9 % NaCl 1,000 ML IV SCH ×2 (05:43→17:42)
[2020-07-27] MEDS: Docusate 100 MG CAP PO SCH ×2 (08:05→19:57)
[2020-07-27] MEDS: Ferrous Sulfate 325 MG TAB PO SCH (08:06)
[2020-07-27] MEDS: Gabapentin 300 MG CAP PO SCH ×3 (08:06→19:57)
[2020-07-27] MEDS: Anastrozole 1 MG TAB PO SCH (08:07)
[2020-07-27] MEDS: Enoxaparin Sodium 30 MG/0.3 ML SYRINGE SC SCH (08:07)
[2020-07-27] MEDS: Divalproex Sodium 250 MG (DR) TAB PO SCH ×2 (08:07→19:57)
[2020-07-27] MEDS: Senokot S 8.6-50 MG TAB PO PRN (10:29)
[2020-07-27] MEDS: PALBOCICLIB PO SCH (10:30)
[2020-07-27] MEDS ORDERED: Bisacodyl 10 MG SUPP PR PRN (13:30)
[2020-07-27] MEDS ORDERED: Promethazine 25 MG TAB PO PRN (13:32)
--- NOTE | 2020-07-27 14:22 | PDOC.HOSPP ---
- Subjective Encounter Date: 07/27/20 Subjective: Pt has had several bowel motions but still believes she has more to put out. Still c/o rectal pain. - Objective Vital Signs & Weight: Vital Signs (12 hours) Temp Pulse Resp BP Pulse Ox 07/27/20 08:08 98.2 F 75 18 128/91 H 100 07/27/20 05:05 97 07/27/20 04:40 98 F 87 16 100/60 97 Weight Admit Weight 108 lb Weight 108 lb 0.001 oz I&O: 07/26/20 07/27/20 07/28/20 06:59 06:59 06:59 Intake Total 1770 2810 Output Total 1600 2300 Balance 170 510 Result Diagrams: 07/26/20 05:53 07/26/20 05:53 Hospitalist ROS - Review of Systems Constitutional: denies: fever, chills, sweats, weakness, malaise, other Eyes: denies: pain, vision change, conjunctivae inflammation, eyelid inflammation, redness, other Respiratory: denies: cough, dry, shortness of breath, hemoptysis, SOB with excertion, pleuritic pain, sputum, wheezing, other Cardiovascular: denies: chest pain, palpitations, orthopnea, paroxysmal noc. dyspnea, edema, light headedness, other Gastrointestinal: reports: nausea, diarrhea, other (Rectal pain). denies: vomiting, abdominal pain, constipation, melena, hematochezia Genitourinary: denies: dysuria, frequency, incontinence, hematuria, retention, other Musculoskeletal: denies: neck pain, shoulder pain, arm pain, back pain, hand pain, leg pain, foot pain, other Skin: denies: rash, lesions, adriane, bruising, other Neurological: denies: weakness, numbness, incoordination, change in speech, confusion, seizures, other - Medication Medications: Active Medications Generic Name Dose Route Start Last Admin Trade Name Steveq PRN Reason Stop Dose Admin Anastrozole 1 mg 07/26/20 09:00 07/27/20 08:07 Anastrozole 1 Mg Tab PO 1 mg DAILY ESA Administration Divalproex Sodium 250 mg 07/25/20 21:00 07/27/20 08:07 Divalproex Sodium 250 Mg (Dr) Tab PO Not Given BID ESA Docusate Sodium 100 mg 07/25/20 21:00 07/27/20 08:05 Docusate 100 Mg Cap PO 100 mg BID ESA Administration Enoxaparin Sodium 30 mg 07/26/20 09:00 07/27/20 08:07 Enoxaparin Sodium 30 Mg/0.3 Ml Syringe SC 30 mg 0900 ESA Administration Ferrous Sulfate 325 mg 07/26/20 09:00 07/27/20 08:06 Ferrous Sulfate 325 Mg Tab PO Not Given DAILY ESA Gabapentin 300 mg 07/25/20 21:00 07/27/20 14:13 Gabapentin 300 Mg Cap PO Not Given TID ESA Hydrocortisone Acetate 25 mg 07/26/20 14:22 07/27/20 02:55 Hydrocortisone Acetate 25 Mg Suppository LA 25 mg BIDPRN PRN Administration Hemorrhoids Dextrose/Sodium Chloride 1,000 mls @ 80 mls/hr 07/25/20 17:15 07/27/20 05:43 D5 0.9% Ns IV 1,000 mls .[id number] ESA Administration Melatonin 3 mg 07/25/20 20:20 07/26/20 23:54 Melatonin 3 Mg Tab PO 3 mg HS PRN Administration Insomnia Morphine Sulfate 15 mg 07/25/20 17:59 07/26/20 08:28 Morphine Ir Tab 15 Mg Tab PO 15 mg Q4H PRN Administration Pain Morphine Sulfate 4 mg 07/25/20 18:01 07/27/20 13:08 Morphine 4 Mg/Ml Vial SLOW IVP 4 mg Q4H PRN Administration Moderate Pain (4-6) Ondansetron HCl 4 mg 07/25/20 16:53 07/25/20 20:38 Ondansetron Odt 4 Mg Tab PO 4 mg Q6H PRN Administration Nausea/Vomiting Ondansetron HCl 4 mg 07/25/20 16:53 07/27/20 10:29 Ondansetron Pf 4 Mg/2 Ml Vial IVP 4 mg Q6H PRN Administration Nausea/Vomiting Pantoprazole Sodium 40 mg 07/26/20 09:00 07/27/20 08:06 Pantoprazole 40 Mg Tab PO Not Given DAILY ESA Palbociclib [Ibrance 0 each 07/27/20 09:00 07/27/20 10:30 ] 125 Capsule PO 1 each DAILY ESA Administration Temazepam 15 mg 07/26/20 14:20 07/26/20 19:56 Temazepam 15 Mg Cap PO 15 mg HSPRN PRN Administration Insomnia - Exam General Appearance: awake alert, ill appearing Eye: PERRL, anicteric sclera ENT: normocephalic atraumatic, no oropharyngeal lesions Neck: supple, symmetric, no JVD, no thyromegaly Heart: RRR, no murmur, no gallops, no rubs Respiratory: CTAB, no wheezes, no rales Gastrointestinal: soft, non-tender, non-distended, normal bowel sounds Extremities: no cyanosis, no clubbing Skin: normal turgor, no lesions Neurological: cranial nerve grossly intact, normal sensation to touch Musculoskeletal: normal tone, normal strength, no muscle wasting Psychiatric: normal affect, normal behavior, A&O x 3 Hosp A/P (1) Rectal pain Code(s): K62.89 - OTHER SPECIFIED DISEASES OF ANUS AND RECTUM Status: Acute Plan: Cont anusol. (2) Constipation Code(s): K59.00 - CONSTIPATION, UNSPECIFIED Status: Acute Qualifiers: Constipation type: drug induced constipation Qualified Code(s): K59.03 - Drug induced constipation Plan: Pt continues to have inconsistent but soft bowel motions. Most of her BM meds were PRNs. Will schedule Miralax and Senna for consistent BM output in order to resolve constipation. Keep Dulcolax as prn. (3) Invasive ductal carcinoma of breast Code(s): C50.919 - MALIGNANT NEOPLASM OF UNSP SITE OF UNSPECIFIED FEMALE BREAST Status: Acute Plan: Cont Arimdex. (4) Microcytic anemia Code(s): D50.9 - IRON DEFICIENCY ANEMIA, UNSPECIFIED Status: Acute Plan: Stable. Monitor Hg. (5) Bipolar disorder Code(s): F31.9 - BIPOLAR DISORDER, UNSPECIFIED Status: Chronic Qualifiers: Active/Remission status: in full remission Plan: Stable. (6) DM type 2 (diabetes mellitus, type 2) Status: Chronic Qualifiers: Diabetes mellitus rn long term care insulin use: without usp use Diabetes mellitus complication status: without complication Qualified Code(s): E11.9 - Type 2 diabetes mellitus without complications Plan: Monitor BG, cover with SSI. (7) Nausea Code(s): R11.0 - NAUSEA Status: Acute Plan: Pt is requesting Phenergan, says Zofran is not working. Will give Phenergan, monitor for symptom resolution. - Plan GI proph PPx: SCDs. CODE: Full. Dispo: Cont current mgt. Monitor BM. Likely d/c tmr.
[2020-07-27 15:03] LABS: Hemoglobin 10.4 g/dL (12.0-16.0); Mean Corpuscular Hemoglobin 33.1 pg (27.0-31.0); Mean Corpuscular Volume 97.3 fL (78.0-98.0); Mean Platelet Volume 6.4 fL (7.4-10.4); Platelet Count 171 thou/uL (130-400); RBC Distribution Width 12.9 % (11.5-14.5); Red Blood Cell (RBC) Count 3.15 mill/uL (4.20-5.40); White Blood Cell (WBC) Count 3.2 thou/uL (4.8-10.8)
[2020-07-27 15:30] LABS: Band 2 % (5-11); Eosinophils 3 % (0-10); Lymphocytes 35 % (21-51); MDiff Complete? YES; Monocytes 16 % (0-10); Neutrophil 37 % (42-75); Platelet Morphology Comment Appears Adequate; Polychromasia SLIGHT = 2-3 cells (100X) (0-2/hpf); Reactive Lymphocytes 5 % (0-10)
[2020-07-27] MEDS ORDERED: Lidocaine 5% Patch TD SCH (19:00)
[2020-07-27] MEDS: Senokot S 8.6-50 MG TAB PO SCH (19:56)
[2020-07-27] MEDS: Polyethylene Glycol 3350 17 GM Packet PO SCH (19:56)
[2020-07-27] MEDS: Melatonin 3 MG TAB PO PRN (19:58)
[2020-07-27] MEDS: Temazepam 15 MG CAP PO PRN (19:58)
[2020-07-28] MEDS: Morphine 4 MG/ML VIAL SLOW IVP PRN ×2 (02:00→06:01)
[2020-07-28] MEDS: Gabapentin 300 MG CAP PO SCH ×2 (05:57→08:56)
[2020-07-28] MEDS: Divalproex Sodium 250 MG (DR) TAB PO SCH ×2 (05:58→08:55)
[2020-07-28] MEDS: Dextrose 5 % And 0.9 % NaCl 1,000 ML IV SCH (06:02)
[2020-07-28 06:15] LABS: Anion Gap 11 mmol/L (10-20); BUN (Urea Nitrogen) 7 mg/dL (9.8-20.1); Calc. Creatinine Clearance 99 mL/min (70-130); Calcium 8.3 mg/dL (7.8-10.44); Carbon Dioxide 25 mmol/L (22-29); Chloride 107 mmol/L (98-107); Estimated GFR-MDRD Greater than 90; Glucose 116 mg/dL (70-105); Potassium 3.6 mmol/L (3.5-5.1); Sodium 139 mmol/L (136-145)
[2020-07-28] MEDS ORDERED: Lidocaine Patch Removal TOP SCH (07:00)
[2020-07-28] MEDS: PALBOCICLIB PO SCH (08:50)
[2020-07-28] MEDS: Ferrous Sulfate 325 MG TAB PO SCH (08:56)
[2020-07-28] MEDS: Senokot S 8.6-50 MG TAB PO SCH (08:58)
[2020-07-28] MEDS: Anastrozole 1 MG TAB PO SCH (08:58)
[2020-07-28] MEDS: Enoxaparin Sodium 30 MG/0.3 ML SYRINGE SC SCH ×2 (08:59→11:26)
[2020-07-28] MEDS: Polyethylene Glycol 3350 17 GM Packet PO SCH (08:59)
[2020-07-28] MEDS: Docusate 100 MG CAP PO SCH (09:00)
[2020-07-28] MEDS: Ondansetron PF 4 MG/2 ML Vial IVP PRN (09:52)
[2020-07-28 11:21] VITALS: BP 109/73; TEMP 97.9
[2020-07-28] MEDS: Morphine IR Tab 15 MG TAB PO PRN (11:26)
--- NOTE | 2020-07-28 12:13 | DIS ---
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 ONCOLOGIST: Dr. Heredia. FINAL DIAGNOSES: Severe constipation, nausea, rectal pain, breast cancer, invasive ductal carcinoma of the breast with bone metastasis, diabetes mellitus type 2, bipolar disorder. DISCHARGE MEDICATIONS: 1. MiraLAX 17 g in water daily. 2. Senokot one tablet p.o. b.i.d. 3. Duragesic patch 100 and Duragesic patch 25 on skin, change q.3 days. 4. Morphine 15 mg immediate release tabs one p.o. q.4 hours p.r.n. pain. 5. Ibrance one capsule daily. 6. Neurontin 300 mg p.o. t.i.d. 7. Arimidex 1 mg daily. 8. Divalproex 250 mg twice a day. 9. Nexium 40 mg a day. 10. Iron 325 mg a day. 11. Zofran oral dissolving tablet 8 mg p.o. q.4 hours p.r.n. ALLERGIES: NO KNOWN MEDICAL ALLERGIES. CODE STATUS: DNAR. PENDING AT TIME OF DISCHARGE: Nothing. CONSULTATIONS: No consultations. PROCEDURE: No procedures. HOSPITAL COURSE: The patient admitted to the hospital through the emergency department on chronic opioids with a history of metastatic breast cancer. She was found to have severe constipation with nausea. She was put on a diet as tolerated. She, on 07/26, has had minimal bowel movement, fleets enemas, lactulose, Anusol for rectal pain, gentle hydration. enemas produced good bowel movements. Decreased pain. Today I saw her, she states she had back to her normal. Discussed discharge. She was comfortable with discharge. Her only new medicine was lactulose once a day to try to maintain one bowel movement every day. Her chem-7 was unremarkable. CBC was unremarkable except for mild leukopenia. She is being discharged for followup with her PCP in 3 to 7 days. Follow up with Dr. Yan monte. Job ID: [id number] [facility]
== END 2020-07-28 13:50 | disposition home health service (06) | DRG 392 ==
LOC: ERS 11:04 → OBSVTOIN 16:54 → T4-B 16:54
PROVIDERS: ADMIT Internal Medicine; ATTEND Internal Medicine
DX: K59.03 Drug induced constipation (principal); C79.51 Secondary malignant neoplasm of bone; F11.20 Opioid dependence, uncomplicated; Z66 Do not resuscitate; Z20.828 Contact with and (suspected) exposure to other viral communicable diseases; C50.919 Malignant neoplasm of unspecified site of unspecified female breast; Z96.642 Presence of left artificial hip joint; F31.9 Bipolar disorder, unspecified; E11.9 Type 2 diabetes mellitus without complications; T40.2X5A Adverse effect of other opioids, initial encounter; M84.452D Pathological fracture, left femur, subsequent encounter for fracture with routine healing; D50.9 Iron deficiency anemia, unspecified; K62.89 Other specified diseases of anus and rectum; Z79.899 Other long term (current) drug therapy; Z79.4 Long term (current) use of insulin
CPT/HCPCS: 36415; 36416; 36600; 51701; 71045; 74177; 80048; 80053; 81003; 81015; 83605; 83735; 84484; 85025; 87040; 87086; 87635; 93005; 96361; 96365; 96372; 96375; 96376; G0378; J1650; J1885; J2270; J2405; J2550; Q0162; Q0169; Q9967; U0003

== ENCOUNTER 2020-08-06 10:25 | Outpatient (CLI) | payer MEDICARE ==
--- NOTE | 2020-08-06 13:28 | CT ---
CHEST CT WITH CONTRAST ABDOMEN CT WITH CONTRAST PELVIC CT WITH CONTRAST: HISTORY: Metastatic breast cancer. Patient has osseous metastases. CORRELATION: Thoracic spine CT and cervical spine CT 05/29/2020. COMPARISON: Abdomen CT 07/25/2020, chest abdomen and pelvic CT 04/29/2020. FINDINGS: Chest CT: Mediastinum: No mass, lymphadenopathy or hematoma. Aorta: Normal caliber. No periaortic fat stranding. Heart: Normal heart size. No significant pericardial fluid. Trachea and central bronchi: Patent. Pleural spaces: No pleural effusion. Right lung: Dependent atelectatic change versus aspiration versus pneumonia in the lower lobe. Left lung:Dependent atelectatic change versus aspiration versus pneumonia in the left lower lobe. Pneumothorax: None. Additional findings: Redemonstration of a left breast cancer. There is evidence of previous axillary dissection, on the left side. Redemonstration of enlarged left axillary lymph node measuring 2.3 x [address]: Gallbladder: Unremarkable. Portal vein: Patent. Liver: Appropriate enhancement.. Spleen: Appropriate enhancement. Pancreas: Appropriate enhancement. Adrenal glands: Appropriate enhancement. Lymphadenopathy: No gastrohepatic, retrocrural or periportal lymphadenopathy. Kidneys: Symmetric enhancement. No obstructive uropathy. Mesentery: No mass, lymphadenopathy, free air or free fluid. Alimentary canal: Limited evaluation by the lack of oral contrast. No evidence of a small bowel obstr uction. Copious fecal material throughout the colon. There does appear to be some mild mucosal thickening involving the distal sigmoid colon and rectum. There is a small amount of presacral fat st randing. Findings may represent partial resolution of previous identify stercoral proctitis. Pelvis CT: Limited evaluation due to left hip arthroplasty. No pelvic mass, lymphadenopathy, free air or free fl uid. Osseous structures: Redemonstration of multifocal osseous metastases. There is a pathologic fracture with vertebral body height at C7. Additionally there are metastatic lesion at T1, T2-T3, T4, T6, T10, T11 and T12. There is stable loss of vertebral body height throughout the thoracic spine. There do not appear to b e any new compression fractures. There are stable chronic compression deformities at L1 and L2. Additional metastatic deposits are noted in the ribs. There is a metastatic lesion involving the righ t acetabulum. Additional metastases are noted throughout the left and right iliac wings as well as the sacrum. The overall degree and distribution of metastases in the bony pelvis is similar to the ex amination performed earlier this month. IMPRESSION: 1. Redemonstration of multifocal osseous metastases with multiple pathologic fractures and associated loss of vertebral body height/kyphosis. 2. Chronic lung parenchymal changes. Superimposed pneumonia and/or aspiration cannot be excluded 3. Redemonstration of a left breast mass with associated left axillary lymphadenopathy. Transcribed Date/Time: 08/06/2020 1:37 PM
--- NOTE | 2020-08-06 15:33 | NM ---
Radionucleotide bone scan HISTORY: Malignant neoplasm of central portion of the left female breast. Metastatic disease. Restagi ng. COMPARISON: 04/29/2020. FINDINGS: Relative intensity of radiotracer uptake of the abnormalities on the current study compared to the prior is based on the uptake seen at the osteoarthritic changes of upper and lower extremities. Significant interval increase in intensity of abnormal uptake involving the ribs, most notably on the leftT9 rib and the lateral aspect of the right upper to mid ribs. Uptake at the sternum appears stable. Intensity of uptake at the T10, T11, L2, and L3 levels has not changed significantly. Intensity of uptake associated with the right pelvic lesion, centered at the acetabulum, has increase d significantly. Uptake at the lateral aspect of the left proximal femur, centered at the greater trochanter, is stable. Photopenic area at the left hip consistent with metallic prosthesis. IMPRESSION : Slight interval increase in intensity of uptake associated with the lesions of the ribs and right pel vis, possibly related to reaction from interval treatment (versus worsening of disease). Other lesions appear stable. No new abnormalities demonstrated.
== END 2020-08-06 10:26 | disposition home or self-care (01) ==
LOC: CT 10:25
PROVIDERS: ATTEND Internal Medicine Hematology & Oncology
DX: C79.51 Secondary malignant neoplasm of bone (principal); C50.919 Malignant neoplasm of unspecified site of unspecified female breast; M84.40XA Pathological fracture, unspecified site, initial encounter for fracture; N63.20 Unspecified lump in the left breast, unspecified quadrant; R59.0 Localized enlarged lymph nodes; R89.9 Unspecified abnormal finding in specimens from other organs, systems and tissues
CPT/HCPCS: 71260; 74177; 78306; A9503

== ENCOUNTER 2020-12-29 09:01 | Outpatient (CLI) | payer MEDICARE, MEDICAID ==
[2020-12-29] MEDS ORDERED: Iopamidol 370 76% 100 ML VIAL ONE (11:02)
== END 2020-12-29 09:02 | disposition home or self-care (01) ==
LOC: CT 09:01
PROVIDERS: ATTEND Internal Medicine Hematology & Oncology
DX: C79.51 Secondary malignant neoplasm of bone (principal); C50.919 Malignant neoplasm of unspecified site of unspecified female breast; M89.9 Disorder of bone, unspecified; K59.00 Constipation, unspecified
CPT/HCPCS: 71260; 74177; 78306; A9503; Q9967

== ENCOUNTER 2021-04-10 14:27 | Inpatient (IN) | payer MEDICARE, MEDICAID ==
[2021-04-10 15:05] LABS: Hemoglobin 8.9 g/dL (12.0-16.0); Mean Corpuscular Hemoglobin 34.9 pg (27.0-31.0); Mean Corpuscular Volume 99.7 fL (78.0-98.0); Mean Platelet Volume 6.8 fL (7.4-10.4); Platelet Count 144 thou/uL (130-400); RBC Distribution Width 16.2 % (11.5-14.5); Red Blood Cell (RBC) Count 2.54 mill/uL (4.20-5.40); White Blood Cell (WBC) Count 1.7 thou/uL (4.8-10.8)
[2021-04-10 15:23] LABS: ALT (SGPT) Less than 7 U/L (8-55); AST (SGOT) 24 U/L (5-34); Albumin 4.1 g/dL (3.5-5.0); Alkaline Phosphatase 82 U/L (40-110); Anion Gap 14 mmol/L (10-20); BUN (Urea Nitrogen) 11 mg/dL (9.8-20.1); Bilirubin, Total 0.5 mg/dL (0.2-1.2); Calc. Creatinine Clearance 0 mL/min (70-130); Calcium 9.7 mg/dL (7.8-10.44); Carbon Dioxide 26 mmol/L (22-29); Chloride 101 mmol/L (98-107); Glucose 94 mg/dL (70-105); Potassium 3.6 mmol/L (3.5-5.1); Protein, Total 7.1 g/dL (6.0-8.3); Sodium 137 mmol/L (136-145)
[2021-04-10 15:34] LABS: Anisocytosis SLIGHT = 6-15 cells (100X) (0-5/hpf); Band 15 % (5-11); Lymphocytes 33 % (21-51); MDiff Complete? YES; Macrocytosis SLIGHT = 6-15 cells (100X) (0-5/hpf); Monocytes 19 % (0-10); Neutrophil 26 % (42-75); Platelet Morphology Comment Appears Adequate; Polychromasia SLIGHT = 2-3 cells (100X) (0-2/hpf); Reactive Lymphocytes 6 % (0-10); Reflex for Review?? NO
[2021-04-10] MEDS ORDERED: Ondansetron PF 4 MG/2 ML Vial ONE (17:26)
[2021-04-10] MEDS ORDERED: Vancomycin 1 GM/200 ML BAG ONE (17:26)
[2021-04-10] MEDS ORDERED: Morphine 4 MG/ML VIAL ONE ×2 (17:26→21:12)
[2021-04-10 17:32] LABS: Bilirubin Negative (Negative); Blood, Urine Trace (Negative); Glucose, Urine (Dipstick) 100 mg/dL (Negative); Ketone, Urine Trace mg/dL (Negative); Leukocyte Negative (Negative); Nitrite Negative (Negative); Protein, Urine (Dipstick) 30 mg/dL (Neg-Trace); Specific Gravity, Urine 1.025 (1.005-1.030); Urobilinogen 0.2 mg/dL (Less than 2)
[2021-04-10 17:34] LABS: Clarity Clear (Clear)
[2021-04-10 17:36] LABS: Bacteria/HPF None Seen HPF (None Seen); RBC/HPF None Seen HPF (0-3); Squamous Epithelial 0-3 HPF (0-3); WBC/HPF None Seen HPF (0-3)
[2021-04-10] MEDS ORDERED: Labetalol HCl 100 MG/20 ML VIAL SLOW IVP PRN (19:51)
[2021-04-10] MEDS ORDERED: HYDROcodone/Acetaminophen 5/325 mg Tablet PO PRN (19:51)
[2021-04-10] MEDS ORDERED: Morphine 2 MG/ML VIAL SLOW IVP PRN (19:51)
[2021-04-10] MEDS ORDERED: Guaifenesin DM 100-10/5 ML UDCUP PO PRN (19:51)
[2021-04-10] MEDS ORDERED: Acetaminophen 325 MG TAB PO PRN (19:51)
[2021-04-10] MEDS ORDERED: cloNIDine 0.1 MG TAB PO PRN (19:51)
[2021-04-10] MEDS ORDERED: hydrALAZINE 20 MG/ML VIAL SLOW IVP PRN (19:51)
[2021-04-10] MEDS ORDERED: Promethazine HCl 12.5 MG in Sodium Chloride 0.9% 50 ML IVPB PRN (19:51)
[2021-04-10] MEDS ORDERED: Electrolyte Replacement Protocol 1 EACH FS SCH (20:00)
[2021-04-10] MEDS ORDERED: Sodium Chloride 0.9% 1,000 ML IV SCH (20:00)
[2021-04-10] MEDS ORDERED: Cefepime 2 GM in Sodium Chloride 0.9% 100 ML IVPB SCH (20:00)
[2021-04-10] MEDS ORDERED: Electrolyte Replacement Protocol FS PRN (20:15)
[2021-04-10] MEDS ORDERED: Cefepime 2 GM VIAL ONE (21:13)
[2021-04-10] MEDS: Polyethylene Glycol 3350 17 GM Packet PO SCH (22:02)
[2021-04-10] MEDS ORDERED: Milk Of Magnesia 30 ML UDCUP PO PRN (22:25)
[2021-04-10] MEDS: Sodium Chloride 0.9% 1,000 ML IV SCH (23:07)
[2021-04-10 23:09] VITALS: BMI 19.7
[2021-04-11] MEDS: Morphine IR Tab 15 MG TAB PO SCH ×6 (00:38→20:01)
[2021-04-11] MEDS: Enoxaparin Sodium 40 MG/0.4 ML SYRINGE SC SCH ×2 (00:39→20:01)
[2021-04-11] MEDS: Clotrimazole 1 % Cream 30 GM TUBE TOP SCH ×3 (00:39→20:03)
[2021-04-11] MEDS: Senokot S 8.6-50 MG TAB PO SCH ×3 (00:39→20:01)
[2021-04-11 04:27] LABS: Hemoglobin 7.5 g/dL (12.0-16.0); Mean Corpuscular HGB CONC 35.2 g/dL (32.0-36.0); Mean Corpuscular Hemoglobin 35.5 pg (27.0-31.0); Platelet Count 121 thou/uL (130-400); RBC Distribution Width 16.5 % (11.5-14.5); Red Blood Cell (RBC) Count 2.11 mill/uL (4.20-5.40); White Blood Cell (WBC) Count 1.5 thou/uL (4.8-10.8)
[2021-04-11 04:37] LABS: Anion Gap 10 mmol/L (10-20); BUN (Urea Nitrogen) 9 mg/dL (9.8-20.1); Calc. Creatinine Clearance 88 mL/min (70-130); Calcium 8.7 mg/dL (7.8-10.44); Carbon Dioxide 25 mmol/L (22-29); Chloride 105 mmol/L (98-107); Glucose 106 mg/dL (70-105); Magnesium 1.9 mg/dL (1.6-2.6); Potassium 3.6 mmol/L (3.5-5.1); Sodium 136 mmol/L (136-145)
[2021-04-11] MEDS: Cefepime 2 GM in Sodium Chloride 0.9% 100 ML IVPB SCH ×3 (05:00→22:10)
[2021-04-11 06:03] LABS: Band 7 % (5-11); Lymphocytes 52 % (21-51); MDiff Complete? YES; Monocytes 15 % (0-10); Neutrophil 25 % (42-75)
[2021-04-11] MEDS: Vancomycin HCl 750 MG in Sodium Chloride 0.9% 250 ML 250 ML IVPB SCH ×2 (06:09→18:06)
[2021-04-11] MEDS ORDERED: Magnesium 2 GM/50 ML 2 GM in Premix Bag 1 BAG IVPB SCH (06:30)
[2021-04-11] MEDS: Ondansetron PF 4 MG/2 ML Vial IVP PRN ×3 (08:57→22:10)
[2021-04-11] MEDS: Polyethylene Glycol 3350 17 GM Packet PO SCH ×2 (09:00→19:51)
[2021-04-11] MEDS ORDERED: Calcium Carbonate 500 MG ChewTAB PO PRN (10:43)
[2021-04-11] MEDS ORDERED: Ondansetron ODT 4 MG TAB PO PRN (10:43)
[2021-04-11] MEDS ORDERED: Sodium Chloride 0.65% Nasal 44 ML BOT EA NARE PRN (10:43)
[2021-04-11] MEDS ORDERED: GUAIFENESIN SF SOLN 200 MG/10 ML UDCUP PO PRN (10:43)
[2021-04-11] MEDS ORDERED: Loratadine 10 MG TAB PO PRN (10:43)
[2021-04-11] MEDS ORDERED: Bisacodyl 5 MG TAB PO PRN (10:43)
[2021-04-11] MEDS ORDERED: Loperamide HCl 2 MG CAP PO PRN (10:43)
[2021-04-11] MEDS ORDERED: Naloxone HCl 0.4 mg/ml Vial IV PRN (10:44)
[2021-04-11] MEDS ORDERED: Morphine IR Tab 15 MG TAB PO SCH (11:00)
[2021-04-11] MEDS: Sodium Chloride 0.9% 1,000 ML IV SCH (12:00)
[2021-04-11 15:58] LABS: SARS-CoV-2 PCR by NAA Not Detected (NotDetected)
[2021-04-11] MEDS: Cepastat Lozenges 1 LOZ PO PRN ×2 (18:05→22:20)
[2021-04-12] MEDS: Morphine IR Tab 15 MG TAB PO SCH ×6 (01:04→20:15)
[2021-04-12] MEDS: Sodium Chloride 0.9% 1,000 ML IV SCH (01:05)
[2021-04-12] MEDS: Cefepime 2 GM in Sodium Chloride 0.9% 100 ML IVPB SCH ×3 (05:15→22:23)
[2021-04-12] MEDS: Cepastat Lozenges 1 LOZ PO PRN ×3 (05:17→20:15)
[2021-04-12] MEDS ORDERED: Vancomycin 1 GM in Premix Bag 1 BAG IVPB SCH (06:00)
[2021-04-12 06:07] LABS: Hemoglobin 8.7 g/dL (12.0-16.0); Mean Corpuscular HGB CONC 34.4 g/dL (32.0-36.0); Mean Corpuscular Hemoglobin 34.7 pg (27.0-31.0); Mean Platelet Volume 6.5 fL (7.4-10.4); Platelet Count 124 thou/uL (130-400); RBC Distribution Width 15.8 % (11.5-14.5); Red Blood Cell (RBC) Count 2.51 mill/uL (4.20-5.40); White Blood Cell (WBC) Count 1.6 thou/uL (4.8-10.8)
[2021-04-12 06:31] LABS: Anion Gap 8 mmol/L (10-20); BUN (Urea Nitrogen) 8 mg/dL (9.8-20.1); Calc. Creatinine Clearance 94 mL/min (70-130); Calcium 8.3 mg/dL (7.8-10.44); Carbon Dioxide 23 mmol/L (22-29); Chloride 110 mmol/L (98-107); Glucose 97 mg/dL (70-105); Magnesium 2.3 mg/dL (1.6-2.6); Potassium 3.8 mmol/L (3.5-5.1); Sodium 137 mmol/L (136-145); Vancomycin, Trough 11.8 ug/mL
[2021-04-12 06:32] LABS: Band 6 % (5-11); Eosinophils 1 % (0-10); Lymphocytes 41 % (21-51); MDiff Complete? YES; Monocytes 19 % (0-10); Neutrophil 33 % (42-75)
[2021-04-12] MEDS: Vancomycin HCl 750 MG in Sodium Chloride 0.9% 250 ML 250 ML IVPB SCH (06:42)
[2021-04-12] MEDS: Polyethylene Glycol 3350 17 GM Packet PO SCH ×2 (09:14→20:16)
[2021-04-12] MEDS: Senokot S 8.6-50 MG TAB PO SCH ×2 (09:15→20:14)
[2021-04-12] MEDS: Anastrozole 1 MG TAB PO SCH (09:16)
[2021-04-12] MEDS: Vancomycin 1 GM in Premix Bag 1 BAG IVPB SCH ×2 (09:16→20:15)
[2021-04-12] MEDS: Clotrimazole 1 % Cream 30 GM TUBE TOP SCH ×2 (09:17→20:16)
[2021-04-12] MEDS: Ondansetron PF 4 MG/2 ML Vial IVP PRN ×2 (09:18→22:24)
[2021-04-12] MEDS ORDERED: fentaNYL 75 mcg/hour Patch TD SCH (10:00)
[2021-04-12] MEDS ORDERED: fentaNYL 100 mcg/hour Patch TD SCH (10:00)
[2021-04-12] MEDS ORDERED: Iopamidol-370 76% 500 ML 1 ML ONE (11:52)
[2021-04-12] MEDS: Enoxaparin Sodium 40 MG/0.4 ML SYRINGE SC SCH (20:15)
[2021-04-13] MEDS: Morphine IR Tab 15 MG TAB PO SCH ×6 (00:49→20:11)
[2021-04-13 04:43] LABS: Hemoglobin 8.4 g/dL (12.0-16.0); Mean Corpuscular HGB CONC 33.8 g/dL (32.0-36.0); Mean Platelet Volume 6.6 fL (7.4-10.4); Platelet Count 145 thou/uL (130-400); RBC Distribution Width 15.4 % (11.5-14.5); Red Blood Cell (RBC) Count 2.48 mill/uL (4.20-5.40)
[2021-04-13 05:06] LABS: Anion Gap 10 mmol/L (10-20); BUN (Urea Nitrogen) 7 mg/dL (9.8-20.1); Calc. Creatinine Clearance 85 mL/min (70-130); Calcium 8.7 mg/dL (7.8-10.44); Carbon Dioxide 24 mmol/L (22-29); Chloride 109 mmol/L (98-107); Glucose 90 mg/dL (70-105); Magnesium 2.1 mg/dL (1.6-2.6); Potassium 3.7 mmol/L (3.5-5.1); Sodium 139 mmol/L (136-145)
[2021-04-13] MEDS: Cepastat Lozenges 1 LOZ PO PRN ×2 (05:10→17:10)
[2021-04-13] MEDS: Ondansetron PF 4 MG/2 ML Vial IVP PRN ×3 (05:14→20:09)
[2021-04-13 05:17] LABS: Band 19 % (5-11); Eosinophils 2 % (0-10); Lymphocytes 32 % (21-51); MDiff Complete? YES; Monocytes 9 % (0-10); Neutrophil 38 % (42-75)
[2021-04-13] MEDS: Cefepime 2 GM in Sodium Chloride 0.9% 100 ML IVPB SCH ×3 (05:42→21:29)
[2021-04-13] MEDS: Vancomycin 1 GM in Premix Bag 1 BAG IVPB SCH ×2 (08:17→20:10)
[2021-04-13] MEDS: Anastrozole 1 MG TAB PO SCH (08:21)
[2021-04-13] MEDS: Senokot S 8.6-50 MG TAB PO SCH ×2 (08:21→20:10)
[2021-04-13] MEDS: Polyethylene Glycol 3350 17 GM Packet PO SCH ×2 (08:22→20:10)
[2021-04-13] MEDS: Clotrimazole 1 % Cream 30 GM TUBE TOP SCH ×2 (08:23→21:28)
[2021-04-13] MEDS ORDERED: Fleet Enema 133 ML BOT PR PRN (10:18)
[2021-04-13] MEDS ORDERED: Magnesium Citrate 300 ML BOT PO SCH (10:30)
[2021-04-13 19:48] LABS: Vancomycin, Trough 18.5 ug/mL
[2021-04-13] MEDS: Enoxaparin Sodium 40 MG/0.4 ML SYRINGE SC SCH (20:10)
[2021-04-14] MEDS: Morphine IR Tab 15 MG TAB PO SCH ×4 (01:06→13:04)
[2021-04-14] MEDS: Cefepime 2 GM in Sodium Chloride 0.9% 100 ML IVPB SCH (06:44)
[2021-04-14] MEDS: Vancomycin 1 GM in Premix Bag 1 BAG IVPB SCH (08:52)
[2021-04-14] MEDS: Senokot S 8.6-50 MG TAB PO SCH (08:52)
[2021-04-14] MEDS: Anastrozole 1 MG TAB PO SCH (08:53)
[2021-04-14] MEDS: Polyethylene Glycol 3350 17 GM Packet PO SCH (08:53)
[2021-04-14] MEDS: Clotrimazole 1 % Cream 30 GM TUBE TOP SCH (08:53)
[2021-04-14] MEDS ORDERED: Folic Acid 1 MG TAB PO SCH (09:00)
[2021-04-14] MEDS ORDERED: Multivitamin W/ Minerals 1 TAB PO SCH (09:00)
[2021-04-14] MEDS ORDERED: Cyanocobalamin (Vitamin B-12) 1,000 MCG TAB PO SCH (09:00)
[2021-04-14 10:16] VITALS: BP 102/66; TEMP 98.7
[2021-04-17] MEDS ORDERED: Fluconazole 100 MG TAB PO SCH (21:00)
== END 2021-04-14 14:00 | disposition home or self-care (01) | DRG 871 ==
LOC: ERS 14:27 → ONC 18:18
PROVIDERS: ADMIT Internal Medicine; ATTEND Internal Medicine
PROC: 30233N1 Transfusion of Nonautologous Red Blood Cells into Peripheral Vein, Percutaneous Approach (ICD-10-PCS; principal; 2021-04-11)
DX: A41.9 Sepsis, unspecified organism (principal); D61.810 Antineoplastic chemotherapy induced pancytopenia; Z20.822 Contact with and (suspected) exposure to COVID-19; C79.51 Secondary malignant neoplasm of bone; T45.1X5A Adverse effect of antineoplastic and immunosuppressive drugs, initial encounter; C50.912 Malignant neoplasm of unspecified site of left female breast; Z96.642 Presence of left artificial hip joint; F31.78 Bipolar disorder, in full remission, most recent episode mixed; K59.03 Drug induced constipation; M41.9 Scoliosis, unspecified; T40.605A Adverse effect of unspecified narcotics, initial encounter; Z92.3 Personal history of irradiation; Z92.21 Personal history of antineoplastic chemotherapy; Z79.891 Long term (current) use of opiate analgesic; Z79.899 Other long term (current) drug therapy; Z87.01 Personal history of pneumonia (recurrent); Z90.49 Acquired absence of other specified parts of digestive tract
CPT/HCPCS: 36415; 36430; 71045; 71260; 74177; 78306; 80048; 80053; 80202; 81003; 81015; 83605; 83690; 83735; 84484; 85025; 86850; 86900; 86901; 87040; 87086; 93005; 96365; 96366; 96375; 96376; A9503; J0692; J1447; J1650; J2270; J2405; J3370; J3475; J3490; J7050; P9016; Q9967; U0003; U0005

== ENCOUNTER 2021-06-12 13:01 | Day surgery (SDC) | payer MEDICARE, MEDICAID ==
[2021-06-12] MEDS ORDERED: diphenhydrAMINE 25 MG CAP PO SCH (13:30)
[2021-06-12] MEDS ORDERED: Acetaminophen 500 MG TAB PO SCH (13:30)
[2021-06-12 15:50] VITALS: BP 108/65; TEMP 98.2
== END 2021-06-12 15:57 | disposition home or self-care (01) ==
LOC: ONC/OP 13:01
PROVIDERS: ATTEND Nurse Practitioner Family
PROC: 30233N1 Transfusion of Nonautologous Red Blood Cells into Peripheral Vein, Percutaneous Approach (ICD-10-PCS; principal; 2021-06-12)
DX: D64.9 Anemia, unspecified (principal); D69.6 Thrombocytopenia, unspecified; C50.112 Malignant neoplasm of central portion of left female breast; C79.51 Secondary malignant neoplasm of bone
CPT/HCPCS: 36430; 80053; 86850; 86900; 86901; P9016

== ENCOUNTER 2021-08-05 09:03 | Outpatient (CLI) | payer MEDICARE, MEDICAID | END 2021-08-05 09:04 | disposition home or self-care (01) | LOC: CT 09:03 | PROVIDERS: ATTEND Internal Medicine Hematology & Oncology | DX: C50.112 Malignant neoplasm of central portion of left female breast (principal); C79.51 Secondary malignant neoplasm of bone; J90 Pleural effusion, not elsewhere classified; R59.0 Localized enlarged lymph nodes | CPT/HCPCS: 71260; 74177; 78306; A9503 ==

== ENCOUNTER 2021-09-25 20:47 | Inpatient (IN) | payer MEDICARE, MEDICAID ==
[2021-09-25 21:24] LABS: Bilirubin Negative (Negative); Blood, Urine Negative (Negative); Clarity Clear (Clear); Glucose, Urine (Dipstick) 70 mg/dL (Negative); Ketone, Urine Negative (Negative); Leukocyte Negative Leu/uL (Negative); Nitrite Negative (Negative); Protein, Urine (Dipstick) 20 mg/dL (Neg-Trace); Specific Gravity, Urine 1.015 (1.002-1.036); Urobilinogen Normal mg/dL (Less than 2); pH, Urine 6.5 (5.0-9.0)
[2021-09-25] MEDS ORDERED: Ketorolac Tromethamine 30 MG/ML VIAL ONE (21:41)
[2021-09-25 22:04] LABS: ALT (SGPT) 7 U/L (8-55); AST (SGOT) 23 U/L (5-34); Albumin 4.1 g/dL (3.5-5.0); Alkaline Phosphatase 115 U/L (40-110); Anion Gap 12 mmol/L (10-20); BUN (Urea Nitrogen) 13 mg/dL (9.8-20.1); Bilirubin, Total 0.3 mg/dL (0.2-1.2); Calc. Creatinine Clearance 0 mL/min (70-130); Calcium 9.2 mg/dL (7.8-10.44); Carbon Dioxide 28 mmol/L (22-29); Chloride 102 mmol/L (98-107); Globulin 3.1 g/dL (2.4-3.5); Glucose 84 mg/dL (70-105); Hemoglobin 8.5 g/dL (12.0-16.0); Lipase 4 U/L (8-78); Mean Corpuscular HGB CONC 34.6 g/dL (32.0-36.0); Mean Corpuscular Hemoglobin 34.5 pg (27.0-31.0); Mean Corpuscular Volume 99.7 fL (78.0-98.0); Mean Platelet Volume 6.1 fL (7.4-10.4); Platelet Count 263 thou/uL (130-400); Potassium 3.8 mmol/L (3.5-5.1); Protein, Total 7.2 g/dL (6.0-8.3); RBC Distribution Width 18.1 % (11.5-14.5); Red Blood Cell (RBC) Count 2.45 mill/uL (4.20-5.40); Sodium 138 mmol/L (136-145); White Blood Cell (WBC) Count 1.8 thou/uL (4.8-10.8)
[2021-09-25] MEDS ORDERED: cefTRIAXone\\ROCEPHIN 1 GM VIAL ONE (22:04)
[2021-09-25] MEDS ORDERED: Azithromycin 500 MG VIAL ONE (22:04)
[2021-09-25 22:22] LABS: #Lymphocytes 0.8 thou/uL (1.20-3.40); #Monocytes 0.1 thou/uL (0.11-0.59); #Neutrophils 0.9 thou/uL (1.40-6.50); %Basophils 1.2 % (0.0-1.0); %Monocytes 4.3 % (0.0-10.0); %Neutrophils 51.4 % (42.0-75.0); Anisocytosis SLIGHT = 6-15 cells (100X) (0-5/hpf); MDiff Complete? YES; Reflex for Review?? YES
[2021-09-25 22:24] LABS: SARS-CoV-2 NAA Rapid Test Not Detected (NotDetected)
[2021-09-25] MEDS ORDERED: Vancomycin 1 GM/200 ML BAG ONE (22:54)
[2021-09-25] MEDS ORDERED: Acetaminophen 325 MG TAB PO PRN (23:05)
[2021-09-25] MEDS ORDERED: Senokot S 8.6-50 MG TAB PO PRN (23:05)
[2021-09-26 00:36] VITALS: BMI 19.3
[2021-09-26] MEDS: HYDROcodone/Acetaminophen 5/325 mg Tablet PO PRN ×4 (00:56→13:01)
[2021-09-26] MEDS: Ondansetron PF 4 MG/2 ML Vial IVP PRN ×3 (05:24→21:03)
[2021-09-26 05:37] LABS: Hemoglobin 7.8 g/dL (12.0-16.0); Mean Corpuscular HGB CONC 34.7 g/dL (32.0-36.0); Mean Corpuscular Hemoglobin 34.6 pg (27.0-31.0); Mean Corpuscular Volume 99.8 fL (78.0-98.0); Mean Platelet Volume 6.2 fL (7.4-10.4); Platelet Count 214 thou/uL (130-400); RBC Distribution Width 18.2 % (11.5-14.5); Red Blood Cell (RBC) Count 2.25 mill/uL (4.20-5.40); White Blood Cell (WBC) Count 1.3 thou/uL (4.8-10.8)
[2021-09-26 05:45] LABS: Anion Gap 13 mmol/L (10-20); BUN (Urea Nitrogen) 12 mg/dL (9.8-20.1); Calc. Creatinine Clearance 62 mL/min (70-130); Calcium 8.6 mg/dL (7.8-10.44); Carbon Dioxide 23 mmol/L (22-29); Chloride 108 mmol/L (98-107); Glucose 91 mg/dL (70-105); Potassium 3.9 mmol/L (3.5-5.1); Sodium 140 mmol/L (136-145)
[2021-09-26 06:59] LABS: Band 3 % (5-11); Lymphocytes 57 % (21-51); MDiff Complete? YES; Monocytes 1 % (0-10); Neutrophil 38 % (42-75)
[2021-09-26 07:56] LABS: Legionella Urinary Ag Negative (Negative); Strep pneumo Urine Ag NEGATIVE (NEGATIVE)
[2021-09-26] MEDS: Vancomycin HCl 750 MG in Sodium Chloride 0.9% 250 ML 250 ML IVPB SCH ×2 (09:22→22:29)
[2021-09-26] MEDS: Cefepime 1 GM in Sodium Chloride 0.9% 100 ML IVPB SCH ×2 (09:22→21:07)
[2021-09-26] MEDS: Enoxaparin Sodium 40 MG/0.4 ML SYRINGE SC SCH (09:22)
[2021-09-26] MEDS ORDERED: Morphine IR Tab 15 MG TAB PO PRN (13:29)
[2021-09-26] MEDS: Anastrozole 1 MG TAB PO SCH (14:38)
[2021-09-26] MEDS ORDERED: Polyethylene Glycol 3350 17 GM Packet PO PRN (14:51)
[2021-09-26] MEDS: Transdermal Patch Removal TOP SCH (21:00)
[2021-09-26] MEDS: Morphine IR Tab 15 MG TAB PO SCH (21:07)
[2021-09-26] MEDS: Senokot S 8.6-50 MG TAB PO SCH (21:07)
[2021-09-27] MEDS: Morphine IR Tab 15 MG TAB PO SCH ×6 (01:25→20:45)
[2021-09-27 05:52] LABS: #Lymphocytes 0.6 thou/uL (1.20-3.40); #Monocytes 0.1 thou/uL (0.11-0.59); #Neutrophils 0.7 thou/uL (1.40-6.50); %Basophils 1.1 % (0.0-1.0); %Eosinophils 1.5 % (0.0-10.0); %Lymphocytes 42.4 % (21.0-51.0); %Monocytes 6.4 % (0.0-10.0); %Neutrophils 48.7 % (42.0-75.0); Hemoglobin 7.5 g/dL (12.0-16.0); Mean Corpuscular HGB CONC 34.2 g/dL (32.0-36.0); Mean Corpuscular Hemoglobin 34.7 pg (27.0-31.0); Mean Platelet Volume 6.4 fL (7.4-10.4); Platelet Count 179 thou/uL (130-400); RBC Distribution Width 18.4 % (11.5-14.5); Red Blood Cell (RBC) Count 2.17 mill/uL (4.20-5.40); White Blood Cell (WBC) Count 1.4 thou/uL (4.8-10.8)
[2021-09-27 06:14] LABS: Anion Gap 12 mmol/L (10-20); BUN (Urea Nitrogen) 9 mg/dL (9.8-20.1); Calc. Creatinine Clearance 75 mL/min (70-130); Calcium 8.5 mg/dL (7.8-10.44); Carbon Dioxide 22 mmol/L (22-29); Chloride 109 mmol/L (98-107); Glucose 85 mg/dL (70-105); Potassium 3.7 mmol/L (3.5-5.1); Sodium 139 mmol/L (136-145)
[2021-09-27] MEDS ORDERED: fentaNYL 100 mcg/hour Patch TD SCH (07:00)
[2021-09-27] MEDS ORDERED: fentaNYL 75 mcg/hour Patch TD SCH (07:00)
[2021-09-27] MEDS: Cefepime 1 GM in Sodium Chloride 0.9% 100 ML IVPB SCH ×2 (09:20→20:02)
[2021-09-27] MEDS: Polyethylene Glycol 3350 17 GM Packet PO SCH (09:24)
[2021-09-27 09:25] LABS: Vancomycin, Trough 15.2 ug/mL
[2021-09-27] MEDS: fentaNYL 75 mcg/hour Patch TD SCH (09:25)
[2021-09-27] MEDS: Anastrozole 1 MG TAB PO SCH (09:25)
[2021-09-27] MEDS: Enoxaparin Sodium 40 MG/0.4 ML SYRINGE SC SCH (09:25)
[2021-09-27] MEDS: Lidocaine 5% Patch TD SCH (09:26)
[2021-09-27] MEDS: Senokot S 8.6-50 MG TAB PO SCH ×2 (09:29→20:03)
[2021-09-27] MEDS: fentaNYL 100 mcg/hour Patch TD SCH (09:30)
[2021-09-27] MEDS: Vancomycin HCl 750 MG in Sodium Chloride 0.9% 250 ML 250 ML IVPB SCH ×2 (09:31→21:58)
[2021-09-27] MEDS: Ondansetron PF 4 MG/2 ML Vial IVP PRN ×3 (09:46→23:03)
[2021-09-27] MEDS: Transdermal Patch Removal TOP SCH (20:02)
[2021-09-28] MEDS: Morphine IR Tab 15 MG TAB PO SCH ×6 (01:03→20:47)
[2021-09-28] MEDS: Ondansetron PF 4 MG/2 ML Vial IVP PRN ×2 (04:41→11:13)
[2021-09-28 05:21] LABS: #Lymphocytes 0.7 thou/uL (1.20-3.40); #Monocytes 0.1 thou/uL (0.11-0.59); #Neutrophils 0.7 thou/uL (1.40-6.50); %Basophils 1.4 % (0.0-1.0); %Eosinophils 1.7 % (0.0-10.0); %Lymphocytes 44.8 % (21.0-51.0); %Monocytes 5.6 % (0.0-10.0); %Neutrophils 46.6 % (42.0-75.0); Hemoglobin 7.4 g/dL (12.0-16.0); Mean Corpuscular HGB CONC 34.5 g/dL (32.0-36.0); Mean Corpuscular Hemoglobin 34.6 pg (27.0-31.0); Mean Platelet Volume 6.6 fL (7.4-10.4); Platelet Count 156 thou/uL (130-400); RBC Distribution Width 18.4 % (11.5-14.5); Red Blood Cell (RBC) Count 2.13 mill/uL (4.20-5.40); White Blood Cell (WBC) Count 1.5 thou/uL (4.8-10.8)
[2021-09-28 05:37] LABS: Anion Gap 12 mmol/L (10-20); BUN (Urea Nitrogen) 8 mg/dL (9.8-20.1); Calc. Creatinine Clearance 74 mL/min (70-130); Calcium 8.5 mg/dL (7.8-10.44); Carbon Dioxide 22 mmol/L (22-29); Chloride 104 mmol/L (98-107); Glucose 96 mg/dL (70-105); Potassium 4.2 mmol/L (3.5-5.1); Sodium 134 mmol/L (136-145)
[2021-09-28] MEDS: Senokot S 8.6-50 MG TAB PO SCH ×2 (09:24→20:47)
[2021-09-28] MEDS: Enoxaparin Sodium 40 MG/0.4 ML SYRINGE SC SCH (09:24)
[2021-09-28] MEDS: Anastrozole 1 MG TAB PO SCH (09:24)
[2021-09-28] MEDS: Cefepime 1 GM in Sodium Chloride 0.9% 100 ML IVPB SCH ×2 (09:24→21:07)
[2021-09-28] MEDS: Polyethylene Glycol 3350 17 GM Packet PO SCH (09:24)
[2021-09-28] MEDS: Lidocaine 5% Patch TD SCH (09:25)
[2021-09-28] MEDS: Vancomycin HCl 750 MG in Sodium Chloride 0.9% 250 ML 250 ML IVPB SCH ×2 (11:13→23:00)
[2021-09-28] MEDS: Transdermal Patch Removal TOP SCH (21:07)
[2021-09-29] MEDS: Morphine IR Tab 15 MG TAB PO SCH ×6 (00:58→20:17)
[2021-09-29] MEDS: Ondansetron PF 4 MG/2 ML Vial IVP PRN ×3 (04:09→19:32)
[2021-09-29] MEDS: Enoxaparin Sodium 40 MG/0.4 ML SYRINGE SC SCH (09:16)
[2021-09-29] MEDS: Anastrozole 1 MG TAB PO SCH (09:16)
[2021-09-29] MEDS: Senokot S 8.6-50 MG TAB PO SCH ×2 (09:16→20:17)
[2021-09-29] MEDS: Cefepime 1 GM in Sodium Chloride 0.9% 100 ML IVPB SCH ×2 (09:16→20:16)
[2021-09-29] MEDS: Polyethylene Glycol 3350 17 GM Packet PO SCH (09:16)
[2021-09-29] MEDS: Lidocaine 5% Patch TD SCH (09:17)
[2021-09-29] MEDS: Vancomycin HCl 750 MG in Sodium Chloride 0.9% 250 ML 250 ML IVPB SCH ×2 (10:01→22:19)
[2021-09-29 11:43] LABS: #Lymphocytes 0.6 thou/uL (1.20-3.40); #Monocytes 0.2 thou/uL (0.11-0.59); #Neutrophils 0.7 thou/uL (1.40-6.50); %Basophils 0.5 % (0.0-1.0); %Eosinophils 2.3 % (0.0-10.0); %Lymphocytes 39.2 % (21.0-51.0); %Monocytes 13.8 % (0.0-10.0); %Neutrophils 44.2 % (42.0-75.0); Hemoglobin 8.8 g/dL (12.0-16.0); Mean Corpuscular HGB CONC 33.4 g/dL (32.0-36.0); Mean Corpuscular Hemoglobin 32.1 pg (27.0-31.0); Mean Corpuscular Volume 96.1 fL (78.0-98.0); Mean Platelet Volume 6.9 fL (7.4-10.4); Platelet Count 150 thou/uL (130-400); RBC Distribution Width 22.6 % (11.5-14.5); Red Blood Cell (RBC) Count 2.74 mill/uL (4.20-5.40); White Blood Cell (WBC) Count 1.6 thou/uL (4.8-10.8)
[2021-09-29 12:08] LABS: Anisocytosis MODERATE=16-30 cells (100X) (0-5/hpf); MDiff Complete? YES; Platelet Morphology Comment Appears Adequate; Polychromasia SLIGHT = 2-3 cells (100X) (0-2/hpf)
[2021-09-29 12:14] LABS: Vancomycin, Trough 49.6 ug/mL
[2021-09-29] MEDS: Transdermal Patch Removal TOP SCH (18:23)
[2021-09-29 21:49] LABS: Vancomycin, Trough 17.4 ug/mL
[2021-09-30] MEDS: Morphine IR Tab 15 MG TAB PO SCH ×3 (01:16→09:17)
[2021-09-30] MEDS: Ondansetron PF 4 MG/2 ML Vial IVP PRN (03:21)
[2021-09-30 07:56] VITALS: BP 94/62; TEMP 98.6
[2021-09-30] MEDS: Enoxaparin Sodium 40 MG/0.4 ML SYRINGE SC SCH (09:17)
[2021-09-30] MEDS: Senokot S 8.6-50 MG TAB PO SCH (09:18)
[2021-09-30] MEDS: Anastrozole 1 MG TAB PO SCH (09:18)
[2021-09-30] MEDS: fentaNYL 75 mcg/hour Patch TD SCH ×2 (09:18→09:43)
[2021-09-30] MEDS: Polyethylene Glycol 3350 17 GM Packet PO SCH (09:18)
[2021-09-30] MEDS: Cefepime 1 GM in Sodium Chloride 0.9% 100 ML IVPB SCH (09:19)
[2021-09-30] MEDS: Lidocaine 5% Patch TD SCH (09:43)
[2021-09-30] MEDS: fentaNYL 100 mcg/hour Patch TD SCH (09:44)
[2021-09-30] MEDS: Vancomycin HCl 750 MG in Sodium Chloride 0.9% 250 ML 250 ML IVPB SCH (11:28)
== END 2021-09-30 11:05 | disposition home or self-care (01) | DRG 871 ==
LOC: ERS 20:47 → SURG B 22:29 → OBSVTOIN 09-26 06:19 → MSONC 09-29 14:25
PROVIDERS: ADMIT Internal Medicine; ATTEND Internal Medicine
PROC: 30233N1 Transfusion of Nonautologous Red Blood Cells into Peripheral Vein, Percutaneous Approach (ICD-10-PCS; principal; 2021-09-28)
DX: A41.9 Sepsis, unspecified organism (principal); J18.9 Pneumonia, unspecified organism; C79.51 Secondary malignant neoplasm of bone; Z20.822 Contact with and (suspected) exposure to COVID-19; C50.912 Malignant neoplasm of unspecified site of left female breast; F31.9 Bipolar disorder, unspecified; D70.8 Other neutropenia; D64.81 Anemia due to antineoplastic chemotherapy; T45.1X5A Adverse effect of antineoplastic and immunosuppressive drugs, initial encounter; Z96.642 Presence of left artificial hip joint; Z79.899 Other long term (current) drug therapy; Z90.710 Acquired absence of both cervix and uterus; Z90.49 Acquired absence of other specified parts of digestive tract; Z90.09 Acquired absence of other part of head and neck; Z98.890 Other specified postprocedural states; Z17.0 Estrogen receptor positive status [ER+]
CPT/HCPCS: 36415; 36430; 71045; 80048; 80053; 80202; 81003; 83605; 83690; 85025; 85060; 86850; 86900; 86901; 87040; 87086; 87449; 87899; 93005; 96365; 96367; 96375; G0378; J0456; J0692; J0696; J1650; J1885; J2405; J3370; J3490; J7050; P9016; U0002

== ENCOUNTER 2021-10-29 09:24 | Outpatient (CLI) | payer MEDICARE, MEDICAID | END 2021-10-29 09:25 | disposition home or self-care (01) | LOC: CT 09:24 | PROVIDERS: ATTEND Internal Medicine Hematology & Oncology | DX: C50.112 Malignant neoplasm of central portion of left female breast (principal); C79.51 Secondary malignant neoplasm of bone; C78.7 Secondary malignant neoplasm of liver and intrahepatic bile duct | CPT/HCPCS: 71260; 74177; 78306; A9503 ==

== ENCOUNTER 2021-11-10 22:10 | Emergency (ER) | payer MEDICARE, MEDICAID ==
[2021-11-10] MEDS ORDERED: HYDROcodone/Acetaminophen 5/325 mg Tablet ONE (23:08)
[2021-11-10] MEDS ORDERED: fentaNYL 100 mcg/hour Patch TD SCH (23:59)
[2021-11-11] MEDS ORDERED: Ondansetron ODT 4 MG TAB ONE (01:14)
== END 2021-11-11 01:32 | disposition home or self-care (01) ==
LOC: ERS 22:10
DX: S42.202A Unspecified fracture of upper end of left humerus, initial encounter for closed fracture (principal); X50.0XXA Overexertion from strenuous movement or load, initial encounter
CPT/HCPCS: 29065; Q0162

== ENCOUNTER 2021-11-30 15:03 | Inpatient (IN) | payer MEDICARE, MEDICAID ==
[2021-11-30 16:43] LABS: #Eosinphils 0.1 thou/uL (0.0-0.7); #Monocytes 0.5 thou/uL (0.11-0.59); #Neutrophils 4.5 thou/uL (1.40-6.50); %Basophils 0.1 % (0.0-1.0); %Eosinophils 1.5 % (0.0-10.0); %Lymphocytes 15.8 % (21.0-51.0); %Monocytes 7.7 % (0.0-10.0); %Neutrophils 74.9 % (42.0-75.0); Hemoglobin 9.7 g/dL (12.0-16.0); Mean Corpuscular HGB CONC 32.3 g/dL (32.0-36.0); Mean Corpuscular Hemoglobin 29.7 pg (27.0-31.0); Mean Corpuscular Volume 91.9 fL (78.0-98.0); Mean Platelet Volume 6.6 fL (7.4-10.4); Platelet Count 249 thou/uL (130-400); RBC Distribution Width 20.3 % (11.5-14.5); Red Blood Cell (RBC) Count 3.27 mill/uL (4.20-5.40)
[2021-11-30] MEDS ORDERED: Ondansetron PF 4 MG/2 ML Vial ONE (16:45)
[2021-11-30] MEDS ORDERED: Morphine 4 MG/ML VIAL ONE ×2 (16:45→17:46)
[2021-11-30 16:59] LABS: INR-International Normal Ratio 1.1; PTT 37.2 sec (22.9-36.1); Prothrombin Time 13.9 sec (12.0-14.7)
[2021-11-30 17:07] LABS: ALT (SGPT) 37 U/L (8-55); AST (SGOT) 53 U/L (5-34); Alkaline Phosphatase 168 U/L (40-110); Anion Gap 16 mmol/L (10-20); BUN (Urea Nitrogen) 10 mg/dL (9.8-20.1); Bilirubin, Total 0.3 mg/dL (0.2-1.2); Calc. Creatinine Clearance 0 mL/min (70-130); Calcium 9.1 mg/dL (7.8-10.44); Carbon Dioxide 20 mmol/L (22-29); Chloride 104 mmol/L (98-107); Globulin 3.5 g/dL (2.4-3.5); Glucose 120 mg/dL (70-105); Potassium 3.6 mmol/L (3.5-5.1); Protein, Total 7.5 g/dL (6.0-8.3); Sodium 136 mmol/L (136-145)
[2021-11-30 20:17] LABS: SARS-CoV-2 NAA Rapid Test Not Detected (NotDetected)
[2021-11-30] MEDS ORDERED: Ketorolac Tromethamine 30 MG/ML VIAL ONE (20:44)
[2021-11-30] MEDS ORDERED: Fentanyl 100 MCG/2 ML VIAL ONE (20:44)
[2021-12-01] MEDS ORDERED: Morphine 4 MG/ML VIAL ONE ×5 (00:48→17:19)
[2021-12-01] MEDS: Morphine 4 MG/ML VIAL SLOW IVP PRN ×4 (00:59→17:22)
[2021-12-01] MEDS ORDERED: Ondansetron PF 4 MG/2 ML Vial IVP PRN (05:59)
[2021-12-01] MEDS ORDERED: Acetaminophen 325 MG TAB PO PRN (05:59)
[2021-12-01] MEDS ORDERED: Cyclobenzaprine 10 MG TAB PO PRN (06:07)
[2021-12-01] MEDS ORDERED: Cyclobenzaprine 10 MG TAB ONE ×2 (06:23→08:47)
[2021-12-01 06:42] LABS: #Eosinphils 0.1 thou/uL (0.0-0.7); #Lymphocytes 0.8 thou/uL (1.20-3.40); #Monocytes 0.6 thou/uL (0.11-0.59); #Neutrophils 2.8 thou/uL (1.40-6.50); %Basophils 0.3 % (0.0-1.0); %Eosinophils 1.5 % (0.0-10.0); %Lymphocytes 19.7 % (21.0-51.0); %Monocytes 12.8 % (0.0-10.0); %Neutrophils 65.6 % (42.0-75.0); Hemoglobin 8.1 g/dL (12.0-16.0); Mean Corpuscular HGB CONC 32.3 g/dL (32.0-36.0); Mean Corpuscular Hemoglobin 29.9 pg (27.0-31.0); Mean Corpuscular Volume 92.5 fL (78.0-98.0); Mean Platelet Volume 6.4 fL (7.4-10.4); Platelet Count 196 thou/uL (130-400); RBC Distribution Width 20.2 % (11.5-14.5); Red Blood Cell (RBC) Count 2.72 mill/uL (4.20-5.40); White Blood Cell (WBC) Count 4.2 thou/uL (4.8-10.8)
[2021-12-01 07:04] LABS: Anion Gap 14 mmol/L (10-20); BUN (Urea Nitrogen) 7 mg/dL (9.8-20.1); Calc. Creatinine Clearance 0 mL/min (70-130); Carbon Dioxide 17 mmol/L (22-29); Chloride 107 mmol/L (98-107); Glucose 82 mg/dL (70-105); Potassium 3.9 mmol/L (3.5-5.1); Sodium 134 mmol/L (136-145)
[2021-12-01] MEDS ORDERED: fentaNYL 100 mcg/hour Patch TD SCH ×2 (08:00→18:00)
[2021-12-01] MEDS ORDERED: Furosemide 40 MG TAB ONE ×2 (08:52→16:20)
[2021-12-01] MEDS ORDERED: Enoxaparin Sodium 30 MG/0.3 ML SYRINGE ONE ×2 (08:52→08:53)
[2021-12-01] MEDS ORDERED: Morphine ER 30 MG TAB PO SCH (09:00)
[2021-12-01] MEDS ORDERED: Non-Formulary Item 1 EACH (Polyethylene Glycol 3350 [Miralax] 119 GM Bottle) PO SCH (09:00)
[2021-12-01] MEDS: Anastrozole 1 MG TAB PO SCH (09:10)
[2021-12-01] MEDS: Enoxaparin Sodium 30 MG/0.3 ML SYRINGE SC SCH (09:10)
[2021-12-01] MEDS: Furosemide 20 MG TAB PO SCH ×2 (09:11→16:29)
[2021-12-01] MEDS: Lidocaine 5% Patch TD SCH (09:11)
[2021-12-01] MEDS: Polyethylene Glycol 3350 17 GM Packet PO SCH (09:11)
[2021-12-01] MEDS: Senokot S 8.6-50 MG TAB PO SCH ×2 (09:12→23:04)
[2021-12-01] MEDS ORDERED: Ketorolac Tromethamine 30 MG/ML VIAL IVP SCH (16:15)
[2021-12-01] MEDS ORDERED: Ketorolac Tromethamine 30 MG/ML VIAL ONE ×2 (16:20→19:53)
[2021-12-01] MEDS ORDERED: fentaNYL 75 mcg/hour Patch TD SCH (18:00)
[2021-12-01] MEDS: Ketorolac Tromethamine 30 MG/ML VIAL IVP SCH ×2 (20:02→23:14)
[2021-12-01] MEDS: Transdermal Patch Removal TOP SCH (20:15)
[2021-12-01] MEDS: Morphine ER 30 MG TAB PO SCH ×2 (23:03→23:16)
[2021-12-02 00:10] VITALS: BMI 19.9
[2021-12-02] MEDS: Morphine 4 MG/ML VIAL SLOW IVP PRN ×6 (00:43→21:38)
[2021-12-02 06:21] LABS: Hemoglobin 8.2 g/dL (12.0-16.0); Mean Corpuscular HGB CONC 32.6 g/dL (32.0-36.0); Mean Corpuscular Hemoglobin 29.4 pg (27.0-31.0); Mean Platelet Volume 6.7 fL (7.4-10.4); Platelet Count 218 thou/uL (130-400); RBC Distribution Width 20.2 % (11.5-14.5); Red Blood Cell (RBC) Count 2.79 mill/uL (4.20-5.40); White Blood Cell (WBC) Count 2.6 thou/uL (4.8-10.8)
[2021-12-02] MEDS: Ketorolac Tromethamine 30 MG/ML VIAL IVP SCH ×4 (06:27→23:05)
[2021-12-02 06:32] LABS: Band 4 % (5-11); Hypochromia SLIGHT = 6-15 cells (100X) (0-5/hpf); Lymphocytes 12 % (21-51); MDiff Complete? YES; Monocytes 8 % (0-10); Neutrophil 76 % (42-75); Platelet Morphology Comment Appears Adequate
[2021-12-02 06:36] LABS: Anion Gap 14 mmol/L (10-20); BUN (Urea Nitrogen) 10 mg/dL (9.8-20.1); Calc. Creatinine Clearance 82 mL/min (70-130); Calcium 8.1 mg/dL (7.8-10.44); Carbon Dioxide 21 mmol/L (22-29); Chloride 105 mmol/L (98-107); Glucose 113 mg/dL (70-105); Potassium 3.5 mmol/L (3.5-5.1); Sodium 136 mmol/L (136-145)
[2021-12-02] MEDS: Morphine ER 30 MG TAB PO SCH ×2 (09:42→20:10)
[2021-12-02] MEDS: Senokot S 8.6-50 MG TAB PO SCH ×2 (09:46→20:10)
[2021-12-02] MEDS: Anastrozole 1 MG TAB PO SCH (09:47)
[2021-12-02] MEDS: Polyethylene Glycol 3350 17 GM Packet PO SCH (09:47)
[2021-12-02] MEDS: Enoxaparin Sodium 30 MG/0.3 ML SYRINGE SC SCH (09:48)
[2021-12-02] MEDS: Lidocaine 5% Patch TD SCH (09:50)
[2021-12-02] MEDS ORDERED: BIOTENE MOUTH SPRAY 44.3 ML PO PRN (16:02)
[2021-12-02] MEDS: Transdermal Patch Removal TOP SCH (20:14)
[2021-12-03] MEDS: Morphine 4 MG/ML VIAL SLOW IVP PRN ×5 (02:20→21:30)
[2021-12-03] MEDS: Ketorolac Tromethamine 30 MG/ML VIAL IVP SCH ×3 (05:22→17:52)
[2021-12-03] MEDS: Morphine ER 30 MG TAB PO SCH ×2 (08:42→20:45)
[2021-12-03] MEDS: Senokot S 8.6-50 MG TAB PO SCH ×2 (08:42→20:45)
[2021-12-03] MEDS: Enoxaparin Sodium 30 MG/0.3 ML SYRINGE SC SCH (08:42)
[2021-12-03] MEDS: Anastrozole 1 MG TAB PO SCH ×2 (08:42→09:08)
[2021-12-03] MEDS: Polyethylene Glycol 3350 17 GM Packet PO SCH (08:43)
[2021-12-03] MEDS: EVEROLIMUS 10 MG PO SCH (08:44)
[2021-12-03] MEDS: Lidocaine 5% Patch TD SCH (08:44)
[2021-12-03] MEDS: Transdermal Patch Removal TOP SCH (20:51)
[2021-12-04] MEDS: Ketorolac Tromethamine 30 MG/ML VIAL IVP SCH ×3 (00:34→11:32)
[2021-12-04] MEDS: Morphine 4 MG/ML VIAL SLOW IVP PRN ×4 (01:32→13:40)
[2021-12-04] MEDS: Morphine ER 30 MG TAB PO SCH (08:01)
[2021-12-04] MEDS: Anastrozole 1 MG TAB PO SCH (08:02)
[2021-12-04] MEDS: Polyethylene Glycol 3350 17 GM Packet PO SCH (08:02)
[2021-12-04] MEDS: Senokot S 8.6-50 MG TAB PO SCH (08:02)
[2021-12-04] MEDS: Lidocaine 5% Patch TD SCH (08:02)
[2021-12-04] MEDS: EVEROLIMUS 10 MG PO SCH (08:04)
[2021-12-04] MEDS: Enoxaparin Sodium 30 MG/0.3 ML SYRINGE SC SCH (08:40)
[2021-12-04 09:27] VITALS: BP 101/69; TEMP 97.2
== END 2021-12-04 15:25 | disposition home or self-care (01) | DRG 543 ==
LOC: ERS 15:03 → ERHOLD 20:17 → MSONC 12-01 21:52 → OBSVTOIN 12-02 13:37
PROVIDERS: ADMIT Internal Medicine; ATTEND Internal Medicine
DX: C79.51 Secondary malignant neoplasm of bone (principal); M84.58XA Pathological fracture in neoplastic disease, other specified site, initial encounter for fracture; J91.0 Malignant pleural effusion; J96.11 Chronic respiratory failure with hypoxia; Z66 Do not resuscitate; C50.912 Malignant neoplasm of unspecified site of left female breast; F31.9 Bipolar disorder, unspecified; Z96.642 Presence of left artificial hip joint; F31.70 Bipolar disorder, currently in remission, most recent episode unspecified; D63.0 Anemia in neoplastic disease; G89.3 Neoplasm related pain (acute) (chronic); Z79.811 Long term (current) use of aromatase inhibitors; Z79.899 Other long term (current) drug therapy; Z90.710 Acquired absence of both cervix and uterus; Z90.89 Acquired absence of other organs; Z80.9 Family history of malignant neoplasm, unspecified; Z82.49 Family history of ischemic heart disease and other diseases of the circulatory system; Z99.81 Dependence on supplemental oxygen; Z87.01 Personal history of pneumonia (recurrent)
CPT/HCPCS: 36415; 71045; 71275; 80048; 80053; 83880; 84484; 85025; 85610; 85730; 93005; 94760; 96372; 96374; 96375; 96376; G0378; J1650; J1885; J2270; J2405; J3010; U0002

== ENCOUNTER 2022-01-20 10:30 | Inpatient (IN) | payer MEDICARE, MEDICAID ==
[2022-01-20] MEDS ORDERED: ceFAZolin 2 GM/DEX 5% 100 ML BAG ONE (12:21)
[2022-01-20] MEDS ORDERED: Fentanyl 100 MCG/2 ML VIAL ONE ×2 (12:26→14:18)
[2022-01-20] MEDS ORDERED: Lidocaine 1% PF 5 ML VIAL ONE (12:38)
[2022-01-20] MEDS ORDERED: Glycopyrrolate 0.2 MG/ML 5 ML SYRINGE ONE (12:38)
[2022-01-20] MEDS ORDERED: PROPOFOL 200 MG/20 ML VIAL ONE (12:38)
[2022-01-20] MEDS ORDERED: Rocuronium Bromide 10 MG/ML (10ML VIAL) ONE (12:38)
[2022-01-20] MEDS ORDERED: Ondansetron PF 4 MG/2 ML Vial ONE (12:38)
[2022-01-20] MEDS ORDERED: Fentanyl 250 MCG/5 ML VIAL ONE (13:07)
[2022-01-20] MEDS ORDERED: SUGAMMADEX SODIUM 200 MG/2 ML VIAL ONE (14:03)
[2022-01-20] MEDS ORDERED: HYDROmorphone 0.5 MG/0.5 ML SYRINGE ONE ×3 (14:13→15:12)
[2022-01-20] MEDS ORDERED: Midazolam HCl 2 mg/2 ml Vial ONE (14:21)
[2022-01-20] MEDS ORDERED: Promethazine HCl 25 MG/ML VIAL ONE (14:32)
[2022-01-20] MEDS ORDERED: Dexmedetomidine 200 MCG/2 ML VIAL ONE (14:42)
[2022-01-20] MEDS ORDERED: Ondansetron PF 4 MG/2 ML Vial SLOW IVP PRN (15:11)
[2022-01-20] MEDS ORDERED: [UNRECOGNIZED DRUG - REMARK] FS PRN (15:15)
[2022-01-20] MEDS ORDERED: Ondansetron PF 4 MG/2 ML Vial IVP PRN (15:50)
[2022-01-20] MEDS ORDERED: Promethazine HCl 25 MG/ML VIAL IM PRN (15:50)
[2022-01-20] MEDS ORDERED: Zolpidem Tartrate 5 MG TAB PO PRN (15:50)
[2022-01-20] MEDS ORDERED: fentaNYL Citrate/PF 2,000 MCG in Sodium Chloride 0.9% 60 ML IV PRN (15:50)
[2022-01-20] MEDS ORDERED: Naloxone HCl 0.4 mg/ml Vial IV PRN (15:50)
[2022-01-20] MEDS ORDERED: diphenhydrAMINE 50 MG/ML VIAL IVP PRN (15:50)
[2022-01-20] MEDS ORDERED: diphenhydrAMINE 25 MG CAP PO PRN (15:50)
[2022-01-20] MEDS ORDERED: diphenhydrAMINE 50 MG/ML VIAL IM PRN (15:50)
[2022-01-20] MEDS ORDERED: Communication Order-Pharmacy FS SCH (16:00)
[2022-01-20] MEDS ORDERED: [UNRECOGNIZED DRUG - REMARK] FS SCH (16:30)
[2022-01-20 21:20] VITALS: BMI 22.3
[2022-01-20] MEDS: Ketorolac Tromethamine 30 MG/ML VIAL IVP PRN (21:30)
[2022-01-20] MEDS: Aspirin 81 mg Enteric Coated Tablet PO SCH (21:30)
[2022-01-20] MEDS ORDERED: BIOTENE MOUTH SPRAY 44.3 ML MM PRN (22:27)
[2022-01-20] MEDS: CEFAZOLIN 2 GM, Admixture Fee 1 EACH in Sodium Chloride 0.9% 100 ML IVPB SCH (22:42)
[2022-01-21] MEDS ORDERED: Acetaminophen 500 MG TAB PO SCH (03:45)
[2022-01-21] MEDS: Ketorolac Tromethamine 30 MG/ML VIAL IVP PRN (03:46)
[2022-01-21] MEDS ORDERED: fentaNYL 100 mcg/hour Patch TD SCH (05:00)
[2022-01-21] MEDS: CEFAZOLIN 2 GM, Admixture Fee 1 EACH in Sodium Chloride 0.9% 100 ML IVPB SCH (05:13)
[2022-01-21] MEDS ORDERED: Ondansetron ODT 8 MG TAB PO PRN (08:01)
[2022-01-21] MEDS ORDERED: MORPHINE SULFATE 30 MG PO PRN (08:01)
[2022-01-21] MEDS ORDERED: Non-Formulary Item 1 EACH (Prochlorperazine Maleate [Compazine] 10 MG Tab) PO PRN (08:01)
[2022-01-21] MEDS: Aspirin 81 mg Enteric Coated Tablet PO SCH ×2 (08:07→21:14)
[2022-01-21] MEDS ORDERED: DENOSUMAB 120 MG/1.7 ML SQ SCH (08:15)
[2022-01-21] MEDS ORDERED: Prochlorperazine Maleate 5 MG TAB PO PRN (08:16)
[2022-01-21] MEDS: Polyethylene Glycol 3350 17 GM Packet PO SCH (08:33)
[2022-01-21] MEDS: Dexamethasone 0.5 MG/5 ML UDCUP PO SCH ×4 (08:53→21:39)
[2022-01-21] MEDS: Senokot S 8.6-50 MG TAB PO SCH ×2 (08:56→21:15)
[2022-01-21] MEDS: Morphine ER 30 MG TAB PO SCH ×2 (08:56→21:14)
[2022-01-21] MEDS: fentaNYL 75 mcg/hour Patch TD SCH (08:57)
[2022-01-21] MEDS ORDERED: EVEROLIMUS 10 MG PO SCH (09:00)
[2022-01-21] MEDS ORDERED: Non-Formulary Item 1 EACH (Polyethylene Glycol 3350 [Miralax] 119 GM Bottle) PO SCH (09:00)
[2022-01-21] MEDS: fentaNYL 100 mcg/hour Patch TD SCH (09:04)
[2022-01-21] MEDS: Lidocaine 5% Patch TD SCH (09:31)
[2022-01-21] MEDS: Morphine IR Tab 15 MG TAB PO PRN ×3 (12:45→23:18)
[2022-01-21] MEDS ORDERED: TETANUS AND DIPHTHERIA TOX/PF 0.5 ML DISP.SYRIN IM SCH (15:15)
[2022-01-21] MEDS: Transdermal Patch Removal TOP SCH (21:15)
[2022-01-22] MEDS: Morphine IR Tab 15 MG TAB PO PRN ×4 (03:11→20:21)
[2022-01-22] MEDS: Morphine ER 30 MG TAB PO SCH ×2 (09:07→20:21)
[2022-01-22] MEDS: Polyethylene Glycol 3350 17 GM Packet PO SCH (09:09)
[2022-01-22] MEDS: Senokot S 8.6-50 MG TAB PO SCH ×2 (09:09→20:21)
[2022-01-22] MEDS: Lidocaine 5% Patch TD SCH (09:09)
[2022-01-22] MEDS: Aspirin 81 mg Enteric Coated Tablet PO SCH ×2 (09:09→20:20)
[2022-01-22] MEDS ORDERED: fentaNYL Citrate/PF 2,000 MCG in Sodium Chloride 0.9% 60 ML IV PRN (12:50)
[2022-01-22] MEDS: Dexamethasone 0.5 MG/5 ML UDCUP PO SCH ×2 (17:00→20:19)
[2022-01-22] MEDS: Transdermal Patch Removal TOP SCH (20:22)
[2022-01-22] MEDS ORDERED: Acetaminophen 325 MG TAB PO PRN (21:22)
[2022-01-22] MEDS ORDERED: Sodium Chloride 0.9% 500 ML IV SCH (22:30)
[2022-01-22 23:09] LABS: Calcium 8.1 mg/dL (7.8-10.44)
[2022-01-22 23:14] LABS: Troponin I Less than 0.010 ng/mL (< 0.028)
[2022-01-22] MEDS ORDERED: PHOS-NAK 1 PKT PACK PO SCH (23:45)
[2022-01-23] MEDS ORDERED: Pantoprazole 40 MG VIAL IVP SCH (00:30)
[2022-01-23] MEDS: Morphine IR Tab 15 MG TAB PO PRN ×4 (00:50→22:40)
[2022-01-23 05:34] LABS: ALT (SGPT) 10 U/L (8-55); AST (SGOT) 45 U/L (5-34); Albumin 3.2 g/dL (3.5-5.0); Alkaline Phosphatase 132 U/L (40-110); Anion Gap 10 mmol/L (10-20); BUN (Urea Nitrogen) 6 mg/dL (9.8-20.1); Bilirubin, Total 0.5 mg/dL (0.2-1.2); Calc. Creatinine Clearance 102 mL/min (70-130); Calcium 8.1 mg/dL (7.8-10.44); Carbon Dioxide 22 mmol/L (22-29); Chloride 106 mmol/L (98-107); Globulin 2.5 g/dL (2.4-3.5); Glucose 100 mg/dL (70-105); Protein, Total 5.7 g/dL (6.0-8.3); Sodium 134 mmol/L (136-145)
[2022-01-23 05:41] LABS: Band 2 % (5-11); Eosinophils 1 % (0-10); Hemoglobin 7.5 g/dL (12.0-16.0); Hypochromia SLIGHT = 6-15 cells (100X) (0-5/hpf); Lymphocytes 17 % (21-51); MDiff Complete? YES; Mean Corpuscular HGB CONC 32.2 g/dL (32.0-36.0); Mean Corpuscular Hemoglobin 27.2 pg (27.0-31.0); Mean Corpuscular Volume 84.4 fL (78.0-98.0); Mean Platelet Volume 7.2 fL (7.4-10.4); Monocytes 22 % (0-10); Neutrophil 58 % (42-75); Platelet Count 171 thou/uL (130-400); Platelet Morphology Comment Appears Adequate; RBC Distribution Width 19.1 % (11.5-14.5); Red Blood Cell (RBC) Count 2.77 mill/uL (4.20-5.40); White Blood Cell (WBC) Count 4.3 thou/uL (4.8-10.8)
[2022-01-23] MEDS: Lidocaine 5% Patch TD SCH (09:36)
[2022-01-23] MEDS: Polyethylene Glycol 3350 17 GM Packet PO SCH (09:36)
[2022-01-23] MEDS: Aspirin 81 mg Enteric Coated Tablet PO SCH ×2 (09:36→20:27)
[2022-01-23] MEDS: Senokot S 8.6-50 MG TAB PO SCH ×2 (09:37→20:27)
[2022-01-23] MEDS: Morphine ER 30 MG TAB PO SCH ×2 (09:37→20:27)
[2022-01-23] MEDS: Dexamethasone 0.5 MG/5 ML UDCUP PO SCH ×4 (09:38→20:34)
[2022-01-23 10:25] LABS: Free T4 (Free Thyroxine) 1.01 ng/dL (0.70-1.48); Thyroid Stimulating Hormone 2.5303 uIU/mL (0.35-4.94)
[2022-01-23] MEDS: Transdermal Patch Removal TOP SCH (20:33)
[2022-01-24] MEDS: Morphine IR Tab 15 MG TAB PO PRN ×3 (03:41→14:53)
[2022-01-24] MEDS ORDERED: Pantoprazole 40 MG VIAL IVP SCH (09:00)
[2022-01-24] MEDS: fentaNYL 75 mcg/hour Patch TD SCH (10:10)
[2022-01-24] MEDS: fentaNYL 100 mcg/hour Patch TD SCH (10:11)
[2022-01-24] MEDS: Lidocaine 5% Patch TD SCH (10:13)
[2022-01-24] MEDS: Morphine ER 30 MG TAB PO SCH (10:14)
[2022-01-24] MEDS: Polyethylene Glycol 3350 17 GM Packet PO SCH (10:14)
[2022-01-24] MEDS: Senokot S 8.6-50 MG TAB PO SCH (10:14)
[2022-01-24] MEDS: Aspirin 81 mg Enteric Coated Tablet PO SCH (10:14)
[2022-01-24] MEDS: Dexamethasone 0.5 MG/5 ML UDCUP PO SCH ×2 (10:15→13:01)
[2022-01-24 13:39] VITALS: BP 118/75; TEMP 98.3
== END 2022-01-24 15:00 | disposition home or self-care (01) | DRG 493 ==
LOC: SDC 10:30 → SURG A 15:11 → OBSVTOIN 01-22 15:26
PROVIDERS: ADMIT Orthopaedic Surgery; ATTEND Orthopaedic Surgery
PROC: 0PSG06Z Reposition Left Humeral Shaft with Intramedullary Internal Fixation Device, Open Approach (ICD-10-PCS; principal; 2022-01-22)
DX: M84.522A Pathological fracture in neoplastic disease, left humerus, initial encounter for fracture (principal); C79.51 Secondary malignant neoplasm of bone; Z20.822 Contact with and (suspected) exposure to COVID-19; C50.919 Malignant neoplasm of unspecified site of unspecified female breast; Z96.642 Presence of left artificial hip joint; F41.9 Anxiety disorder, unspecified; M19.90 Unspecified osteoarthritis, unspecified site; G89.29 Other chronic pain; F32.A Depression, unspecified; R00.0 Tachycardia, unspecified; Z79.899 Other long term (current) drug therapy; Z79.52 Long term (current) use of systemic steroids; Z90.89 Acquired absence of other organs; Z90.710 Acquired absence of both cervix and uterus; Z98.890 Other specified postprocedural states; Z82.49 Family history of ischemic heart disease and other diseases of the circulatory system; Z80.9 Family history of malignant neoplasm, unspecified
CPT/HCPCS: 36415; 76000; 80053; 82310; 83735; 84100; 84132; 84439; 84443; 84481; 84484; 85025; 93005; 93010; 93306; 96374; 96375; 96376; C1713; C1776; C9113; G0378; J0690; J1170; J1885; J2250; J2405; J2550; J2704; J3010; J3490; J7030

== ENCOUNTER 2022-02-15 21:25 | Inpatient (IN) | payer MEDICARE, MEDICAID ==
[2022-02-15 22:45] LABS: Bacteria/HPF None Seen HPF (None Seen); Bilirubin Negative (Negative); Blood, Urine Trace (Negative); Clarity Clear (Clear); Glucose, Urine (Dipstick) 200 mg/dL (Negative); Ketone, Urine 100 mg/dL (Negative); Leukocyte Negative Leu/uL (Negative); Nitrite Negative (Negative); Protein, Urine (Dipstick) 70 mg/dL (Neg-Trace); RBC/HPF 0-3 HPF (0-3); Specific Gravity, Urine 1.019 (1.002-1.036); Squamous Epithelial None Seen HPF (0-3); Urobilinogen Normal mg/dL (Less than 2); WBC/HPF 0-3 HPF (0-3); pH, Urine 6.5 (5.0-9.0)
[2022-02-15 23:11] LABS: #Lymphocytes 0.6 thou/uL (1.20-3.40); #Monocytes 0.3 thou/uL (0.11-0.59); #Neutrophils 3.4 thou/uL (1.40-6.50); %Basophils 0.5 % (0.0-1.0); %Eosinophils 0.8 % (0.0-10.0); %Lymphocytes 14.5 % (21.0-51.0); %Monocytes 7.4 % (0.0-10.0); %Neutrophils 76.8 % (42.0-75.0); Hemoglobin 10.4 g/dL (12.0-16.0); Mean Corpuscular HGB CONC 31.3 g/dL (32.0-36.0); Mean Corpuscular Hemoglobin 25.7 pg (27.0-31.0); Mean Platelet Volume 7.5 fL (7.4-10.4); Platelet Count 271 thou/uL (130-400); RBC Distribution Width 18.8 % (11.5-14.5); Red Blood Cell (RBC) Count 4.03 mill/uL (4.20-5.40); White Blood Cell (WBC) Count 4.4 thou/uL (4.8-10.8)
[2022-02-15 23:33] LABS: ALT (SGPT) 35 U/L (8-55); AST (SGOT) 70 U/L (5-34); Albumin 4.5 g/dL (3.5-5.0); Alkaline Phosphatase 146 U/L (40-110); Anion Gap 17 mmol/L (10-20); BUN (Urea Nitrogen) 8 mg/dL (9.8-20.1); Bilirubin, Total 0.6 mg/dL (0.2-1.2); Calc. Creatinine Clearance 0 mL/min (70-130); Calcium 8.7 mg/dL (7.8-10.44); Carbon Dioxide 16 mmol/L (22-29); Chloride 97 mmol/L (98-107); Globulin 3.3 g/dL (2.4-3.5); Glucose 112 mg/dL (70-105); Protein, Total 7.8 g/dL (6.0-8.3); Sodium 126 mmol/L (136-145)
[2022-02-16 02:35] LABS: Anion Gap 16 mmol/L (10-20); BUN (Urea Nitrogen) 6 mg/dL (9.8-20.1); Calc. Creatinine Clearance 0 mL/min (70-130); Calcium 7.9 mg/dL (7.8-10.44); Carbon Dioxide 12 mmol/L (22-29); Chloride 100 mmol/L (98-107); Glucose 93 mg/dL (70-105); Potassium 3.8 mmol/L (3.5-5.1); Sodium 124 mmol/L (136-145)
[2022-02-16] MEDS ORDERED: Morphine 4 MG/ML VIAL ONE ×2 (04:07→08:36)
[2022-02-16] MEDS ORDERED: Acetaminophen 650 MG Suppository PR PRN (05:15)
[2022-02-16] MEDS ORDERED: Ondansetron ODT 4 MG TAB PO PRN (05:15)
[2022-02-16] MEDS ORDERED: Ondansetron PF 4 MG/2 ML Vial IVP PRN (05:15)
[2022-02-16] MEDS ORDERED: Acetaminophen 325 MG TAB PO PRN (05:15)
[2022-02-16 05:30] LABS: SARS-CoV-2 NAA Rapid Test Not Detected (NotDetected)
[2022-02-16] MEDS ORDERED: Dexamethasone 10 MG/ML VIAL SLOW IVP SCH (06:29)
[2022-02-16 06:34] VITALS: BMI 15.3
[2022-02-16] MEDS ORDERED: Dexamethasone 4 mg/ml Vial ONE (07:00)
[2022-02-16] MEDS ORDERED: D5 IV SCH (07:15)
[2022-02-16] MEDS ORDERED: KCL IV SCH (07:15)
[2022-02-16] MEDS ORDERED: 1/2 NS W IV SCH (07:15)
[2022-02-16] MEDS ORDERED: SODIUM BICARBONATE IV SCH ×2 (07:15→07:30)
[2022-02-16] MEDS ORDERED: POTASSIUM CHLORIDE IV SCH (07:30)
[2022-02-16] MEDS ORDERED: [UNRECOGNIZED DRUG - OTHER] IV SCH (07:30)
[2022-02-16] MEDS ORDERED: Enoxaparin Sodium 40 MG/0.4 ML SYRINGE SC SCH (09:00)
[2022-02-16] MEDS: Pantoprazole 40 MG VIAL IVP SCH (09:35)
[2022-02-16] MEDS ORDERED: fentaNYL 100 mcg/hour Patch TD SCH ×2 (13:15→14:30)
[2022-02-16] MEDS ORDERED: fentaNYL 75 mcg/hour Patch TD SCH (13:15)
[2022-02-16] MEDS: Dexamethasone 4 mg/ml Vial SLOW IVP SCH ×3 (13:40→22:56)
[2022-02-16] MEDS ORDERED: Ondansetron ODT 8 MG TAB PO PRN (14:08)
[2022-02-16 15:57] LABS: Potassium, Urine Less than 10.0 mmol/L; Sodium, Urine 33 mmol/L (Not Available)
[2022-02-16] MEDS: Morphine IR Tab 15 MG TAB PO PRN ×2 (16:49→22:42)
[2022-02-16] MEDS ORDERED: BIOTENE MOUTH SPRAY 44.3 ML MM PRN (17:28)
[2022-02-16] MEDS: Morphine ER 30 MG TAB PO SCH (20:17)
[2022-02-16] MEDS: Albumin 25% 25 GM/100 ML BOT IVPB SCH (22:43)
[2022-02-17] MEDS: Albumin 25% 25 GM/100 ML BOT IVPB SCH ×4 (04:44→21:23)
[2022-02-17] MEDS: Morphine IR Tab 15 MG TAB PO PRN ×4 (04:58→23:43)
[2022-02-17 05:05] LABS: #Lymphocytes 0.6 thou/uL (1.20-3.40); #Monocytes 0.1 thou/uL (0.11-0.59); #Neutrophils 2.5 thou/uL (1.40-6.50); %Basophils 0.9 % (0.0-1.0); %Eosinophils 0.5 % (0.0-10.0); %Lymphocytes 18.8 % (21.0-51.0); %Monocytes 2.6 % (0.0-10.0); %Neutrophils 77.2 % (42.0-75.0); Hemoglobin 8.5 g/dL (12.0-16.0); Mean Corpuscular HGB CONC 32.9 g/dL (32.0-36.0); Mean Corpuscular Hemoglobin 26.2 pg (27.0-31.0); Mean Corpuscular Volume 79.8 fL (78.0-98.0); Mean Platelet Volume 7.3 fL (7.4-10.4); Platelet Count 261 thou/uL (130-400); RBC Distribution Width 18.7 % (11.5-14.5); Red Blood Cell (RBC) Count 3.25 mill/uL (4.20-5.40); White Blood Cell (WBC) Count 3.2 thou/uL (4.8-10.8)
[2022-02-17 05:22] LABS: Anion Gap 14 mmol/L (10-20); BUN (Urea Nitrogen) 13 mg/dL (9.8-20.1); Calc. Creatinine Clearance 63 mL/min (70-130); Calcium 8.5 mg/dL (7.8-10.44); Carbon Dioxide 19 mmol/L (22-29); Chloride 105 mmol/L (98-107); Glucose 156 mg/dL (70-105); Potassium 3.8 mmol/L (3.5-5.1); Sodium 134 mmol/L (136-145)
[2022-02-17] MEDS: Dexamethasone 4 mg/ml Vial SLOW IVP SCH ×4 (05:47→23:42)
[2022-02-17] MEDS: Morphine ER 30 MG TAB PO SCH ×2 (07:45→21:22)
[2022-02-17] MEDS: Pantoprazole 40 MG VIAL IVP SCH (07:45)
[2022-02-17] MEDS: Senokot S 8.6-50 MG TAB PO SCH ×2 (07:46→21:22)
[2022-02-17] MEDS: Polyethylene Glycol 3350 17 GM Packet PO SCH (07:46)
[2022-02-18] MEDS: Morphine IR Tab 15 MG TAB PO PRN ×3 (03:28→13:52)
[2022-02-18] MEDS: Dexamethasone 4 mg/ml Vial SLOW IVP SCH ×2 (05:46→12:10)
[2022-02-18] MEDS: Morphine ER 30 MG TAB PO SCH (08:13)
[2022-02-18] MEDS: Senokot S 8.6-50 MG TAB PO SCH (08:13)
[2022-02-18] MEDS: Pantoprazole 40 MG VIAL IVP SCH (08:16)
[2022-02-18] MEDS: Polyethylene Glycol 3350 17 GM Packet PO SCH (08:16)
[2022-02-18 08:40] VITALS: BP 104/66; TEMP 98
[2022-02-18 12:52] LABS: Anion Gap 14 mmol/L (10-20); BUN (Urea Nitrogen) 17 mg/dL (9.8-20.1); Calc. Creatinine Clearance 65 mL/min (70-130); Calcium 8.8 mg/dL (7.8-10.44); Carbon Dioxide 20 mmol/L (22-29); Chloride 105 mmol/L (98-107); Glucose 117 mg/dL (70-105); Potassium 4.1 mmol/L (3.5-5.1); Sodium 135 mmol/L (136-145)
== END 2022-02-18 14:32 | disposition home health service (06) | DRG 64 ==
LOC: ERS 21:25 → IMCU/EMU 02-16 04:10 → T4-B 02-17 13:32
PROVIDERS: ADMIT Internal Medicine; ATTEND Internal Medicine
DX: I61.4 Nontraumatic intracerebral hemorrhage in cerebellum (principal); Z66 Do not resuscitate; Z20.822 Contact with and (suspected) exposure to COVID-19; Z51.5 Encounter for palliative care; G93.41 Metabolic encephalopathy; E43 Unspecified severe protein-calorie malnutrition; E87.1 Hypo-osmolality and hyponatremia; Z68.1 Body mass index [BMI] 19.9 or less, adult; E87.2 Acidosis; G91.1 Obstructive hydrocephalus; C79.31 Secondary malignant neoplasm of brain; C79.51 Secondary malignant neoplasm of bone; C78.02 Secondary malignant neoplasm of left lung; C78.01 Secondary malignant neoplasm of right lung; D63.8 Anemia in other chronic diseases classified elsewhere; R13.10 Dysphagia, unspecified; Z96.642 Presence of left artificial hip joint; F31.9 Bipolar disorder, unspecified; C50.919 Malignant neoplasm of unspecified site of unspecified female breast; E87.8 Other disorders of electrolyte and fluid balance, not elsewhere classified; G47.00 Insomnia, unspecified; Z79.899 Other long term (current) drug therapy; Z28.21 Immunization not carried out because of patient refusal; Z79.82 Long term (current) use of aspirin; Z90.89 Acquired absence of other organs; Z90.710 Acquired absence of both cervix and uterus
CPT/HCPCS: 36415; 36416; 70450; 71045; 80048; 80053; 81003; 81015; 82436; 83930; 83935; 84133; 84300; 85025; 87040; 87086; 93005; 96374; C9113; J1100; J2270; P9047; Q0162; U0002

== ENCOUNTER 2022-04-06 23:40 | Emergency (ER) | payer MEDICARE, MEDICAID ==
[2022-04-07 01:32] LABS: Hemoglobin 4.1 g/dL (12.0-16.0); Mean Corpuscular HGB CONC 33.5 g/dL (32.0-36.0); Mean Corpuscular Hemoglobin 32.1 pg (27.0-31.0); Platelet Count 89 thou/uL (130-400); RBC Distribution Width 29.1 % (11.5-14.5); Red Blood Cell (RBC) Count 1.27 mill/uL (4.20-5.40); White Blood Cell (WBC) Count 7.1 thou/uL (4.8-10.8)
[2022-04-07 01:40] LABS: ALT (SGPT) 180 U/L (8-55); AST (SGOT) 271 U/L (5-34); Albumin 3.2 g/dL (3.5-5.0); Alkaline Phosphatase 97 U/L (40-110); Anion Gap 18 mmol/L (10-20); BUN (Urea Nitrogen) 49 mg/dL (9.8-20.1); Bilirubin, Total 0.8 mg/dL (0.2-1.2); Calc. Creatinine Clearance 0 mL/min (70-130); Calcium 7.3 mg/dL (7.8-10.44); Carbon Dioxide 20 mmol/L (22-29); Chloride 95 mmol/L (98-107); Globulin 1.9 g/dL (2.4-3.5); Glucose 237 mg/dL (70-105); Magnesium 2.9 mg/dL (1.6-2.6); Potassium 4.8 mmol/L (3.5-5.1); Protein, Total 5.1 g/dL (6.0-8.3); Sodium 128 mmol/L (136-145)
[2022-04-07 01:49] LABS: Bilirubin Negative (Negative); Blood, Urine Trace (Negative); Clarity Turbid (Clear); Glucose, Urine (Dipstick) Normal (Negative); Ketone, Urine 10 mg/dL (Negative); Leukocyte 250 Leu/uL (Negative); Nitrite Negative (Negative); Protein, Urine (Dipstick) 30 mg/dL (Neg-Trace); Specific Gravity, Urine 1.026 (1.002-1.036); Squamous Epithelial None Seen HPF (0-3); Urobilinogen Normal mg/dL (Less than 2); pH, Urine 5.5 (5.0-9.0)
[2022-04-07 01:52] LABS: Bacteria/HPF 4+ HPF (None Seen); RBC/HPF 0-3 HPF (0-3); WBC/HPF 0-3 HPF (0-3)
[2022-04-07 02:01] LABS: Anisocytosis MODERATE=16-30 cells (100X) (0-5/hpf); Band 17 % (5-11); Lymphocytes 25 % (21-51); MDiff Complete? YES; Metamyelocyte 1 % (0-0); Monocytes 6 % (0-10); Myelocyte 2 % (0-0); Neutrophil 49 % (42-75); Nucleated RBC 34 % (0); Platelet Morphology Comment Appears Decreased; Polychromasia SLIGHT = 2-3 cells (100X) (0-2/hpf)
[2022-04-07] MEDS ORDERED: cefTRIAXone\\ROCEPHIN 1 GM VIAL ONE (02:55)
== END 2022-04-07 04:12 | disposition home or self-care (01) ==
LOC: ERS 23:40
DX: N39.0 Urinary tract infection, site not specified (principal); C79.81 Secondary malignant neoplasm of breast; D61.818 Other pancytopenia; Z79.899 Other long term (current) drug therapy
CPT/HCPCS: 51701; 70450; 71045; 80053; 81003; 81015; 82140; 83605; 83735; 84484; 85025; 93005; 96365; J0696